=== PATIENT | male | born 1935 | race Caucasian/White ===

== ENCOUNTER 2020-06-23 08:12 | Outpatient (REF) | payer MEDICARE, SELFPAY | END 2020-06-23 08:13 | disposition home or self-care (01) | LOC: HO.BBR 08:12 | PROVIDERS: PCP Nurse Practitioner Family; Visit Provider Internal Medicine Hematology & Oncology | DX: E83.110 Hereditary hemochromatosis (principal) | CPT/HCPCS: 99195 ==

== ENCOUNTER 2020-07-15 16:14 | Outpatient (REF) | payer MEDICARE, SELFPAY | END 2020-07-15 16:15 | disposition home or self-care (01) | LOC: HO.LAB 16:14 | PROVIDERS: PCP Nurse Practitioner Family; Visit Provider Internal Medicine | DX: Z20.828 Contact with and (suspected) exposure to other viral communicable diseases (principal) | CPT/HCPCS: C9803; U0003 ==

== ENCOUNTER 2020-07-20 08:11 | Outpatient (REF) | payer MEDICARE, SELFPAY | END 2020-07-20 08:12 | disposition home or self-care (01) | LOC: HO.BBR 08:11 | PROVIDERS: Visit Provider Internal Medicine Hematology & Oncology | DX: Z13.89 Encounter for screening for other disorder (principal) ==

== ENCOUNTER 2020-08-17 08:21 | Outpatient (REF) | payer MEDICARE, SELFPAY | END 2020-08-17 08:22 | disposition home or self-care (01) | LOC: HO.BBR 08:21 | PROVIDERS: Visit Provider Internal Medicine Hematology & Oncology | DX: E83.110 Hereditary hemochromatosis (principal) | CPT/HCPCS: 36415 ==

== ENCOUNTER → 2020-09-20 10:39 | Outpatient (REF) | payer MEDICARE, SELFPAY ==
--- NOTE | 2020-09-20 10:30 | CA_ITS ---
Transthoracic Echocardiogram Patient (Last, First, Middle): Raad Dewitt W Gender: Male Date of : 1935 Age: 85 Procedure Date: 09/20/2020 Procedure Type: Transthoracic Echocardiogram Location: OP Height: 180.34 cm Weight: 102.06 kg BSA: 2.22 m2 Heart Rate: bpm BP: 128 / 80 mmHg Master Planner: Referring MD: Dawson Black MD Symptoms: AORTIC STENOSIS Study Quality: Fair ECG Rhythm: Sinus Conclusions: - The left ventricular systolic function is normal. The visually estimated ejection fraction is between 60-65%. - There is moderate aortic valve stenosis. Findings Left Ventricle Normal left ventricular cavity size. There is moderately increased left ventricular wall thickness. The left ventricular systolic function is normal. The visually estimated ejection fraction is between 60-65%. There is no evidence of regional wall motion abnormalities. E/E prime ratio is between 8 and 15 consistent with indeterminate filling pressures. Evidence suggests grade I (mild) diastolic dysfunction. Right Ventricle Normal right ventricular cavity size and systolic function. Atria Both atria are normal in size. Aortic Valve There is moderate calcification of the aortic valve. There is moderate aortic valve stenosis. The peak aortic velocity is 2.71 m/s with a calculated peak gradient of 29 mmHg. The mean gradient is 17 mmHg. The aortic valve area is 1.29 cm2. There is mild aortic valve regurgitation. Mitral Valve There is mild mitral annular calcification. There is trace mitral valve regurgitation. There is no mitral valve stenosis. Pulmonic Valve The pulmonic valve was not well visualized. Tricuspid Valve Normal tricuspid valve structure. There is trace tricuspid valve regurgitation. The pulmonary artery systolic pressure is normal. Great Vessels The aortic annulus and asc aorta are normal in size. Venous The inferior vena cava is normal in size and collapses greater than 50% with inspiration. Pericardium/Pleural There is no evidence of pericardial effusion. Prior Study Comparison No significant change compared to prior study dated: 06/06/2019. Measurements 2D Linear Measurements IVSd: 1.32 0.6-0.9/0.6-1.0 cm LVIDd: 3.26 3.9-5.3/4.2-5.9 cm LVIDd Index: 1.47 2.4-3.2/2.2-3.1 cm/m2 LVIDs: 1.84 2.0-3.6 cm LVPWd: 1.39 0.7-1.1 cm Ao Root: 2.90 2.1-3.5 cm LA Diam: 4.60 2.7-3.8/3.0-4.0 cm LAIDs Index: 2.07 1.5-2.3 cm/m2 LV Mass: 185.26 67-162/88-224 g LV Mass Index: 83.45 43-95/49-115 g/m2 LVOT Diam: 2.00 3.0+(-)1.3 cm 2D Systolic Function EF 4C: 64.40 >55% EF 2C: 57.10 >55% EF BiP: 60.10 >55% Mitral Valve MV Pk E: 0.80 MV PK A: 1.33 MV Decel Time: 190.00 E/A: 0.60 E'Lateral: 6.77 E'Medial: 6.67 E/E' Med: 12.00 E/E' Lat: 11.80 PHT: 56.00 MVA PHT: 3.93 Decel [place]: 4.21 Aortic Valve AoV Pk Perry: 2.71 AoV Mn Perry: 1.97 AoV VTI: 0.59 AoV Pk Grad: 29.00 Aov Mn Grad: 17.00 KARISSA Cont.VTI: 1.29 LVOT LVOT Pk Perry: 0.99 LVOT Mn Perry: 0.76 LVOT VTI: 0.24 LVOT Pk Grad: 4.00 LVOT Mn Grad: 3.00 LVOT Diam: 2.00 LVOT Area: 3.14 Diastolic Function MV Pk E: 0.80 MV Pk A: 1.33 E/A: 0.60 E'Medial: 6.67 E/E' Med: 12.00 E' Laterial: 6.77 E/E' Lat: 11.80 Tricuspid Valve TR Pk Perry: 1.99 TR Pk Grad: 16.00 RA Press: 3.00 RVSP: 19.00 Great Vessels Aorta Ao Root-2D: 2.90 2.0-3.7 cm Ao Asc: 3.50 2.1-3.4 cm Pulmonary Valve PV Pk Perry: 1.14 Peak PV Grad: 5.00 Updated in Other Vendor System with Status of Final Valdo Murphy MD electronically signed on 09/20/2020 4:57:04 PM with status of Final
== END ==
LOC: HO.CARD 10:39
PROVIDERS: Visit Provider Internal Medicine Interventional Cardiology
DX: I35.0 Nonrheumatic aortic (valve) stenosis (principal)
CPT/HCPCS: 93306

== ENCOUNTER 2020-09-22 09:33 | Outpatient (REF) | payer MEDICARE, SELFPAY | END 2020-09-22 09:34 | disposition home or self-care (01) | LOC: HO.BBR 09:33 | PROVIDERS: Visit Provider Internal Medicine Hematology & Oncology | DX: Z13.89 Encounter for screening for other disorder (principal) ==

== ENCOUNTER 2020-09-22 10:27 | Outpatient (REF) | payer SELFPAY ==
[2020-09-22 12:18] LABS: Cholesterol 173 mg/dL
== END 2020-09-22 10:28 | disposition home or self-care (01) ==
LOC: HO.LNC 10:27
PROVIDERS: Visit Provider Pathology Anatomic Pathology & Clinical Pathology
DX: Z13.89 Encounter for screening for other disorder (principal)
CPT/HCPCS: 36415; 82465

== ENCOUNTER 2021-01-10 10:53 | Outpatient (REF) | payer MEDICARE, SELFPAY ==
--- NOTE | ~2021-01-10 | CT_ITS ---
EXAMINATION: CT ABDOMEN AND PELVIS WITHOUT CONTRAST CLINICAL INFORMATION: Hematuria COMPARISON: None TECHNIQUE: Multidetector volumetric imaging was performed from the superior aspect of the liver through the pubic symphysis. Sagittal and coronal reformatted images were obtained on the technologist's workstation. This CT examination was performed using dose optimization techniques as appropriate, variously including the following: *Automated exposure control *Adjustment of mA and/or kV according to patient size (this includes techniques or standardized protocols for targeted exams where dose is matched to indication/reason for exam; i.e. extremities or head) *Use of iterative reconstruction technique DLP: 611 mGy-cm FINDINGS: LUNG BASES: The visualized lung bases are clear. There is a EXHAUST TENDER shunt catheter seen in the soft tissues of the right anterior chest wall. LIVER, GALLBLADDER, AND BILIARY TREE: The liver is normal in size, shape, and attenuation. No focal hepatic lesion or biliary ductal dilatation is present. The gallbladder is unremarkable with no evidence of radiopaque gallstones, gallbladder wall thickening, or obvious pericholecystic inflammatory changes. PANCREAS: Unremarkable. SPLEEN: Unremarkable. ADRENAL GLANDS: Unremarkable. KIDNEYS AND URETERS: The kidneys are normal in size, shape, and attenuation. No hydronephrosis, hydroureter, or calculi seen. No perinephric stranding. BLADDER: The bladder is not optimally distended. There is a small 3 mm calcification in the bladder near the right UVJ region suggestive of a stone. There is also question of a partially calcified 8 mm lesion arising from the right lateral bladder wall. GASTROINTESTINAL TRACT: There is diverticulosis of the colon. Small and large bowel is otherwise unremarkable. The appendix is not seen. The stomach is normal. The end of the EXHAUST TENDER shunt catheter is seen in the right side of the abdomen. ABDOMINAL WALL: There is a small umbilical hernia containing fat. LYMPH NODES: Normal. VASCULAR: Unremarkable. PELVIC VISCERA: The prostate gland is enlarged and measures 5 cm in AP and transverse dimension. OSSEOUS STRUCTURES: There are degenerative changes of the spine. CT/CT abdomen pelvis wo con IMPRESSION: 3 mm calcification in the bladder suggestive of a stone. Question partially calcified 8 mm lesion arising from the right lateral bladder wall. Appearance is concerning for neoplasm. Follow-up lateral ultrasound or a CT IVP could be considered. Enlarged prostate gland. Diverticulosis of the colon. No evidence of diverticulitis.
== END 2021-01-10 10:54 | disposition home or self-care (01) ==
LOC: HO.CT 10:53
PROVIDERS: PCP Nurse Practitioner Family; Visit Provider Nurse Practitioner Family
DX: R31.9 Hematuria, unspecified (principal)
CPT/HCPCS: 74176

== ENCOUNTER → 2021-01-28 13:31 | Outpatient (BNVA) | payer MEDICARE, OTHER, SELFPAY | PROVIDERS: PCP Nurse Practitioner Family; Visit Provider Urology | DX: Z13.89 Encounter for screening for other disorder (principal) | CPT/HCPCS: 99212 ==

== ENCOUNTER 2021-07-25 10:03 | Outpatient (REF) | payer MEDICARE, SELFPAY ==
--- NOTE | ~2021-07-25 | US_ITS ---
EXAMINATION: US RETROPERITONEAL LIMITED (RENAL ONLY) CLINICAL INFORMATION: Calculus of kidney COMPARISON: CT abdomen and pelvis 01/10/2021 TECHNIQUE: Real-time imaging of the kidneys. FINDINGS: RIGHT KIDNEY: 10.7 x 5.9 x 4.8 cm (SAG x AP x TRV). The kidney is normal in size, contour, and echogenicity. Renal cortical thickness is normal. No calculi or focal parenchymal lesions. No hydronephrosis. LEFT KIDNEY: 10.7 x 4.9 x 4.8 cm (SAG x AP x TRV). The kidney is normal in size, contour, and echogenicity. Renal cortical thickness is normal. No focal parenchymal lesions or hydronephrosis. There is an echogenic stone in the upper pole measuring 0.35 x 0.3 cm. There is no caliectasis. No additional lesions seen. US/US renal BI IMPRESSION: Small nonobstructive echogenic renal calculi upper pole left kidney. There is no caliectasis or hydronephrosis. No calculi was seen on the recent CT abdomen exam 01/10/2021.
== END 2021-07-25 10:04 | disposition home or self-care (01) ==
LOC: HO.US 10:03
PROVIDERS: PCP Nurse Practitioner Family; Visit Provider Urology
DX: N20.0 Calculus of kidney (principal)
CPT/HCPCS: 76775

== ENCOUNTER → 2021-08-02 13:24 | Outpatient (BNVA) | payer MEDICARE, SELFPAY | PROVIDERS: PCP Nurse Practitioner Family; Visit Provider Urology | DX: Z13.89 Encounter for screening for other disorder (principal) | CPT/HCPCS: Q3014 ==

== ENCOUNTER 2021-08-16 08:06 | Outpatient (REF) | payer MEDICARE, SELFPAY ==
[2021-08-16 08:55] LABS: COVID-19 Test Negative (Negative); IDNOW Serial# 16C4AD1C
== END 2021-08-16 08:07 | disposition home or self-care (01) ==
LOC: HO.LAB 08:06
PROVIDERS: PCP Nurse Practitioner Family; Visit Provider Internal Medicine
DX: Z20.822 Contact with and (suspected) exposure to COVID-19 (principal)
CPT/HCPCS: 36415; 87635; C9803

== ENCOUNTER 2021-11-10 09:13 | Outpatient (REF) | payer MEDICARE, SELFPAY | END 2021-11-10 09:14 | disposition home or self-care (01) | LOC: HO.BBR 09:13 | PROVIDERS: Visit Provider Internal Medicine | DX: D75.1 Secondary polycythemia (principal) | CPT/HCPCS: 85018; 99195 ==

== ENCOUNTER 2022-02-06 10:19 | Outpatient (REF) | payer MEDICARE, SELFPAY ==
--- NOTE | ~2022-02-06 | US_ITS ---
EXAMINATION: US RETROPERITONEAL LIMITED (RENAL ONLY) CLINICAL INFORMATION: Calculus of kidney. COMPARISON: US retroperitoneal limited (renal only) 07/25/2021. CT abdomen and pelvis without contrast 01/10/2021. TECHNIQUE: Real-time imaging of the kidneys. FINDINGS: RIGHT KIDNEY: 10.9 x 5.6 x 6.2 cm (SAG x AP x TRV). The kidney is normal in size, contour, and echogenicity. Renal cortical thickness is normal. No calculi or focal parenchymal lesions. No hydronephrosis. LEFT KIDNEY: 11.3 x 4.9 x 4.4 cm (SAG x AP x TRV). The kidney is normal in size, contour, and echogenicity. Renal cortical thickness is normal. No calculi or focal parenchymal lesions. No hydronephrosis. US/US renal BI IMPRESSION: Normal renal ultrasound.
== END 2022-02-06 10:20 | disposition home or self-care (01) ==
LOC: HO.US 10:19
PROVIDERS: PCP Nurse Practitioner Family; Visit Provider Urology
DX: N20.0 Calculus of kidney (principal)
CPT/HCPCS: 76775

== ENCOUNTER → 2022-02-16 09:16 | Outpatient (BNVA) | payer MEDICARE, SELFPAY | PROVIDERS: PCP Nurse Practitioner Family; Visit Provider Urology | DX: N40.1 Benign prostatic hyperplasia with lower urinary tract symptoms (principal); N13.8 Other obstructive and reflux uropathy; R31.0 Gross hematuria; N20.0 Calculus of kidney | CPT/HCPCS: 51798; 99212 ==

== ENCOUNTER → 2022-03-07 14:05 | Outpatient (BNVA) | payer MEDICARE, SELFPAY | PROVIDERS: PCP Nurse Practitioner Family; Visit Provider Urology | DX: C67.9 Malignant neoplasm of bladder, unspecified (principal); R31.0 Gross hematuria; N20.0 Calculus of kidney | CPT/HCPCS: 52000; 99212 ==

== ENCOUNTER 2022-03-13 08:56 | Outpatient (REF) | payer MEDICARE, SELFPAY | END 2022-03-13 08:57 | disposition home or self-care (01) | LOC: HO.BBR 08:56 | PROVIDERS: Visit Provider Internal Medicine | DX: D75.1 Secondary polycythemia (principal) | CPT/HCPCS: 85018; 99195 ==

== ENCOUNTER 2022-03-22 09:21 | Outpatient (REF) | payer MEDICARE, SELFPAY ==
--- NOTE | ~2022-03-22 | CT_ITS ---
EXAMINATION: CT ABDOMEN AND PELVIS WITHOUT AND WITH CONTRAST CLINICAL INFORMATION: Gross hematuria COMPARISON: Previous CT of the abdomen and pelvis December 2020 and renal ultrasound was recent January 2022 TECHNIQUE: Noncontrast CT of the abdomen and pelvis is performed followed by split bolus contrast-enhanced images using 85 mL Omnipaque 350 contrast.? Postcontrast imaging is performed during the combined nephrogram and excretion phase. Sagittal and coronal reformatted images were obtained on the technologist's workstation for both the precontrast and postcontrast phases. This CT examination was performed using dose optimization techniques as appropriate, variously including the following: *Automated exposure control *Adjustment of mA and/or kV according to patient size (this includes techniques or standardized protocols for targeted exams where dose is matched to indication/reason for exam; i.e. extremities or head) *Use of iterative reconstruction technique DLP: 916 mGy-cm FINDINGS: LUNG BASES: The visualized lung bases are unremarkable. LIVER, GALLBLADDER, AND BILIARY TREE: There is a 5 x 10 mm low-attenuation lesion in the liver axial image 14 series 8. This is difficult to characterize due to small size but unchanged from December 2020 exam suggesting benign liver lesion. PANCREAS: Unremarkable. SPLEEN: Unremarkable. ADRENAL GLANDS: Unremarkable. KIDNEYS AND URETERS: There is a small 2 mm stone in the upper pole of the right kidney. BLADDER: There is a 1.8 x 2.4 cm partially calcified mass along the right lateral bladder wall. The prostate gland is enlarged and protrudes into the base of the bladder. GASTROINTESTINAL TRACT: There is diverticulosis of the colon. Small and large bowel is otherwise unremarkable. The stomach is unremarkable. ABDOMINAL WALL: No significant hernia is appreciated. LYMPH NODES: There are prominent bilateral inguinal lymph nodes. No other adenopathy. No ascites. There is a catheter in the right side of the abdomen and lower anterior chest wall. Probably representing a PATIENT CONSUMER MARKETER shunt catheter. VASCULAR: There is evidence of atherosclerotic disease. PELVIC VISCERA: The prostate gland is enlarged and protrudes into the base of the bladder. The prostate gland measures 4.7 x 5.3 cm in AP and transverse dimension. OSSEUS STRUCTURES: There are degenerative changes of the spine and hip joints. CT/CT urogram IMPRESSION: 1.8 x 2.4 cm partially calcified mass along the right lateral bladder wall suggestive of neoplasm. Enlarged prostate gland that protrudes into the base of the bladder. Small nonobstructing right renal stone. Diverticulosis of the colon. 5 x 10 mm low-attenuation lesion difficult to characterize due to small size but stable from 2020 exam suggesting a benign liver lesion. Findings will be communicated by the [place] work flow medical transport specialist..
[2022-03-22] MEDS: iohexoL 350 MG/ML 100 ML INFUS..BTL 85 ML IV (10:34)
== END 2022-03-22 09:22 | disposition home or self-care (01) ==
LOC: HO.CT 09:21
PROVIDERS: PCP Nurse Practitioner Family; Visit Provider Urology
DX: R31.0 Gross hematuria (principal); C67.9 Malignant neoplasm of bladder, unspecified
CPT/HCPCS: 74178; Q9967

== ENCOUNTER → 2022-03-28 13:18 | Outpatient (BNVA) | payer MEDICARE, SELFPAY | PROVIDERS: PCP Nurse Practitioner Family; Visit Provider Urology | DX: C67.9 Malignant neoplasm of bladder, unspecified (principal) | CPT/HCPCS: Q3014 ==

== ENCOUNTER → 2022-04-27 10:26 | Outpatient (BNVA) | payer MEDICARE, SELFPAY | PROVIDERS: PCP Nurse Practitioner Family; Visit Provider Internal Medicine | DX: Z01.810 Encounter for preprocedural cardiovascular examination (principal); I35.0 Nonrheumatic aortic (valve) stenosis | CPT/HCPCS: 93005; 99202 ==

== ENCOUNTER → 2022-05-16 14:41 | Outpatient (REF) | payer MEDICARE, SELFPAY ==
--- NOTE | 2022-05-16 14:44 | CA_ITS ---
Transthoracic Echocardiogram Patient (Last, First, Middle): Raad Dewitt W Gender: Male Date of : 1935 Age: 86 Procedure Date: 05/16/2022 Procedure Type: Transthoracic Echocardiogram Location: OP Height: 180.34 cm Weight: 97.52 kg BSA: 2.17 m2 Heart Rate: 70 bpm BP: 160 / 78 mmHg Supervisor Calibration: SB Referring MD: Valdo Murphy MD Symptoms: I35.0 - Nonrheumatic aortic (valve) stenosis Study Quality: Adequate w contrast ECG Rhythm: Sinus Conclusions: - The left ventricular systolic function is normal. The calculated ejection fraction is 69% by biplane method - There is moderate aortic valve stenosis. Findings Procedure Information Contrast agent, definity, is being given per protocol without apparent complications. Left Ventricle Normal left ventricular cavity size. The left ventricular systolic function is normal. The calculated ejection fraction is 69% by biplane method. There is no evidence of regional wall motion abnormalities. Diastolic function is normal for age. There is mild septal asymmetric hypertrophy. Right Ventricle Normal right ventricular cavity size and systolic function. Atria Both atria are normal in size. Aortic Valve There is moderate calcification of the aortic valve. There is moderate aortic valve stenosis. The mean gradient is 24 mmHg. The aortic valve area is 1.28 cm2. There is no aortic valve regurgitation. Dimensionless index 0.28. Mitral Valve There is mild mitral annular calcification. There is no mitral valve regurgitation. There is no mitral valve stenosis. Pulmonic Valve The pulmonic valve is likely normal. Tricuspid Valve Normal tricuspid valve structure. There is trace tricuspid valve regurgitation. There is no evidence of pulmonary hypertension. Great Vessels The asc aorta is normal in size. Venous The inferior vena cava is normal in size and collapses less than 50% with inspiration. Pericardium/Pleural Very small pericardial effusion over the right atrium. Prior Study Comparison No significant change compared to prior study dated: 09/20/2020. Measurements 2D Linear Measurements IVSd: 1.15 0.6-0.9/0.6-1.0 cm LVIDd: 4.28 3.9-5.3/4.2-5.9 cm LVIDd Index: 1.97 2.4-3.2/2.2-3.1 cm/m2 LVIDs: 1.96 2.0-3.6 cm LVPWd: 1.01 0.7-1.1 cm LA Diam: 3.80 2.7-3.8/3.0-4.0 cm LAIDs Index: 1.75 1.5-2.3 cm/m2 LV Mass: 196.23 67-162/88-224 g LV Mass Index: 90.43 43-95/49-115 g/m2 LVOT Diam: 2.30 3.0+(-)1.3 cm 2D Systolic Function EF 4C: 64.50 >55% EF 2C: 72.70 >55% EF BiP: 68.80 >55% Mitral Valve MV Pk E: 0.70 MV PK A: 1.23 MV Decel Time: 283.00 E/A: 0.60 E'Lateral: 5.77 E'Medial: 4.57 E/E' Med: 15.40 E/E' Lat: 12.20 PHT: 83.00 MVA PHT: 2.65 Decel [place]: 2.49 Aortic Valve AoV Pk Perry: 3.36 AoV Mn Perry: 2.26 AoV VTI: 0.70 AoV Pk Grad: 45.00 Aov Mn Grad: 24.00 KARISSA Cont.VTI: 1.28 LVOT LVOT Pk Perry: 0.95 LVOT Mn Perry: 0.71 LVOT VTI: 0.22 LVOT Pk Grad: 4.00 LVOT Mn Grad: 3.00 LVOT Diam: 2.30 LVOT Area: 4.15 Diastolic Function MV Pk E: 0.70 MV Pk A: 1.23 E/A: 0.60 E'Medial: 4.57 E/E' Med: 15.40 E' Laterial: 5.77 E/E' Lat: 12.20 Right Ventricle TAPSE (mm): 20.30 TVS' Perry: 8.10 Tricuspid Valve RA Press: 8.00 Great Vessels Aorta Sinus of Valsalva: 3.30 2.0-3.5 cm Ao Asc: 3.60 2.1-3.4 cm Pulmonary Valve PV Pk Perry: 0.62 Peak PV Grad: 2.00 Updated in Other Vendor System with Status of Final Valdo Murphy MD electronically signed on 05/17/2022 10:03:36 AM with status of Final
== END ==
LOC: HO.CARD 14:41
PROVIDERS: PCP Nurse Practitioner Family; Visit Provider Internal Medicine
DX: I35.0 Nonrheumatic aortic (valve) stenosis (principal)
CPT/HCPCS: 93306; Q9957

== ENCOUNTER → 2022-05-24 14:05 | Outpatient (BNVA) | payer MEDICARE, SELFPAY | PROVIDERS: PCP Nurse Practitioner Family; Visit Provider Internal Medicine | DX: Z01.810 Encounter for preprocedural cardiovascular examination (principal); I35.0 Nonrheumatic aortic (valve) stenosis | CPT/HCPCS: 99212 ==

== ENCOUNTER → 2022-05-30 07:54 | Outpatient (REF) | payer MEDICARE, SELFPAY ==
--- NOTE | ~2022-05-30 | NM_ITS ---
Lexiscan Myocardial perfusion study Indication: Preoperative cardiac vascular evaluation, assess for ischemia Technique: The patient was brought in for a Lexiscan perfusion study on 05/29/2022 and was injected 0.4 mg of Lexiscan intravenously. Within a minute of this injection 35 mCi of sestamibi was given intravenously. Images were obtained using the SPECT gamma camera interlaced with the gating device. Images were obtained in supine position. Resting perfusion study was performed on 05/31/2022. Patient was administered 35 mCi of sestamibi intravenously at rest. Images were then obtained in supine position. Total DLP 167mGy-cm. Images were processed with the software and compared side to side in short axis, horizontal long axis and vertical long axis views. Findings: Raw acquisition reviewed. Arms by the patient's side. The stress perfusion study showed no significant perfusion abnormality. Both uncorrected as well as CT attenuation corrected images were reviewed. The gated study shows normal LV systolic function with calculated LVEF of 63%. LV cavity is normal in size. The gated study shows normal wall thickening and contraction of segments. Resting study shows diminished tracer uptake along the inferior wall. There is significant improvement with CT attenuation correction suggestive of diaphragmatic attenuation artifact. Gating at rest reveals normal wall motion with ejection fraction at 67%. The findings are consistent with no clear reversible or fixed perfusion defects. NM/NM jorge luis perf SPECT rest & str Impression: 1. Myocardial perfusion imaging study shows likely normal myocardial perfusion. No definitive evidence of any ischemia or infarction. 2. Gated LVEF is 63% during stress and 67% during rest. 3. Transient ischemic dilatation not present. EKG component of the test reported separately.
--- NOTE | 2022-05-30 07:58 | CA_ITS ---
Acquisition Time: 2022-05-30 08:19:45 Total Exercise Time: 00:02:00 Test Indications: PREOP Medications: NONE Protocol: LEXISCAN Max HR: 099 BPM 73% of Pred: 134 BPM Max BP: 148/078 mmHG Max Work Load: 1.0 METS Pharmacological stress test with Lexican injection, while sitting and kicking his legs, without anginal symptoms, with isolated PACs, with normotensive response to injection, with nondiagnostic EKG for ischemia. In later recovery he reported a residual lightheadedness that was treated with Aminophylline 75mg IVP to reverse Lexiscan with improvement in symptom. Nuclear images pending. Test reviewed with Dr Webster. Referred By: Valdo Murphy Overread By: VIRGINIA NARANJO
== END ==
LOC: HO.CARD 07:54
PROVIDERS: Visit Provider Internal Medicine
DX: Z01.810 Encounter for preprocedural cardiovascular examination (principal)
CPT/HCPCS: 78452; 93017; A9500; J0280; J2785

== ENCOUNTER → 2022-06-20 14:58 | Outpatient (BNVA) | payer MEDICARE, SELFPAY | PROVIDERS: PCP Nurse Practitioner Family; Visit Provider Urology | DX: C67.9 Malignant neoplasm of bladder, unspecified (principal) | CPT/HCPCS: Q3014 ==

== ENCOUNTER 2022-07-10 10:06 | Day surgery (SDC) | payer MEDICARE, SELFPAY ==
[2022-07-03 15:39] VITALS: BMI 30.7
[2022-07-04 10:06] VITALS: BMI 29.9
--- NOTE | 2022-07-04 14:07 | HO.ANESPROP2 ---
Documented by User: Amanda Thompson NP 07/04/22 14:11 HPI - Anesthesia Eval Consult details Narrative: 86yo M for Bilateral TUR Bladder Tumor with bilateral retrogrades and Gemcitabine Cardiac cleared Hydrocephalus with CASKET COVERER shunt in situ PMFSH Active Problems Active Problems: All Active Problems (Updated 06/05/22 @ 10:58 by Jl Huber, [facility]) Vitamin B12 deficiency (Acute) Hematuria (Acute) Nephrolithiasis (Acute) BPH w urinary obs/LUTS (Acute) Polycythemia (Chronic) Diabetes mellitus with neuropathy (Acute) Gross hematuria (Acute) Bladder cancer (Acute) Pre-operative clearance (Acute) Non-rheumatic aortic stenosis (Acute) Preoperative cardiovascular examination (Acute) Diabetes (Acute) Past Medical History Medical History Aortic stenosis BCC (basal cell carcinoma) Depression Hemochromatosis Hydrocephalus Mitral valve insufficiency Neuropathy Tricuspid valve insufficiency Venous insufficiency Venous stasis Family History Family History Father Prostate cancer Mother CHF (congestive heart failure) Brother Prostate cancer Heart attack Hemochromatosis Daughter No problems noted. Daughter No problems noted. Surgical History Surgical History History of appendectomy History of brain surgery History of tonsillectomy History of total right knee replacement History of total right knee replacement (TKR) History of vein stripping CASKET COVERER (ventriculoperitoneal) shunt status Social History Social History Household Members: None Housing: House Are you a primary healthcare architect to a significant other at home: No Do you presently have visiting nurse or other home services: Yes (daily Meals on Wheels, very supportive Daughter Funmi and Son-in-law Raad) Alcohol intake: current Alcohol intake frequency: 0-2 drinks per day Alcohol type: other Patient Tobacco Use Status: Never used Tobacco e-Cigarette/Vaping Use: Never Used Second Hand Smoke Exposure: No Use of substances other than those prescribed or required for medical reasons: Yes Substance Use Type: Marijuana Substance Use Type Other:: vapes marijuana for peripheral neuropathy pain Substance Use Frequency: Weekly Are you DNR?: No Advance Directives: Yes Advance Directives Information Provided: No Advance Directives on File: Yes Advance Directives Date on File: 03/22/22 Recently lost weight without trying: No Nutrition Risks: No Nutritional Risk Poor oral hygiene: No service: Yes Current occupational status: retired Cognitive needs: No Hearing needs: No Vision needs: No Meds Allergies Allergy/AdvReac Type Severity Reaction Status Date / Time hydrocortisone [Cortizone-10] Allergy Unknown hives Verified 06/15/22 10:32 Home Medications Medication Instructions Recorded Confirmed Last Taken Type cholecalciferol (vitamin D3) 25 25 mcg PO DAILY 06/22/20 07/04/22 07/10/22 History mcg (1,000 unit) capsule mecobalamin (vitamin B12) 1,000 1,000 mcg PO DAILY 06/22/20 07/04/22 07/10/22 History mcg chewable tablet thiamine HCl (vitamin B1) 100 mg 100 mg PO DAILY 12/28/20 07/04/22 07/10/22 History tablet ibuprofen 200 mg PO Q6-8H PRN Pain (Scale 03/01/22 07/04/22 07/02/22 History Score 4-6) aspirin 81 mg chewable tablet 81 mg PO DAILY 07/04/22 07/04/22 07/02/22 History Exam Exam Date and Time: July 04, 2022 1407 Height,Weight and Vital Signs: Height 5 ft 11 in Weight 97.522 kg Pertinent Lab Results Pertinent Lab Results: Laboratory Tests 03/01/22 03/01/22 09:08 09:08 WBC 9.4 Hgb 17.5 Hct 53.4 H Plt Count 161 Sodium 141 Potassium 4.6 Chloride 110 H Carbon Dioxide 23 BUN 14 Creatinine 1.00 Narrative Narrative: EKG 04/2022 sinus rhythm at 85/Min; premature ventricular complexes; right bundle-branch block pattern. ECHO 04/2022 Conclusions: - The left ventricular systolic function is normal.? The ? calculated ejection fraction is 69% by biplane method? - There is moderate aortic valve stenosis. ? NM jorge luis perf SPECT rest & str 05/2022 Impression: ? 1.? Myocardial perfusion imaging study shows likely normal myocardial perfusion. No definitive evidence of any ischemia or infarction. 2.? Gated LVEF is 63% during stress and 67% during rest. 3. Transient ischemic dilatation not present. ? EKG component of the test reported separately. Assessment and Plan Assessment Anesthesia Assessment: Chart Reviewed Documented by User: Rinku Umana MD 07/10/22 11:48 PMFSH Past Medical History Medical History Aortic stenosis BCC (basal cell carcinoma) Depression Hemochromatosis Hydrocephalus Mitral valve insufficiency Neuropathy Tricuspid valve insufficiency Venous insufficiency Venous stasis Family History Family History Father Prostate cancer Mother CHF (congestive heart failure) Brother Prostate cancer Heart attack Hemochromatosis Daughter No problems noted. Daughter No problems noted. Family history of problems with anesthesia: No Surgical History Surgical History History of appendectomy History of brain surgery History of tonsillectomy History of total right knee replacement History of total right knee replacement (TKR) History of vein stripping CASKET COVERER (ventriculoperitoneal) shunt status History of Problems with Anesthesia: No Social History Social History Household Members: None Housing: House Are you a primary healthcare architect to a significant other at home: No Do you presently have visiting nurse or other home services: Yes (daily Meals on Wheels, very supportive Daughter Funmi and Son-in-law Raad) Alcohol intake: current Alcohol intake frequency: 0-2 drinks per day Alcohol type: other Patient Tobacco Use Status: Never used Tobacco e-Cigarette/Vaping Use: Never Used Second Hand Smoke Exposure: No Use of substances other than those prescribed or required for medical reasons: Yes Substance Use Type: Marijuana Substance Use Type Other:: vapes marijuana for peripheral neuropathy pain Substance Use Frequency: Weekly Are you DNR?: No Advance Directives: Yes Advance Directives Information Provided: No Advance Directives on File: Yes Advance Directives Date on File: 03/22/22 Recently lost weight without trying: No Nutrition Risks: No Nutritional Risk Poor oral hygiene: No service: Yes Current occupational status: retired Cognitive needs: No Hearing needs: No Vision needs: No Meds Allergies Allergy/AdvReac Type Severity Reaction Status Date / Time hydrocortisone [Cortizone-10] Allergy Unknown hives Verified 06/15/22 10:32 Home Medications Medication Instructions Recorded Confirmed Last Taken Type cholecalciferol (vitamin D3) 25 25 mcg PO DAILY 06/22/20 07/04/22 07/10/22 History mcg (1,000 unit) capsule mecobalamin (vitamin B12) 1,000 1,000 mcg PO DAILY 06/22/20 07/04/22 07/10/22 History mcg chewable tablet thiamine HCl (vitamin B1) 100 mg 100 mg PO DAILY 12/28/20 07/04/22 07/10/22 History tablet ibuprofen 200 mg PO Q6-8H PRN Pain (Scale 03/01/22 07/04/22 07/02/22 History Score 4-6) aspirin 81 mg chewable tablet 81 mg PO DAILY 07/04/22 07/04/22 07/02/22 History Exam Airway Mallampati Class: III TM Dist: >3cm Neck ROM: Full Loose/Missing/Broken Teeth: No Heart: rrr with 2 out of 6 systolic murmur Lungs: clear Assessment and Plan Final Anesthetic Review Family History of Problems with Anesthesia: No History of Problems with Anesthesia: No NPO: Yes ASA Class: III Final Preanesthetic Review: No Changes in Pt Med Stat, Meds/Allgs Chart Reviewed, Consent Obtained/Reviewed and Anes Risks/Benef Reviewed Patient Risk: Intermediate Procedure Risk: Low Anesthetic Plan Anesthetic Plan: GA Disposition: Standard PACU
[2022-07-10] VITALS (10 sets, daily range): BP systolic 115–179; BP diastolic 80–92; PULSE 64–83; RESP 8–18; TEMP 36.1–36.6; O2SAT 96–99
--- NOTE | ~2022-07-10 | FL_ITS ---
EXAMINATION: XR FLUOROSCOPY WITH IMAGES CLINICAL INFORMATION: Bladder tumor COMPARISON: CT urography 03/22/2022 TECHNIQUE: Fluoroscopy Supervised By: Dr. Duane Lindsay. Fluoroscopy Time: 25 seconds. Cumulative Dose: 12.29 mGy. Images: 2. FINDINGS: There is contrast in the left and right collecting system and ureters. No hydronephrosis or caliectasis. No appreciable filling defect or stricture. FL/FL guidance in OR IMPRESSION: Fluoroscopy for urologic procedures.
[2022-07-10] MEDS: Lactated Ringers 1,000 ML 100 ML IVCONT (10:48)
--- NOTE | 2022-07-10 10:50 | PC.NURSE ---
dr gonzalez aware of patients daughter concerns will speak to daughter after surgery
--- NOTE | 2022-07-10 11:42 | MHC.SHP ---
Pre-Procedural Eval Section A Date of Service: 07/10/22 The patient is an INPATIENT: No Changes since office visit: No Cold of Flu in the past 2 weeks, No New Medical Problems, No Changes in Medication and No Patient answered all questions The History & Physical has been completed within 30 days and I have reviewed it.: Yes Section B Chief Complaint: Malignant neoplasm of bladder, unspecified Allergies: Allergies Allergy/AdvReac Type Severity Reaction Status Date / Time hydrocortisone [Cortizone-10] Allergy Unknown hives Verified 06/15/22 10:32 Plan I have reviewed the history and physical and performed a pertinent physical examination on my patient. No changes have occurred unless specified.
--- NOTE | 2022-07-10 11:44 | PC.NURSE ---
Addendum entered by Marium Leal RN 07/10/22 11:50: daughter also concern pt unsteady walking Original Note: spoke to daughter concerned pt lives alone noone to be with patient after surgery dr gonzalez
--- NOTE | 2022-07-10 12:56 | P.OP_ITS ---
Operative Note Operative Note Date of Service: 07/10/22 Narrative: PreOperative Diagnosis: bladder cancer Post Operative Diagnosis: bladder cancer Procedure: 1) Bilateral retrogrades 2) TURBT large 3)Gemcitabine installation Surgeon: Dr Duane Lindsay Anesthesia: general Indications for procedure: 2cm lesion on right side wall on imaging for hematuria Procedure: After informed consent was verified the patient was brought to the operating room and placed in a supine position. Anesthesia was administered per protocol. The patient was placed in a modified dorsal lithotomy position and prepped and draped in a sterile fashion. Safety pause time-out was performed. Antibiotics were confirmed. 24 samoan cystoscope inserted. Large lesion seen on right side wall. Retrogrades performed - no upper tract filling defects seen A 26 Panamanian continuous flow resectoscope was inserted per urethra. The visual obturator was used in order to minimize potential for urethral damage. Large lesion on right side wall. 2cm central lesion with satellite changes to mucosa extending for 2cm circumferentially. Lesion looked to be extending into submucosal area - cT1b Area resected then controlled with cautery NBI used with examinaton of bladder under NBI - no visible additional lesions seen. At the completion of the procedure the bladder was irrigated. The cystoscope was removed. A [address] Hebert catheter was inserted into the bladder. 10 cc was placed in the balloon. 2 g of gemcitabine in 100 cc of normal saline was instilled into the bladder. The flow from the catheter was left clamped. The inflow to the catheter was attached to a 3 L normal saline bag. The patient tolerated the procedure well. They were extubated in the operating room and transferred in stable condition to the recovery area. Gemcitabine will remain in the bladder for 1 hour. At the completion of 1 hour the clamp will be removed. The gemcitabine will be allowed to egress to the urine collection bag. The 3 L bag of normal saline will be run at maximum rate through the bladder in order to dilute any residual gemcitabine. The Hebert catheter will then be removed. Pathology: Bladder tumor Drains: 3 way hebert
== END 2022-07-10 15:50 | disposition home or self-care (01) ==
PROVIDERS: PCP Nurse Practitioner Family; Visit Provider Urology
PROC: 0TBB8ZZ Excision of Bladder, Via Natural or Artificial Opening Endoscopic (ICD-10-PCS; CPT 52240; principal; 2022-07-10 14:10)
DX: C67.9 Malignant neoplasm of bladder, unspecified (principal); E83.119 Hemochromatosis, unspecified; E11.9 Type 2 diabetes mellitus without complications; G91.9 Hydrocephalus, unspecified; Z98.2 Presence of cerebrospinal fluid drainage device; F32.A Depression, unspecified; I87.2 Venous insufficiency (chronic) (peripheral); Z79.82 Long term (current) use of aspirin; Z79.899 Other long term (current) drug therapy; Z88.8 Allergy status to other drugs, medicaments and biological substances; Z98.890 Other specified postprocedural states; F12.90 Cannabis use, unspecified, uncomplicated
CPT/HCPCS: 52240; 51720; 52005; 88307; C1758; J1100; J1956; J2405; J3010; J9201

== ENCOUNTER 2022-07-19 09:02 | Outpatient (REF) | payer MEDICARE, SELFPAY | END 2022-07-19 09:03 | disposition home or self-care (01) | LOC: HO.BBR 09:02 | PROVIDERS: Visit Provider Internal Medicine | DX: D75.1 Secondary polycythemia (principal) | CPT/HCPCS: 85018; 99195 ==

== ENCOUNTER → 2022-07-25 11:29 | Outpatient (BNVA) | payer MEDICARE, SELFPAY | PROVIDERS: PCP Nurse Practitioner Family; Visit Provider Urology | DX: C67.9 Malignant neoplasm of bladder, unspecified (principal); N20.0 Calculus of kidney | CPT/HCPCS: 99212 ==

== ENCOUNTER → 2022-10-17 11:04 | Outpatient (BNVA) | payer MEDICARE, SELFPAY | PROVIDERS: PCP Nurse Practitioner Family; Visit Provider Urology | DX: C67.9 Malignant neoplasm of bladder, unspecified (principal) | CPT/HCPCS: 52000; 99212 ==

== ENCOUNTER → 2022-11-21 13:45 | Outpatient (BNVA) | payer MEDICARE, SELFPAY | PROVIDERS: PCP Nurse Practitioner Family; Referring Provider Nurse Practitioner Family; Visit Provider Internal Medicine | DX: I35.0 Nonrheumatic aortic (valve) stenosis (principal) | CPT/HCPCS: 99212 ==

== ENCOUNTER → 2023-01-24 09:03 | Outpatient (BNVA) | payer MEDICARE, SELFPAY | PROVIDERS: PCP Nurse Practitioner Family; Visit Provider Urology | DX: R31.9 Hematuria, unspecified (principal); C67.9 Malignant neoplasm of bladder, unspecified; N20.0 Calculus of kidney | CPT/HCPCS: 51701; 52000; 99212 ==

== ENCOUNTER 2023-01-24 16:59 | Outpatient (REF) | payer MEDICARE, SELFPAY | END 2023-01-24 17:00 | disposition home or self-care (01) | LOC: HO.LNP 16:59 | PROVIDERS: Visit Provider Urology | DX: Z13.89 Encounter for screening for other disorder (principal) ==

== ENCOUNTER 2023-03-12 11:10 | Outpatient (REF) | payer MEDICARE, SELFPAY | END 2023-03-12 11:11 | disposition home or self-care (01) | LOC: HO.BBR 11:10 | PROVIDERS: Visit Provider Internal Medicine | DX: Z13.89 Encounter for screening for other disorder (principal) ==

== ENCOUNTER 2023-04-26 09:03 | Outpatient (AMB) | payer MEDICARE, SELFPAY ==
--- NOTE | 2023-04-26 09:09 | MHC.OFFVIS ---
Intake Intake Visit Reasons: cysto Allergies hydrocortisone [Cortizone-10] Allergy (Unknown, Verified 02/23/23 10:19) hives HPI HPI Comments History of Present Illness Details Raad is a pleasant male. He is a patient of Dr. Lester. He is seen for following urologic conditions - lower urinary tract symptoms - nephrolithiasis - erectile dysfunction Had been at [place] in the early At cystoscopy today area on sidewall slowly healing Continue surveillance for minimum of 2 years with expected bladder treatment every 6 months Here for check cystoscopy - no evidence of disease Completed boost 3 months ago Three month follow-up check cystoscopy Bladder cancer TURBT 07/18 high-grade noninvasive Initial therapy TURBT with bladder therapy - TURBT 07/18, 08/18 6 week induction gemcitabine, 02/16 boost Cystoscopy - 10/19 slowly healing right sidewall Interventions - TURBT 07/18 Tumor site: Right side wall Histologic type: Papillary urothelial carcinoma, noninvasive Histologic grade: High-grade Muscularis propria: Not identified Extent of invasion: Non-invasive papillary carcinoma Imaging - 07/18 CT urogram 1.8 cm bladder mass Workplace exposure - [place] in the early , sign pain to using oil only no volatile organics Smoking history - nonsmoker Lower urinary tract symptoms GreenLight laser prostate performed 2019 Had been able to come off medications Nocturia x1 Nephrolithiasis Passage of stone mid 2020 right side Imaging - 01/14 CT scan distal right ureteric stone mild hydronephrosis 3 mm - 07/17 renal ultrasound 3 mm left stone - 02/15 renal ultrasound no stones - 02/15 CT urogram Continue with B6 and imaging PFSH Medical History Aortic stenosis BCC (basal cell carcinoma) Depression Hemochromatosis Hydrocephalus Mitral valve insufficiency Neuropathy Tricuspid valve insufficiency Venous insufficiency Venous stasis Surgical History History of appendectomy History of brain surgery History of tonsillectomy History of total right knee replacement History of total right knee replacement (TKR) History of vein stripping 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 Daughter No problems noted. Social History Household Members: None Housing: House Are you a primary child daycare worker to a significant other at home: No Do you presently have visiting nurse or other home services: Yes (daily Meals on Wheels, very supportive Daughter Funmi and Son-in-law Raad) Alcohol intake: current Alcohol intake frequency: 0-2 drinks per day Alcohol type: other Patient Tobacco Use Status: Never used Tobacco e-Cigarette/Vaping Use: Never Used Second Hand Smoke Exposure: No Substance Use Type: Marijuana Advance Directives Date on File: 03/22/22 service: Yes Current occupational status: retired Cognitive needs: No Hearing needs: No Vision needs: Yes Office Procedures Cystoscopy Consent Discussed risk and benefit or proposed procedure with the patient. Information consent for procedure given to the patient. Discussed technical aspects, risks, benefits and alternatives in full. Addressed all of the patient's questions and concerns regarding the procedure. The patient demonstrated knowledge and understanding. They wish to proceed with this procedure. Preparation The patient was prepped in the usual manner. A golf course manager was present and in the room. Genitalia was prepped with betadine solution in a sterile manner. Lidocaine Jelly 2% was placed into the urethra and 16Fr flexible Olympus cystoscope was inserted into the meatus after adequate lubrication. Procedure Meatus circumcised Urethra anterior posterior urethra normal Prostatic Urethra unremarkable Bladder examination with retroflexion of cystoscope Bladder Orifices normal shape and position Bladder Capacity medium Trabeculations grade 2 Cellule Formation - Diverticulum Formation - Mucosal Erythema - Bladder Tumor - 55184-[id number] DISPOSABLE SCOPE URO-G FLEXIBLE SCOPE Procedure code (CPT) selection complete Office Meds lidocaine HCl Performing Provider: Duane Lindsay MD Administered by: Savannah Power RN on 04/26/23 09:10 Dose Route Admin Location Lot Number Expiration Date [facility] Slurry Tank Tender 10 mL intra-urethral nitrofurantoin monohyd/m-cryst 100 mg Performing Provider: Duane Lnidsay MD Administered by: Savannah Power RN on 04/26/23 09:10 Dose Route Admin Location Lot Number Expiration Date [facility] Slurry Tank Tender 100 mg PO naproxen Performing Provider: Duane Lindsay MD Administered by: Savannah Power RN on 04/26/23 09:10 Dose Route Admin Location Lot Number Expiration Date [facility] Slurry Tank Tender 500 mg PO Assessment & Plan Assessment & Plan (1) Nephrolithiasis: Code(s): N20.0 - Calculus of kidney (2) BPH w urinary obs/LUTS: Code(s): N40.1 - Benign prostatic hyperplasia with lower urinary tract symptoms; N13.8 - Other obstructive and reflux uropathy (3) Bladder cancer: Comment: 02/15 superficial right base Code(s): C67.9 - Malignant neoplasm of bladder, unspecified Plan Three month follow-up check cystoscopy Orders: Orders AMB Cystoscopy Today C67.9 - Malignant neoplasm of bladder, unspecified US renal BI 3 Months N20.0 - Calculus of kidney Patient Instructions: Imaging studies, laboratory and physical exam results were discussed and reviewed in detail. No major barriers to patient understanding were identified. An opportunity to ask questions regarding the treatment plan was provided. All questions were answered. The patient expressed understanding and agreement with the above treatment plan. The patient is aware they should contact our office by phone for worsening of their current condition or the appearance of new urologic symptoms. Compliance is encouraged with any medications and followup testing that is ordered. It is a privilege to participate in the urologic care of your patient. If you have any questions or concerns regarding treatment for the above conditions, or other urologic issues, please do not hesitate to contact me. The office telephone contact is [phone]. This note is constructed using voice recognition software. While every effort has been made to ensure accuracy hyster machine operator errors may have been included. Yours sincerely, Dr Duane Lindsay MD, [facility] - Urology Providers of Expert, Compassionate Care for the Genitourinary System Coding Level of Care Code Est Pt Level 3 (48466) Diagnoses Nephrolithiasis N20.0 BPH w urinary obs/LUTS N40.1; N13.8 Bladder cancer C67.9 CPT Codes Cystoscopy - CPT: 32153-[id number] ([id number]) Cystoscopy - CPT: DISPOSABLE SCOPE URO-G FLEXIBLE SCOPE ([id number])
== END 2023-04-26 09:44 | disposition home or self-care (01) ==
PROVIDERS: PCP Nurse Practitioner Family; Visit Provider Urology
DX: N20.0 Calculus of kidney (principal); N40.1 Benign prostatic hyperplasia with lower urinary tract symptoms; N13.8 Other obstructive and reflux uropathy; C67.2 Malignant neoplasm of lateral wall of bladder
CPT/HCPCS: 52000; 99213

== ENCOUNTER → 2023-04-26 09:03 | Outpatient (BNVA) | payer MEDICARE, SELFPAY | PROVIDERS: Visit Provider Urology | DX: N40.1 Benign prostatic hyperplasia with lower urinary tract symptoms (principal); N13.8 Other obstructive and reflux uropathy; C67.9 Malignant neoplasm of bladder, unspecified; Z87.442 Personal history of urinary calculi | CPT/HCPCS: 52000; 99212; C1747 ==

== ENCOUNTER → 2023-05-11 14:52 | Outpatient (REF) | payer MEDICARE, SELFPAY ==
--- NOTE | 2023-05-11 15:05 | CA_ITS ---
Transthoracic Echocardiogram Patient (Last, First, Middle): Raad Dewitt W Gender: Male Date of : 1935 Age: 87 Procedure Date: 05/11/2023 Procedure Type: Transthoracic Echocardiogram Location: OP Height: 180.34 cm Weight: 93.44 kg BSA: 2.14 m2 Heart Rate: bpm BP: 140 / 78 mmHg Transporter Driver: Referring MD: Valdo Murphy MD Symptoms: I35.0 - Nonrheumatic aortic (valve) stenosis Study Quality: Adequate ECG Rhythm: Sinus Conclusions: - The left ventricular systolic function is hyperdynamic. The visually estimated ejection fraction is >70%. - There is moderate aortic valve stenosis. Findings Left Ventricle Normal left ventricular cavity size. There is moderately increased left ventricular wall thickness. The left ventricular systolic function is hyperdynamic. The visually estimated ejection fraction is >70%. There is no evidence of regional wall motion abnormalities. Evidence suggests grade I (mild) diastolic dysfunction. Atria Both atria are normal in size. Aortic Valve There is severe calcification of the aortic valve. There is moderate aortic valve stenosis. The peak aortic velocity is 3.96 m/s with a calculated peak gradient of 63 mmHg. The mean gradient is 40 mmHg. The aortic valve area is 1.16 cm2. There is no aortic valve regurgitation. Increased gradients partly due to high stroke volume. Mitral Valve There is moderate mitral annular calcification. There is no mitral valve regurgitation. There is no mitral valve stenosis. Pulmonic Valve The pulmonic valve is likely normal. Tricuspid Valve Normal tricuspid valve structure. There is trace tricuspid valve regurgitation. There is no evidence of pulmonary hypertension. Great Vessels The sinuses of valsalva and asc aorta are normal in size. Venous The inferior vena cava is normal in size and collapses greater than 50% with inspiration. Pericardium/Pleural There is no evidence of pericardial effusion. Prior Study Comparison Changes noted compared to prior study dated: 05/16/2022. Slight progression of aortic stenosis. Measurements 2D Linear Measurements IVSd: 1.38 0.6-0.9/0.6-1.0 cm LVIDd: 3.39 3.9-5.3/4.2-5.9 cm LVIDd Index: 1.58 2.4-3.2/2.2-3.1 cm/m2 LVIDs: 1.95 2.0-3.6 cm LVPWd: 1.31 0.7-1.1 cm Ao Root: 3.50 2.1-3.5 cm LA Diam: 4.70 2.7-3.8/3.0-4.0 cm LAIDs Index: 2.20 1.5-2.3 cm/m2 LV Mass: 193.23 67-162/88-224 g LV Mass Index: 90.29 43-95/49-115 g/m2 LVOT Diam: 2.20 3.0+(-)1.3 cm 2D Systolic Function EF 4C: 77.70 >55% EF 2C: 62.60 >55% EF BiP: 72.30 >55% Mitral Valve MV VTI: 0.32 MV Pk Perry: 1.23 MV Mn Perry: 0.71 MV Pk Grad: 6.00 MV Mn Grad: 2.00 MV Pk E: 0.78 MV PK A: 1.34 MV Decel Time: 229.00 E/A: 0.60 E'Lateral: 4.57 E'Medial: 3.81 E/E' Med: 20.50 E/E' Lat: 17.10 PHT: 67.00 MVA PHT: 3.28 MVA Continuity: 3.48 Decel [place]: 3.40 Aortic Valve AoV Pk Prery: 3.96 AoV Mn Perry: 2.98 AoV VTI: 0.97 AoV Pk Grad: 63.00 Aov Mn Grad: 40.00 KARISSA Cont.VTI: 1.16 LVOT LVOT Pk Perry: 1.14 LVOT Mn Perry: 0.84 LVOT VTI: 0.29 LVOT Pk Grad: 5.00 LVOT Mn Grad: 3.00 LVOT Diam: 2.20 LVOT Area: 3.80 Diastolic Function MV Pk E: 0.78 MV Pk A: 1.34 E/A: 0.60 E'Medial: 3.81 E/E' Med: 20.50 E' Laterial: 4.57 E/E' Lat: 17.10 Right Ventricle TAPSE (mm): 31.00 TVS' Perry: 15.00 Tricuspid Valve TR Pk Perry: 2.06 TR Pk Grad: 17.00 RA Press: 3.00 RVSP: 20.00 Great Vessels Aorta Ao Root-2D: 3.50 2.0-3.7 cm Ao Asc: 3.60 2.1-3.4 cm Updated in Other Vendor System with Status of Final Valdo Murphy MD electronically signed on 05/12/2023 1:39:00 PM with status of Final
== END ==
LOC: HO.CARD 14:52
PROVIDERS: PCP Nurse Practitioner Family; Visit Provider Internal Medicine
DX: I35.0 Nonrheumatic aortic (valve) stenosis (principal)
CPT/HCPCS: 93306

== ENCOUNTER → 2023-05-11 15:05 | Outpatient (BNV) | payer MEDICARE, SELFPAY | PROVIDERS: PCP Nurse Practitioner Family; Visit Provider Internal Medicine | DX: I35.0 Nonrheumatic aortic (valve) stenosis (principal) | CPT/HCPCS: 93306 ==

== ENCOUNTER 2023-05-23 08:56 | Outpatient (AMB) | payer MEDICARE, SELFPAY ==
--- NOTE | 2023-05-23 09:02 | A.OFFVIS_ITS ---
Intake Vital Signs 05/23/23 09:03 Height 5 ft 11 in BMI Reason not done Patient refused/unable BP 144/78 H Blood Pressure Location Lt brachial Position Sitting Pulse 78 Intake Visit Reasons: 1 yr f/u with an echo Intake Note: 1 year follow up w/ EKG Digital Advertising Analyst Required: No Accompanied by: son in law Allergies hydrocortisone [Cortizone-10] Allergy (Unknown, Verified 05/23/23 09:02) hives Medication List - Last Reconciled 05/23/23 by Valdo Murphy MD cholecalciferol (vitamin D3) 25 mcg PO DAILY garlic 100 mg PO DAILY [ibuprofen 200 mg PO Q6-8H PRN] mecobalamin (vitamin B12) 1,000 mcg PO DAILY pyridoxine (vitamin B6) 500 mg PO DAILY thiamine HCl (vitamin B1) 100 mg PO DAILY HPI HPI Comments History of Present Illness Details Raad returns for follow-up. Originally seen in consultation regarding preoperative stratification for bladder surgery. Echocardiogram had shown aortic stenosis but not severe. Perfusion imaging was unremarkable. Subsequently, it seems he underwent urology procedure without any issues. Overall, he is doing okay from cardiac. No complaints like angina or shortness of breath or dizzy spells or syncopal episodes. He states there are issues with walking, gait concerns but nothing specifically for cardiac. He thinks it might be related to hydrocephalus. He has had surgery for that in the past. He comes in a wheelchair. 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 Daughter No problems noted. Social History Household Members: None Housing: House Are you a primary acute care clinical nurse specialist to a significant other at home: No Do you presently have visiting nurse or other home services: Yes (daily Meals on Wheels, very supportive Daughter Funmi and Son-in-law Raad) Alcohol intake: current Alcohol intake frequency: 0-2 drinks per day Alcohol type: other Patient Tobacco Use Status: Never used Tobacco e-Cigarette/Vaping Use: Never Used Second Hand Smoke Exposure: No Substance Use Type: Marijuana Advance Directives Date on File: 03/22/22 service: Yes Current occupational status: retired Cognitive needs: No Hearing needs: No Vision needs: Yes Review of Systems Const Denies weakness ENT Denies dizziness Card Denies chest pain, Denies chest pain with activity, Denies syncope, Denies rapid heart rate, Denies pedal edema, Denies edema, Denies leg edema, Denies lightheadedness, Denies palpitations, Denies dyspnea, Denies dyspnea on exertion and Denies orthopnea Resp Denies cough, Denies dyspnea and Denies dyspnea on exertion GI Denies hematochezia and Denies change in stool character Musc Denies abnormal gait, Denies muscle cramps, Denies muscle weakness, Denies numbness, Denies radiating pain into limb and Denies tingling Neuro Denies abnormal gait, Denies dizziness, Denies syncope, Denies numbness, Denies tingling and Denies weakness Endo Denies palpitations Physical Exam Vital Signs: Last Vital Signs Pulse 78 05/23/23 09:03 BP 144/78 H 05/23/23 09:03 Const General: comfortable and no acute distress Orientation/consciousness: patient oriented x3 HEENT Other: Unremarkable Head: Yes normal to inspection Neck Neck: Yes normal visual inspection Chest Chest palpation & inspection: normal inspection of the chest Resp Auscultation: clear to auscultation bilaterally Cardio Palpation: normal PMI Heart sounds: S1 normal heart sound present, S2 normal heart sound present, no gallops, Murmur heart sound present systolic III/ and at the right sternal border and no rubs GI Palpation (GI): Soft to palpation Back/Spine/Pelvis Other: unremarkable Skin General skin exam: no rashes or lesions noted Neuro General: patient oriented x3 Extrem General: Yes normal to inspection Psych Mental Status: mental status grossly normal Office Procedures EKG Details: EKG with sinus rhythm at 78/Min; right bundle-branch block pattern. [id number]-[id number], Complete Assessment & Plan Assessment & Plan (1) Non-rheumatic aortic stenosis: Code(s): I35.0 - Nonrheumatic aortic (valve) stenosis Plan In the most recent echocardiogram, mean gradient across aortic valve was 40 mm Hg. Peak 63 mm Hg. Calculated valve area of 1.1 sq cm. However, patient also has a hyperdynamic state with LVEF of greater than 70%. There also probably contributes to the gradients to an extent. Overall, suspected moderate stenosis. Clinically, he does not have any overt symptoms but he is not too active either. Pathophysiology and treatment options discussed in great detail with patient as well as family member who came for the appointment. Discussed about symptoms to watch out for including chest pain, shortness of breath, dizziness extra. They understand. If any such instance, they will contact us. Otherwise, we will repeat an echocardiogram in about 6 months time and follow-up then. Orders: Orders CA echo transthoracic complete 6 Months I35.0 - Nonrheumatic aortic (valve) stenosis Coding Level of Care Code Est Pt Level 4 (46357) Diagnoses Non-rheumatic aortic stenosis I35.0 CPT Codes EKG - CPT: 66715-[id number], Complete ([id number])
[2023-05-23 09:03] VITALS: BP 144/78; PULSE 78
== END 2023-05-23 09:22 | disposition home or self-care (01) ==
PROVIDERS: PCP Nurse Practitioner Family; Visit Provider Internal Medicine
DX: I35.0 Nonrheumatic aortic (valve) stenosis (principal)
CPT/HCPCS: 93010; 99214

== ENCOUNTER → 2023-05-23 08:56 | Outpatient (BNVA) | payer MEDICARE, SELFPAY | PROVIDERS: PCP Nurse Practitioner Family; Visit Provider Internal Medicine | DX: I35.0 Nonrheumatic aortic (valve) stenosis (principal) | CPT/HCPCS: 93005; 99212 ==

== ENCOUNTER 2023-07-09 08:16 | Outpatient (REF) | payer MEDICARE, SELFPAY ==
--- NOTE | ~2023-07-09 | US_ITS ---
EXAMINATION: US RETROPERITONEAL LIMITED (RENAL ONLY) CLINICAL INFORMATION: Calculus of kidney. COMPARISON: CT urogram 03/22/2022. Renal ultrasound 02/06/2022 and 07/25/2021. TECHNIQUE: Real-time imaging of the kidneys. FINDINGS: RIGHT KIDNEY: 10.2 x 6.2 x 5.2 cm (SAG x AP x TRV). The kidney is normal in size, contour, and echogenicity. Renal cortical thickness is normal. There is a 4 mm echogenic foci seen in the mid right kidney without shadowing or twinkle artifact. A small punctate calculus is seen in the same location on the prior CT urogram. No focal parenchymal lesions or hydronephrosis. LEFT KIDNEY: 11.0 x 5.2 x 4.1 cm (SAG x AP x TRV). The kidney is normal in size, contour, and echogenicity. Renal cortical thickness is normal. Some echogenic foci are seen that are felt to represent vascular calcifications. No convincing evidence of calculi. No focal parenchymal lesions. No hydronephrosis. US/US renal BI IMPRESSION: A 4 mm nonobstructing right renal calculus.
== END 2023-07-09 08:17 | disposition home or self-care (01) ==
LOC: HO.US 08:16
PROVIDERS: PCP Nurse Practitioner Family; Visit Provider Urology
DX: N20.0 Calculus of kidney (principal)
CPT/HCPCS: 76775

== ENCOUNTER 2023-08-08 11:04 | Outpatient (AMB) | payer MEDICARE, SELFPAY ==
--- NOTE | 2023-08-08 11:06 | MHC.OFFVIS ---
Intake Intake Visit Reasons: 3M Cysto/US(set) Intake Note: Patient is Present for Cystoscopy Urology Med: Vitamin B6 Antibiotic Allergy: None Blood Thinner: None URO- G Disposable Cystoscope lot: [id number] exp: 01/08/2025 Allergies hydrocortisone [Cortizone-10] Allergy (Unknown, Verified 05/23/23 09:02) hives HPI HPI Comments History of Present Illness Details Raad is a pleasant male. He is a patient of Dr. Lester. He is seen for following urologic conditions - lower urinary tract symptoms - nephrolithiasis - erectile dysfunction Had been at [facility] in the early Continue surveillance for minimum of 2 years with expected bladder treatment every 6 months Here for check cystoscopy - minor irritation Cytology pending Plan boost gemcitabine 3 weeks - final boost Three month follow-up check cystoscopy Bladder cancer TURBT 07/18 high-grade noninvasive Initial therapy TURBT with bladder therapy - TURBT 07/18, 08/18 6 week induction gemcitabine, 02/16 boost, 05/19 boost, 08/18 boost Cystoscopy - 10/19 slowly healing right sidewall Interventions - TURBT 07/18 Tumor site: Right side wall Histologic type: Papillary urothelial carcinoma, noninvasive Histologic grade: High-grade Muscularis propria: Not identified Extent of invasion: Non-invasive papillary carcinoma Imaging - 07/18 CT urogram 1.8 cm bladder mass Workplace exposure - [facility] in the early 1949s, sign pain to using oil only no volatile organics Smoking history - nonsmoker Lower urinary tract symptoms GreenLight laser prostate performed 2019 Had been able to come off medications Nocturia x1 Nephrolithiasis Passage of stone mid 2020 right side Imaging - 01/14 CT scan distal right ureteric stone mild hydronephrosis 3 mm - 07/17 renal ultrasound 3 mm left stone - 02/15 renal ultrasound no stones - 02/15 CT urogram Continue with B6 and imaging PFSH Medical History Aortic stenosis BCC (basal cell carcinoma) Depression Hemochromatosis Hydrocephalus Mitral valve insufficiency Neuropathy Tricuspid valve insufficiency Venous insufficiency Venous stasis Surgical History History of vein stripping PRODUCT/INDUSTRY CONSULTANT (ventriculoperitoneal) 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 Daughter No problems noted. Social History Household Members: None Housing: House Are you a primary child care director to a significant other at home: No Do you presently have visiting nurse or other home services: Yes (daily Meals on Wheels, very supportive Daughter Funmi and Son-in-law Raad) Alcohol intake: current Alcohol intake frequency: 0-2 drinks per day Alcohol type: other Comment: aware of trip hazard Patient Tobacco Use Status: Never used Tobacco e-Cigarette/Vaping Use: Never Used Second Hand Smoke Exposure: No Substance Use Type: Marijuana Advance Directives Date on File: 03/22/22 service: Yes Current occupational status: retired Cognitive needs: No Hearing needs: No Vision needs: Yes Review of Systems Const Denies chills and Denies fever(s) Card Reports no additional complaints and Denies syncope Resp Denies cough GI Denies abdominal pain and Denies heartburn Reports as per HPI and Denies change in libido Neuro Denies syncope Psych Denies change in libido Endo Denies change in libido Physical Exam Const General: cooperative, healthy appearing, comfortable and no acute distress Orientation/consciousness: patient oriented x3 HEENT Face and sinus: Yes normal facial exam Mouth: moist mucous membranes Neck Neck: Yes normal visual inspection, Yes full ROM and Yes trachea midline Chest Chest palpation & inspection: normal inspection of the chest Resp Effort & Inspection: normal respiratory effort, able to speak in complete sentences and no respiratory distress GI Inspection: Yes normal to inspection Back/Spine/Pelvis Cervical Spine: normal cervical lordosis Thoracic/Lumbar Spine: thoracic and lumbar spine normal to inspection Skin General skin exam: no rashes or lesions noted Neuro General: patient oriented x3, gait normal, tone normal and moves all extremities Extrem General: Yes normal to inspection and Yes capillary refill normal Office Procedures Cystoscopy Consent Discussed risk and benefit or proposed procedure with the patient. Information consent for procedure given to the patient. Discussed technical aspects, risks, benefits and alternatives in full. Addressed all of the patient's questions and concerns regarding the procedure. The patient demonstrated knowledge and understanding. They wish to proceed with this procedure. Preparation The patient was prepped in the usual manner. A mechanical car checker was present and in the room. Genitalia was prepped with betadine solution in a sterile manner. Lidocaine Jelly 2% was placed into the urethra and 16Fr flexible Olympus cystoscope was inserted into the meatus after adequate lubrication. Procedure Meatus circumcised Urethra anterior posterior urethra normal Prostatic Urethra unremarkable Bladder examination with retroflexion of cystoscope Bladder Orifices normal shape and position Bladder Capacity medium Trabeculations grade 2 Cellule Formation - Diverticulum Formation - Mucosal Erythema patchy immunotherapy response Bladder Tumor - 23800-[id number] DISPOSABLE SCOPE URO-G FLEXIBLE SCOPE Procedure code (CPT) selection complete Office Meds lidocaine HCl 2 % mucosal jelly in applicator Performing Provider: Duane Lindsay MD Performing Location: [facility] Administered by: Savannah Melendrez RN on 08/08/23 11:26 Dose Route Admin Location Dispensed Lot Number Expiration Date ND Senior Data Mining Analyst 10 mL intra-urethral 10 mL nitrofurantoin monohydrate/macrocrystals 100 mg capsule Performing Provider: Duane Lindsay MD Performing Location: [facility] Administered by: Savannah Melendrez RN on 08/08/23 11:26 Dose Route Admin Location Dispensed Lot Number Expiration Date ND Senior Data Mining Analyst 100 mg PO 1 cap naproxen 500 mg tablet Performing Provider: Duane Lindsay MD Performing Location: [facility] Administered by: Savannah Melendrez RN on 08/08/23 11:26 Dose Route Admin Location Dispensed Lot Number Expiration Date ND Senior Data Mining Analyst 500 mg PO 1 tab Results AMB Urinalysis, Automated UA Leukoctes 0 Mary/uL Last Edit by GM Pate on 08/08/23 11:18 UA Nitrite Negative Last Edit by GM Pate on 08/08/23 11:18 UA Urobilinogen 0.2 mg/dL Last Edit by GM Pate on 08/08/23 11:18 UA Protein 0 mg/dL Last Edit by GM Pate on 08/08/23 11:18 UA pH 6.0 Last Edit by GM Pate on 08/08/23 11:18 UA Blood 0 Camron/uL Last Edit by Kiersten Malone RMA on 08/08/23 11:18 UA Specific [place] 1.015 Last Edit by Kiersten Malone A on 08/08/23 11:18 UA Ketone Negative Last Edit by Kiersten Malone, RMA on 08/08/23 11:18 UA Bilirubin 0 mg/dL Last Edit by Kiersten Malone A on 08/08/23 11:18 UA Glucose 0 mg/dL Last Edit by Kiersten Malone A on 08/08/23 11:18 Results Reviewed Results Reviewed: Laboratory Last Values Urine pH (Auto) 6.0 08/08/23 11:07 Specific [place] (Auto) 1.015 08/08/23 11:07 Urine Protein (Auto) 0 mg/dL 08/08/23 11:07 Glucose (UA)(Auto) 0 mg/dL 08/08/23 11:07 Urine Ketones (Auto) Negative 08/08/23 11:07 Urine Blood (Auto) 0 Camron/uL 08/08/23 11:07 Urine Nitrite (Auto) Negative 08/08/23 11:07 Urine Bilirubin (Auto) 0 mg/dL 08/08/23 11:07 Urine Urobilinogen (Auto) 0.2 mg/dL 08/08/23 11:07 Leukocyte Esterase (Auto) 0 Mary/uL 08/08/23 11:07 Assessment & Plan Assessment & Plan (1) Bladder cancer: Comment: 02/15 superficial right base Code(s): C67.9 - Malignant neoplasm of bladder, unspecified Plan Three week gemcitabine boost Three month follow-up cystoscopy Orders: Orders AMB Cystoscopy 08/08/23 C67.9 - Malignant neoplasm of bladder, unspecified AMB Urinalysis Automated 08/08/23 C67.9 - Malignant neoplasm of bladder, unspecified, Z13.9 - Encounter for screening, unspecified Urine Cytology 08/08/23 C67.9 - Malignant neoplasm of bladder, unspecified Patient Instructions: Imaging studies, laboratory and physical exam results were discussed and reviewed in detail. No major barriers to patient understanding were identified. An opportunity to ask questions regarding the treatment plan was provided. All questions were answered. The patient expressed understanding and agreement with the above treatment plan. The patient is aware they should contact our office by phone for worsening of their current condition or the appearance of new urologic symptoms. Compliance is encouraged with any medications and followup testing that is ordered. It is a privilege to participate in the urologic care of your patient. If you have any questions or concerns regarding treatment for the above conditions, or other urologic issues, please do not hesitate to contact me. The office telephone contact is [phone]. This note is constructed using voice recognition software. While every effort has been made to ensure accuracy junior web designer errors may have been included. Yours sincerely, Dr Duane Lindsay MD, [facility] - Urology Providers of Expert, Compassionate Care for the Genitourinary System Coding Level of Care Code Est Pt Level 3 (78737) Diagnoses Bladder cancer C67.9 CPT Codes Cystoscopy - CPT: 85157-[id number] ([id number])
== END 2023-08-08 12:31 | disposition home or self-care (01) ==
PROVIDERS: PCP Nurse Practitioner Family; Visit Provider Urology
DX: C67.9 Malignant neoplasm of bladder, unspecified (principal); Z13.9 Encounter for screening, unspecified
CPT/HCPCS: 52000; 99213

== ENCOUNTER 2023-08-08 11:04 | Outpatient (REF) | payer MEDICARE, SELFPAY ==
[2023-08-08 17:02] LABS: Urine Cytology See Pathology rpt
== END 2023-08-08 11:05 | disposition home or self-care (01) ==
LOC: HO.LAB 11:04
PROVIDERS: PCP Nurse Practitioner Family; Visit Provider Urology
DX: C67.9 Malignant neoplasm of bladder, unspecified (principal)
CPT/HCPCS: 52000; 81003; 88112; 99212

== ENCOUNTER 2023-11-09 09:05 | Outpatient (REF) | payer MEDICARE, SELFPAY | END 2023-11-09 09:06 | disposition home or self-care (01) | LOC: HO.LAB 09:05 | PROVIDERS: PCP Nurse Practitioner Family; Visit Provider Urology | DX: N20.0 Calculus of kidney (principal); N40.1 Benign prostatic hyperplasia with lower urinary tract symptoms; N13.8 Other obstructive and reflux uropathy; C67.9 Malignant neoplasm of bladder, unspecified | CPT/HCPCS: 52000; 81003 ==

== ENCOUNTER 2023-11-09 09:05 | Outpatient (AMB) | payer MEDICARE, SELFPAY ==
--- NOTE | 2023-11-09 09:12 | A.OFFVIS_ITS ---
Intake Intake Visit Reasons: cysto Intake Note: Patient is Present for Cystoscopy Urology Med: Vitamin B6 Antibiotic Allergy: None Blood Thinner: None URO- G Disposable Cystoscope lot: [id number] exp: 06/21/2026 Allergies hydrocortisone [Cortizone-10] Allergy (Unknown, Verified 11/09/23 09:19) hives HPI HPI Comments History of Present Illness Details Raad is a pleasant male. He is a patient of Dr. Lester. He is seen for following urologic conditions - lower urinary tract symptoms - nephrolithiasis - erectile dysfunction - bladder cancer Check cystoscopy - currently undergoing bladder cancer therapy - minor irritation, no lesions Had been at [facility] in the early Continue three-month surveillance for minimum of 2 years with expected bladder treatment every 6 months Has had urinary urgency and frequency requiring use of adult diapers secondary to bladder chemotherapy Bladder cancer TURBT 07/18 high-grade noninvasive Initial therapy TURBT with bladder therapy - TURBT 07/18, 08/17 6 week induction ge mcitabine, 02/16 boost, 05/19 boost, 08/18 boost Cystoscopy - 10/19 slowly healing right sidewall Interventions - TURBT 07/18 Tumor site: Right side wall Histologic type: Papillary urothelial carcinoma, noninvasive Histologic grade: High-grade Muscularis propria: Not identified Extent of invasion: Non-invasive papillary carcinoma Imaging - 07/18 CT urogram 1.8 cm bladder mass Cytology - 08/18 Neg Workplace exposure - [employer] in the early , sign pain to using oil only no volatile organics Smoking history - nonsmoker Lower urinary tract symptoms GreenLight laser prostate performed 2019 Had been able to come off medications Nocturia x1 Nephrolithiasis Passage of stone mid 2020 right side Imaging - 01/14 CT scan distal right ureteric sto ne mild hydronephrosis 3 mm - 07/17 renal ultrasound 3 mm left stone - 02/15 renal ultrasound no stones - 02/15 CT urogram Continue with B6 and imaging [facility] Medical History Venous stasis Venous insufficiency Tricuspid valve insufficiency Hydrocephalus Depression Mitral valve insufficiency BCC (basal cell carcinoma) Aortic stenosis Hemochromatosis Neuropathy Surgical History History of vein stripping 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 Daughter No problems noted. Social History Household Members: None Housing: House Are you a primary director of medicare to a significant other at home: No Do you presently have visiting nurse or other home services: Yes (daily Meals on Wheels, very supportive Daughter Funmi and Son-in-law Raad) Alcohol intake: current Alcohol intake frequency: 0-2 drinks per day Alcohol type: other Comment: aware of trip hazard Patient Tobacco Use Status: Never used Tobacco e-Cigarette/Vaping Use: Never Used Second Hand Smoke Exposure: No Substance Use Type: Marijuana Advance Directives Date on File: 03/22/22 service: Yes Current occupational status: retired Cognitive needs: No Hearing needs: No Vision needs: Yes Office Procedures Cystoscopy Consent Discussed risk and benefit or proposed procedure with the patient. Information consent for procedure given to the patient. Discussed technical aspects, risks, benefits and alternatives in full. Addressed all of the patient's questions and concerns regarding the procedure. The patient demonstrated knowledge and understanding. They wish to proceed with this procedure. Preparation The patient was prepped in the usual manner. A wash barrel leader was present and in the room. Genitalia was prepped with betadine solution in a sterile manner. Lidocaine Jelly 2% was placed into the urethra and 16Fr flexible Olympus cystoscope was inserted into the meatus after adequate lubrication. Procedure Meatus uncircumcised Urethra anterior and posterior urethra normal Prostatic Urethra unremarkable Bladder examination with retroflexion of cystoscope Bladder Orifices normal shape and position Bladder Capacity medium Trabeculations grade 1 Cellule Formation - Diverticulum Formation - Mucosal Erythema diffuse, patchy changes consistent with immunotherapy response Bladder Tumor - 29240-[id number] DISPOSABLE SCOPE URO-G FLEXIBLE SCOPE Procedure code (CPT) selection complete Office Meds lidocaine HCl 2 % mucosal jelly in applicator Performing Provider: Duane Lindsay MD Performing Location[place] [facility] [place] [facility] Administered by: Savannah Melendrez RN on 11/09/23 09:26 Dose Route Admin Location Dispensed Lot Number Expiration Date ND Whiteprinting 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 10 mL intra-urethral 10 mL nitrofurantoin monohydrate/macrocrystals 100 mg capsule Performing Provider: Duane Lindsay MD Performing Location: [facility] [place] [facility] Administered by: Savannah Melendrez RN on 11/09/23 09:26 Dose Route Admin Location Dispensed Lot Number Expiration Date NDC Whiteprinting 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 100 mg PO 1 cap naproxen 500 mg tablet Performing Provider: Duane Lindsay MD Performing Location: [facility] [place] [facility] Administered by: Savannah Melendrez RN on 11/09/23 09:26 Dose Route Admin Location Dispensed Lot Number Expiration Date NDC Whiteprinting 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 500 mg PO 1 tab Results AMB Urinalysis, Automated UA Leukoctes 0 Mary/uL Last Edit by Kiersten Malone [facility] on 11/09/23 09:25 UA Nitrite Negative Last Edit by Kiersten Malone [facility] on 11/09/23 09:25 UA Urobilinogen 0.2 mg/dL Last Edit by Kiersten Malone [facility] on 11/09/23 09:2 5 UA Protein 0 mg/dL Last Edit by Kiersten Malone [facility] on 11/09/23 09:25 UA pH 6.0 Last Edit by Kiersten Malone [facility] on 11/09/23 09:25 UA Blood 0 Camron/uL Last Edit by Kiersten Malone [facility] on 11/09/23 09:25 UA Specific [place] 1.015 Last Edit by Kiersten Malone [facility] on 11/09/23 09: 25 UA Ketone Negative Last Edit by Kiersten Malone [facility] on 11/09/23 09:25 UA Bilirubin 0 mg/dL Last Edit by Kiersten Malone [facility] on 11/09/23 09:25 UA Glucose 0 mg/dL Last Edit by Kiersten Malone [facility] on 11/09/23 09:25 Assessment & Plan Assessment & Plan (1) Nephrolithiasis: Code(s): N20.0 - Calculus of kidney (2) BPH w urinary obs/LUTS: Code(s): N40.1 - Benign prostatic hyperplasia with lower urinary tract symptoms; N13.8 - Other obstructive and reflux uropathy (3) Bladder cancer: Comment: 02/15 superficial right base Code(s): C67.9 - Malignant neoplasm of bladder, unspecified Plan Three month follow-up cysto Orders: Orders FISH Bladder Cancer Today C67.9 - Malignant neoplasm of bladder, unspecified AMB Urinalysis Automated Today C67.9 - Malignant neoplasm of bladder, unspecified, Z13.9 - Encounter for screening, unspecified AMB Cystoscopy Today C67.9 - Malignant neoplasm of bladder, unspecified Patient Instructions: Imaging studies, laboratory and physical exam results were discussed and reviewed in detail. No major barriers to patient understanding were identified. An opportunity to ask questions regarding the treatment plan was provided. All questions were answered. The patient expressed understanding and agreement with the above treatment plan. The patient is aware they should contact our office by phone for worsening of their current condition or the appearance of new urologic symptoms. Compliance is encouraged with any medications and followup testing that is ordered. It is a privilege to participate in the urologic care of your patient. If you have any questions or concerns regarding treatment for the above conditions, or other urologic issues, please do not hesitate to contact me. The office telephone contact is [phone]. This note is constructed using voice recognition software. While every effort has been made to ensure accuracy department director errors may have been included. Yours sincerely, Dr Duane Lindsay MD, [facility] - Urology Providers of Expert, Compassionate Care for the Genitourinary System Coding Level of Care Code Procedure Only Diagnoses Nephrolithiasis N20.0 BPH w urinary obs/LUTS N40.1; N13.8 Bladder cancer C67.9 CPT Codes Cystoscopy - CPT: 04185-[id number] ([id number])
== END 2023-11-09 09:53 | disposition home or self-care (01) ==
PROVIDERS: PCP Nurse Practitioner Family; Visit Provider Urology
DX: C67.9 Malignant neoplasm of bladder, unspecified (principal); N20.0 Calculus of kidney; N40.1 Benign prostatic hyperplasia with lower urinary tract symptoms; N13.8 Other obstructive and reflux uropathy
CPT/HCPCS: 52000

== ENCOUNTER 2023-11-20 09:10 | Outpatient (AMB) | payer MEDICARE, SELFPAY ==
--- NOTE | 2023-11-20 09:13 | MHC.OFFVIS ---
Intake Vital Signs 11/20/23 09:16 Height 5 ft 11 in Weight 200 lb BMI 27.9 BP 136/70 Blood Pressure Location Lt brachial Position Sitting Pulse 74 Intake Visit Reasons: 6 mth fu after echo Intake Note: 6 month follow up Conservation Educator Required: No Accompanied by: Family/Other Allergies hydrocortisone [Cortizone-10] Allergy (Unknown, Verified 11/20/23 09:16) hives Medication List - Last Reconciled 11/20/23 by Valdo Murphy MD cholecalciferol (vitamin D3) 25 mcg PO DAILY garlic 100 mg PO DAILY [ibuprofen 200 mg PO Q6-8H PRN] mecobalamin (vitamin B12) 1,000 mcg PO DAILY pyridoxine (vitamin B6) 500 mg PO DAILY thiamine HCl (vitamin B1) 100 mg PO DAILY HPI HPI Comments History of Present Illness Details Raad returns for follow-up. Originally seen in consultation regarding preoperative stratification for bladder surgery. Echocardiogram had shown aortic stenosis but not severe. Perfusion imaging was unremarkable. Subsequently, it seems he underwent urology procedure without any issues. Overall, patient states that he has deteriorated a bit compared to last year. He does get tired a lot with activity. Some shortness of breath climbing stairs. No clear-cut angina. Comes in a wheelchair. Daughter is with him for the appointment. 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 Daughter No problems noted. Social History Household Members: None Housing: House Are you a primary healthcare prof to a significant other at home: No Do you presently have visiting nurse or other home services: Yes (daily Meals on Wheels, very supportive Daughter Funmi and Son-in-law Raad) Alcohol intake: current Alcohol intake frequency: 0-2 drinks per day Alcohol type: other Comment: aware of trip hazard Patient Tobacco Use Status: Never used Tobacco e-Cigarette/Vaping Use: Never Used Second Hand Smoke Exposure: No Substance Use Type: Marijuana Advance Directives Date on File: 03/22/22 service: Yes Current occupational status: retired Cognitive needs: No Hearing needs: No Vision needs: Yes Review of Systems Const Denies weakness ENT Denies dizziness Card Denies chest pain, Denies chest pain with activity, Denies syncope, Denies rapid heart rate, Denies pedal edema, Denies edema, Denies leg edema, Denies lightheadedness, Denies palpitations, Denies dyspnea, Denies dyspnea on exertion and Denies orthopnea Resp Denies cough, Denies dyspnea and Denies dyspnea on exertion GI Denies hematochezia and Denies change in stool character Musc Denies abnormal gait, Denies muscle cramps, Denies muscle weakness, Denies numbness, Denies radiating pain into limb and Denies tingling Neuro Denies abnormal gait, Denies dizziness, Denies syncope, Denies numbness, Denies tingling and Denies weakness Endo Denies palpitations Physical Exam Vital Signs: Last Vital Signs Pulse 74 11/20/23 09:16 BP 136/70 11/20/23 09:16 BMI result Body Mass Index 27.9 Const General: comfortable and no acute distress Orientation/consciousness: patient oriented x3 HEENT Other: Unremarkable Head: Yes normal to inspection Neck Neck: Yes normal visual inspection Chest Chest palpation & inspection: normal inspection of the chest Resp Auscultation: clear to auscultation bilaterally Cardio Palpation: normal PMI Heart sounds: S1 normal heart sound present, S2 normal heart sound present, no gallops, Murmur heart sound present systolic III/ and at the right sternal border and no rubs GI Palpation (GI): Soft to palpation Back/Spine/Pelvis Other: unremarkable Skin General skin exam: no rashes or lesions noted Neuro General: patient oriented x3 Extrem General: Yes normal to inspection Psych Mental Status: mental status grossly normal Assessment & Plan Assessment & Plan (1) Non-rheumatic aortic stenosis: Code(s): I35.0 - Nonrheumatic aortic (valve) stenosis Plan In the echocardiogram from last year, mean gradient across aortic valve was 40 mm Hg. Peak 63 mm Hg. Calculated valve area of 1.1 sq cm. However, patient also has a hyperdynamic state with LVEF of greater than 70%. There also probably contributes to the gradients to an extent. He needs repeat echocardiogram considering the fact that he is describing some additional symptoms like progressive weakness/shortness of breath. Otherwise, discussed about a diagnostic catheterization workup towards TAVR and he seems interested. Daughter is also interested. Will arrange the same. There is a history of bladder cancer and hence will need to check with Urology if any issues from their end. He will need short-term dual antiplatelet therapy after TAVR and long-term aspirin. Follow-up after echo/catheterization. Orders: Orders Cardiac Cath LT Diagnostic Today I25.10 - Atherosclerotic heart disease of [place] coronary artery without angina pectoris, I35.0 - Nonrheumatic aortic (valve) stenosis Complete Blood Count no Diff Today I35.0 - Nonrheumatic aortic (valve) stenosis Basic Metabolic Panel Today I35.0 - Nonrheumatic aortic (valve) stenosis Prothrombin Time INR Today I35.0 - Nonrheumatic aortic (valve) stenosis Coding Level of Care Code Est Pt Level 4 (83661) Diagnoses Non-rheumatic aortic stenosis I35.0
[2023-11-20 09:16] VITALS: BP 136/70; PULSE 74; BMI 27.9
== END 2023-11-20 09:52 | disposition home or self-care (01) ==
PROVIDERS: PCP Nurse Practitioner Family; Visit Provider Internal Medicine
DX: I35.0 Nonrheumatic aortic (valve) stenosis (principal)
CPT/HCPCS: 99214

== ENCOUNTER → 2023-11-20 09:10 | Outpatient (BNVA) | payer MEDICARE, SELFPAY | PROVIDERS: PCP Nurse Practitioner Family; Visit Provider Internal Medicine | DX: I35.0 Nonrheumatic aortic (valve) stenosis (principal) | CPT/HCPCS: 99212 ==

== ENCOUNTER → 2023-12-05 12:42 | Outpatient (REF) | payer OTHER, SELFPAY ==
--- NOTE | 2023-12-05 12:49 | CA_ITS ---
Transthoracic Echocardiogram Patient (Last, First, Middle): DewittRaad W Gender: Male Date of : 1935 Age: 88 Procedure Date: 12/05/2023 Procedure Type: Transthoracic Echocardiogram Location: OP Height: 180.34 cm Weight: 90.72 kg BSA: 2.11 m2 Heart Rate: bpm BP: 150 / 70 mmHg Inventory Auditor: TO Referring MD: Valdo Murphy MD Mri Technologist: Alexis Webster MD Symptoms: I35.0 - Nonrheumatic aortic (valve) stenosis Study Quality: Technically Difficult ECG Rhythm: Sinus Conclusions: - 1. Normal LV ejection fraction of 65-70% with mild LVH with moderate asymmetric septal hypertrophy with possible mild LVOT obstruction with elevated filling pressures 2. Mildly dilated left atrium 3. Moderate to severe aortic stenosis 4. No gross pericardial effusion Findings Left Ventricle Normal left ventricular size and systolic function. There is mildly increased left ventricular wall thickness. The visually estimated ejection fraction is between 65-70%. Spectral Doppler is indicative of an impaired relaxation filling pattern. Elevated filling pressures. E/E prime ratio is >15, consistent with elevated filling pressures. There is moderate septal asymmetric hypertrophy. Right Ventricle Normal right ventricular cavity size and systolic function. Atria The left atrium is mildly dilated. Interatrial shunt cannot be excluded. The right atrium is normal in size. Aortic Valve There is moderate calcification of the aortic valve. There is moderate thickening of the aortic valve. There is moderate to severe aortic valve stenosis. The peak aortic gradient is 61 mmHg.The mean gradient is 43 mmHg. The aortic valve area is 1.17 cm2. There is mild aortic valve regurgitation. The discrepancy between the gradients and the valve area as more likely related to increased LVOT gradients which may suggest mild obstructive physiology Mitral Valve There is mild anterior and moderate posterior mitral leaflet thickening. There is mild anterior mitral annular calcification. There is moderate mitral annular calcification. There is trace mitral valve regurgitation. There is no mitral valve stenosis. Pulmonic Valve The pulmonic valve was not well visualized. Great Vessels The aorta was not well visualized. The pulmonary artery was not well visualized. Venous The inferior vena cava is normal in size and collapses greater than 50% with inspiration. Pericardium/Pleural There is no evidence of pericardial effusion. Prior Study Comparison Changes noted compared to prior study dated: 05/11/2023. aortic stenosis has progressed in severity Measurements 2D Linear Measurements IVSd: 1.69 0.6-0.9/0.6-1.0 cm LVIDd: 3.09 3.9-5.3/4.2-5.9 cm LVIDd Index: 1.46 2.4-3.2/2.2-3.1 cm/m2 LVIDs: 1.94 2.0-3.6 cm LVPWd: 1.23 0.7-1.1 cm LA Diam: 4.50 2.7-3.8/3.0-4.0 cm LAIDs Index: 2.13 1.5-2.3 cm/m2 LV Mass: 195.08 67-162/88-224 g LV Mass Index: 92.46 43-95/49-115 g/m2 LVOT Diam: 2.10 3.0+(-)1.3 cm Mitral Valve MV VTI: 0.33 MV Pk Perry: 1.52 MV Mn Perry: 0.79 MV Pk Grad: 9.00 MV Mn Grad: 3.00 MV Pk E: 0.81 MV PK A: 1.34 MV Decel Time: 290.00 E/A: 0.60 E'Lateral: 3.81 E'Medial: 3.48 E/E' Med: 23.30 E/E' Lat: 21.30 PHT: 85.00 MVA PHT: 2.59 MVA Continuity: 3.11 Decel [place]: 2.87 Aortic Valve AoV Pk Perry: 3.91 AoV Mn Perry: 3.17 AoV VTI: 0.87 AoV Pk Grad: 61.00 Aov Mn Grad: 43.00 KARISSA Cont.VTI: 1.17 LVOT LVOT Pk Perry: 1.19 LVOT Mn Perry: 0.82 LVOT VTI: 0.30 LVOT Pk Grad: 6.00 LVOT Mn Grad: 3.00 LVOT Diam: 2.10 LVOT Area: 3.46 Diastolic Function MV Pk E: 0.81 MV Pk A: 1.34 E/A: 0.60 E'Medial: 3.48 E/E' Med: 23.30 E' Laterial: 3.81 E/E' Lat: 21.30 Right Ventricle TAPSE (mm): 21.20 TVS' Perry: 14.80 Tricuspid Valve RA Press: 3.00 Great Vessels Aorta Sinus of Valsalva: 3.48 2.0-3.5 cm Ao Asc: 3.40 2.1-3.4 cm Updated in Other Vendor System with Status of Final Alexis Webster MD electronically signed on 12/06/2023 3:52:05 PM with status of Final
[2023-12-05 15:18] LABS: Hematocrit 51.2 % (42.0-52.0); Hemoglobin 17.5 g/dl (14.0-18.0); Mean Corpuscular HGB Conc 34.2 g/dl (31.0-36.0); Mean Corpuscular Volume 96.4 fL (80.0-98.0); Mean Platelet Volume 10.8 fL (9.4-12.4); Platelet Count 145 X10*3/uL (160-400); Red Blood Count 5.31 X10*6/uL (4.60-5.80); Red Cell Distribution Width 13.7 % (11.0-16.0); White Blood Count 9.5 X10*3/uL (4.8-10.8)
[2023-12-05 15:22] LABS: INTERNATIONAL NORM RATIO 0.9 (0.9-1.1); Prothrombin Time 10.7 SEC (11.1-13.3)
[2023-12-05 17:31] LABS: Anion Gap 15 (12-20); Blood Urea Nitrogen 22 mg/dL (9-16); Calcium 8.6 mg/dL (8.4-10.2); Carbon Dioxide 25 mmol/L (22-29); Chloride 110 mmol/L (96-108); Estimated Glomerular Filt Rate > 60; Glucose Random 112 mg/dL (60-115); Sodium 146 mmol/L (135-145)
== END ==
LOC: HO.CARD 12:42
PROVIDERS: PCP Nurse Practitioner Family; Visit Provider Internal Medicine
DX: I35.0 Nonrheumatic aortic (valve) stenosis (principal)
CPT/HCPCS: 36415; 80048; 85027; 85610; 93306

== ENCOUNTER → 2023-12-05 12:49 | Outpatient (BNV) | payer OTHER, SELFPAY | PROVIDERS: PCP Nurse Practitioner Family; Visit Provider Internal Medicine Cardiovascular Disease | DX: I35.2 Nonrheumatic aortic (valve) stenosis with insufficiency (principal); I34.81 Nonrheumatic mitral (valve) annulus calcification | CPT/HCPCS: 93306 ==

== ENCOUNTER 2024-01-18 06:01 | Outpatient (REF) | payer MEDICARE, SELFPAY ==
[2024-01-18 06:19] LABS: MANUAL DIFF FLAG NO
[2024-01-18 06:21] LABS: Basophils Absolute Auto 0.1 X10*3/uL (0.0-0.2); Basophils Percent Auto 0.7 % (0-2); Eosinophils Absolute Auto 0.1 X10*3/uL (0.0-0.4); Hematocrit 47.8 % (42.0-52.0); Hemoglobin 16.3 g/dl (14.0-18.0); Imm Gran Abs Auto 0.04 X10*3/uL (0.00-0.03); Imm Gran Pct Auto 0.6 % (0.0-0.4); Lymphocytes Absolute Auto 1.1 X10*3/uL (1.2-4.9); Lymphocytes Percent Auto 15.8 % (20-40); Mean Corpuscular HGB Conc 34.1 g/dl (31.0-36.0); Mean Corpuscular Volume 96.8 fL (80.0-98.0); Mean Platelet Volume 10.3 fL (9.4-12.4); Monocytes Absolute Auto 0.6 X10*3/uL (0.1-1.2); Monocytes Percent Auto 8.5 % (2-11); Neutrophils Absolute Auto 5.2 x10*3/uL (2.0-8.3); Neutrophils Percent Auto 73.4 % (45-73); Platelet Count 130 X10*3/uL (160-400); Red Blood Count 4.94 X10*6/uL (4.60-5.80); Red Cell Distribution Width 12.9 % (11.0-16.0)
[2024-01-18 13:53] LABS: Estimated Average Glucose 143 mg/dL; Hemoglobin A1c % 6.6 % (<6.0)
[2024-01-18 14:03] LABS: Alanine Aminotransferase 16 U/L (0-40); Albumin Level 3.4 g/dL (3.5-5.0); Alkaline Phosphatase 60 U/L (39-117); Anion Gap 11 (12-20); Aspartate Amino Transferase 15 U/L (5-37); Bilirubin Total 0.6 mg/dL (0.0-1.0); Blood Urea Nitrogen 20 mg/dL (9-16); Calcium 8.8 mg/dL (8.4-10.2); Carbon Dioxide 25 mmol/L (22-29); Chloride 111 mmol/L (96-108); Estimated Glomerular Filt Rate > 60; Glucose Fasting 114 mg/dL (60-99); Iron 61 mcg/dL (45-160); Percent Iron Saturation 23 % (15-50); Potassium 3.9 mmol/L (3.3-5.1); Sodium 143 mmol/L (135-145); Total Iron Binding Capacity 271 mcg/dL (228-428); Total Protein 6.1 g/dL (6.5-8.0); Unsaturated Iron Binding 210 ug/dL
[2024-01-18 14:15] LABS: Ferritin 179 ng/mL (20-250); Thyroid Stimulating Hormone 0.88 uIU/mL (0.32-4.0); Vitamin D 25-OH Total 24.2 ng/mL (>30)
[2024-01-18 14:21] LABS: Vitamin B12 1385 pg/mL (200-900)
[2024-01-20 20:09] LABS: TS Negative Control Passed; TS Panel A 0; TS Panel B 0; TS Positive Control Passed; TSpotTB Negative (Negative)
== END 2024-01-18 06:02 | disposition home or self-care (01) ==
LOC: HO.HSH3N 06:01
PROVIDERS: Visit Provider Nurse Practitioner Acute Care
DX: E11.9 Type 2 diabetes mellitus without complications (principal); E83.110 Hereditary hemochromatosis; D75.1 Secondary polycythemia; I35.0 Nonrheumatic aortic (valve) stenosis
CPT/HCPCS: 36415; 80053; 82306; 82607; 82728; 83036; 83540; 84443; 85025; 86481

== ENCOUNTER 2024-02-06 14:05 | Outpatient (AMB) | payer OTHER, SELFPAY ==
[2024-02-06 14:11] VITALS: BP 116/60; PULSE 93; BMI 29.2
--- NOTE | 2024-02-06 14:11 | MHC.OFFVIS ---
Vital Signs 02/06/24 14:11 Height 5 ft 11 in Weight 209 lb 7.026 oz BMI 29.2 BP 116/60 Blood Pressure Location Lt brachial Position Sitting Pulse 93 Pulse Source Pulse Oximeter Intake Visit Reasons: 2 month follow up Allergies hydrocortisone [Cortizone-10] Allergy (Unknown, Verified 11/20/23 09:16) hives Medication List - Last Reconciled 02/06/24 by Valdo Murphy MD cholecalciferol (vitamin D3) 25 mcg PO DAILY garlic 100 mg PO DAILY [ibuprofen 200 mg PO Q6-8H PRN] mecobalamin (vitamin B12) 1,000 mcg PO DAILY pyridoxine (vitamin B6) 500 mg PO DAILY thiamine HCl (vitamin B1) 100 mg PO DAILY HPI Comments Details: Raad returns for follow-up. Originally seen in consultation regarding preoperative stratification for bladder surgery. Echocardiogram had shown aortic stenosis but not severe. Perfusion imaging was unremarkable. Subsequently, it seems he underwent urology procedure without any issues. Overall, no new issues since last seen. He states he is actually feeling pretty good. He is able to walk short distances with a walker not having any overt symptoms. We were planning cardiac catheterization/possible TAVR workup but then decided against it as there is concern that he could bleed from his bladder if he takes antiplatelet drugs. 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 Daughter No problems noted. Social History Household Members: None Housing: House Are you a primary animal daycare provider to a significant other at home: No Do you presently have visiting nurse or other home services: Yes (daily Meals on Wheels, very supportive Daughter Funmi and Son-in-law Raad) Alcohol intake: current Alcohol intake frequency: 0-2 drinks per day Alcohol type: other Comment: aware of trip hazard Patient Tobacco Use Status: Never used Tobacco e-Cigarette/Vaping Use: Never Used Second Hand Smoke Exposure: No Substance Use Type: Marijuana Advance Directives Date on File: 03/22/22 service: Yes Current occupational status: retired Cognitive needs: No Hearing needs: No Vision needs: Yes Review of Systems Const Denies weakness ENT Denies dizziness Card Denies chest pain, Denies chest pain with activity, Denies syncope, Denies rapid heart rate, Denies pedal edema, Denies edema, Denies leg edema, Denies lightheadedness, Denies palpitations, Denies dyspnea, Denies dyspnea on exertion and Denies orthopnea Resp Denies cough, Denies dyspnea and Denies dyspnea on exertion GI Denies hematochezia and Denies change in stool character Musc Denies abnormal gait, Denies muscle cramps, Denies muscle weakness, Denies numbness, Denies radiating pain into limb and Denies tingling Neuro Denies abnormal gait, Denies dizziness, Denies syncope, Denies numbness, Denies tingling and Denies weakness Endo Denies palpitations Physical Exam Vital Signs: Last Vital Signs Pulse 93 02/06/24 14:11 BP 116/60 02/06/24 14:11 BMI result Body Mass Index 29.2 Const General: comfortable and no acute distress Orientation/consciousness: patient oriented x3 HEENT Other: Unremarkable Head: Yes normal to inspection Neck Neck: Yes normal visual inspection Chest Chest palpation & inspection: normal inspection of the chest Resp Auscultation: clear to auscultation bilaterally Cardio Palpation: normal PMI Heart sounds: S1 normal heart sound present, S2 abnormal (soft), no gallops, Murmur heart sound present systolic III/ and at the right sternal border and no rubs GI Palpation (GI): Soft to palpation Back/Spine/Pelvis Other: unremarkable Skin General skin exam: no rashes or lesions noted Neuro General: patient oriented x3 Extrem General: Yes normal to inspection Psych Mental Status: mental status grossly normal Assessment & Plan Assessment & Plan (1) Non-rheumatic aortic stenosis: Code(s): I35.0 - Nonrheumatic aortic (valve) stenosis Category: Medical Plan In the most recent echocardiogram, LVEF is 65-70%. Moderate septal hypertrophy. Mean gradient across aortic valve was 43 mm Hg with a peak of 61 mm Hg. Calculated valve area of 1.1 sq cm. Dimensionless index 0.25. Overall, seems to be early severe aortic stenosis. Clinically, he has got absolutely no symptoms at this time. Originally, we had plan further workup but then after discussing with urology he was felt to be at high bleeding risk from bladder cancer issues. Hence would not be suitable for antiplatelet drugs. We will continue to monitor the aortic stenosis on echocardiograms. If indeed he gets any overt symptoms, we will then reassess and weigh the risks/benefits of TAVR vs bleeding from antiplatelet drugs. Discussed with daughter. Follow-up in 6 months. If any interim concerns, they will contact us. Coding Level of Care Code Est Pt Level 4 (56015) Diagnoses Non-rheumatic aortic stenosis I35.0
== END 2024-02-06 14:37 | disposition home or self-care (01) ==
PROVIDERS: PCP Nurse Practitioner Family; Referring Provider Nurse Practitioner Family; Visit Provider Internal Medicine
DX: I35.0 Nonrheumatic aortic (valve) stenosis (principal)
CPT/HCPCS: 99214

== ENCOUNTER → 2024-02-06 14:05 | Outpatient (BNVA) | payer OTHER, SELFPAY | PROVIDERS: PCP Nurse Practitioner Family; Visit Provider Internal Medicine | DX: I35.0 Nonrheumatic aortic (valve) stenosis (principal) | CPT/HCPCS: 99212 ==

== ENCOUNTER 2024-02-08 08:49 | Outpatient (REF) | payer MEDICARE, SELFPAY ==
[2024-02-08 16:39] LABS: Urine Cytology See Pathology rpt
== END 2024-02-08 08:50 | disposition home or self-care (01) ==
LOC: HO.LAB 08:49
PROVIDERS: PCP Nurse Practitioner Family; Visit Provider Urology
DX: C67.9 Malignant neoplasm of bladder, unspecified (principal); N20.0 Calculus of kidney
CPT/HCPCS: 52000; 81003; 88112; 99212

== ENCOUNTER 2024-02-08 08:49 | Outpatient (AMB) | payer MEDICARE, SELFPAY ==
--- NOTE | 2024-02-08 09:32 | MHC.OFFVIS ---
Intake Visit Reasons: cysto Intake Note: Patient is Present for Cystoscopy Urology Med: Antibiotic Allergy: Blood Thinner: URO- G Disposable Cystoscope lot:[id number] exp:09/27/2026 Screener And Blender Required: No Allergies hydrocortisone [Cortizone-10] Allergy (Unknown, Verified 11/20/23 09:16) hives HPI Comments Details: Raad is a pleasant male. He is a patient of Dr. Lester. He is seen for following urologic conditions - lower urinary tract symptoms - nephrolithiasis - erectile dysfunction - bladder cancer Check cystoscopy - currently undergoing bladder cancer therapy - minor irritation, no lesions Needs three-week boost gemcitabine Had been at [place] in the early Continue three-month surveillance for minimum of 2 years with expected bladder treatment every 6 months Has had urinary urgency and frequency requiring use of adult diapers secondary to bladder chemotherapy Bladder cancer TURBT 07/18 high-grade noninvasive Initial therapy TURBT with bladder therapy - TURBT 07/18, 08/17 6 week induction gemcitabine, 02/16 boost, 05/19 boost, 08/18 boost, 02/17 boot gemcitabine Cystoscopy - 10/19 slowly healing right sidewall Interventions - TURBT 07/18 Tumor site: Right side wall Histologic type: Papillary urothelial carcinoma, noninvasive Histologic grade: High-grade Muscularis propria: Not identified Extent of invasion: Non-invasive papillary carcinoma Imaging - 07/18 CT urogram 1.8 cm bladder mass Cytology - 08/18 Neg Workplace exposure - [place] in the early , sign pain to using oil only no volatile organics Smoking history - nonsmoker Lower urinary tract symptoms GreenLight laser prostate performed 2019 Had been able to come off medications Nocturia x1 Nephrolithiasis Passage of stone mid 2020 right side Imaging - 01/14 CT scan distal right ureteric stone mild hydronephrosis 3 mm - 07/17 renal ultrasound 3 mm left stone - 02/15 renal ultrasound no stones - 02/15 CT urogram Continue with B6 and imaging PFSH Medical History Venous stasis Venous insufficiency Tricuspid valve insufficiency Hydrocephalus Depression Mitral valve insufficiency BCC (basal cell carcinoma) Aortic stenosis Hemochromatosis Neuropathy Surgical History History of vein stripping CONSTRUCTION PROJECT ASSISTANT (ventriculoperitoneal) 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 Daughter No problems noted. Social History Household Members: None Housing: House Are you a primary manager primary care to a significant other at home: No Do you presently have visiting nurse or other home services: Yes (daily Meals on Wheels, very supportive Daughter Funmi and Son-in-law Raad) Alcohol intake: current Alcohol intake frequency: 0-2 drinks per day Alcohol type: other Comment: aware of trip hazard Patient Tobacco Use Status: Never used Tobacco e-Cigarette/Vaping Use: Never Used Second Hand Smoke Exposure: No Substance Use Type: Marijuana Advance Directives Date on File: 03/22/22 service: Yes Current occupational status: retired Cognitive needs: No Hearing needs: No Vision needs: Yes Review of Systems Const Denies chills and Denies fever(s) Card Reports no additional complaints and Denies syncope Resp Denies cough GI Denies abdominal pain and Denies heartburn Reports as per HPI and Denies change in libido Neuro Denies syncope Psych Denies change in libido Endo Denies change in libido Physical Exam Const General: cooperative, healthy appearing, comfortable and no acute distress Orientation/consciousness: patient oriented x3 HEENT Face and sinus: Yes normal facial exam Mouth: moist mucous membranes Neck Neck: Yes normal visual inspection, Yes full ROM and Yes trachea midline Chest Chest palpation & inspection: normal inspection of the chest Resp Effort & Inspection: normal respiratory effort, able to speak in complete sentences and no respiratory distress GI Inspection: Yes normal to inspection Back/Spine/Pelvis Cervical Spine: normal cervical lordosis Thoracic/Lumbar Spine: thoracic and lumbar spine normal to inspection Skin General skin exam: no rashes or lesions noted Neuro General: patient oriented x3, gait normal, tone normal and moves all extremities Extrem General: Yes normal to inspection and Yes capillary refill normal Office Procedures Cystoscopy Consent Discussed risk and benefit or proposed procedure with the patient. Information consent for procedure given to the patient. Discussed technical aspects, risks, benefits and alternatives in full. Addressed all of the patient's questions and concerns regarding the procedure. The patient demonstrated knowledge and understanding. They wish to proceed with this procedure. Preparation The patient was prepped in the usual manner. A sped teacher was present and in the room. Genitalia was prepped with betadine solution in a sterile manner. Lidocaine Jelly 2% was placed into the urethra and 16Fr flexible Olympus cystoscope was inserted into the meatus after adequate lubrication. Procedure Cystoscopy performed using a disposable Urovue digital 16 Turkish cystoscope. Meatus circumcised Urethra anterior and posterior urethra normal Prostatic Urethra unremarkable Bladder examination with retroflexion of cystoscope Bladder Orifices normal shape and position Bladder Capacity medium Trabeculations grade 1/2 Cellule Formation - Diverticulum Formation - Mucosal Erythema - Bladder Tumor - [id number] DISPOSABLE SCOPE URO-G FLEXIBLE SCOPE Procedure code (CPT) selection complete Office Meds lidocaine HCl 2 % mucosal jelly in applicator Performing Provider: Duane Lindsay MD Performing Location: [facility] Administered by: Jeremi Chauhan LPN on 02/08/24 09:42 Dose Route Admin Location Dispensed Lot Number Expiration Date 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 [employer] 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 10 mL intra-urethral 10 mL nitrofurantoin monohydrate/macrocrystals 100 mg capsule Performing Provider: Duane Lindsay MD Performing Location: [facility] Administered by: Jeremi Chauhan LPN on 02/08/24 09:42 Dose Route Admin Location Dispensed Lot Number Expiration Date NDC [employer] 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 100 mg PO 1 cap naproxen 500 mg tablet Performing Provider: Duane Lindsay MD Performing Location: [facility] Administered by: Jeremi Chauhan LPN on 02/08/24 09:42 Dose Route Admin Location Dispensed Lot Number Expiration Date NDC 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 500 mg PO 1 tab Results AMB Urinalysis, Automated UA Leukoctes 15 Mary/uL Last Edit by GM Pate on 02/08/24 09:40 UA Nitrite Negative Last Edit by GM Pate on 02/08/24 09:40 UA Urobilinogen 0.2 mg/dL Last Edit by GM Pate on 02/08/24 09:40 UA Protein 0 mg/dL Last Edit by GM Pate on 02/08/24 09:40 UA pH 6.0 Last Edit by Kiersten Malone RMA on 02/08/24 09:40 UA Blood 0 Camron/uL Last Edit by Kiersten Malone, RMA on 02/08/24 09:40 UA Specific Marana 1.020 Last Edit by Kiersten Malone, RMA on 02/08/24 09:40 UA Ketone Negative Last Edit by Kiersten Malone RMA on 02/08/24 09:40 UA Bilirubin 0 mg/dL Last Edit by Kiersten Malone, RMA on 02/08/24 09:40 UA Glucose 0 mg/dL Last Edit by Kiersten Malone A on 02/08/24 09:40 Results Reviewed Results Reviewed: Laboratory Last Values Urine pH (Auto) 6.0 02/08/24 09:33 Specific Marana (Auto) 1.020 02/08/24 09:33 Urine Protein (Auto) 0 mg/dL 02/08/24 09:33 Glucose (UA)(Auto) 0 mg/dL 02/08/24 09:33 Urine Ketones (Auto) Negative 02/08/24 09:33 Urine Blood (Auto) 0 Camron/uL 02/08/24 09:33 Urine Nitrite (Auto) Negative 02/08/24 09:33 Urine Bilirubin (Auto) 0 mg/dL 02/08/24 09:33 Urine Urobilinogen (Auto) 0.2 mg/dL 02/08/24 09:33 Leukocyte Esterase (Auto) 15 Mary/uL 02/08/24 09:33 Assessment & Plan Assessment & Plan (1) Nephrolithiasis: Code(s): N20.0 - Calculus of kidney Category: Medical (2) Bladder cancer: Comment: 02/15 superficial right base Code(s): C67.9 - Malignant neoplasm of bladder, unspecified Category: Medical Plan Three-week boost gemcitabine Three-month follow-up cysto Orders: Orders AMB Cystoscopy Today C67.9 - Malignant neoplasm of bladder, unspecified Urine Cytology Today C67.9 - Malignant neoplasm of bladder, unspecified AMB Urinalysis Automated Today C67.9 - Malignant neoplasm of bladder, unspecified, Z13.9 - Encounter for screening, unspecified Patient Instructions: Imaging studies, laboratory and physical exam results were discussed and reviewed in detail. No major barriers to patient understanding were identified. An opportunity to ask questions regarding the treatment plan was provided. All questions were answered. The patient expressed understanding and agreement with the above treatment plan. The patient is aware they should contact our office by phone for worsening of their current condition or the appearance of new urologic symptoms. Compliance is encouraged with any medications and followup testing that is ordered. It is a privilege to participate in the urologic care of your patient. If you have any questions or concerns regarding treatment for the above conditions, or other urologic issues, please do not hesitate to contact me. The office telephone contact is [phone]. This note is constructed using voice recognition software. While every effort has been made to ensure accuracy supervisor production department errors may have been included. Yours sincerely, Dr Duane Lindsay MD, [facility] - Urology Providers of Expert, Compassionate Care for the Genitourinary System Coding Level of Care Code Est Pt Level 3 (39641) Diagnoses Nephrolithiasis N20.0 Bladder cancer C67.9 CPT Codes Cystoscopy - CPT: 61211-[id number] ([id number])
== END 2024-02-08 10:08 | disposition home or self-care (01) ==
PROVIDERS: PCP Nurse Practitioner Family; Visit Provider Urology
DX: C67.9 Malignant neoplasm of bladder, unspecified (principal); N20.0 Calculus of kidney; Z13.9 Encounter for screening, unspecified
CPT/HCPCS: 52000; 99213

== ENCOUNTER 2024-03-19 08:11 | Outpatient (REF) | payer MEDICARE, SELFPAY ==
[2024-03-19 08:57] LABS: Appearance Urine Clear; Color Urine Yellow; Glucose Urine UA 100 mg/dL (Negative); Leukocyte Esterase Urine Trace (Negative); Nitrite Urine Negative (Negative); UMIC TRIGGER UACC YES; Urine Blood Negative (Negative); Urine Ketones Negative (Negative); Urine Protein Negative (Neg-Trace)
[2024-03-19 09:02] LABS: Bacteria Urine None Seen (None Seen); Hyaline Casts Urine 0-2 /LPF (0-2); RBC Urine 0-2 /HPF (0-2); Squamous Epithelial Cell Urine 0-2 /HPF (0-2); WBC Urine 0-5 /HPF (0-5)
== END 2024-03-19 08:12 | disposition home or self-care (01) ==
LOC: HO.HSH3N 08:11
PROVIDERS: Visit Provider Nurse Practitioner Acute Care
DX: C67.9 Malignant neoplasm of bladder, unspecified (principal)
CPT/HCPCS: 81001; 81003

== ENCOUNTER 2024-03-24 07:04 | Outpatient (REF) | payer MEDICARE, SELFPAY ==
[2024-03-24 07:07] LABS: MANUAL DIFF FLAG NO
[2024-03-24 07:39] LABS: Basophils Absolute Auto 0.1 X10*3/uL (0.0-0.2); Basophils Percent Auto 0.9 % (0-2); Eosinophils Absolute Auto 0.2 X10*3/uL (0.0-0.4); Hematocrit 42.2 % (42.0-52.0); Hemoglobin 14.2 g/dl (14.0-18.0); Imm Gran Abs Auto 0.06 X10*3/uL (0.00-0.03); Imm Gran Pct Auto 0.8 % (0.0-0.4); Lymphocytes Absolute Auto 1.3 X10*3/uL (1.2-4.9); Lymphocytes Percent Auto 16.8 % (20-40); Mean Corpuscular HGB Conc 33.6 g/dl (31.0-36.0); Mean Corpuscular Hemoglobin 32.1 pg (27.0-33.0); Mean Corpuscular Volume 95.5 fL (80.0-98.0); Mean Platelet Volume 10.3 fL (9.4-12.4); Monocytes Absolute Auto 0.6 X10*3/uL (0.1-1.2); Monocytes Percent Auto 7.8 % (2-11); Neutrophils Absolute Auto 5.5 x10*3/uL (2.0-8.3); Neutrophils Percent Auto 71.7 % (45-73); Platelet Count 139 X10*3/uL (160-400); Red Blood Count 4.42 X10*6/uL (4.60-5.80); Red Cell Distribution Width 12.9 % (11.0-16.0); White Blood Count 7.7 X10*3/uL (4.8-10.8)
[2024-03-24 07:59] LABS: Anion Gap 12 (12-20); Blood Urea Nitrogen 20 mg/dL (9-16); Calcium 8.8 mg/dL (8.4-10.2); Carbon Dioxide 22 mmol/L (22-29); Chloride 111 mmol/L (96-108); Estimated Glomerular Filt Rate > 60; Glucose Random 126 mg/dL (60-115); Potassium 4.1 mmol/L (3.3-5.1); Sodium 141 mmol/L (135-145); Uric Acid 7.4 mg/dL (3.4-7.0)
== END 2024-03-24 07:05 | disposition home or self-care (01) ==
LOC: HO.HSH3N 07:04
PROVIDERS: Visit Provider Nurse Practitioner
DX: M10.9 Gout, unspecified (principal); L03.90 Cellulitis, unspecified
CPT/HCPCS: 36415; 80048; 84550; 85025

== ENCOUNTER 2024-03-26 02:06 | Outpatient (REF) | payer MEDICARE, SELFPAY ==
[2024-03-26 02:25] LABS: Appearance Urine Cloudy; Color Urine Yellow; Glucose Urine UA Negative (Negative); Leukocyte Esterase Urine Negative (Negative); Nitrite Urine Negative (Negative); PH 6.5 (5.0-9.0); Specific Gravity - Urine 1.015 (1.005-1.025); Urine Blood Negative (Negative); Urine Ketones Negative (Negative); Urine Protein Negative (Neg-Trace)
== END 2024-03-26 02:07 | disposition home or self-care (01) ==
LOC: HO.HSH3N 02:06
PROVIDERS: Visit Provider Nurse Practitioner Acute Care
DX: C67.9 Malignant neoplasm of bladder, unspecified (principal)
CPT/HCPCS: 81003

== ENCOUNTER 2024-04-02 08:16 | Outpatient (REF) | payer MEDICARE, SELFPAY ==
[2024-04-02 09:11] LABS: Appearance Urine Clear; Color Urine Yellow; Glucose Urine UA 100 mg/dL (Negative); Leukocyte Esterase Urine Small (1+) (Negative); Nitrite Urine Negative (Negative); Specific Gravity - Urine 1.015 (1.005-1.025); UMIC TRIGGER UACC YES; Urine Blood Negative (Negative); Urine Ketones Negative (Negative); Urine Protein Negative (Neg-Trace)
[2024-04-02 09:59] LABS: Bacteria Urine None Seen (None Seen); Hyaline Casts Urine 0-2 /LPF (0-2); RBC Urine 0-2 /HPF (0-2); Squamous Epithelial Cell Urine 0-2 /HPF (0-2); UACC Culture Trigger YES; WBC Urine 0-5 /HPF (0-5)
== END 2024-04-02 08:17 | disposition home or self-care (01) ==
LOC: HO.HSH3N 08:16
PROVIDERS: Visit Provider Nurse Practitioner Acute Care
DX: C67.9 Malignant neoplasm of bladder, unspecified (principal)
CPT/HCPCS: 81001; 81003; 87086

== ENCOUNTER 2024-04-24 08:22 | Outpatient (REF) | payer MEDICARE, SELFPAY ==
[2024-04-24 08:40] LABS: Appearance Urine Clear; Color Urine Yellow; Glucose Urine UA Negative (Negative); Leukocyte Esterase Urine Small (1+) (Negative); Nitrite Urine Negative (Negative); PH 5.5 (5.0-9.0); Specific Gravity - Urine 1.015 (1.005-1.025); UMIC TRIGGER UACC YES; Urine Blood Negative (Negative); Urine Ketones Negative (Negative); Urine Protein Negative (Neg-Trace)
[2024-04-24 08:51] LABS: Bacteria Urine None Seen (None Seen); Hyaline Casts Urine 0-2 /LPF (0-2); RBC Urine 0-2 /HPF (0-2); Squamous Epithelial Cell Urine 0-2 /HPF (0-2); UACC Culture Trigger YES; WBC Urine 0-5 /HPF (0-5)
== END 2024-04-24 08:23 | disposition home or self-care (01) ==
LOC: HO.HSH3N 08:22
PROVIDERS: Visit Provider Nurse Practitioner Acute Care
DX: Z92.21 Personal history of antineoplastic chemotherapy (principal); C67.9 Malignant neoplasm of bladder, unspecified; R82.90 Unspecified abnormal findings in urine
CPT/HCPCS: 81001; 87086

== ENCOUNTER 2024-05-02 06:33 | Outpatient (REF) | payer MEDICARE, SELFPAY ==
[2024-05-02 06:37] LABS: MANUAL DIFF FLAG NO
[2024-05-02 07:09] LABS: Basophils Absolute Auto 0.1 X10*3/uL (0.0-0.2); Eosinophils Absolute Auto 0.1 X10*3/uL (0.0-0.4); Eosinophils Percent Auto 1.6 % (0-4); Hematocrit 44.4 % (42.0-52.0); Imm Gran Abs Auto 0.05 X10*3/uL (0.00-0.03); Imm Gran Pct Auto 0.7 % (0.0-0.4); Lymphocytes Absolute Auto 1.7 X10*3/uL (1.2-4.9); Lymphocytes Percent Auto 23.6 % (20-40); Mean Corpuscular HGB Conc 33.8 g/dl (31.0-36.0); Mean Corpuscular Hemoglobin 32.3 pg (27.0-33.0); Mean Corpuscular Volume 95.5 fL (80.0-98.0); Mean Platelet Volume 9.9 fL (9.4-12.4); Monocytes Absolute Auto 0.6 X10*3/uL (0.1-1.2); Neutrophils Absolute Auto 4.8 x10*3/uL (2.0-8.3); Neutrophils Percent Auto 65.1 % (45-73); Platelet Count 131 X10*3/uL (160-400); Red Blood Count 4.65 X10*6/uL (4.60-5.80); Red Cell Distribution Width 14.3 % (11.0-16.0); White Blood Count 7.3 X10*3/uL (4.8-10.8)
[2024-05-02 07:30] LABS: Anion Gap 12 (12-20); Blood Urea Nitrogen 17 mg/dL (9-16); Calcium 9.4 mg/dL (8.4-10.2); Carbon Dioxide 24 mmol/L (22-29); Chloride 108 mmol/L (96-108); Estimated Glomerular Filt Rate > 60; Glucose Random 112 mg/dL (60-115); Magnesium 2.2 mg/dL (1.6-2.6); Potassium 4.2 mmol/L (3.3-5.1); Sodium 140 mmol/L (135-145)
== END 2024-05-02 06:34 | disposition home or self-care (01) ==
LOC: HO.HSH3N 06:33
PROVIDERS: Visit Provider Nurse Practitioner Acute Care
DX: I35.0 Nonrheumatic aortic (valve) stenosis (principal); E87.70 Fluid overload, unspecified
CPT/HCPCS: 36415; 80048; 83735; 83880; 85025

== ENCOUNTER 2024-05-08 09:00 | Outpatient (AMB) | payer MEDICARE, SELFPAY ==
--- NOTE | 2024-05-08 09:01 | MHC.OFFVIS ---
Intake Visit Reasons: cysto(Bladder Ca) Intake Note: Patient is Present for Cystoscopy Urology Med: None Antibiotic Allergy: None Blood Thinner:None Last FISH Cytology- 10/2023 Last Cytology- 01/2024 Recent H A1C- 6.6 12/2023 URO- G Disposable Cystoscope lot:[id number] exp:12/05/2026 Allergies hydrocortisone [Cortizone-10] Allergy (Unknown, Verified 11/20/23 09:16) hives HPI Comments Details: Raad is a pleasant male. He is a patient of Dr. Lester. He is seen for following urologic conditions - lower urinary tract symptoms - nephrolithiasis - erectile dysfunction - bladder cancer Check cystoscopy No abnormalities Had been at [place] in the early Continue three-month surveillance for minimum of 2 years with expected bladder treatment every 6 months Has had urinary urgency and frequency requiring use of adult diapers secondary to bladder chemotherapy Bladder cancer TURBT 07/18 high-grade noninvasive Initial therapy TURBT with bladder therapy - TURBT 07/18, 08/17 6 week induction gemcitabine, 02/16 boost, 05/19 boost, 08/18 boost, 02/17 boost gemcitabine Cystoscopy - 10/19 slowly healing right sidewall Interventions - TURBT 07/18 Tumor site: Right side wall Histologic type: Papillary urothelial carcinoma, noninvasive Histologic grade: High-grade Muscularis propria: Not identified Extent of invasion: Non-invasive papillary carcinoma Imaging - 07/18 CT urogram 1.8 cm bladder mass Cytology - 08/18 Neg, 02/17 NAD Workplace exposure - [place] in the early , sign pain to using oil only no volatile organics Smoking history - nonsmoker Lower urinary tract symptoms GreenLight laser prostate performed 2019 Had been able to come off medications Nocturia x1 Nephrolithiasis Passage of stone mid 2020 right side Imaging - 01/14 CT scan distal right ureteric stone mild hydronephrosis 3 mm - 07/17 renal ultrasound 3 mm left stone - 02/15 renal ultrasound no stones - 02/15 CT urogram Continue with B6 and imaging PFSH Medical History Venous stasis Venous insufficiency Tricuspid valve insufficiency Hydrocephalus Depression Mitral valve insufficiency BCC (basal cell carcinoma) Aortic stenosis Hemochromatosis Neuropathy Surgical History History of vein stripping 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 Daughter No problems noted. Social History Household Members: None Housing: House Are you a primary acute care occupational therapist to a significant other at home: No Do you presently have visiting nurse or other home services: Yes (daily Meals on Wheels, very supportive Daughter Funmi and Son-in-law Raad) Alcohol intake: current Alcohol intake frequency: 0-2 drinks per day Alcohol type: other Comment: aware of trip hazard Patient Tobacco Use Status: Never used Tobacco e-Cigarette/Vaping Use: Never Used Second Hand Smoke Exposure: No Substance Use Type: Marijuana Advance Directives Date on File: 03/22/22 service: Yes Current occupational status: retired Cognitive needs: No Hearing needs: No Vision needs: Yes Review of Systems Const Denies chills and Denies fever(s) Card Reports no additional complaints and Denies syncope Resp Denies cough GI Denies abdominal pain and Denies heartburn Reports as per HPI and Denies change in libido Neuro Denies syncope Psych Denies change in libido Endo Denies change in libido Physical Exam Const General: cooperative, healthy appearing, comfortable and no acute distress Orientation/consciousness: patient oriented x3 HEENT Face and sinus: Yes normal facial exam Mouth: moist mucous membranes Neck Neck: Yes normal visual inspection, Yes full ROM and Yes trachea midline Chest Chest palpation & inspection: normal inspection of the chest Resp Effort & Inspection: normal respiratory effort, able to speak in complete sentences and no respiratory distress GI Inspection: Yes normal to inspection Back/Spine/Pelvis Cervical Spine: normal cervical lordosis Thoracic/Lumbar Spine: thoracic and lumbar spine normal to inspection Skin General skin exam: no rashes or lesions noted Neuro General: patient oriented x3, gait normal, tone normal and moves all extremities Extrem General: Yes normal to inspection and Yes capillary refill normal Office Procedures Cystoscopy Consent Discussed risk and benefit or proposed procedure with the patient. Information consent for procedure given to the patient. Discussed technical aspects, risks, benefits and alternatives in full. Addressed all of the patient's questions and concerns regarding the procedure. The patient demonstrated knowledge and understanding. They wish to proceed with this procedure. Preparation The patient was prepped in the usual manner. A house decorator was present and in the room. Genitalia was prepped with betadine solution in a sterile manner. Lidocaine Jelly 2% was placed into the urethra and 16Fr flexible Olympus cystoscope was inserted into the meatus after adequate lubrication. Procedure Cystoscopy performed using a disposable Urovue digital 16 Ghanaian cystoscope. Meatus mild degree of narrowing Urethra anterior posterior urethra normal Prostatic Urethra unremarkable Bladder examination with retroflexion of cystoscope Bladder Orifices normal shape and position Bladder Capacity medium Trabeculations grade 1 Cellule Formation - Diverticulum Formation - Mucosal Erythema - Bladder Tumor - [id number] DISPOSABLE SCOPE URO-G FLEXIBLE SCOPE Procedure code (CPT) selection complete Office Meds lidocaine HCl 2 % mucosal jelly in applicator Performing Provider: Duane Lindsay MD Performing Location: [facility] Administered by: Aguilar Cisneros RN on 05/08/24 09:29 Dose Route Admin Location Dispensed Lot Number Expiration Date NDC Business Continuity Strategy Director 10 mL intra-urethral 10 mL nitrofurantoin monohydrate/macrocrystals 100 mg capsule Performing Provider: Duane Lindsay MD Performing Location: [facility] Administered by: Aguilar Cisneros RN on 05/08/24 09:29 Dose Route Admin Location Dispensed Lot Number Expiration Date NDC Business Continuity Strategy Director 100 mg PO 1 cap naproxen 500 mg tablet Performing Provider: Duane Lindsay MD Performing Location: [facility] Administered by: Aguilar Cisneros RN on 05/08/24 09:29 Dose Route Admin Location Dispensed Lot Number Expiration Date NDC Business Continuity Strategy Director 500 mg PO 1 tab Results AMB Urinalysis, Automated UA Leukoctes 0 Mary/uL Last Edit by GM Pate on 05/08/24 09:20 UA Nitrite Negative Last Edit by GM Pate on 05/08/24 09:20 UA Urobilinogen 0.2 mg/dL Last Edit by GM Pate on 05/08/24 09:20 UA Protein 0 mg/dL Last Edit by LEANNE PateA on 05/08/24 09:20 UA pH 5.5 Last Edit by Kiersten Malone A on 05/08/24 09:20 UA Blood 0 Camron/uL Last Edit by Kiersten Malone RMA on 05/08/24 09:20 UA Specific [place] 1.020 Last Edit by Kiersten Malone A on 05/08/24 09:20 UA Ketone Negative Last Edit by Kiersten Malone A on 05/08/24 09:20 UA Bilirubin 0 mg/dL Last Edit by Kiersten Malone RMA on 05/08/24 09:20 UA Glucose 0 mg/dL Last Edit by Kiersten Malone A on 05/08/24 09:20 Results Reviewed Results Reviewed: Laboratory Last Values Urine pH (Auto) 5.5 05/08/24 09:18 Specific [place] (Auto) 1.020 05/08/24 09:18 Urine Protein (Auto) 0 mg/dL 05/08/24 09:18 Glucose (UA)(Auto) 0 mg/dL 05/08/24 09:18 Urine Ketones (Auto) Negative 05/08/24 09:18 Urine Blood (Auto) 0 Camron/uL 05/08/24 09:18 Urine Nitrite (Auto) Negative 05/08/24 09:18 Urine Bilirubin (Auto) 0 mg/dL 05/08/24 09:18 Urine Urobilinogen (Auto) 0.2 mg/dL 05/08/24 09:18 Leukocyte Esterase (Auto) 0 Mary/uL 05/08/24 09:18 Assessment & Plan Assessment & Plan (1) BPH w urinary obs/LUTS: Code(s): N40.1 - Benign prostatic hyperplasia with lower urinary tract symptoms; N13.8 - Other obstructive and reflux uropathy Category: Medical (2) Bladder cancer: Comment: 02/15 superficial right base Code(s): C67.9 - Malignant neoplasm of bladder, unspecified Category: Medical Plan Three-month follow-up check cystoscopy Orders: Orders AMB Cystoscopy Today C67.9 - Malignant neoplasm of bladder, unspecified Urine Cytology Today C67.9 - Malignant neoplasm of bladder, unspecified AMB Urinalysis Automated Today Z13.9 - Encounter for screening, unspecified Patient Instructions: Imaging studies, laboratory and physical exam results were discussed and reviewed in detail. No major barriers to patient understanding were identified. An opportunity to ask questions regarding the treatment plan was provided. All questions were answered. The patient expressed understanding and agreement with the above treatment plan. The patient is aware they should contact our office by phone for worsening of their current condition or the appearance of new urologic symptoms. Compliance is encouraged with any medications and followup testing that is ordered. It is a privilege to participate in the urologic care of your patient. If you have any questions or concerns regarding treatment for the above conditions, or other urologic issues, please do not hesitate to contact me. The office telephone contact is [phone]. This note is constructed using voice recognition software. While every effort has been made to ensure accuracy certified nursing assistant instructor errors may have been included. Yours sincerely, Dr Duane Lindsay MD, [facility] - Urology Providers of Expert, Compassionate Care for the Genitourinary System Coding Level of Care Code Est Pt Level 3 (51902) Diagnoses BPH w urinary obs/LUTS N40.1; N13.8 Bladder cancer C67.9 CPT Codes Cystoscopy - CPT: 99262-[id number] ([id number])
== END 2024-05-08 09:48 | disposition home or self-care (01) ==
PROVIDERS: PCP Nurse Practitioner Family; Visit Provider Urology
DX: N40.1 Benign prostatic hyperplasia with lower urinary tract symptoms (principal); N13.8 Other obstructive and reflux uropathy; C67.9 Malignant neoplasm of bladder, unspecified; Z13.9 Encounter for screening, unspecified
CPT/HCPCS: 52000; 99213

== ENCOUNTER 2024-05-08 09:00 | Outpatient (REF) | payer MEDICARE, SELFPAY ==
[2024-05-08 16:58] LABS: Urine Cytology See Pathology rpt
== END 2024-05-08 09:01 | disposition home or self-care (01) ==
LOC: HO.LAB 09:00
PROVIDERS: PCP Nurse Practitioner Family; Visit Provider Urology
DX: C67.9 Malignant neoplasm of bladder, unspecified (principal); N52.9 Male erectile dysfunction, unspecified; N40.1 Benign prostatic hyperplasia with lower urinary tract symptoms; N13.8 Other obstructive and reflux uropathy; Z87.442 Personal history of urinary calculi
CPT/HCPCS: 52000; 81003; 88112; 99212

== ENCOUNTER 2024-06-04 10:52 | Outpatient (AMB) | payer MEDICARE, SELFPAY ==
[2024-06-04 10:53] VITALS: BMI 29.2
--- NOTE | 2024-06-04 10:53 | A.OFFVIS_ITS ---
Vital Signs 06/04/24 10:53 Height 5 ft 11 in Weight 209 lb 7.026 oz BMI 29.2 Intake Visit Reasons: anal fistula Intake Note: This patient presents for anal fistula assessment. Pt c/o; reports no complaints at this time. Cash On Delivery Clerk Required: No Accompanied by: RIBBON BLOCKER Allergies hydrocortisone [Cortizone-10] Allergy (Unknown, Verified 06/04/24 10:56) hives HPI HPI anal fistula: Details: 88-year-old male referred for question of an anal fissure. He had describes seeing small amounts of blood per rectum about 3 weeks ago. He says that he has not seen this anymore since that time. He says he has a history of anal fissure so [facility] He denies any pain currently. He has good bowel movements although he does state that he has occasional he fecal soiling. He has a history of bladder cancer as well as BPH he said he had chemotherapy for his bladder cancer before. He has diabetes and is very unsteady with his gait. 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 Daughter No problems noted. Social History Household Members: None Housing: House Are you a primary home care administrator to a significant other at home: No Do you presently have visiting nurse or other home services: Yes (daily Meals on Wheels, very supportive Daughter Funmi and Son-in-law Raad) Alcohol intake: current Alcohol intake frequency: 0-2 drinks per day Alcohol type: other Comment: aware of trip hazard Patient Tobacco Use Status: Never used Tobacco e-Cigarette/Vaping Use: Never Used Second Hand Smoke Exposure: No Substance Use Type: Marijuana Advance Directives Date on File: 03/22/22 service: Yes Current occupational status: retired Cognitive needs: No Hearing needs: No Vision needs: Yes Review of Systems Const Denies chills and Denies fever(s) Card Denies chest pain, Denies dyspnea and Reports dyspnea on exertion Resp Denies cough, Denies dyspnea and Reports dyspnea on exertion GI Reports hematochezia and Denies change in bowel habits Denies hematuria and Denies difficulty urinating Musc Reports abnormal gait, Denies back pain, Reports arthralgias and Denies limited range of motion Neuro Reports abnormal gait, Denies focal weakness and Denies convulsions Psych Denies depression and Denies mood swings Physical Exam Const Other: Walks with a walker, very frail looking General: comfortable and no acute distress Orientation/consciousness: patient oriented x3 Neck Neck: Yes no lymphadenopathy Resp Effort & Inspection: normal respiratory effort Auscultation: clear to auscultation bilaterally Cardio Rate: regular rate GI Other: Rectal exam shows some small external hemorrhoids, no perianal lesions, no anal fissure on retraction of the buttocks; digital exam shows good sphincter tone, tenderness, no palpable masses Palpation (GI): Soft to palpation, nontender and no guarding Neuro General: patient oriented x3 Assessment & Plan Assessment & Plan (1) Blood per rectum: Code(s): K62.5 - Hemorrhage of anus and rectum Category: Medical Plan: He had an episode of seeing blood with his bowel movements about 3 weeks ago. He has had no significant recurrence since then Examination does not reveal any fissure. He does have hemorrhoidal tissue which may have been the source of his outlet bleeding I have recommended for him to take Metamucil once or twice a day to help with bowel movements. He does not require any surgical intervention at this time. His daughter was with him during the visit and understands the plan well. He can be brought back to the office to be re-evaluated if there are further concerns down the line. Coding Level of Care Code New Pt Level 3 (30198) Diagnoses Blood per rectum K62.5
== END 2024-06-04 11:26 | disposition home or self-care (01) ==
PROVIDERS: PCP Nurse Practitioner Family; Visit Provider Surgery
DX: K62.5 Hemorrhage of anus and rectum (principal)
CPT/HCPCS: 99203

== ENCOUNTER → 2024-06-04 10:52 | Outpatient (BNVA) | payer MEDICARE, SELFPAY | PROVIDERS: PCP Nurse Practitioner Family; Visit Provider Surgery | DX: K62.5 Hemorrhage of anus and rectum (principal) | CPT/HCPCS: 99202 ==

== ENCOUNTER 2024-06-26 08:51 | Outpatient (AMB) | payer MEDICARE, SELFPAY ==
--- NOTE | 2024-06-26 08:57 | A.OFFVIS_ITS ---
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 [facility] prior to [facility] he was utilizing Tylenol and Topical Cannabis cream which was working well but he [facility]. Pain is felt at rest but worsens with ambulation. 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 [facility], prior to [facility] he was utilizing Tylenol and Topical Cannabis cream which was working well but he not [facility]. Pain is felt at rest but worsens with ambulation. 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 Daughter No problems noted. Social History Household Members: None Housing: House Are you a primary respiratory care instructor to a significant other at home: No Do you presently have visiting nurse or other home services: Yes (daily Meals on Wheels, very supportive Daughter Funmi and Son-in-law Raad) Alcohol intake: current Alcohol intake frequency: 0-2 drinks per day Alcohol type: other Comment: aware of trip hazard Patient Tobacco Use Status: Never used Tobacco e-Cigarette/Vaping Use: Never Used Second Hand Smoke Exposure: No Substance Use Type: Marijuana Advance Directives Date on File: 03/22/22 service: Yes Current occupational status: retired Cognitive needs: No Hearing needs: No Vision needs: Yes Physical Exam Vital Signs: BMI result Body Mass Index 29.1 Extrem Other: Mostly medial compartment tenderness to palpation. He has bilateral venous stasis Antalgic gait requiring a walker Office Procedures Joint Inj/Aspir; Non-Pain Clin Joint Injection/Drain Details: Injected 1 mL of Decadron and 3 mL 1% lidocaine and 3 mL of 0.25% Marcaine. Site was prepped using aseptic technique. Patient tolerated the procedure well. Approach Used: anterolateral Shoulders, Hips, Knees, Knee Large Joint Injection [id number]: Left Knee Coding Procedure code (CPT) selection complete Results Reviewed Results Reviewed: I personally reviewed relevant radiographs. Right total knee arthroplasty in expected post operative position with no hardware complications or evidence of loosening Left knee severe varus pattern OA Assessment & Plan Assessment & Plan (1) Diabetes mellitus with neuropathy: Code(s): E11.40 - Type 2 diabetes mellitus with diabetic neuropathy, unspecified Category: Medical Plan: Inform patient of the hyperglycemic effects of steroids. (2) Arthritis of right knee: Code(s): M17.11 - Unilateral primary osteoarthritis, right knee Category: Medical Plan: This is an 88-year-old gentleman with left knee severe osteoarthritis. He had a successful right knee replacement about 6 years ago. [facility] He is walking with a walker and here today with his daughter. She has stated that he has been ambulating less and less with difficulty in his legs and with arm strength. He is not really a candidate for surgery and I discussed nonsurgical treatment options as well as the reasons that he is not a candidate for surgery. I injected his left knee today and informed him of the hyperglycemic effects of steroids. Should the injection not be sufficiently helpful he can return to see me sooner for viscosupplementation which has benefitted him in the past. Alternatively if the injection lasts for least 3 months he can return for a repeat steroid injection. Orders: Orders XR knee RT 1V Today M25.569 - Pain in unspecified knee XR knee LT 3V Today M25.562 - Pain in left knee Coding Level of Care Code New Pt Level 4 (87595) Diagnoses Diabetes mellitus with neuropathy E11.40 Arthritis of right knee M17.11 CPT Codes Shoulders, Hips, Knees, - Knee Large Joint Injection : Left Knee ([id number])
[2024-06-26 09:00] VITALS: BMI 29.1
== END 2024-06-26 09:31 | disposition home or self-care (01) ==
LOC: HO.HOS 08:52
PROVIDERS: PCP Nurse Practitioner Family; Visit Provider Orthopaedic Surgery
DX: M17.12 Unilateral primary osteoarthritis, left knee (principal); E11.40 Type 2 diabetes mellitus with diabetic neuropathy, unspecified
CPT/HCPCS: 20610; 99204

== ENCOUNTER 2024-06-26 09:51 | Outpatient (REF) | payer MEDICARE, SELFPAY ==
--- NOTE | ~2024-06-26 | XR_ITS ---
EXAMINATION: XR KNEE RIGHT 1 VIEW CR Xr Knee Lt 3v CLINICAL INFORMATION: Pain in unspecified knee M25.569. M25.562 - Pain in left knee COMPARISON: XR Knee both 11/08/2018, left knee radiograph 02/17/2014 TECHNIQUE: AP view of the right knee. AP, lateral and sunrise views of the left knee, 3 images. FINDINGS: Right knee: Intact total knee arthroplasty hardware in anatomic alignment. No acute fracture. Mild arterial claudications. Left knee: Severe medial compartment joint space narrowing, progressed from 2019. Moderate patellofemoral compartment arthrosis with osteophytosis. Mild lateral compartment arthrosis with osteophytosis. Large volume enthesopathic changes off the superior patella. Fabella incidentally noted. Amorphous calcifications and soft tissue density overlie the suprapatellar space. Arterial calcified indications noted. Subcutaneous edema overlies the knee, best visualized on sunrise view. Anatomic alignment is maintained without acute fracture. XR/XR knee LT 3V IMPRESSION: RIGHT KNEE: Intact total knee arthroplasty hardware in anatomic alignment. LEFT KNEE: 1. Tricompartment arthrosis as described above, including severe medial compartment joint space narrowing which is progressed from 2019. 2. Amorphous calcification overlying the suprapatellar pouch, larger than on 2014 and favored to represent progressive degenerative change. Soft tissue density overlying the suprapatellar space likely represents a degree of joint effusion, not significantly changed. No radiographic evidence for fracture. Electronically signed by: Charley Cruz DO 08/08/2024 11:29 AM [facility]
--- NOTE | ~2024-06-26 | XR_ITS ---
EXAMINATION: XR KNEE RIGHT 1 VIEW CR Xr Knee Lt 3v CLINICAL INFORMATION: Pain in unspecified knee M25.569. M25.562 - Pain in left knee COMPARISON: XR Knee both 11/08/2018, left knee radiograph 02/17/2014 TECHNIQUE: AP view of the right knee. AP, lateral and sunrise views of the left knee, 3 images. FINDINGS: Right knee: Intact total knee arthroplasty hardware in anatomic alignment. No acute fracture. Mild arterial claudications. Left knee: Severe medial compartment joint space narrowing, progressed from 2019. Moderate patellofemoral compartment arthrosis with osteophytosis. Mild lateral compartment arthrosis with osteophytosis. Large volume enthesopathic changes off the superior patella. Fabella incidentally noted. Amorphous calcifications and soft tissue density overlie the suprapatellar space. Arterial calcified indications noted. Subcutaneous edema overlies the knee, best visualized on sunrise view. Anatomic alignment is maintained without acute fracture. XR/XR knee RT 1V IMPRESSION: RIGHT KNEE: Intact total knee arthroplasty hardware in anatomic alignment. LEFT KNEE: 1. Tricompartment arthrosis as described above, including severe medial compartment joint space narrowing which is progressed from 2019. 2. Amorphous calcification overlying the suprapatellar pouch, larger than on 2014 and favored to represent progressive degenerative change. Soft tissue density overlying the suprapatellar space likely represents a degree of joint effusion, not significantly changed. No radiographic evidence for fracture. Electronically signed by: Charley Cruz DO 08/08/2024 11:29 AM [facility] [place]
== END 2024-06-26 09:52 | disposition home or self-care (01) ==
LOC: HO.HOSX 09:51
PROVIDERS: Visit Provider Orthopaedic Surgery
DX: M25.561 Pain in right knee (principal); M25.562 Pain in left knee; E11.40 Type 2 diabetes mellitus with diabetic neuropathy, unspecified; M17.11 Unilateral primary osteoarthritis, right knee
CPT/HCPCS: 20610; 73560; 73562; 99202; J0665; J1100; J2003

== ENCOUNTER 2024-07-31 05:58 | Outpatient (REF) | payer MEDICARE, SELFPAY ==
[2024-07-31 06:14] LABS: Appearance Urine Clear; Color Urine Yellow; Glucose Urine UA Negative (Negative); Leukocyte Esterase Urine Moderate (2+) (Negative); Nitrite Urine Negative (Negative); PH 5.5 (5.0-9.0); UMIC TRIGGER UACC YES; Urine Blood Negative (Negative); Urine Ketones Negative (Negative); Urine Protein Negative (Neg-Trace)
[2024-07-31 06:20] LABS: Bacteria Urine None Seen (None Seen); Hyaline Casts Urine 0-2 /LPF (0-2); RBC Urine 0-2 /HPF (0-2); Squamous Epithelial Cell Urine 0-2 /HPF (0-2); UACC Culture Trigger YES
--- OUTSIDE RECORDS SUMMARY | 2024-08-05 22:36 | XMS_ITS | Continuity of Care Document ---
Author Name [facility] Organization [facility] Care Team Providers Care Shoe Shanker Name Role Phone [facility] Unavailable Unavailable Problems Combined list of problems from Department of Defense and Veterans Affairs facilities. It does not include entries that were removed or entered in error. Problem Status Onset Date Problem Type Date of Resolution Comments Source Anal fissure Active 08/27/19 24 Condition May 30, 2024 Entered By: SHAINA REYES Comment: referred to [facility] Bladder cancer Active 08/27/19 22 Condition May 22, 2022 Entered By: SHAINA REYES Comment: followed by urology [facility] Chronic dermatitis Active 08/27/19 21 Condition Oct 21, 2020 Entered By: SHAINA REYES Comment: referred to dermatology [facility] Erectile Dysfunction (SCT 907082995) Active 08/27/19 21 Condition Oct 21, 2020 Entered By: SHAINA REYES Comment: treated with Viagra [facility] Hydrocephalus (SNOMED CT [id number]) Active 08/27/19 13 Condition [facility] 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) Active 08/27/19 12 Condition [facility] Vitamin D Deficiency (ICD-9-CM 268.9) Active 08/27/19 11 Condition [facility] Decreased, vision NEC Active 08/27/19 09 Condition [facility] Hearing Loss, Partial Active 08/27/19 09 Condition [facility] Dyslipidemia Active 08/27/19 00 Condition [place] Obesity Active 08/27/18 90 Condition [place] Cognitive disorder Active Condition J un 2022 Entered By: LISSY SANTIZO Comment: mild neurocognitive disorder (dysexecutive features) [facility] Exposure to potentially hazardous substance Active Condition Sep 29, 2022 Entered By: SHAINA REYES Comment: provided education [facility] Osteoarthritis * (ICD-9-CM 715.90) Active Condition [facility] Polyneuropathy [facility] Thiamine deficiency Active Condition Oct 21, 2020 Entered By: SHAINA REYES Comment: treated with supplement [facility] Diagnosis: ICD-10-CM R26.9 Unspecified abnormalities of gait and mobility Active Diagnosis [facility] Diagnosis: ICD-10-CM R41.9 Unsp symptoms and signs w cognitive functions and awareness Active Diagnosis [facility] Diagnosis: ICD-10-CM Z02.89 Encounter for other administrative examinations Active Diagnosis [facility] Diagnosis: ICD-10-CM Z46.0 Encounter for fit/adjst of spectacles and contact lenses Active Diagnosis [facility] Diagnosis: ICD-10-CM H25.813 Combined forms of age-related cataract, bilateral Active Diagnosis [facility] Diagnosis: ICD-10-CM R53.1 Weakness Active Diagnosis [facility] Diagnosis: ICD-10-CM C67.9 Malignant neoplasm of bladder, unspecified Active Diagnosis [facility] Diagnosis: ICD-10-CM Z23 Encounter for immunization Active Diagnosis [facility] Diagnosis: ICD-10-CM K08.9 Disorder of teeth and supporting structures, unspecified Active Diagnosis [facility] Medications Combined list of outpatient medications from Department of Defense and Veterans Affairs facilities.Medications provided include 1) outpatient medications from the last 15 months, and 2) patient-reported medications. Medication Details Route Status Patient Instructions Prescription Expires Prescription Number Last Dispense Date Ordering Provider Order Date Order Qty Source SODIUM FLUORIDE 1.1% TOOTHPASTE BRUSH SMALL AMOUNT TO TEETH TWICE DAILY FOR TOOTH DECAY PREVENTI ON DENTAL 02/17/2024 [id number] 3 LATANYA SHANE 2022 51 [facility] [place] Allergies, Adverse Reactions, Alerts Combined list of allergies from Department of Defense and Veterans Affairs facilities. It does not include entries that were removed or entered in error. Substance Category Reaction Severity Reaction type Status Date Reported Comments Source CORTISONE Propensity to adverse reactions to drug (finding) active 0 [facility] [place] [facility] Immunizations Combined list of available immunizations from the Department of Defense and Veterans Affairs facilities. Immunization Series Date Given Administered By Site Reaction Lot Number CVX Code Drug Senior Business Development Analyst Status Comments Source ZOSTER RECOMBINANT 1 2023 TEENA FLORES E LEFT DELTO ID [id number] 187 complet ed [facility] COVID-19 (MODERNA), MRNA, LNP-S, PF, 50 MCG/0.5 ML (AGES 12+ YEARS) 1 2022 DEE DEE ALCANTARA RIGHT DELTO ID [id number] 312 complet ed [facility] INFLUENZA, HIGH-DOSE, QUADRIVALENT 2022 NEEMA CHAN M LEFT DELTO ID [id number] 197 complet ed [facility] [place] [place] ZOSTER RECOMBINANT 1 2022 NEEMA CHAN M RIGHT DELTO ID [id number] 187 complet ed [facility] [place] COVID-19 (MODERNA), MRNA, LNP-S, BIVALENT BOOSTER, PF, 50 MCG/0.5 ML OR 25MCG/0.25 ML DOSE 2022 NEEMA CHAN M LEFT DELTO ID [id number] 229 complet ed [facility] [place] PNEUMOCOCCAL CONJUGATE PCV20, POLYSACCHARID E [id number] CONJUGATE, ADJUVANT, PF 2022 NEEMA CHAN M RIGHT DELTO ID [id number] 216 complet ed [facility] [place] [facility] TD (ADULT), 2 LF TETANUS TOXOID, PRESERVATIVE FREE, ADSORBED 2022 ROCIO,JENNIF ER M RIGHT DELTO ID [id number] 09 complet ed [facility] INFLUENZA, UNSPECIFIED FORMULATION 2021 88 complet ed [facility] COVID-19 (MODERNA), MRNA, LNP-S, PF, 100 MCG/0.5 ML DOSE 3 2020 207 complet ed MOD; [id number]; 1 [facility] COVID-19 (MODERNA), MRNA, LNP-S, PF, 100 MCG/0.5 ML DOSE 2 2020 207 complet ed MOD; [id number]; 1 [facility] COVID-19 (MODERNA), MRNA, LNP-S, PF, 100 MCG/0.5 ML DOSE 1 2020 207 complet ed MOD; [id number]; 1 [facility] INFLUENZA, SEASONAL, INJECTABLE 2018 141 complet ed [facility] FLU,3 YRS (HISTORICAL) 2015 88 complet ed [facility] FLU,3 YRS (HISTORICAL) 2014 88 complet ed Site: Right Deltoid [facility] FLU,3 YRS (HISTORICAL) 2013 88 complet ed Site: Right Deltoid [facility] ZOSTER LIVE 2012 121 complet ed [facility] FLU,3 YRS (HISTORICAL) 2012 88 complet ed [facility] DTAP, UNSPECIFIED FORMULATION 2012 107 complet ed [facility] FLU,3 YRS (HISTORICAL) 2011 88 complet ed [facility] FLU,3 YRS (HISTORICAL) 2010 88 complet ed Site: Left Deltoid [facility] FLU,3 YRS (HISTORICAL) 2009 88 complet ed [place] FLU,3 YRS (HISTORICAL) 2008 88 complet ed [facility] NOVEL INFLUENZA-H1N 1-09, ALL FORMULATIONS 2008 128 complet ed [facility] FLU,3 YRS (HISTORICAL) 2007 88 complet ed [facility] PNEUMOCOCCAL, UNSPECIFIED FORMULATION 2007 109 complet ed [facility] TD(ADULT) UNSPECIFIED FORMULATION 2004 139 complet ed [facility] Results Combined list of recent chemistry, hematology and other laboratory results from Department of Defense and Veterans Affairs, ranging from 15 months to all on record, depending upon the facility. Order Name Results Value Reference Range Date Interpretation Specimen Comments Source BASIC METABOLI C PANEL (fasting ) UREA NITROGEN [MASS/VOLU ME] IN SERUM OR PLASMA 13 mg/dL 7 - 25 05/15 Specimen Type: SERUM No comment entered. Ordering Provider: ED REYES Report Released Date/Time: May 13, 2023 06:02 PM Reporting Lab: [facility] [address] [facility] [address] Performing Lab: [facility] [address] [facility] [address] [facility] BASIC METABOLI C PANEL (fasting ) GLUCOSE [MASS/VOLU ME] IN SERUM OR PLASMA 121 mg/dL 65 - 100 05/15 H Specimen Type: SERUM No comment entered. Ordering Provider: ED REYES Report Released Date/Time: May 13, 2023 06:02 PM Reporting Lab: [facility] [address] [facility] [address] Performing Lab: [facility] [address] [facility] [address] [facility] BASIC METABOLI C PANEL (fasting ) SODIUM [MOLES/VOL UME] IN SERUM OR PLASMA 140 mmol/L 135 - 145 05/15 Specimen Type: SERUM No comment entered. Ordering Provider: ED REYES Report Released Date/Time: May 13, 2023 06:02 PM Reporting Lab: [facility] [place] [facility] [address] [facility] [address] Performing Lab: [facility] [place] [facility] [address] [facility] [address] [facility] [facility] BASIC METABOLI C PANEL (fasting ) POTASSIUM [MOLES/VOL UME] IN SERUM OR PLASMA 4.2 mmol/L 3.5 - 5.0 05/15 Specimen Type: SERUM No comment entered. Ordering Provider: ED REYES Report Released Date/Time: May 13, 2023 06:02 PM Reporting Lab: [facility] [place] [facility] [address] [facility] [address] Performing Lab: [facility] [place] [facility] [address] [facility] [address] [facility] [place] BASIC METABOLI C PANEL (fasting ) CHLORIDE [MOLES/VOL UME] IN SERUM OR PLASMA 106 mmol/L 100 - 110 05/15 Specimen Type: SERUM No comment entered. Ordering Provider: ED REYES Report Released Date/Time: May 13, 2023 06:02 PM Reporting Lab: [facility] [place] [facility] [address] [facility] [address] Performing Lab: [facility] [place] [facility] [address] [facility] [address] [facility] [place] [facility] BASIC METABOLI C PANEL (fasting ) CARBON DIOXIDE, TOTAL [MOLES/VOL UME] IN SERUM OR PLASMA 25 meq/L 20 - 30 05/15 Specimen Type: SERUM No comment entered. Ordering Provider: ED REYES Report Released Date/Time: May 13, 2023 06:02 PM Reporting Lab: [facility] [place] [facility] [address] [facility] [address] Performing Lab: [facility] [place] [facility] [address] [facility] [address] [facility] [place] [facility] BASIC METABOLI C PANEL (fasting ) CREATININE [MASS/VOLU ME] IN SERUM OR PLASMA 0.99 mg/dL 0.50 - 1.40 05/15 Specimen Type: SERUM No comment entered. Ordering Provider: ED REYES Report Released Date/Time: May 13, 2023 06:02 PM Reporting Lab: [facility] [place] [place] [address] [address] Performing Lab: [facility]USSELLV[facility] HOSPITALTRN [facility]USE[address] [address] [facility]PITALN [place] [facility] BASIC METABOLI C PANEL (fasting ) GLOMERULAR FILTRATION RATE/1.73 SQ M.PREDICTE D [VOLUME RATE/AREA] IN SERUM, PLASMA OR BLOOD BY CREATININE -BASED FORMULA (CKD-EPI 2020) 73 mL/min 60 05/15 Specimen Type: SERUM No comment entered. Ordering Provider: ED REYES Report Released Date/Time: May 13, 2023 06:02 PM Reporting Lab: [facility]USA [facility] PROVID[facility] HOSPITALN [facility]ITALUSE[address] [address] Performing Lab: [facility]ANRL [facility]N [facility]ITALUSE[address] [address] [facility] CBC AND DIFF (AUTO) LEUKOCYTES [#/VOLUME] IN BLOOD BY AUTOMATED COUNT 10.25 10*3/uL 4.50 - 11.00 05/15 Specimen Type: BLOOD No comment entered. Ordering Provider: ED REYES Report Released Date/Time: May 13, 2023 06:02 PM Reporting Lab: [facility] TRN [facility]ITAL[facility] [address] Performing Lab: [facility]RL TRN [facility]ITAL[facility] [address] [facility] CBC AND DIFF (AUTO) ERYTHROCYT ES [#/VOLUME] IN BLOOD BY AUTOMATED COUNT 5.44 10*6/uL 4.23 - 5.66 05/15 Specimen Type: BLOOD No comment entered. Ordering Provider: ED REYES Report Released Date/Time: May 13, 2023 06:02 PM Reporting Lab: [facility]OSPITALN [facility]ITALUSE[address] [address] Performing Lab: [facility] [address] [facility] [address] [facility] [place] [facility] CBC AND DIFF (AUTO) HEMOGLOBIN [MASS/VOLU ME] IN BLOOD 17.0 g/dL 12.8 - 17 05/15 Specimen Type: BLOOD No comment entered. Ordering Provider: ED REYES Report Released Date/Time: May 13, 2023 06:02 PM Reporting Lab: [facility] [address] [facility] [address] Performing Lab: [facility] [place] [facility] [address] [facility] [address] [facility] [place] [facility] CBC AND DIFF (AUTO) HEMATOCRIT [VOLUME FRACTION] OF BLOOD BY AUTOMATED COUNT 51.5 39.2 - 50.4 05/15 H Specimen Type: BLOOD No comment entered. Ordering Provider: ED REYES Report Released Date/Time: May 13, 2023 06:02 PM Reporting Lab: [facility] [place] [facility] [address] [facility] [address] Performing Lab: [facility] [place] [facility] [address] [facility] [address] [facility] [place] [facility] CBC AND DIFF (AUTO) MCV [ENTITIC VOLUME] BY AUTOMATED COUNT 94.7 fL 82 - 99 05/15 Specimen Type: BLOOD No comment entered. Ordering Provider: ED REYES Report Released Date/Time: May 13, 2023 06:02 PM Reporting Lab: [facility] [place] [facility] [address] [facility] [address] Performing Lab: [facility] [place] [facility] [address] [facility] [address] [facility] [place] [facility] CBC AND DIFF (AUTO) MCHC [MASS/VOLU ME] BY AUTOMATED COUNT 33.0 g/dL 30.8 - 35.1 05/15 Specimen Type: BLOOD No comment entered. Ordering Provider: ED REYES Report Released Date/Time: May 13, 2023 06:02 PM Reporting Lab: [facility] [facility] [address] [facility] [address] Performing Lab: [facility] [place] [facility] [address] [facility] [address] [facility] CBC AND DIFF (AUTO) PLATELETS [#/VOLUME] IN BLOOD BY AUTOMATED COUNT 154 10*3/uL 140 - 360 05/15 Specimen Type: BLOOD No comment entered. Ordering Provider: ED REYES Report Released Date/Time: May 13, 2023 06:02 PM Reporting Lab: [facility] [place] [facility] [address] [facility] [address] Performing Lab: [facility] [place] [facility] [address] [facility] [address] [facility] [place] [facility] CBC AND DIFF (AUTO) ERYTHROCYT E DISTRIBUTI ON WIDTH [RATIO] BY AUTOMATED COUNT 13.5 12.0 - 16.0 05/15 Specimen Type: BLOOD No comment entered. Ordering Provider: ED REYES Report Released Date/Time: May 13, 2023 06:02 PM Reporting Lab: [facility] [place] [facility] [address] [facility] [address] Performing Lab: [facility] [place] [facility] [address] [facility] [address] [facility] [place] [facility] CBC AND DIFF (AUTO) MONOCYTES [#/VOLUME] IN BLOOD BY AUTOMATED COUNT 0.63 10*3/uL 0.30 - 1.10 05/15 Specimen Type: BLOOD No comment entered. Ordering Provider: ED REYES Report Released Date/Time: May 13, 2023 06:02 PM Reporting Lab: [facility] [place] [facility] [address] [facility] [address] Performing Lab: [facility] [place] [facility] [address] [facility] [address] [facility] [place] [facility] CBC AND DIFF (AUTO) MCH [ENTITIC MASS] BY AUTOMATED COUNT 31.3 pg 26.2 - 32.6 05/15 Specimen Type: BLOOD No comment entered. Ordering Provider: ED REYES Report Released Date/Time: May 13, 2023 06:02 PM Reporting Lab: [facility] [address] [facility] [address] Performing Lab: [facility] [place] [facility] [address] [facility] [address] [facility] CBC AND DIFF (AUTO) NEUTROPHIL S/100 LEUKOCYTES IN BLOOD BY AUTOMATED COUNT 78.2 43.7 - 75.8 05/15 H Specimen Type: BLOOD No comment entered. Ordering Provider: ED REYES Report Released Date/Time: May 13, 2023 06:02 PM Reporting Lab: [facility] [address] [facility] [address] Performing Lab: [facility] [address] [facility] [address] [facility] [place] CBC AND DIFF (AUTO) LYMPHOCYTE S/100 LEUKOCYTES IN BLOOD BY AUTOMATED COUNT 14.1 14.0 - 42.3 05/15 Specimen Type: BLOOD No comment entered. Ordering Provider: ED REYES Report Released Date/Time: May 13, 2023 06:02 PM Reporting Lab: [facility] [address] [facility] [address] Performing Lab: [facility] [place] [facility] [address] [facility] [address] [facility] [place] CBC AND DIFF (AUTO) MONOCYTES/ 100 LEUKOCYTES IN BLOOD BY AUTOMATED COUNT 6.1 5.1 - 13.7 05/15 Specimen Type: BLOOD No comment entered. Ordering Provider: ED REYES Report Released Date/Time: May 13, 2023 06:02 PM Reporting Lab: [facility] [place] [facility] [address] [facility] [address] Performing Lab: [facility] [place] [facility] [address] [facility] [address] [facility] [place] CBC AND DIFF (AUTO) EOSINOPHIL S/100 LEUKOCYTES IN BLOOD BY AUTOMATED COUNT 0.5 0.4 - 6.8 05/15 Specimen Type: BLOOD No comment entered. Ordering Provider: ED REYES Report Released Date/Time: May 13, 2023 06:02 PM Reporting Lab: [facility] [place] [facility] [address] [facility] [address] Performing Lab: [facility] [place] [facility] [address] [facility] [address] [facility] CBC AND DIFF (AUTO) BASOPHILS/ 100 LEUKOCYTES IN BLOOD BY AUTOMATED COUNT 0.7 0.1 - 2.0 05/15 Specimen Type: BLOOD No comment entered. Ordering Provider: ED REYES Report Released Date/Time: May 13, 2023 06:02 PM Reporting Lab: [facility] [place] [address] [address] Performing Lab: [facility] [place] [facility] [address] [facility] [address] [facility] [place] [facility] CBC AND DIFF (AUTO) NEUTROPHIL S [#/VOLUME] IN BLOOD BY AUTOMATED COUNT 8.01 10*3/uL 2.20 - 7.60 05/15 H Specimen Type: BLOOD No comment entered. Ordering Provider: ED REYES Report Released Date/Time: May 13, 2023 06:02 PM Reporting Lab: [facility] [place] [facility] [address] [facility] [address] Performing Lab: [facility] [place] [facility] [address] [facility] [address] [facility] [place] [facility] CBC AND DIFF (AUTO) LYMPHOCYTE S [#/VOLUME] IN BLOOD BY AUTOMATED COUNT 1.45 10*3/uL 1.00 - 3.20 05/15 Specimen Type: BLOOD No comment entered. Ordering Provider: ED REYES Report Released Date/Time: May 13, 2023 06:02 PM Reporting Lab: [facility] [place] [facility] [address] [facility] [address] Performing Lab: [facility] [place] [facility] [address] [facility] [address] [facility] [place] [facility] CBC AND DIFF (AUTO) EOSINOPHIL S [#/VOLUME] IN BLOOD BY AUTOMATED COUNT 0.05 10*3/uL 0.03 - 0.44 05/15 Specimen Type: BLOOD No comment entered. Ordering Provider: ED REYES Report Released Date/Time: May 13, 2023 06:02 PM Reporting Lab: [facility] [place] [facility] [address] [facility] [address] Performing Lab: [facility] [place] [facility] [address] [facility] [address] [facility] [place] [facility] CBC AND DIFF (AUTO) BASOPHILS [#/VOLUME] IN BLOOD BY AUTOMATED COUNT 0.07 10*3/uL 0.01 - 0.13 05/15 Specimen Type: BLOOD No comment entered. Ordering Provider: ED REYES Report Released Date/Time: May 13, 2023 06:02 PM Reporting Lab: [facility] [place] [facility] [address] [facility] [address] Performing Lab: [facility] [place] [address] [address] [facility] [place] [facility] CBC AND DIFF (AUTO) IMMATURE GRANULOCYT ES/100 LEUKOCYTES IN BLOOD BY AUTOMATED COUNT 0.4 0.0 - 0.7 05/15 Specimen Type: BLOOD No comment entered. Ordering Provider: ED REYES Report Released Date/Time: May 13, 2023 06:02 PM Reporting Lab: [facility] [place] [facility] [address] [facility] [address] Performing Lab: [facility] [place] [address] [address] [facility] [place] [facility] CBC AND DIFF (AUTO) IMMATURE GRANULOCYT ES [#/VOLUME] IN BLOOD 0.04 10*3/uL 0.00 - 0.06 05/15 Specimen Type: BLOOD No comment entered. Ordering Provider: ED REYES Report Released Date/Time: May 13, 2023 06:02 PM Reporting Lab: [facility] [place] [facility] [address] [facility] [address] Performing Lab: [facility] [place] [facility] [address] [facility] [address] [facility] [place] [facility] LIPID PANEL FASTING CHOLESTERO L [MASS/VOLU ME] IN SERUM OR PLASMA 158 mg/dL 05/15 Specimen Type: SERUM No comment entered. Ordering Provider: ED REYES Report Released Date/Time: May 13, 2023 06:02 PM Reporting Lab: [facility] [place] [facility] [address] [facility] [address] Performing Lab: [facility] [place] [facility] [address] [facility] [address] [facility] [place] [facility] LIPID PANEL FASTING TRIGLYCERI DE [MASS/VOLU ME] IN SERUM OR PLASMA 139 mg/dL 0 - 150 05/15 Specimen Type: SERUM No comment entered. Ordering Provider: ED REYES Report Released Date/Time: May 13, 2023 06:02 PM Reporting Lab: [facility] [place] [place] [facility] [address] [facility] [address] Performing Lab: [facility] [facility] [address] [facility] [address] [facility] [place] [facility] LIPID PANEL FASTING CHOLESTERO L IN LDL [MASS/VOLU ME] IN SERUM OR PLASMA BY CALCWILNER N 76 mg/dL 0 - 129 05/15 Specimen Type: SERUM No comment entered. Ordering Provider: ED REYES Report Released Date/Time: May 13, 2023 06:02 PM Reporting Lab: [facility] [place] [facility] [address] [facility] [address] Performing Lab: [facility] [place] [facility] [address] [facility] [address] [facility] [place] [facility] LIPID PANEL FASTING CHOLESTERO L.TOTAL/CH OLESTEROL IN HDL [MASS RATIO] IN SERUM OR PLASMA 2.9 05/15 Specimen Type: SERUM No comment entered. Ordering Provider: ED REYES Report Released Date/Time: May 13, 2023 06:02 PM Reporting Lab: [facility] [place] [facility] [address] [facility] [address] Performing Lab: [facility] [place] [facility] [address] [facility] [address] [facility] [place] [facility] LIPID PANEL FASTING CHOLESTERO L IN HDL [MASS/VOLU ME] IN SERUM OR PLASMA 54 mg/dL 40 - 60 05/15 Specimen Type: SERUM No comment entered. Ordering Provider: ED REYES Report Released Date/Time: May 13, 2023 06:02 PM Reporting Lab: [facility] [place] [facility] [address] [facility] [facility] [address] Performing Lab: [facility] [address] [facility] [address] [facility] LIVER FUNCTION PROTEIN [MASS/VOLU ME] IN SERUM OR PLASMA 6.7 g/dL 6.0 - 8.3 05/15 Specimen Type: SERUM No comment entered. Ordering Provider: ED REYES Report Released Date/Time: May 13, 2023 06:02 PM Reporting Lab: [facility] [address] [facility] [address] Performing Lab: [facility] [address] [facility] [address] [facility] LIVER FUNCTION ALBUMIN [MASS/VOLU ME] IN SERUM OR PLASMA 3.7 g/dL 3.5 - 5.0 05/15 Specimen Type: SERUM No comment entered. Ordering Provider: ED REYES Report Released Date/Time: May 13, 2023 06:02 PM Reporting Lab: [facility] [address] [facility] [address] Performing Lab: [facility] [facility] [address] [facility] [address] [facility] LIVER FUNCTION ALKALINE PHOSPHATAS E [ENZYMATIC ACTIVITY/V OLUME] IN SERUM OR PLASMA 77 U/L 40 - 150 09/19 /2023 Specimen Type: SERUM No comment entered. Ordering Provider: ED REYSE Report Released Date/Time: May 13, 2023 06:02 PM Reporting Lab: [facility] [place] [facility] [address] [facility] [address] Performing Lab: [facility] [place] [facility] [address] [facility] [address] [facility] LIVER FUNCTION ASPARTATE AMINOTRANS FERASE [ENZYMATIC ACTIVITY/V OLUME] IN SERUM OR PLASMA 19 U/L 5 - 34 05/15 Specimen Type: SERUM No comment entered. Ordering Provider: ED REYES Report Released Date/Time: May 13, 2023 06:02 PM Reporting Lab: [facility] [place] [facility] [address] [facility] [address] Performing Lab: [facility] [place] [facility] [address] [facility] [address] [facility] LIVER FUNCTION ALANINE AMINOTRANS FERASE [ENZYMATIC ACTIVITY/V OLUME] IN SERUM OR PLASMA 21 U/L 05/15 Specimen Type: SERUM No comment entered. Ordering Provider: ED REYES Report Released Date/Time: May 13, 2023 06:02 PM Reporting Lab: [facility] [place] [facility] [address] [facility] [address] Performing Lab: [facility] [place] [facility] [address] [facility] [address] [facility] LIVER FUNCTION BILIRUBIN. TOTAL [MASS/VOLU ME] IN SERUM OR PLASMA 0.8 mg/dL 0.2 - 1.2 05/15 Specimen Type: SERUM No comment entered. Ordering Provider: ED REYES Report Released Date/Time: May 13, 2023 06:02 PM Reporting Lab: [facility] [place] [facility] [address] [facility] [address] Performing Lab: [facility] [place] [facility] [address] [facility] [address] [facility] TSH THYROTROPI N [UNITS/VOL UME] IN SERUM OR PLASMA 1.37 u[IU]/mL 0.35 - 5.00 05/15 Specimen Type: SERUM No comment entered. Ordering Provider: ED REYES Report Released Date/Time: May 13, 2023 06:02 PM Reporting Lab: [facility] [place] [address] [address] Performing Lab: [facility] [place] [facility] [address] [facility] [address] [facility] URINALYS IS CLEAN CATCH COLOR OF URINE Light-Ye llow 05/15 Specimen Type: URINE Comment: If Glucose = >500 and Ketones are positive, please alert the Physician. Ordering Provider: ED REYES Report Released Date/Time: May 13, 2023 06:02 PM Reporting Lab: [facility] [place] [address] [address] Performing Lab: [facility] [place] [facility] [address] [facility] [address] [facility] URINALYS IS CLEAN CATCH APPEARANCE OF URINE Clear 05/15 Specimen Type: URINE Comment: If Glucose = >500 and Ketones are positive, please alert the Physician. Ordering Provider: ED REYES Report Released Date/Time: May 13, 2023 06:02 PM Reporting Lab: [facility] [place] [address] [address] Performing Lab[facility] [place] [facility] [address] [facility] [address] [facility] URINALYS IS CLEAN CATCH GLUCOSE [MASS/VOLU ME] IN URINE NEGATIVE mg/dL 05/15 Specimen Type: URINE Comment: If Glucose = >500 and Ketones are positive, please alert the Physician. Ordering Provider: ED REYES Report Released Date/Time: May 13, 2023 06:02 PM Reporting Lab: [facility] [place] [address] [address] Performing Lab: [facility] [place] [facility] [address] [facility] [address] [facility] URINALYS IS CLEAN CATCH KETONES [MASS/VOLU ME] IN URINE BY TEST STRIP NEGATIVE mg/dL 05/15 Specimen Type: URINE Comment: If Glucose = >500 and Ketones are positive, please alert the Physician. Ordering Provider: ED REYES Report Released Date/Time: May 13, 2023 06:02 PM Reporting Lab: [facility] [place] [facility] [address] [facility] [address] Performing Lab: [facility] [place] [facility] [address] [facility] [address] [facility] URINALYS IS CLEAN CATCH ERYTHROCYT ES [PRESENCE] IN URINE SEDIMENT BY LIGHT MICROSCOPY NEGATIVE mg/dL 05/15 Specimen Type: URINE Comment: If Glucose = >500 and Ketones are positive, please alert the Physician. Ordering Provider: ED REYES Report Released Date/Time: May 13, 2023 06:02 PM Reporting [facility]: [facility] [place] [facility] [address] [facility] [address] Performing Lab: [facility] [place] [facility] [address] [facility] [address] [facility] URINALYS IS CLEAN CATCH PROTEIN [MASS/VOLU ME] IN URINE BY TEST STRIP NEGATIVE mg/dL 05/15 Specimen Type: URINE Comment: If Glucose = >500 and Ketones are positive, please alert the Physician. Ordering Provider: ED REYES Report Released Date/Time: May 13, 2023 06:02 PM Reporting Lab: [facility] [place] [facility] [address] [facility] [address] Performing Lab: [facility] [place] [facility] [address] [facility] [address] [facility] URINALYS IS CLEAN CATCH NITRITE [PRESENCE] IN URINE NEGATIVE mg/dL 05/15 Specimen Type: URINE Comment: If Glucose = >500 and Ketones are positive, please alert the Physician. Ordering Provider: ED REYES Report Released Date/Time: May 13, 2023 06:02 PM Reporting Lab: [facility] [address] [facility] [address] Performing Lab: [facility] [address] [facility] [address] [facility] URINALYS IS CLEAN CATCH BILIRUBIN. TOTAL [PRESENCE] IN URINE NEGATIVE mg/dL 05/15 Specimen Type: URINE Comment: If Glucose = >500 and Ketones are positive, please alert the Physician. Ordering Provider: ED REYES Report Released Date/Time: May 13, 2023 06:02 PM Reporting Lab: [facility] [address] [facility] [address] Performing Lab: [facility] [place] [facility] [address] [facility] [address] [facility] URINALYS IS CLEAN CATCH SPECIFIC GRAVITY OF URINE BY REFRACTOME TRY 1.012 1.016 - 1.022 05/15 L Specimen Type: URINE Comment: If Glucose = >500 and Ketones are positive, please alert the Physician. Ordering Provider: ED REYES Report Released Date/Time: May 13, 2023 06:02 PM Reporting Lab: [facility] [address] [facility] [address] Performing Lab: [facility] [address] [facility] [address] [facility] URINALYS IS CLEAN CATCH PH OF URINE BY TEST STRIP 7.0 5.0 - 9.0 05/15 Specimen Type: URINE Comment: If Glucose = >500 and Ketones are positive, please alert the Physician. Ordering Provider: ED REYES Report Released Date/Time: May 13, 2023 06:02 PM Reporting Lab: [facility] [address] [facility] [address] Performing Lab: [facility] [address] [facility] [address] [facility] URINALYS IS CLEAN CATCH UROBILINOG EN [MASS/VOLU ME] IN URINE BY TEST STRIP <2.0mg/d L <2.0 - 2.0 05/15 Specimen Type: URINE Comment: If Glucose = >500 and Ketones are positive, please alert the Physician. Ordering Provider: ED REYES Report Released Date/Time: May 13, 2023 06:02 PM Reporting Lab: [facility] [place] [facility] [address] [facility] [address] Performing Lab: [facility] [place] [facility] [address] [facility] [address] [facility] URINALYS IS CLEAN CATCH LEUKOCYTE ESTERASE [PRESENCE] IN URINE BY TEST STRIP NEGATIVE 05/15 Specimen Type: URINE Comment: If Glucose = >500 and Ketones are positive, please alert the Physician. Ordering Provider: ED REYES Report Released Date/Time: May 13, 2023 06:02 PM Reporting Lab: [facility] [place] [facility] [address] [facility] [address] Performing Lab: [facility] [place] [facility] [address] [facility] [address] [facility] Vital Signs Combined list of inpatient and outpatient Vital Signs from Department of Defense and Veterans Affairs, ranging from 12 months to all on record, depending upon the facility. Vital Sign Value Date Comments Source SYSTOLIC BLOOD PRESSURE 151 05/26/20 24 11:52:31 [facility] DIASTOLIC BLOOD PRESSURE 80 024 11:52:31 [facility] PULSE OXIMETRY 98 05/26/2024 11:52:31 [facility] [facility] WEIGHT 232 05/26/2024 11:52:31 [facility] BMI 32kg/m2 05/26/2024 11:52:31 [facility] [facility] PAIN 4 05/26/2024 11:52:31 [facility] HEIGHT 71 05/26/2024 11:52:31 [facility] TEMPERATURE 97.6 05/26/2024 11:52:31 [facility] PULSE 66 05/26/2024 11:52:31 [facility] RESPIRATION 16 05/26/2024 11:52:31 [facility] SYSTOLIC BLOOD PRESSURE 146 11/21/19 24 13:40:38 [facility] DIASTOLIC BLOOD PRESSURE 80 024 13:40:38 [facility] PULSE OXIMETRY 97 11/21/2023 13:40:38 [facility] WEIGHT 200 11/21/2023 13:40:38 [facility] BMI 28kg/m2 11/21/2023 13:40:38 [facility] PAIN 0 11/21/2023 13:40:38 [facility] TEMPERATURE 97.7 11/21/2023 13:40:38 [facility] PULSE 69 11/21/2023 13:40:38 [facility] RESPIRATION 18 11/21/2023 13:40:38 [facility] SYSTOLIC BLOOD PRESSURE 146 09/17/19 24 11:09:19 [facility] DIASTOLIC BLOOD PRESSURE 89 024 11:09:19 [facility] PULSE OXIMETRY 97% 09/17/2023 11:09:19 [facility] PAIN 4 09/17/2023 11:09:19 [facility] TEMPERATURE 97.5 09/17/2023 11:09:19 [facility] PULSE 70 09/17/2023 11[facility]09:19 [facility] RESPIRATION 18 09/17/2023 11:09:19 [facility] Encounters Combined list of: 1) Encounters from Department of Veterans Affairs facilities going back up to thelast 18 months. 2) Encounters from the Department of Defense facilities going back up to 280 months. Location Location Details Encounter Type Encounter Number Reason For Visit Attending Provider ADM Date DC Date Status Disposition Source [facility] Out[facility] Encounter [id number] Diagnos is: ICD-10- CM Z02.89 Encount er for other adminis trative examina tions<b r/> FRANCISCO GAMBLE 02/05 [facility] Encounter [id number] 02/14 [facility] Encounter [id number] 02/15 [facility] BRIEF ASSESSMENT [id number] Diagnos is: ICD-10- CM 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
LATANYA SHANE 02/16 [facility] En[facility] [id number] 03/02 [facility] Encounter [id number] 03/16 [facility] Encounter [id number] 03/19 [facility] SELF CARE MNGMENT TRAINING [id number] Diagnos is: ICD-10- CM R26.9 Unspeci fied abnorma lities of gait and mobilit y
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
ORLANDO REYES RD 05/21 [facility] En[facility] [id number] 05/24 [facility] Encounter [id number] 05/24 [facility] OFF/OP EST MAY X REQ PHY/QHP [id number] Diagnos is: ICD-10- CM Z23 Encount er for immuniz ation<b r/> HAMZAH ALCANTARA NON P 06/22 [facility] Out[facility] Encounter [id number] 07/11 [facility] Encounter [id number] 07/11 [facility] Out[facility] Encounter [id number] 07/16 [facility] Out[facility] Encounter [id number] 09/04 [facility] Encounter [id number] 09/07 [facility] OFFICE O/P EST MOD 30 MIN [id number] Diagnos is: ICD-10- CM R41.9 Unsp symptom s and signs w cogniti ve functio ns and awarene ss
PAUL GRAMAJO IEL Y 09/17 [facility] En[facility] [id number] 10/12 [facility] Out[facility] Encounter [id number] 10/15 [facility] Out[facility] Encounter [id number] 11/13 [facility] Out[facility] Encounter [id number] 11/19 [facility] OFFICE O/P EST SF 10 MIN [id number] Diagnos is: ICD-10- CM 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
ORLANDO REYES RD 11/20 [facility] En[facility] [id number] 11/28 [facility] Out[facility] Encounter [id number] 12/02 [facility] OT EVAL LOW COMPLEX 30 MIN [id number] Diagnos is: ICD-10- CM R53.1 Weaknes s
BAUTISTASHANE ANE 12/04 [facility] [place] 1 [id number] Diagnos is: ICD-10- CM H25.813 Combine d forms of age-rel ated catarac t, bilater al
MERHAR,TRISTA H B 12/11 [facility] FIT SPECTACLES BIFOCAL [id number] Diagnos is: ICD-10- CM Z46.0 Encount er for fit/adj st of spectac les and contact lenses< br/> MERHAR,TRISTA H B 12/11 [facility] Out[facility] Encounter [id number] 01/08 [facility] Out[facility] Encounter [id number] 02/03 [facility] Encounter [id number] 02/05 [facility] Out[facility] Encounter [id number] 04/25 [facility] Out[facility] Encounter [id number] Diagnos is: ICD-10- CM Z02.89 Encount er for other adminis trative examina tions<b r/> FRANCISCO GAMBLE 05/06 [facility] Outpatient [facility]counter [id number] 1.05/22 [facility] Encounter [id number] 1.05/23 [facility] Encounter [id number] 1.05/26 [facility] Outpatient Encounter [id number] [facility] OFFICE O/P EST SF 10 MIN [id number] 1. Diagnos is: ICD-10- CM R41.9 Unsp symptom s and signs w cogniti ve functio ns and awarene ss
ORLANDO REYES RD 05/26 [facility] Outpatient Encounter [id number] 07/25 [facility] OT EVAL LOW COMPLEX 30 MIN [id number] Diagnos is: ICD-10- CM R26.9 Unspeci fied abnorma lities of gait and mobilit y
REFUGIO CLARKE ICA L 07/28 [facility] Social History Combined list of available smoking, tobacco, and other social history from Department of Defense and Veterans Affairs facilities. Social History Type Response Date Comment Sourc e Tobacco smoking status NHIS VA-TOBACCO NEVER USED 05/26/2024 [facility] History of tobacco use VA-TOBACCO NEVER USED 05/21/2023 [facility] History of tobacco use [facility]-TOBACCO FORMER USER 05/22/2022 [facility] History of tobacco use LIFETIME NON-TOBACCO USER 11/16/2016 [facility] History of tobacco use LIFETIME NON-TOBACCO USER 10/07/2015 [facility] History of tobacco use QUIT TOBACCO USE > 7 YEARS AGO 03/29/2009 [facility] Plan of Care List of future care activities from [facility] facilities. Additional future care activities may be listed in the Assessment and Plan section. Date/Time Care Activity Care Activity Detail Facili ty 12/17/2024 AMBULATORY - MEDICINE AMBULATORY - MEDICI [facility] Advance Directives List of completed, amended, or rescinded Advance Directives on record at [facility] facilities. An actual copy of the Directive is not included. Date Advance Directive Provider Source 07/05/2022 ADVANCE DIRECTIVE DHIRAJ GRACIA [facility]
--- OUTSIDE RECORDS SUMMARY | 2024-08-05 22:37 | XMS_ITS ---
Author Name [facility] [place] Address [address] [place] [address] Care Team Providers Care Asbestos Handler Name Role Phone ANDRES PEDRAZA Primary Care Provider Unavailabl e Insurance Providers: All historical and current Section Date Range: From patient's date of to the date document was created. This section includes the names of all active insurance providers for the patient. Insurance Provider Type of Coverage Plan Name Start of Policy Coverage End of Policy Coverage Group Number Member ID Insurance Provider's Telephone Number Policy Etienne's Name Patient's Relationship to Policy Etienne [facility] ([facility]) MEDICARE ADVANTAGE MCR ([facility]) Aug 27, 2012 [id number] PATIENT [facility] ([facility]) MEDICARE ADVANTAGE MCR ([facility]) Aug 27, 2012 [id number] PATIENT Selected Encounter This section includes the information on record at [place] for the Encounter. Date/Time Encounter Type Encounter Description Reason Pro vider Source Sep 04, 2023 12:48 PM Outpatient Encounter COMMUNITY CARE CONSULT IHE Encounter Template Text not used by VA Plan of Treatment: Future Appointments (+ 6 months) and Future Tests (+/- 45 days) The Plan of Treatment section includes future care activities for the patient from all [place] [facility]. This section includes future appointments and future orders which are active, pending or scheduled. Future Appointments This section includes appointments that were scheduled to occur 6 months from the date of the Encounter, up to a maximum of 20 appointments. The data comes from all [place] treatment facilities. Appointment Date/Time Appointment Type Appointme nt Facility Name Sep 07, 2023 01:00 PM AMBULATORY [place]ICINE [place] [facility] [facility] Sep 17, 2023 11:00 AM AMBULATORY - NEUROLOGY [place] [facility] [place] [facility] Nov 21, 2023 01:30 PM AMBULATORY - MEDICINE [place] [facility] [facility] Dec 05, 2023 09:30 AM AMBULATORY - REHAB MEDICIN E [place] [facility] [place] [facility] Dec 12, 2023 09:30 AM AMBULATORY - MEDICINE [place] [facility] Dec 20, 2023 10:30 AM AMBULATORY - MEDICINE [place] [facility] January 09, 2024 11:30 AM AMBULATORY - MEDICINE [place] [facility] [place] [facility] Feb 04, 2024 02:00 PM AMBULATORY - MEDICINE [place] [facility] Feb 06, 2024 02:15 PM AMBULATORY - MEDICINE [facility] [place] [facility] Social History: Smoking Status (Most current) and Tobacco Use (All prior to encounter date) This section includes the most current, and the historical, smoking and tobacco- related health factors from the [place] facility where the Encounter took place. Current Smoking Status This section includes the most current smoking, or tobacco-related health factor, from the [place] facility where the Encounter took place. Date/Time Current Smoking Status Comment Facil ity May 21, 2023 02:00 PM [facility]-TOBACCO [facility] Tobacco Use History This section includes a history of the smoking, or tobacco-related health factors, that were collected on or before the date of the Encounter. The data comes from the [place] facility where the Encounter took place. Date/Time Smoking Status/Tobacco Use Comment F acility May 22, 2022 03:30 PM [facility] [place] [facility] May 22, 2022 03:30 PM VA-TOBACCO QUIT 15 YRS OR MORE [facility] Nov 15, 2018 10:40 AM [facility]BACCO [facility] Nov 16, 2016 01:42 PM LIFETIME NON-TOBACCO [facility] Oct 07, 2015 01:01 PM LIFETIME NON-TOBACCO [facility] Mar 29, 2009 02:36 PM QUIT TOBACCO USE > 7 YEARS AGO [facility] Advance Directives: All historical and current Section Date Range: From patient's date of to the date document was created. This section includes ALL of a patient's completed or amended [place] Advance and Rescinded Directives. The entries below indicate that a directive exists for the patient, but an actual copy is not included with this document. The data comes from all [place] facilities. Date Advance Directives Provider Source Jul 05, 2022 ADVANCE DIRECTIVE SERVANDOKALEYDHIRAJ [facility] Encounter Notes: All associated encounter notes This section contains the clinical notes associated to the Encounter. Date/Time Encounter Note(s) Provider Source Sep 04, 2023 12:48 PM ADMINISTRATIVE NOT E: LOCAL TITLE: ADMINISTRATIVE NOTE STANDARD TITLE: ADMINISTRATIVE NOTE DATE OF NOTE: SEP 04, 2023@12:48 ENTRY DATE: SEP 04, 2023@12:49 AUTHOR: NICK CHAPA EXP COSIGNER: URGENCY: STATUS: COMPLETED ADMINISTRATIVE NOTE Has ADDENDA from [facility] requesting an authorization renewal. The current auth has . If PCP agrees, a new Oncology consult is needed. /deisi CHAPA RN [facility] [employer] Signed: 09/04/2023 12:50 Receipt Acknowledged By: 09/04/2023 13:16 /promise/ Rosana Kohler RN, ASHOKN Primary Care 09/04/2023 13:16 /promise/ Andres Pedraza MD Staff Physician 09/04/2023 ADDENDUM STATUS: COMPLETED done. please sign /CHUY Truong RN Primary Care Signed: 09/04/2023 13:16 09/04/2023 ADDENDUM STATUS: COMPLETED Signed. /deisi Pedraza MD Staff Physician Signed: 09/04/2023 13:16 NICK CHAPA [facility]
--- OUTSIDE RECORDS SUMMARY | 2024-08-05 22:38 | XMS_ITS ---
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 Date/Time Encounter Type Encounter Description Reason Pro vider Source Oct 15, 2023 05:20 PM Outpatient Encounter PRIMARY CARE/MEDICINE IHE Encounter Template Text not used by VA Plan of Treatment: Future Appointments (+ 6 months) and Future Tests (+/- 45 days) The Plan of Treatment section includes future care activities for the patient from all [place] [facility]. This section includes future appointments and future orders which are active, pending or scheduled. Future Appointments This section includes appointments that were scheduled to occur 6 months from the date of the Encounter, up to a maximum of 20 appointments. The data comes from all [place] treatment facilities. Appointment Date/Time Appointment Type Appointme nt Facility Name Nov 21, 2023 01:30 PM AMBULATORY - MEDICINE [place] [place] [facility] Dec 05, 2023 09:30 AM AMBULATORY - REHAB MEDICIN E [place] [facility] [place] [facility] Dec 12, 2023 09:30 AM AMBULATORY - MEDICINE [place] [facility] [place] [facility] Dec 20, 2023 10:30 AM AMBULATORY - MEDICINE [place] [facility] [place] [facility] January 09, 2024 11:30 AM AMBULATORY - MEDICINE [place] [facility] [place] [facility] Feb 04, 2024 02:00 PM AMBULATORY - MEDICINE [facility] [place] [facility] Feb 06, 2024 02:15 PM AMBULATORY - MEDICINE [facility] Social History: Smoking Status (Most current) and Tobacco Use (All prior to encounter date) This section includes the most current, and the historical, smoking and tobacco- related health factors from the [place] facility where the Encounter took place. Current Smoking Status This section includes the most current smoking, or tobacco-related health factor, from the [place] facility where the Encounter took place. Date/Time Current Smoking Status Comment Facil ity May 21, 2023 02:00 PM VA-TOBACCO [facility] Tobacco Use History This section includes a history of the smoking, or tobacco-related health factors, that were collected on or before the date of the Encounter. The data comes from the [place] facility where the Encounter took place. Date/Time Smoking Status/Tobacco Use Comment F acility May 22, 2022 03:30 PM VA-TOBACCO FORMER USER [place] [facility] [place] [facility] May 22, 2022 03:30 PM VA-TOBACCO QUIT 15 YRS OR MORE [place] [facility] Nov 15, 2018 10:40 AM VA-TOBACCO NEVER USED [place] [facility] Nov 16, 2016 01:42 PM LIFETIME NON-TOBACCO [facility] [place] [facility] Oct 07, 2015 01:01 PM LIFETIME NON-TOBACCO USER [facility] Mar 29, 2009 02:36 PM QUIT TOBACCO USE > 7 YE[facility] AGO [facility] Advance Directives: All historical and current Section Date Range: From patient's date of to the date document was created. This section includes ALL of a patient's completed or amended [place] Advance and Rescinded Directives. The entries below indicate that a directive exists for the patient, but an actual copy is not included with this document. The data comes from all [place] facilities. Date Advance Directives Provider Source Jul 05, 2022 ADVANCE DIRECTIVE DHIRAJ GRACIA [facility] Encounter Notes: All associated encounter notes This section contains the clinical notes associated to the Encounter. Date/Time Encounter Note(s) Provider Source Oct 15, 2023 05:20 PM LETTERS: LOCAL TITLE: PATIENT LETTER (T) STANDARD TITLE: LETTERS DATE OF NOTE: OCT 15, 2023@17:20 ENTRY DATE: OCT 15, 2023@17:20:59 AUTHOR: ANDRES PEDRAZA EXP COSIGNER: URGENCY: STATUS: COMPLETED DEPARTMENT OF [facility] Toll Free Number Primary Care Telephone Assistance can be reached at extension [phone] [facility] scheduling can be reached at extension [phone] [facility] scheduling can be reached at ext [phone] [address] LA[address] [place] [address], [id number] October 15, 2023 Dear Nahomi, I received a message that you are requesting medications from the [place]. Please call to make an appointment to evaluate the medical issues which are associated with these medications. Please contact me if you have questions. Respectfully, Andres Pedraza MD Sincerely, Your Primary Care Team [facility] [address] [address] [place] [address] [facility] [address] [place] [address] [place] [address] [phone] [facility] [address] [facility] [place] [address] [place] [address] ANDRES PEDRAZA [place] [facility]L [facility]
--- OUTSIDE RECORDS SUMMARY | 2024-08-05 22:38 | XMS_ITS ---
Author Name [place] Address [address] [place] [address] Care Team Providers Care Exercise Teacher Name Role Phone SHAINA REYES Primary Care Provider Unavailabl e Insurance Providers: [...] Etienne's Name Patient's Relationship to Policy Etienne [facility] ([facility]) MEDICARE ADVANTAGE MCR ([facility]) Aug 27, 2012 [id number] PATIENT [facility] ([facility]) MEDICARE ADVANTAGE MCR ([facility]) Aug 27, 2012 [id number] PATIENT Selected Encounter This section includes the information on record at [place] for the Encounter. Date/Time Encounter Type Encounter Description Reason Pro vider Source Nov 14, 2023 09:37 AM Outpatient Encounter PRIMARY CARE/MEDICINE IHE Encounter Template Text not used by VA Plan of Treatment: Future Appointments (+ 6 months) and Future Tests (+/- 45 days) The Plan of Treatment section includes future care activities for the patient from all [place] [facility]. This section includes future appointments and future orders which are active, pending or scheduled. Future Appointments This section includes appointments that were scheduled to occur 6 months from the date of the Encounter, up to a maximum of 20 appointments. The data comes from all [place] treatment facilities. Appointment Date/Time Appointment Type Appointme nt Facility Name Nov 21, 2023 01:30 PM AMBULATORY - MEDICINE [place] [facility] Dec 05, 2023 09:30 AM AMBULATORY - REHAB MEDICIN E [place] [facility] [place] [facility] Dec 12, 2023 09:30 AM AMBULATORY - MEDICINE [place] [facility] Dec 20, 2023 10:30 AM AMBULATORY - MEDICINE [place] [facility] January 09, 2024 11:30 AM AMBULATORY - MEDICINE [place] [facility] Feb 04, 2024 02:00 PM AMBULATORY - MEDICINE [facility] [place] [facility] Feb 06, 2024 02:15 PM AMBULATORY - MEDICINE [place] C [place] [facility] Apr 25, 2024 11:30 AM AMBULATORY - MEDICINE [place] C [place] [facility] May 06, 2024 12:00 PM AMBULATORY - MEDICINE [facility] [place] [facility] Social History: Smoking Status (Most current) and Tobacco Use (All prior to encounter date) This section includes the most current, and the historical, smoking and tobacco- related health factors from the [place] facility where the Encounter took place. Current Smoking Status This section includes the most current smoking, or tobacco-related health factor, from the [place] facility where the Encounter took place. Date/Time Current Smoking Status Comment Facil ity May 21, 2023 02:00 PM VA-TOBACCO [facility] Tobacco Use History This section includes a history of the smoking, or tobacco-related health factors, that were collected on or before the date of the Encounter. The data comes from the [place] facility where the Encounter took place. Date/Time Smoking Status/Tobacco Use Comment F acility May 22, 2022 03:30 PM VA-TOBACCO FORMER USER [place] [facility] May 22, 2022 03:30 PM VA-TOBACCO QUIT 15 YRS OR MORE [facility] Nov 15, 2018 10:40 AM VA-TOBACCO NEVER USED [facility] Nov 16, 2016 01:42 PM LIFETIME NON-TOBACCO USER [facility] Oct 07, 2015 01:01 PM LIFETIME NON-TOBACCO USER [facility] Mar 29, 2009 02:36 PM QUIT TOBACCO USE > 7 YEARS AGO [facility] Advance Directives: All historical and current Section Date Range: From patient's date of to the date document was created. This section includes ALL of a patient's completed or amended [place] Advance and Rescinded Directives. The entries below indicate that a directive exists for the patient, but an actual copy is not included with this document. The data comes from all [place] facilities. Date Advance Directives Provider Source Jul 05, 2022 ADVANCE DIRECTIVE DHIRAJ GRACIA [facility] Encounter Notes: All associated encounter notes This section contains the clinical notes associated to the Encounter. Date/Time Encounter Note(s) Provider Source Nov 14, 2023 09:37 AM ADMINISTRATIVE NOTE: LOCAL TITLE: ADMINISTRATIVE NOTE STANDARD TITLE: ADMINISTRATIVE NOTE DATE OF NOTE: NOV 14, 2023@09:37 ENTRY DATE: NOV 14, 2023@09:37:28 AUTHOR: DHIRAJ GRACIA EXP COSIGNER: URGENCY: STATUS: COMPLETED Reminder call for your upcoming Primary Care Appointment and the need for preparations prior to your upcoming appt. [X] Location in [facility] [X] Fasting labs [ ] Lab work within 30 days [ ] Urine [ ] No Preparation Action taken: [X] Called , left voice message Oct [ ] Called , unable to leave voice mail [ ] Spoke to /home health care worker to remind them of upcoming appt/preparations Upcoming Appointments: 11/21/2023 13:30 CWM/NO/PACT 2 12/12/2023 09:30 CWM/NO/OPTOMETRY 1 AM 03/26/2024 11:00 COM CARE-DENTAL GENERAL /promise/ DHIRAJ JOHN Signed: 11/14/2023 09:37 DHIRAJ GRACIA [facility]
--- OUTSIDE RECORDS SUMMARY | 2024-08-05 22:38 | XMS_ITS | Encounter Summary ---
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 Name Role Phone SHAINA PEDRAZA Primary Care Provider Unavailabl e Insurance [...] Etienne's Name Patient's Relationship to Policy Etienne [facility] ([facility]) MEDICARE ADVANTAGE [facility] ([facility]) Aug 27, 2012 [id number] PATIENT [facility] ([facility]) MEDICARE ADVANTAGE [facility] ([facility]) Aug 27, 2012 [id number] [address] PATIENT Selected Encounter This section includes the information on record at [place] for the Encounter. Date/Time Encounter Type Encounter Description Reason Provider Source Nov 21, 2023 01:30 PM OFFICE O/P EST SF 10 MIN PRIMARY CARE/MEDICINE ICD-10-CM C67.9 Malignant neoplasm of bladder, unspecified SHAINA PEDRAZA Elif Encounter Template Text not used by VA Assessments - Encounter Diagnoses This section includes the primary and secondary diagnoses documented for the Encounter. Date/Time Primary/Secondary Diagnosis Diagnosis Name Provider Source Nov 21, 2023 02:07 PM PRIMARY Malignant neoplasm of bladder, unspecified SHAINA PEDRAZA [place] [facility] Nov 21, 2023 02:07 PM SECONDARY Encounter for immunization TEENA MANN [place] [facility] Plan of Treatment: Future Appointments (+ 6 months) and Future Tests (+/- 45 days) The Plan of Treatment section includes future care activities for the patient from all [place] treatmentfacilities. This section includes future appointments and future orders which are active, pending or scheduled. Future Appointments This section includes appointments that were scheduled to occur 6 months from the date of the Encounter, up to a maximum of 20 appointments. The data comes from all [place] treatment facilities. Appointment Date/Time Appointment Type Appointme nt Facility Name Dec 05, 2023 09:30 AM AMBULATORY - REHAB MEDICIN E [place] [facility] [facility] Dec 12, 2023 09:30 AM AMBULATORY - MEDICINE [place] [facility] Dec 20, 2023 10:30 AM AMBULATORY - MEDICINE [place] [facility] January 09, 2024 11:30 AM AMBULATORY - MEDICINE [place] [facility] Feb 04, 2024 02:00 PM AMBULATORY - MEDICINE [place] [facility] Feb 06, 2024 02:15 PM AMBULATORY - MEDICINE [place] [facility] Apr 25, 2024 11:30 AM AMBULATORY - MEDICINE [place] [facility] May 06, 2024 12:00 PM AMBULATORY - MEDICINE [place] [facility] Vital Signs: All taken on the encounter date This section contains inpatient and outpatient Vital Signs collected on the date of the Encounter. Date/Time Temperature Pulse Blood Pressure Respiratory Rate SP02 Pain Height Weight Body Mass Index Source Nov 21, 2023 01:55 PM 132/66 [place] [facility] Nov 21, 2023 01:40 PM 97.7 69 146/80 18 97 0 200 28 [facility] [place] [facility] Immunizations: All administered on the encounter date This section contains immunizations associated to the Encounter. Immunization Series Date Issued Reaction Comments ZOSTER RECOMBINANT 1 Nov 21, 2023 Social History: Smoking Status (Most current) and Tobacco Use (All prior to encounter date) This section includes the most current, and the historical, smoking and tobacco- related health factors from the [place] facility where the Encounter took place. Current Smoking Status This section includes the most current smoking, or tobacco-related health factor, from the [place] facility where the Encounter took place. Date/Time Current Smoking Status Comment Facil ity May 21, 2023 02:00 PM VA-TOBACCO NEVER USED [facility] Tobacco Use History This section includes a history of the smoking, or tobacco-related health factors, that were collected on or before the date of the Encounter. The data comes from the [place] facility where the Encounter took place. Date/Time Smoking Status/Tobacco Use Comment F acility May 22, 2022 03:30 PM VA-TOBACCO [facility]ER [facility] May 22, 2022 03:30 PM VA-TOBACCO QUIT 15 YRS OR MORE [place] [facility] [facility] Nov 15, 2018 10:40 AM [place]-TO[place]ACCO NEVER USED [facility] Nov 16, 2016 01:42 PM LIFETIME [facility] [place] [facility] Oct 07, 2015 01:01 PM LIFETIME [facility]AC[facility] [place] [facility] Mar 29, 2009 02:36 PM QUIT TOBACCO USE > 7 YEARS AGO [facility] Advance Directives: All historical and current Section Date Range: From patient's date of to the date document was created. This section includes ALL of a patient's completed or amended [place] Advance and Rescinded Directives. The entries below indicate that a directive exists for the patient, but an actual copy is not included with this document. The data comes from all [place] facilities. Date Advance Directives Provider Source Jul 05, 2022 ADVANCE DIRECTIVE DHIRAJ GRACIA [facility] Encounter Notes: All associated encounter notes This section contains the clinical notes associated to the Encounter. Date/Time Encounter Note(s) Provider Source Nov 21, 2023 01:55 PM PHYSICIAN NOTE: LOCAL TITLE: MD NOTE STANDARD TITLE: PHYSICIAN NOTE DATE OF NOTE: NOV 21, 2023@13:55 ENTRY DATE: NOV 21, 2023@13:55:44 AUTHOR: SHAINA PEDRAZA EXP COSIGNER: URGENCY: STATUS: COMPLETED Patient Name: TALON LAZO VITALS: Patient temperature: 97.7 F [36.5 C] (11/21/2023 13:40) Blood pressure: 132/66 (11/21/2023 13:55) Patient height: 71 in [180.3 cm] (05/02/2017 11:32) Patient weight: 200 lb [90.72 kg] (11/21/2023 13:40) Patient BMI: BMI: 28.0 Patient pulse: 69 (11/21/2023 13:40) Patient respiration: 18 (11/21/2023 13:40) Patient Pulse Oximetry: 97% (11/21/2023 13:40) Pain Ratin (11/21/2023 13:40) Active VA Medications: Active Outpatient Medications (including Supplies): Active Outpatient Medications Status 1) SODIUM FLUORIDE 1.1% TOOTHPASTE BRUSH SMALL AMOUNT TO ACTIVE TEETH TWICE DAILY FOR TOOTH DECAY PREVENTION 2) THIAMINE 100MG TAB TAKE ONE TABLET BY MOUTH ONCE ACTIVE DAILY FOR VITAMIN SUPPLEMENTATION Remote Medications: No Active 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 Patient feels well today with no focal complaints. He says he has completed chemotherapy for bladder cancer. Physical examination Well-developed well-nourished male no acute distress coronary no murmur Lungs clear Assessment and plan: 1. Bladder cancer: Followed by private urology Plan continue above Patient is requesting stair lift. Ordered occupational therapy. Discussed terms of [place] shared care pharmacy program. 11-11-2023 no-show labs. Follow-up 6 months clinic visit and lab Falls & Incontinence Screen: Incontinence Screen: During the past 12 months, has the patient has any characteristics of incontinence (ability, voiding, leakage, etc.)? YES - Incontinence is a problem for this patient. Is urinary incontinence NEW for this patient? NO - Incontinence is NOT a new problem. What is the current treatment? None Hemoglobin A1C: Erroneous Dx! This Reminder should not apply to this patient. An erroneously entered diagnosis of Diabetes is making this reminder apply. This reminder will no longer be applicable unless a future diagnosis indicating Diabetes is made. Medication Reconciliation: Outpatient: Has the patient been taking medications as documented in the EMLR? YES: The patient has been taking medications as documented in the EMLR. Essential Medication List for Review used to complete this medication reconciliation. INCLUDED IN THIS LIST: Alphabetical list of active outpatient prescriptions dispensed from this [place] (local) and dispensed from another [place] or [facility] facility (remote) as well as inpatient orders (local, pending and active), local clinic medications, locally documented non-VA medications, and local prescriptions that have or been discontinued in the past 90 days. - All changes in medications, including all non-VA/Herbal/OTC medications were entered into CPRS. - If there were any medications the patient should no longer take, they were discontinued. - The patient/caregiver was instructed to update this list, discard old lists, and take this list to the next appointment, whether with a VA or non-VA provider. /promise/ Shaina Pedraza MD Staff Physician Signed: 11/21/2023 14:07 SHAINA PEDRAZA [place] [facility] Nov 21, 2023 01:43 PM PREVENTIVE MEDICINE NURSING NOTE: LOCAL TITLE: CLINICAL REMINDERS/NURSING STANDARD TITLE: PREVENTIVE MEDICINE NURSING NOTE DATE OF NOTE: NOV 21, 2023@13:43 ENTRY DATE: NOV 21, 2023@13:43:48 AUTHOR: PHOENIX MANNIGNWOODROW: URGENCY: STATUS: COMPLETED CLINICAL REMINDERS/NURSING Has ADDENDA Homelessness/Food Insecurity Screen: In the past 2 months, have you been living in stable housing that you own, rent, or stay in as part of a household? Yes - Living in stable housing. Are you worried or concerned that in the next 2 months you may NOT have stable housing that you own, rent, or stay in as part of a household? No - Not worried about housing near future The reports the following: Within the past 12 months, you worried whether your food would run out before you got money to buy more. Never true Within the past 12 months, the food you bought just didn't last and you didn't have money to get more. Never true /promise/ PHOENIX MANN LPN Signed: 11/21/2023 13:44 11/21/2023 ADDENDUM STATUS: COMPLETED Herpes Zoster (Shingles) Vaccine: Administered: ZOSTER RECOMBINANT Date Administered: Nov 21, 2023 13:30 Series: Series 1 Wireless Technician: Virtual View App Lot: [id number] Exp Date: May 11, [address] [facility]: [id number] Admin Route/Site: INTRAMUSCULAR/LEFT DELTOID Dosage: 0.5mL Vaccine Information Statement(s): RECOMBINANT ZOSTER VACCINE VIS Sep 30, 2021 (CZECH) Order By: Policy Administered By: Phoenix Mann Vaccine Information Sheet (VIS) was given to the patient/caregiver, education regarding adverse reactions was discussed, as well as barriers to learning, if any, were acknowledged. /promise/ PHOENIX MANN LPN Signed: 11/21/2023 14:13 [place] MANN [place] [facility]
--- OUTSIDE RECORDS SUMMARY | 2024-08-05 22:38 | XMS_ITS ---
Author Name [place] Address [address] [place] [address] Care Team Providers Care Entry Level Manager Name Role Phone ANDRES PEDRAZA Primary Care [...] Name Patient's Relationship to Policy Etienne [facility] ([facility]) MEDICARE ADVANTAGE [facility] ([facility]) Aug 27, 2012 [id number] PATIENT [facility] ([facility]) MEDICARE ADVANTAGE [facility] ([facility]) Aug 27, 2012 [id number] PATIENT Selected Encounter This section includes the information on record at [place] for the Encounter. Date/Time Encounter Type Encounter Description Reason Pro vider Source Oct 12, 2023 12:18 PM Outpatient Encounter ADMIN PAT ACTIVTIES (MASNONCT) IHE Encounter Template Text not used by [place] Plan of Treatment: Future Appointments (+ 6 months) and Future Tests (+/- 45 days) The Plan of Treatment section includes future care activities for the patient [facility] [place] [facility] This section includes future appointments and future orders which are active, pending or scheduled. Future Appointments This section includes appointments that were scheduled to occur 6 months from the date of the Encounter, up to a maximum of 20 appointments. The data comes from all [place] treatment facilities. Appointment Date/Time Appointment Type Appointme nt Facility Name Nov 21, 2023 01:30 PM AMBULATORY - MEDICINE [place] [facility] Dec 05, 2023 09:30 AM AMBULATORY - REHAB MEDICIN E [place] [facility] [place] [facility] Dec 12, 2023 09:30 AM AMBULATORY - MEDICINE [place] [place] [facility] Dec 20, 2023 10:30 AM AMBULATORY - MEDICINE [place] [facility] January 09, 2024 11:30 AM AMBULATORY - MEDICINE [place] [facility] Feb 04, 2024 02:00 PM AMBULATORY - MEDICINE [place] [facility] Feb 06, 2024 02:15 PM AMBULATORY - MEDICINE [place] [facility] Social History: Smoking Status (Most current) and Tobacco Use (All prior to encounter date) This section includes the most current, and the historical, smoking and tobacco- related health factors from the [place] facility where the Encounter took place. Current Smoking Status This section includes the most current smoking, or tobacco-related health factor, from the [place] facility where the Encounter took place. Date/Time Current Smoking Status Comment Facil ity May 21, 2023 02:00 PM VA-TOBACCO NEVER USED [place] [facility] [place] [facility] Tobacco Use History This section includes a history of the smoking, or tobacco-related health factors, that were collected on or before the date of the Encounter. The data comes from the [place] facility where the Encounter took place. Date/Time Smoking Status/Tobacco Use Comment F acility May 22, 2022 03:30 PM VA-TOBACCO FORMER USER [place] [facility] [place] [facility] May 22, 2022 03:30 PM VA-TOBACCO QUIT 15 YRS OR MORE [facility] [place] [facility] Nov 15, 2018 10:40 AM VA-TOBACCO NEVER USED [facility] [place] [facility] Nov 16, 2016 01:42 PM [facility] Oct 07, 2015 01:01 PM LIFETIME [facility] Mar 29, 2009 02:36 PM QUIT TOBACCO USE > 7 YEARS AGO [facility] Advance Directives: All historical and current Section Date Range: From patient's date of to the date document was created. This section includes ALL of a patient's completed or amended [place] Advance and Rescinded Directives. The entries below indicate that a directive exists for the patient, but an actual copy is not included with this document. The data comes from all [place] facilities. Date Advance Directives Provider Source Jul 05, 2022 ADVANCE DIRECTIVE DHIRAJ GRACIA [facility] Encounter Notes: All associated encounter notes This section contains the clinical notes associated to the Encounter. Date/Time Encounter Note(s) Provider Source Oct 12, 2023 12:18 PM ADMINISTRATIVE NOTE: LOCAL TITLE: CCC: SCHEDULING ADMINISTRATION STANDARD TITLE: ADMINISTRATIVE NOTE DATE OF NOTE: OCT 12, 2023@12:18 ENTRY DATE: OCT 12, 2023@12:18:37 AUTHOR: ALCIRA DA SILVA COSIGNER: URGENCY: STATUS: COMPLETED CCC: SCHEDULING ADMINISTRATION Has ADDENDA Patient called to see if he can get Vitamin B1 and Vitamin B12 from the [place]. He has been purchasing it over the counter recently. He also wants to know if he can get condoms from the [place]. He has bladder cancer and is receiving chemo. He has a woman friend and does not want to have intercourse without using a condom. He asked for someone to call him back regarding these requests. /promise/ ALCIRA DA SILVA Signed: 10/12/2023 12:23 Receipt Acknowledged By: 10/15/2023 17:24 /promise/ Andres Pedraza MD Staff Physician 10/17/2023 08:24 /promise/ Rosana Kohler RN, BSN Primary Care 10/15/2023 ADDENDUM STATUS: COMPLETED See patient letter dated today. /promise/ Andres Pedraza MD Staff Physician Signed: 10/15/2023 17:23 [facility]
--- OUTSIDE RECORDS SUMMARY | 2024-08-05 22:38 | XMS_ITS | Encounter Summary ---
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 Date/Time Encounter Type Encounter Description Reason Pro vider Source Sep 07, 2023 12:00 PM Outpatient Encounter COMMUNITY CARE CONSULT IHE Encounter Template Text not used by VA Plan of Treatment: Future Appointments (+ 6 months) and Future Tests (+/- 45 days) The Plan of Treatment section includes future care activities for the patient from all [place] [facility]. This section includes future appointments and future orders which are active, pending or scheduled. Future Appointments This section includes appointments that were scheduled to occur 6 months from the date of the Encounter, up to a maximum of 20 appointments. The data comes from all [place] treatment facilities. Appointment Date/Time Appointment Type Appointme nt Facility Name Sep 17, 2023 11:00 AM AMBULATORY - [place]UROLOGY [place] [facility] Nov 21, 2023 01:30 PM AMBULATORY - MEDICINE [place] [facility] Dec 05, 2023 09:30 AM AMBULATORY - REHAB MEDICIN E [place] [facility] [place] [facility] Dec 12, 2023 09:30 AM AMBULATORY - MEDICINE [place] [facility] Dec 20, 2023 10:30 AM AMBULATORY - MEDICINE [place] [facility] January 09, 2024 11:30 AM AMBULATORY - MEDICINE [place] [facility] Feb 04, 2024 02:00 PM AMBULATORY - MEDICINE [place] [facility] Feb 06, 2024 02:15 PM AMBULATORY - MEDICINE [place] [facility] Social History: Smoking Status (Most current) and Tobacco Use (All prior to encounter date) This section includes the most current, and the historical, smoking and tobacco- related health factors from the [place] facility where the Encounter took place. Current Smoking Status This section includes the most current smoking, or tobacco-related health factor, from the [place] facility where the Encounter took place. Date/Time Current Smoking Status Comment Melany ity May 21, 2023 02:00 PM [facility]ACCO [facility] Tobacco Use History This section includes a history of the smoking, or tobacco-related health factors, that were collected on or before the date of the Encounter. The data comes from the [place] facility where the Encounter took place. Date/Time Smoking Status/Tobacco Use Comment F acility May 22, 2022 03:30 PM VA-TOBACCO FOR[facility]ER [place] [facility] May 22, 2022 03:30 PM VA-TOBACCO QUIT 15 YRS OR MORE [place] [facility] Nov 15, 2018 10:40 AM [facility] Nov 16, 2016 01:42 PM LIFETIME NON-TOBACCO USER [place] [facility] Oct 07, 2015 01:01 PM LIFETIME NON-TOBACCO USER [place] [facility] Mar 29, 2009 02:36 PM QUIT TOBACCO USE > 7 YEARS AGO [facility] Advance Directives: All historical and current Section Date Range: From patient's date of to the date document was created. This section includes ALL of a patient's completed or amended [place] Advance and Rescinded Directives. The entries below indicate that a directive exists for the patient, but an actual copy is not included with this document. The data comes from all [place] facilities. Date Advance Directives Provider Source Jul 05, 2022 ADVANCE DIRECTIVE SAM[facility]HIRAJ [facility] Encounter Notes: All associated encounter notes This section contains the clinical notes associated to the Encounter. Date/Time Encounter Note(s) Provider Source Sep 07, 2023 12:00 PM NONVA CONSULT: LOCAL TITLE: COMMUNITY CARE-CONSULT RESULT NOTE STANDARD TITLE: NONVA CONSULT DATE OF NOTE: SEP 07, 2023@12:00 ENTRY DATE: NOV 09, 2023@13:47:32 AUTHOR: TEREZA GARRIDO EXP COSIGNER: URGENCY: STATUS: COMPLETED VistA Imaging - Scanned Document SCANNED DOCUMENT SIGNATURE NOT REQUIRED Electronically Filed: 11/09/2023 by: TEREZA GARRIDO YARN TEXTURE MACHINE OPERATOR TEREZA GARRIDO [facility]
--- OUTSIDE RECORDS SUMMARY | 2024-08-05 22:39 | XMS_ITS | Encounter Summary ---
Author Name [place] Address [address] [place] [address] Care Team Providers Care Rn Integrated Name Role Phone SHAINA REYES Primary Care [...] Etienne's Name Patient's Relationship to Policy Etienne [facility] ([facility]) MEDICARE ADVANTAGE MCR ([facility]) Aug 27, 2012 [id number] PATIENT [facility] ([facility]) MEDICARE ADVANTAGE MCR ([facility]) Aug 27, 2012 [id number] PATIENT Selected Encounter This section includes the information on record at [place] for the Encounter. Date/Time Encounter Type Encounter Description Reason Pro vider Source Nov 20, 2023 12:00 PM Outpatient Encounter EVENT (HISTORICAL) IHE Encounter Template Text not used by VA Plan of Treatment: Future Appointments (+ 6 months) and Future Tests (+/- 45 days) The Plan of Treatment section includes future care activities for the patient from all [place] [facility]. This section includes future appointments and future orders which are active, pending or scheduled. Future Appointments This section includes appointments that were scheduled to occur 6 months from the date of the Encounter, up to a maximum of 20 appointments. The data comes from all [place] treatment facilities. Appointment Date/Time Appointment Type Appointme nt Facility Name Nov 21, 2023 01:30 PM AMBULATORY - MEDICINE [place] [facility] Dec 05, 2023 09:30 AM AMBULATORY - REHAB MEDICIN E [place] [facility] [place] [facility] Dec 12, 2023 09:30 AM AMBULATORY - MEDICINE [place] [facility] Dec 20, 2023 10:30 AM AMBULATORY - MEDICINE [place] [facility] January 09, 2024 11:30 AM AMBULATORY - MEDICINE [place] [facility] Feb 04, 2024 02:00 PM AMBULATORY - MEDICINE [facility] [place] [facility] Feb 06, 2024 02:15 PM AMBULATORY - MEDICINE [place] [facility] Apr 25, 2024 11:30 AM AMBULATORY - MEDICINE [place] [facility] May 06, 2024 12:00 PM AMBULATORY - MEDICINE [facility] N[place] [facility] Social History: Smoking Status (Most current) and Tobacco Use (All prior to encounter date) This section includes the most current, and the historical, smoking and tobacco- related health factors from the [place] facility where the Encounter took place. Current Smoking Status This section includes the most current smoking, or tobacco-related health factor, from the [place] facility where the Encounter took place. Date/Time Current Smoking Status Comment Facil ity May 21, 2023 02:00 PM VA-TOBACCO NEVER USED [facility] Tobacco Use History This section includes a history of the smoking, or tobacco-related health factors, that were collected on or before the date of the Encounter. The data comes from the [place] facility where the Encounter took place. Date/Time Smoking Status/Tobacco Use Comment F acility May 22, 2022 03:30 PM VA-TOBACCO FORMER USER [place] [place] [facility] May 22, 2022 03:30 PM VA-TOBACCO QUIT 15 YRS OR MORE [facility] Nov 15, 2018 10:40 AM VA-TOBACCO NEVER [facility]ED [facility] Nov 16, 2016 01:42 PM LIFETIME NON-TOBACCO USER [facility] Oct 07, 2015 01:01 PM LIFETIME NON-TOBACCO USER [facility] Mar 29, 2009 02:36 PM QUIT TOBACCO USE > 7 YEARS AGO [facility] Advance Directives: All historical and current Section Date Range: From patient's date of to the date document was created. This section includes ALL of a patient's completed or amended [place] Advance and Rescinded Directives. The entries below indicate that a directive exists for the patient, but an actual copy is not included with this document. The data comes from all [place] facilities. Date Advance Directives Provider Source Jul 05, 2022 ADVANCE DIRECTIVE DHIRAJ GRACIA [facility] Encounter Notes: All associated encounter notes This section contains the clinical notes associated to the Encounter. Date/Time Encounter Note(s) Provider Source Nov 20, 2023 12:00 PM NONVA NOTE: LOCAL TITLE: NON-VA OUTPATIENT NOTES STANDARD TITLE: NONVA NOTE DATE OF NOTE: NOV 20, 2023@12:00 ENTRY DATE: NOV 23, 2023@12:52:59 AUTHOR: NEEL SALDIVAR EXP COSIGNER: URGENCY: STATUS: COMPLETED VistA Imaging - Scanned Document SCANNED DOCUMENT SIGNATURE NOT REQUIRED Electronically Filed: 11/23/2023 by: NEEL TOLEDO [facility]
--- OUTSIDE RECORDS SUMMARY | 2024-08-05 22:39 | XMS_ITS ---
Author Name [place] Address [address] [place] [address] Care Team Providers Care Rn Medication Name Role Phone ANDRES PEDRAZA Primary Care [...] Etienne's Name Patient's Relationship to Policy Etienne [facility] ([facility]) MEDICARE ADVANTAGE MCR ([facility]) Aug 27, 2012 [id number] PATIENT [facility] ([facility]) MEDICARE ADVANTAGE MCR ([facility]) Aug 27, 2012 [id number] PATIENT Selected Encounter This section includes the information on record at [place] for the Encounter. Date/Time Encounter Type Encounter Description Reason Pro vider Source Dec 03, 2023 01:00 PM Outpatient Encounter COMMUNITY CARE CONSULT IHE Encounter Template Text not used by VA Plan of Treatment: Future Appointments (+ 6 months) and Future Tests (+/- 45 days) The Plan of Treatment section includes future care activities for the patient from all [place] [facility]. This section includes future appointments and future orders which are active, pending or scheduled. Future Appointments This section includes appointments that were scheduled to occur 6 months from the date of the Encounter, up to a maximum of 20 appointments. The data comes from all [place] treatment facilities. Appointment Date/Time Appointment Type Appointme nt Facility Name Dec 05, 2023 09:30 AM AMBULATORY - REHAB MEDICIN E [place] [facility] Dec 12, 2023 09:30 AM AMBULATORY - MEDICINE [place] [facility] Dec 20, 2023 10:30 AM AMBULATORY - MEDICINE [place] [facility] January 09, 2024 11:30 AM AMBULATORY - MEDICINE [place] [facility] Feb 04, 2024 02:00 PM AMBULATORY - MEDICINE [place] [facility] Feb 06, 2024 02:15 PM AMBULATORY - MEDICINE [place] [facility] Apr 25, 2024 11:30 AM AMBULATORY - MEDICINE [place] [facility] May 06, 2024 12:00 PM AMBULATORY - MEDICINE [place] [facility] May 26, 2024 10:30 AM AMBULATORY - MEDICINE [place] [facility] Social History: Smoking Status (Most current) and Tobacco Use (All prior to encounter date) This section includes the most current, and the historical, smoking and tobacco- related health factors from the [place] facility where the Encounter took place. Current Smoking Status This section includes the most current smoking, or tobacco-related health factor, from the [place] facility where the Encounter took place. Date/Time Current Smoking Status Comment Facil ity May 21, 2023 02:00 PM VA-TOBACCO [facility] USED [facility] Tobacco Use History This section includes a history of the smoking, or tobacco-related health factors, that were collected on or before the date of the Encounter. The data comes from the [place] facility where the Encounter took place. Date/Time Smoking Status/Tobacco Use Comment F acility May 22, 2022 03:30 PM VA-TOBACCO FORMER USER [place] [facility] May 22, 2022 03:30 PM VA-TOBACCO QUIT 15 YRS OR MORE [facility] Nov 15, 2018 10:40 AM VA-TOBACCO NEVER USED [place] [facility] Nov 16, 2016 01:42 PM LIFETIME NON-TOBACCO USER [place] [facility] Oct 07, 2015 01:01 PM LIFETIME NON-TOBACCO USER [facility] Mar 29, 2009 02:36 PM QUIT TOBACCO USE > 7 YEARS AGO [facility] Advance Directives: All historical and current Section Date Range: From patient's date of to the date document was created. This section includes ALL of a patient's completed or amended [place] Advance and Rescinded Directives. The entries below indicate that a directive exists for the patient, but an actual copy is not included with this document. The data comes from all [place] facilities. Date Advance Directives Provider Source Jul 05, 2022 ADVANCE DIRECTIVE DHIRAJ GRACIA [facility] Encounter Notes: All associated encounter notes This section contains the clinical notes associated to the Encounter. Date/Time Encounter Note(s) Provider Source Dec 03, 2023 06:39 PM ADDENDUM: LOCAL TITLE: Addendum STANDARD TITLE: ADDENDUM DATE OF NOTE: DEC 03, 2023@18:39:40 ENTRY DATE: DEC 03, 2023@18:39:41 AUTHOR: CATHY HURTADO EXP COSIGNER: URGENCY: STATUS: COMPLETED Updated on the status of cardiology consult for [place]. He states he is scheduled for a cardiac cath 12/20/23 at [facility]. [place] [facility] notes are available in [place]. Discussed about a diagnostic catheterization workup towards TAVR and he seems interested. [place] states he would like a VA referral if appropriate for this appt at [facility]. Thank you /promise/ CATHY HURTADO [facility] Care BSN RN RAF Signed: 12/03/2023 18:45 Receipt Acknowledged By: 12/05/2023 09:24 /promise/ Rosana Kohler RN, BSN Primary Care 12/04/2023 09:31 /es/ Andres Pedraza MD Staff Physician --- Original Document --- 12/03/23 COMMUNITY CARE-CARE COORDINATION PLAN NOTE: [facility] is requesting VA Consult for appt that occured on 11/20/[address] Murphy for non-rheumatic aortic stenosis. If in agreement please enter CC consult. Thank you [address] [place] [address] Tax ID: [id number] /promise/ CATHY HURTADO [facility] BSN RN RAF Signed: 12/03/2023 13:03 Receipt Acknowledged By: 12/03/2023 16:43 /promise/ Andres Pedraza MD Staff Physician 12/03/2023 16:11 /es/ Rosana Kohler RN, BSN Primary Care 12/03/2023 ADDENDUM STATUS: COMPLETED done /promise/ Rosana Kohler RN, BSN Primary Care Signed: 12/03/2023 15:57 12/04/2023 ADDENDUM STATUS: COMPLETED Done. /promise/ Andres Pedraza MD Staff Physician Signed: 12/04/2023 09:31 CATHY HURTADO [place] [facility] Dec 03, 2023 01:00 PM NONVA NOTE: LOCAL TITLE: COMMUNITY CARE-CARE COORDINATION PLAN NOTE STANDARD TITLE: NONVA NOTE DATE OF NOTE: DEC 03, 2023@13:00 ENTRY DATE: DEC 03, 2023@13:00:34 AUTHOR: CATHY HURTADO EXP COSIGNER: URGENCY: STATUS: COMPLETED COMMUNITY CARE-CARE COORDINATION PLAN NOTE Has ADDENDA [facility] is requesting VA Consult for appt that occured on 11/20/[address] Murphy for non-rheumatic aortic stenosis. If in agreement please enter CC consult. Thank you [address] [place] [address] Tax ID: [id number] /promise/ CATHY HURTADO [facility] CHUY RN RAF Signed: 12/03/2023 13:03 Receipt Acknowledged By: 12/03/2023 16:43 /promise/ Andres Pedraza MD Staff Physician 12/03/2023 16:11 /es/ Rosana Kohler RN, BSN Primary Care 12/03/2023 ADDENDUM STATUS: COMPLETED done /promise/ Rosana Kohler RN, BSN Primary Care Signed: 12/03/2023 15:57 12/03/2023 ADDENDUM STATUS: COMPLETED Updated [place] on the status of cardiology consult for [place]. He states he is scheduled for a cardiac cath 12/20/23 at [facility]. [place] [facility] notes are available in [place]. Discussed about a diagnostic catheterization workup towards TAVR and he seems interested. [place] states he would like a VA referral if appropriate for this appt at [facility]. Thank you /promise/ CATHY HURTADO [facility] [place] RAF Signed: 12/03/2023 18:45 Receipt Acknowledged By: * AWAITING SIGNATURE * ROSANA KOHLER 12/04/2023 09:31 /promise/ Andres Pedraza MD Staff Physician 12/04/2023 ADDENDUM STATUS: COMPLETED Done. /promise/ Andres Pedraza MD Staff Physician Signed: 12/04/2023 09:31 CATHY HURTADO [facility]
--- OUTSIDE RECORDS SUMMARY | 2024-08-05 22:39 | XMS_ITS ---
Author Name [place] Address [address] [place] [address] Care Team Providers Care Intellectual Property Legal Assistant Name Role Phone NADRES PEDRAZA Primary Care Provider Unavailabl e Insurance [...] Name Patient's Relationship to Policy Etienne [facility] ([facility]) MEDICARE ADVANTAGE MCR ([facility]) Aug 27, 2012 [id number] PATIENT [facility]ALTH [facility] ([facility]) MEDICARE ADVANTAGE [facility] ([facility]) Aug 27, 2012 [id number] [phone] [address] PATIENT Selected Encounter This section includes the information on record at [place] for the Encounter. Date/Time Encounter Type Encounter Description Reason Provider Source Dec 05, 2023 09:30 AM OT EVAL LOW COMPLEX 30 MIN OCCUPATIONAL THERAPY ICD-10-CM R53.1 MICHELINE Kimbrough Encounter Template Text not used by VA Assessments - Encounter Diagnoses This section includes the primary and secondary diagnoses documented for the Encounter. Date/Time Primary/Secondary Diagnosis Diagnosis Name Provider Source Dec 05, 2023 03:39 PM PRIMARY Weakness MICHELINE [facility]ISTA [facility] Plan of Treatment: Future Appointments (+ 6 months) and Future Tests (+/- 45 days) The Plan of Treatment section includes future care activities for the patient from all [place] [facility]. This section includes future appointments and future orders which are active, pending or scheduled. Future Appointments This section includes appointments that were scheduled to occur 6 months from the date of the Encounter, up to a maximum of 20 appointments. The data comes from all [place] treatment facilities. Appointment Date/Time Appointment Type Appointme nt Facility Name Dec 12, 2023 09:30 AM AM[place]ULATORY [place] [facility] Dec 20, 2023 10:30 AM AM[place]ULATORY [place]ICINE [place] [facility] January 09, 2024 11:30 AM AMBULATORY - MEDICINE [place] [facility] Feb 04, 2024 02:00 PM AMBULATORY - MEDICINE [place] [facility] Feb 06, 2024 02:15 PM AMBULATORY - MEDICINE [place] [facility] Apr 25, 2024 11:30 AM AMBULATORY - MEDICINE [place] [facility] May 06, 2024 12:00 PM AMBULATORY - MEDICINE [place] [facility] May 26, 2024 10:30 AM AMBULATORY - MEDICINE [facility] N[facility]L [place] [facility] Jun 05, 2024 09:00 AM AMBULATORY - MEDICINE [facility] N[place]L [place] [facility] Social History: Smoking Status (Most current) and Tobacco Use (All prior to encounter date) This section includes the most current, and the historical, smoking and tobacco- related health factors from the [place] facility where the Encounter took place. Current Smoking Status This section includes the most current smoking, or tobacco-related health factor, from the [place] facility where the Encounter took place. Date/Time Current Smoking Status Comment Melany sánchez May 21, 2023 02:00 PM VA-TOBACCO NEVER USED [facility] Tobacco Use History This section includes a history of the smoking, or tobacco-related health factors, that were collected on or before the date of the Encounter. The data comes from the [place] facility where the Encounter took place. Date/Time Smoking Status/Tobacco Use Comment F acility May 22, 2022 03:30 PM VA-TOBACCO [facility]ER [facility] May 22, 2022 03:30 PM VA-TOBACCO QUIT 15 YRS OR MORE [facility] Nov 15, 2018 10:40 AM VA-TOBACCO NEVER USED [facility] Nov 16, 2016 01:42 PM LIFETIME NON-TOBACCO [facility]ER [facility] Oct 07, 2015 01:01 PM LIFETIME NON-TOBACCO USER [facility] Mar 29, 2009 02:36 PM QUIT TOBACCO USE > 7 YEARS AGO [facility] Advance Directives: All historical and current Section Date Range: From patient's date of to the date document was created. This section includes ALL of a patient's completed or amended [place] Advance and Rescinded Directives. The entries below indicate that a directive exists for the patient, but an actual copy is not included with this document. The data comes from all [place] facilities. Date Advance Directives Provider Source Jul 05, 2022 ADVANCE DIRECTIVE DHIRAJ GRACIA [facility] Encounter Notes: All associated encounter notes This section contains the clinical notes associated to the Encounter. Date/Time Encounter Note(s) Provider Source Dec 05, 2023 09:30 AM OCCUPATIONAL MEDIC INE CONSULT: LOCAL TITLE: CONSULT REPORT/OCCUPATIONAL THERAPY STANDARD TITLE: OCCUPATIONAL MEDICINE CONSULT DATE OF NOTE: DEC 05, 2023@09:30 ENTRY DATE: DEC 05, 2023@09:58:32 AUTHOR: MICHELINE BAUTISTA COSIGNER: ANDRES PEDRAZA URGENCY: STATUS: COMPLETED Initial Evaluation date: Nov Treatment time: 60 minute Diagnosis: Gait Abnormality, Weakness(ICD-10-CM R53.1) Provider: OLESYA Pedraza OT Treatment Precautions: Fall Risk, pending stent surgery/12/20/23 at [facility] Patient identified by full name and date of Subjective: Goal to remain in my home, Pain: no formal complaints Objective: Referred by PCP for stair lift Focus chart review Clinical observation Standard screening Mobility: using cane/walker in home (standard) rollator (used in community) left in car fall risk 30 Second Sit-Stand: 0 unable without support of arm rests Living Space: older home [address] Primary entry: from garage, rear of home (2 steps/no railing) Secondary: side entry, steps: 4-5 steps railing 3rd entry: 4 steps/railing, flagstone stairs need repair, but can be used as a safety exit if needed 2 level home 1st floor: laundry, kitchen, dining room, bedroom, 3 stitting rooms, 1/2 bath stairwell: 13 steps 10 steps + landing turn L + 2 steps R door to bedroom, L straight wall, hallway 2nd floor: full bathroom: sink, toilet, bathtub Full bathroom: sink, toilet, shower, 3 bedrooms Bathroom: 1st floor sink/toilet Plan: [employer] application process to explore stand up shower in place of sink. 18 grab bar [employer] Jenni: stand shower stall ? 3 x 3 due to space LTG: Explore variabilities of down stairs bathroom, to use [employer] funds to improve bathing set up and reduce need for access to second floor by stairway. STG: Walk in shower stall on 1st floor installed in place of sink. [employer] jenni application intiated, and education provided on benefits/limitations 1 time use. Contractor to evaluated current set up for options, will be able to manage minimal lip, and/or options for additional equipment as he ages. Walk in non skid sisi, grab bars, min lip/zero clearance, seat/bench removable shower head. Discharge once all goals are met /promise/ DOUGLAS NIX/L OCCUPATIONAL THERAPIST Signed: 12/07/2023 08:02 /promise/ Andres Pedraza MD Staff Physician Cosigned: 12/07/2023 08:03 MICHELINE BAUTISTA CNTRL [facility]
--- OUTSIDE RECORDS SUMMARY | 2024-08-05 22:39 | XMS_ITS ---
Author Name [facility] [place] Address [address] [place] [address] Care Team Providers Care Union Contract Representative Name Role Phone SHAINA REYES Primary Care [...] Etienne's Name Patient's Relationship to Policy Etienne [facility] ([facility]) MEDICARE ADVANTAGE MCR ([facility]) Aug 27, 2012 [id number] LAZO PATIENT [facility] ([facility]) MEDICARE ADVANTAGE MCR ([facility]) Aug 27, 2012 [id number] LAZO PATIENT Selected Encounter This section includes the information on record at [place] for the Encounter. Date/Time Encounter Type Encounter Description Reason Pro vider Source Nov 29, 2023 08:30 AM Outpatient Encounter OCCUPATIONAL THERAPY IHE Encounter Template Text not used by VA Plan of Treatment: Future Appointments (+ 6 months) and Future Tests (+/- 45 days) The Plan of Treatment section includes future care activities for the patient from all [facility] This section includes future appointments and future orders which are active, pending or scheduled. Future Appointments This section includes appointments that were scheduled to occur 6 months from the date of the Encounter, up to a maximum of 20 appointments. The data comes from all [place] treatment facilities. Appointment Date/Time Appointment Type Appointme nt Facility Name Dec 05, 2023 09:30 AM AMBULATORY - [facility] MEDICIN E [facility] [place] [facility] Dec 12, 2023 09:30 AM AMBULATORY - MEDICINE [facility] C [facility] [place] [facility] Dec 20, 2023 10:30 AM AMBULATORY - MEDICINE CT C [facility] [place] [facility] January 09, 2024 11:30 AM AMBULATORY - MEDICINE CT C [facility] [place] [facility] Feb 04, 2024 02:00 PM AMBULATORY - MEDICINE CT C [facility] [place] [facility] Feb 06, 2024 02:15 PM AMBULATORY - MEDICINE CT C [facility] [place] [facility] Apr 25, 2024 11:30 AM AMBULATORY - MEDICINE CT C [facility] [place] [facility] May 06, 2024 12:00 PM AMBULATORY - MEDICINE CT C [facility] [place] [facility] May 26, 2024 10:30 AM AMBULATORY - MEDICINE CT C [facility] [place] [facility] Social History: Smoking Status (Most current) and Tobacco Use (All prior to encounter date) This section includes the most current, and the historical, smoking and tobacco- related health factors from the [place] facility where the Encounter took place. Current Smoking Status This section includes the most current smoking, or tobacco-related health factor, from the [place] facility where the Encounter took place. Date/Time Current Smoking Status Comment Facil ity May 21, 2023 02:00 PM VA-TOBACCO NEVER USED [facility] Tobacco Use History This section includes a history of the smoking, or tobacco-related health factors, that were collected on or before the date of the Encounter. The data comes from the [place] facility where the Encounter took place. Date/Time Smoking Status/Tobacco Use Comment F acility May 22, 2022 03:30 PM VA-TOBACCO FORMER USER CT [facility] [place] [facility] May 22, 2022 03:30 PM VA-TOBACCO QUIT [facility] Nov 15, 2018 10:40 AM [facility]ACCO [facility] Nov 16, 2016 01:42 PM LIFETIME NON-TOBACCO [facility] Oct 07, 2015 01:01 PM LIFETIME NON-TOBACCO [facility] Mar 29, 2009 02:36 PM QUIT TOBACCO USE > 7 YEARS AGO [facility] Advance Directives: All historical and current Section Date Range: From patient's date of to the date document was created. This section includes ALL of a patient's completed or amended CT Advance and Rescinded Directives. The entries below indicate that a directive exists for the patient, but an actual copy is not included with this document. The data comes from all CT facilities. Date Advance Directives Provider Source Jul 05, 2022 ADVANCE DIRECTIVE DHIRAJ GRACIA [facility] Encounter Notes: All associated encounter notes This section contains the clinical notes associated to the Encounter. Date/Time Encounter Note(s) Provider Source Nov 29, 2023 08:30 AM CLERICAL NOTE: LOCAL TITLE: APPOINTMENT NO SHOW STANDARD TITLE: CLERICAL NOTE DATE OF NOTE: NOV 29, 2023@08:30 ENTRY DATE: NOV 29, 2023@09:05:18 AUTHOR: MICHELINE BAUTISTA EXP COSIGNER: URGENCY: STATUS: COMPLETED APPOINTMENT NO SHOW Has ADDENDA Patient Name: TALON LAZO Patient SSN: [id number] Date and time of Appointment No show : 11/29/23 08:30 PATIENT PHONE - PHONE NUMBER [CELLULAR] - Patient's medical record was reviewed. Follow-up actions were determined and initiated: Please check/complete as applies: [X]Telephoned Directly [ ]Re-scheduled for next available appt [ ]Sent a N0-show letter ( must call for appointment) [ ]Other (Emergent/Overbook, etc.): Additional Comments: Rescheduled appointment to 11/28 @ 930 am Future Clinic Visits 12/12/2023 09:30 CWM/NO/OPTOMETRY 1 AM 03/26/2024 11:00 COM CARE-DENTAL GENERAL 05/26/2024 10:30 CWM/NO/PACT 2 /es/ DOUGLAS NIX/Yung OCCUPATIONAL THERAPIST Signed: 11/29/2023 09:06 11/29/2023 ADDENDUM STATUS: COMPLETED appointment rescheduled to 12/04 @ 930 /promise/ DOUGLAS NIX/Yung OCCUPATIONAL THERAPIST Signed: 11/29/2023 09:09 MICHELINE BAUTISTA [facility]
--- OUTSIDE RECORDS SUMMARY | 2024-08-05 22:40 | XMS_ITS ---
Author Name [facility] [place] Address [address] [place] [address] Care Team Providers Care Patent Solicitor Name Role Phone SHAINA REYES Primary Care [...] Etienne's Name Patient's Relationship to Policy Etienne [facility] ([facility]) MEDICARE ADVANTAGE MCR ([facility]) Aug 27, 2012 [id number] PATIENT [facility] ([facility]) MEDICARE ADVANTAGE MCR ([facility]) Aug 27, 2012 [id number] LAOZ PATIENT Selected Encounter This section includes the [place] on record at [place] for the Encounter. Date/Time Encounter Type Encounter Description Reason Pro vider Source Feb 06, 2024 12:00 PM Outpatient Encounter COMMUNITY CARE CONSULT IHE Encounter Template Text not used by VA Plan of Treatment: Future Appointments (+ 6 months) and Future Tests (+/- 45 days) The Plan of Treatment section includes future care activities for the patient from all [place] [facility]. This section includes future appointments and future orders which are active, pending or scheduled. Future Appointments This section includes appointments that were scheduled to occur 6 months from the date of the Encounter, up to a maximum of 20 appointments. The data comes from all [place] treatment facilities. Appointment Date/Time Appointment Type Appointme nt Facility Name Apr 25, 2024 11:30 AM AMBULATORY - [place]ICINE [place] [facility] [facility] May 06, 2024 12:00 PM AMBULATORY - MEDICINE [place] [facility] [facility] May 26, 2024 10:30 AM AMBULATORY - MEDICINE [place] [facility] [facility] Jun 05, 2024 09:00 AM AMBULATORY - MEDICINE [place] [facility] Jul 28, 2024 03:00 PM AMBULATORY - [place] E [place] [facility] Social History: Smoking Status (Most [...] 21, 2023 02:00 PM VA-TOBACCO NEVER USED [place] [facility] Tobacco Use History This section includes a history of the smoking, or tobacco-related health factors, that were collected on or before the date of the Encounter. The data comes from the [place] facility where the Encounter took place. Date/Time Smoking Status/Tobacco Use Comment F acility May 22, 2022 03:30 PM VA-TOBACCO FORMER USER [facility] [place] [facility] May 22, 2022 03:30 PM VA-TOBACCO QUIT 15 YRS OR MORE [facility] [place] [facility] Nov 15, 2018 10:40 AM VA-TOBACCO NEVER USED [facility] [place] [facility] Nov 16, 2016 01:42 PM LIFETIME NON-TOBACCO USER [facility] [place] [facility] Oct 07, 2015 01:01 PM LIFETIME NON-TOBACCO USER [facility] [place] [facility] Mar 29, 2009 02:36 PM QUIT TOBACCO USE > 7 YEARS AGO [facility] Advance Directives: All historical and current [...] Jul 05, 2022 ADVANCE DIRECTIVE DHIRAJ GRACIA [facility] Encounter Notes: All associated encounter notes This section contains the clinical notes associated to the Encounter. Date/Time Encounter Note(s) Provider Source Feb 06, 2024 12:00 PM NONVA CONSULT: LOCAL TITLE: COMMUNITY CARE-CONSULT RESULT NOTE STANDARD TITLE: NONVA CONSULT DATE OF NOTE: FEB 06, 2024@12:00 ENTRY DATE: APR 25, 2024@14:16:38 AUTHOR: NEEL SALDIVAR EXP COSIGNER: URGENCY: STATUS: COMPLETED VistA Imaging - Scanned Document SCANNED DOCUMENT SIGNATURE NOT REQUIRED Electronically Filed: 04/25/2024 by: NEEL TOLEDO [facility] Feb 06, 2024 12:00 PM NONVA CONSULT: LOCAL TITLE: COMMUNITY CARE-CONSULT RESULT NOTE STANDARD TITLE: NONVA CONSULT DATE OF NOTE: FEB 06, 2024@12:00 ENTRY DATE: MAR 03, 2024@11:29:55 AUTHOR: NEEL SALDIVAR EXP COSIGNER: URGENCY: STATUS: COMPLETED VistA Imaging - Scanned Document SCANNED DOCUMENT SIGNATURE NOT REQUIRED Electronically Filed: 03/03/2024 by: NEEL TOLEDO [facility]
--- OUTSIDE RECORDS SUMMARY | 2024-08-05 22:40 | XMS_ITS ---
Author Name Department of Veter[place] Affairs [place] Organization [place] Address [address] [place] [address] Care Team Providers Care Secretarial Stenographer Name Role Phone SHAINA REYES Primary Care [...] Etienne's Name Patient's Relationship to Policy Etienne [facility] ([facility]) MEDICARE ADVANTAGE MCR ([facility]) Aug 27, 2012 [id number] PATIENT [facility] ([facility]) MEDICARE ADVANTAGE MCR ([facility]) Aug 27, 2012 [id number] [phone] 4 Gerard LAZO PATIENT Selected Encounter This section includes the information on record at [place] for the Encounter. Date/Time Encounter Type Encounter Description Reason Pro vider Source January 09, 2024 12:00 AM Outpatient Encounter COMMUNITY CARE CONSULT IHE Encounter Template Text not used by VA Plan of Treatment: Future Appointments (+ 6 months) and Future Tests (+/- 45 days) The Plan of Treatment section includes future care activities for the patient from all [place] [facility]. This section includes future appointments and future orders which are active, pending or scheduled. Future Appointments This section includes appointments that were scheduled to occur 6 months from the date of the Encounter, up to a maximum of 20 appointments. The data comes from all [place] treatment facilities. Appointment Date/Time Appointment Type Appointme nt Facility Name Feb 04, 2024 02:00 PM AMBULATORY - MEDICINE [place] [facility] [place] [facility] Feb 06, 2024 02:15 PM AMBULATORY - MEDICINE [place] C [facility] [place] [facility] Apr 25, 2024 11:30 AM AMBULATORY - MEDICINE [place] C [facility] [place] [facility] May 06, 2024 12:00 PM AMBULATORY - MEDICINE [place] C [facility] [place] [facility] May 26, 2024 10:30 AM AMBULATORY - MEDICINE [place] C [facility] [place] [facility] Jun 05, 2024 09:00 AM AMBULATORY - MEDICINE [place] C [facility] [place] [facility] Social History: Smoking Status (Most current) and Tobacco Use (All prior to encounter date) This section includes the most current, and the historical, smoking and tobacco- related health factors from the [place] facility where the Encounter took place. Current Smoking Status This section includes the most current smoking, or tobacco-related health factor, from the [place] facility where the Encounter took place. Date/Time Current Smoking Status Comment Melany ity May 21, 2023 02:00 PM VA-TOBACCO [facility] Tobacco Use History This section includes a history of the smoking, or tobacco-related health factors, that were collected on or before the date of the Encounter. The data comes from the [place] facility where the Encounter took place. Date/Time Smoking Status/Tobacco Use Comment F acility May 22, 2022 03:30 PM VA-TOBACCO FORMER USER [place] [facility] [place] [facility] May 22, 2022 03:30 PM VA-TOBACCO QUIT 15 YRS OR MORE [facility] [place] [facility] Nov 15, 2018 10:40 AM VA-TOBACCO NEVER USED [place] [facility] [facility] Nov 16, 2016 01:42 PM LIFETIME NON-TOBACCO USER [place] [facility] [facility] Oct 07, 2015 01:01 PM LIFETIME NON-TOBACCO USER [facility] Mar 29, 2009 02:36 PM QUIT TOBACCO USE > 7 YEARS AGO [facility] Advance Directives: All historical and current Section Date Range: From patient's date of to the date document was created. This section includes ALL of a patient's completed or amended [place] Advance and Rescinded Directives. The entries below indicate that a directive exists for the patient, but an actual copy is not included with this document. The data comes from all [place] facilities. Date Advance Directives Provider Source Jul 05, 2022 ADVANCE DIRECTIVE DHIRAJ GRACIA [facility] Encounter Notes: All associated encounter notes This section contains the clinical notes associated to the Encounter. Date/Time Encounter Note(s) Provider Source January 09, 2024 12:00 AM NONVA CONSULT: LOCAL TITLE: COMMUNITY CARE-CONSULT RESULT NOTE STANDARD TITLE: NONVA CONSULT DATE OF NOTE: JANUARY 09, 2024 ENTRY DATE: MAR 24, 2024@09:34:54 AUTHOR: VIVIEN VEGA COSIGNER: URGENCY: STATUS: COMPLETED VistA Imaging - Scanned Document SCANNED DOCUMENT SIGNATURE NOT REQUIRED Electronically Filed: 03/24/2024 by: MUSTAPHA VEGA Sheet Metal Duct Worker Supervisor MUSTAPHA VEGA [facility]
--- OUTSIDE RECORDS SUMMARY | 2024-08-05 22:40 | XMS_ITS | Encounter Summary ---
Author Name [place] Organization [place] Address [address] [place] [address] Care Team Providers Care Assembler And Tester Electronics Name Role Phone SHAINA REYES Primary Care [...] Etienne's Name Patient's Relationship to Policy Etienne [facility] ([facility]) MEDICARE ADVANTAGE [facility] ([facility]) Aug 27, 2012 [id number] PATIENT [facility] ([facility]) MEDICARE ADVANTAGE [facility] ([facility]) Aug 27, 2012 [id number] LAZO PATIENT Selected Encounter This section includes the information on record at [place] for the Encounter. Date/Time Encounter Type Encounter Description Reason Provider Source Dec 12, 2023 10:53 AM FIT SPECTACLES BIFOCAL OPTOMETRY ICD-10-CM Z46.0 Encounter for fit/adjst of spectacles and contact lenses JAH FALL IHElif Encounter Template Text not used by VA Assessments - Encounter Diagnoses This section includes the primary and secondary diagnoses documented for the Encounter. Date/Time Primary/Secondary Diagnosis Diagnosis Name Provider Source Dec 12, 2023 10:53 AM PRIMARY Encounter for fit/adjst of spectacles and contact lenses [facility] Plan of Treatment: Future Appointments (+ 6 months) and Future Tests (+/- 45 days) The Plan of Treatment section includes future care activities for the patient from all [place] [facility]. This section includes future appointments and future orders which are active, pending or scheduled. Future Appointments This section includes appointments that were scheduled to occur 6 months from the date of the Encounter, up to a maximum of 20 appointments. The data comes from all [place] treatment facilities. Appointment Date/Time Appointment Type Appointme nt Facility Name Dec 20, 2023 10:30 AM AMBULATORY - MEDICINE [facility] [place] [facility] January 09, 2024 11:30 AM AMBULATORY MEDICINE [facility] [place] [facility] Feb 04, 2024 02:00 PM AMBULATORY - MEDICINE [facility] [place] [facility] Feb 06, 2024 02:15 PM AMBULATORY MEDICINE [facility] [place] [facility] Apr 25, 2024 11:30 AM AMBULATORY MEDICINE [facility] [place] [facility] May 06, 2024 12:00 PM AMBULATORY MEDICINE [facility] [place] [facility] May 26, 2024 10:30 AM AMBULATORY MEDICINE [facility] [place] [facility] Jun 05, 2024 09:00 AM AMBULATORY MEDICINE [facility] [place] Social History: Smoking Status (Most current) and Tobacco Use (All prior to encounter date) This section includes the most current, and the historical, smoking and tobacco- related health factors from the [place] facility where the Encounter took place. Current Smoking Status This section includes the most current smoking, or tobacco-related health factor, from the [place] facility where the Encounter took place. Date/Time Current Smoking Status Servando sánchez May 21, 2023 02:00 PM PR-TOBACCO NEVER USED [facility] Tobacco Use History This section includes a history of the smoking, or tobacco-related health factors, that were collected on or before the date of the Encounter. The data comes from the [place] facility where the Encounter took place. Date/Time Smoking Status/Tobacco Use Comment F acility May 22, 2022 03:30 PM VA-[facility]ACCO [facility] May 22, 2022 03:30 PM VA-TOBACCO QUIT 15 YRS OR [facility] Nov 15, 2018 10:40 AM VA-TOBACCO NEVER USED [facility] Nov 16, 2016 01:42 PM LIFETIME NON-TOBACCO [facility] [place] Oct 07, 2015 01:01 PM LIFETIME NON-TOBACCO [facility] Mar 29, 2009 02:36 PM QUIT TOBACCO USE > 7 YEARS AGO [facility] Advance Directives: All historical and current Section Date Range: From patient's date of to the date document was created. This section includes ALL of a patient's completed or amended [place] Advance and Rescinded Directives. The entries below indicate that a directive exists for the patient, but an actual copy is not included with this document. The data comes from all [place] facilities. Date Advance Directives Provider Source Jul 05, 2022 ADVANCE DIRECTIVE DHIRAJ GRACIA [facility] Encounter Notes: All associated encounter notes This section contains the clinical notes associated to the Encounter. Date/Time Encounter Note(s) Provider Source Dec 12, 2023 10:53 AM OPTOMETRY NOTE: LOCAL TITLE: OPTOMETRY NOTE STANDARD TITLE: OPTOMETRY NOTE DATE OF NOTE: DEC 12, 2023@10:53 ENTRY DATE: DEC 12, 2023@10:53:11 AUTHOR: NUNU BEST EXP COSIGNER: URGENCY: STATUS: COMPLETED OPTOMETRY NOTE Has ADDENDA The quote provided below is for informational purposes only. Please verify prior to the creation of a purchase order. TALON LAZO 2400 RX INFORMATION OD +4.50 -2.00 X90 Add:+2.75 Pzm:0.00 Dir: Prz2:0.00 Dir2: OS +4.25 -2.00 X85 Add:+2.75 Pzm:0.00 Dir: Prz2:0.00 Dir2: FITTING INFORMATION FPD:65 NPD:62 [place]:R: L: SEG HT:R:12 L:12 Tint:None Shade:None VA Billable Items FRAME: BARB HAHN [id number] Right Lens: POLY BIFOCAL FT28 PHOTOCHROMIC MARTIN 1.586 POLY Left Lens: POLY BIFOCAL FT28 PHOTOCHROMIC MARTIN 1.586 POLY /promise/ NUNU BEST STRIPPER LATEX Signed: 12/12/2023 10:53 Receipt Acknowledged By: 12/12/2023 11:30 /promise/ BELL ORO OPTOMETRY TECH 12/12/2023 ADDENDUM STATUS: COMPLETED PDS Embossing Clerk fit patient with 1 pair(s) of bifocal eyeglasses on 12/12/2023. OPT HT entered consult(s) as requested for provider signature. /promise/ BELL ORO OPTOMETRY TECH Signed: 12/12/2023 11:32 NUNU BEST CNTRL [facility]
--- OUTSIDE RECORDS SUMMARY | 2024-08-05 22:40 | XMS_ITS | Encounter Summary ---
Author Name [facility] [place] [facility] [place] Address [address] [place] [address] Care Team Providers Care Artist'S Manager Name Role Phone SHAINA REYES Primary Care [...] Etienne's Name Patient's Relationship to Policy Etienne [facility] ([facility]) MEDICARE ADVANTAGE MCR ([facility]) Aug 27, 2012 [id number] [phone] Gerard LAZO PATIENT [facility] ([facility]) MEDICARE ADVANTAGE MCR ([facility]) Aug 27, 2012 [id number] [id number] Gerard LAZO PATIENT Selected Encounter This section includes the information on record at [place] for the Encounter. Date/Time Encounter Type Encounter Description Reason Pro vider Source Feb 04, 2024 12:00 AM Outpatient Encounter COMMUNITY CARE CONSULT IHE Encounter Template Text not used by VA Plan of Treatment: Future Appointments (+ 6 months) and Future Tests (+/- 45 days) The Plan of Treatment section includes future care activities for the patient from all [place] [facility]. This section includes future appointments and future orders which are active, pending or scheduled. Future Appointments This section includes appointments that were scheduled to occur 6 months from the date of the Encounter, up to a maximum of 20 appointments. The data comes from all [place] treatment facilities. Appointment Date/Time Appointment Type Appointme nt Facility Name Feb 06, 2024 02:15 PM AMBULATORY - MEDICINE [place] [facility] [place] [facility] Apr 25, 2024 11:30 AM AMBULATORY - MEDICINE [facility] May 06, 2024 12:00 PM AMBULATORY - MEDICINE [facility] May 26, 2024 10:30 AM AMBULATORY - MEDICINE [facility] Jun 05, 2024 09:00 AM AMBULATORY - MEDICINE [place] [facility] Jul 28, 2024 03:00 PM [facility] Social History: Smoking Status (Most current) and Tobacco Use (All prior to encounter date) This section includes the most current, and the historical, smoking and tobacco- related health factors from the [place] facility where the Encounter took place. Current Smoking Status This section includes the most current smoking, or tobacco-related health factor, from the [place] facility where the Encounter took place. Date/Time Current Smoking Status Comment Facil ity May 21, 2023 02:00 PM VA-TOBACCO [facility] Tobacco Use History This section includes a history of the smoking, or tobacco-related health factors, that were collected on or before the date of the Encounter. The data comes from the [place] facility where the Encounter took place. Date/Time Smoking Status/Tobacco Use Comment F acility May 22, 2022 03:30 PM VA-TOBACCO FORMER USER [place] [facility] May 22, 2022 03:30 PM VA-TOBACCO QUIT 15 YRS OR MORE [facility] Nov 15, 2018 10:40 AM VA-TOBACCO NEVER USED [place] [facility] Nov 16, 2016 01:42 PM LIFETIME NON-TOBACCO USER [facility] Oct 07, 2015 01:01 PM LIFETIME NON-TOBACCO USER [facility] Mar 29, 2009 02:36 PM QUIT TOBACCO USE > 7 YEARS AGO [facility] Advance Directives: All historical and current Section Date Range: From patient's date of to the date document was created. This section includes ALL of a patient's completed or amended [place] Advance and Rescinded Directives. The entries below indicate that a directive exists for the patient, but an actual copy is not included with this document. The data comes from all [place] facilities. Date Advance Directives Provider Source Jul 05, 2022 ADVANCE DIRECTIVE DHIRAJ GRACIA [facility] Encounter Notes: All associated encounter notes This section contains the clinical notes associated to the Encounter. Date/Time Encounter Note(s) Provider Source Feb 04, 2024 12:00 AM NONVA CONSULT: LOCAL TITLE: COMMUNITY CARE-CONSULT RESULT NOTE STANDARD TITLE: NONVA CONSULT DATE OF NOTE: FEB 04, 2024 ENTRY DATE: FEB 18, 2024@14:20:08 AUTHOR: [facility] EXP COSIGNER: URGENCY: STATUS: COMPLETED VistA Imaging - Scanned Document SCANNED DOCUMENT SIGNATURE NOT REQUIRED Electronically Filed: 02/18/2024 by: LA[place] MARTINEZ [facility]
--- OUTSIDE RECORDS SUMMARY | 2024-08-05 22:41 | XMS_ITS ---
Author Name [facility] [place] Address [address] [place] [address] Care Team Providers Care Watch Commander Name Role Phone ANDRES PEDRAZA Primary Care [...] Etienne's Name Patient's Relationship to Policy Etienne [facility] ([facility]) MEDICARE ADVANTAGE MCR ([facility]) Aug 27, 2012 [id number] Gerard LAZO PATIENT [facility] ([facility]) MEDICARE ADVANTAGE MCR ([facility]) Aug 27, 2012 [id number] [phone] Gerard LAZO PATIENT Selected Encounter This section includes the information on record at [place] for the Encounter. Date/Time Encounter Type Encounter Description Reason Pro vider Source May 26, 2024 10:30 AM Outpatient Encounter PRIMARY CARE/MEDICINE IHE Encounter Template Text not used by VA Plan of Treatment: Future Appointments (+ 6 months) and Future Tests (+/- 45 days) The Plan of Treatment section includes future care activities for the patient from all [place] [facility]. This section includes future appointments and future orders which are active, pending or scheduled. Future Appointments This section includes appointments that were scheduled to occur 6 months from the date of the Encounter, up to a maximum of 20 appointments. The data comes from all [place] treatment facilities. Appointment Date/Time Appointment Type Appointme nt Facility Name Jun 05, 2024 09:00 AM [facility] Jul 28, 2024 03:00 PM AMBULATORY - RE[facility]AB MEDICIN E [facility] Active, Pending, and Scheduled Orders This section includes a listing of several types of active, pending, and scheduled orders, including clinic medications orders, diagnostic test orders, procedure orders and consult orders; where the start date of the order is 45 days before the date of the Encounter or 45 days after the date of theEncounter. The data comes from all [place] treatment facilities. Test Date/Time Test Type Test Details Facility Name May 08, 2024 10:04 AM Consult Order COMMUNITY CARE-DENTAL GENERAL Cons Cane Feeder's Choice [facility] May 17, 2024 12:00 AM Laboratory - Chemistry Order CBC AND DIFF (AUTO) BLOOD (LAV-BLOOD) [facility] May 17, 2024 12:00 AM Laboratory - Chemistry Order BASIC METABOLIC PANEL (fasting) BLOOD (SST-SERUM) [facility] May 17, 2024 12:00 AM Laboratory - Chemistry Order LIVER FUNCTION BLOOD (SST-SERUM) [facility] May 17, 2024 12:00 AM Laboratory - Chemistry Order LIPID PANEL FASTING BLOOD (SST-SERUM) [facility] May 17, 2024 12:00 AM Laboratory - Chemistry Order TSH BLOOD (SST-SERUM) [facility] May 17, 2024 12:00 AM Laboratory - Chemistry Order URINALYSIS CLEAN CATCH URINE [facility] May 30, 2024 03:59 PM Consult Order COMMUNITY CARE-GEN SURGERY Cons Cane Feeder's Choice [facility] Vital Signs: All taken on the encounter date This section contains inpatient and outpatient Vital Signs collected on the date of the Encounter. Date/Time Temperature Pulse Blood Pressure Respiratory Rate SP02 Pain Height Weight Body Mass Index Source May 26, 2024 12:28 PM 138/80 [place] [facility] [place] [facility] May 26, 2024 11:52 AM 97.6 66 151/80 16 98 4 71 232 32 [place] [facility] [place] [facility] Social History: Smoking Status (Most current) and Tobacco Use (All prior to encounter date) This section includes the most current, and the historical, smoking and tobacco- related health factors from the [place] facility where the Encounter took place. Current Smoking Status This section includes the most current smoking, or tobacco-related health factor, from the [place] facility where the Encounter took place. Date/Time Current Smoking Status Comment Facil ity May 26, 2024 10:30 AM VA-TOBACCO [facility] Tobacco Use History This section includes a history of the smoking, or tobacco-related health factors, that were collected on or before the date of the Encounter. The data comes from the [place] facility where the Encounter took place. Date/Time Smoking Status/Tobacco Use Comment F acility May 21, 2023 02:00 PM VA-TOBACCO NEVER USED [place] [facility] [place] [facility] May 22, 2022 03:30 PM VA-TOBACCO FORMER USER [facility] [place] [facility] May 22, 2022 03:30 PM VA-TOBACCO QUIT 15 YRS OR MORE [place] [facility] [place] [facility] Nov 15, 2018 10:40 AM VA-TOBACCO NEVER USED [facility] [place] [facility] Nov 16, 2016 01:42 PM LIFETIME NON-TOBACCO USER [facility] [place] [facility] Oct 07, 2015 01:01 PM LIFETIME NON-TOBACCO USER [facility] [place] [facility] Mar 29, 2009 02:36 PM QUIT TOBACCO USE > 7 YEARS AGO [place] [facility] [place] [facility] Advance Directives: All historical and current Section Date Range: From patient's date of to the date document was created. This section includes ALL of a patient's completed or amended [place] Advance and Rescinded Directives. The entries below indicate that a directive exists for the patient, but an actual copy is not included with this document. The data comes from all [place] facilities. Date Advance Directives Provider Source Jul 05, 2022 ADVANCE DIRECTIVE DHIRAJ GRACIA [place] [facility] [place] [facility] Encounter Notes: All associated encounter notes This section contains the clinical notes associated to the Encounter. Date/Time Encounter Note(s) Provider Source May 26, 2024 11:59 AM PREVENTIVE MEDICIN E NURSING NOTE: LOCAL TITLE: CLINICAL REMINDERS/NURSING STANDARD TITLE: PREVENTIVE MEDICINE NURSING NOTE DATE OF NOTE: MAY 26, 2024@11:59 ENTRY DATE: MAY 26, 2024@11:59:36 AUTHOR: DYLLAN RAYA COSIGNER: URGENCY: STATUS: COMPLETED Falls & Incontinence Screen: Falls Screen: During the past 12 months, did the patient report any falls? 2. Two or more falls. Incontinence Screen YES - Incontinence is a problem for this patient. Is urinary incontinence NEW for this patient? NO - Incontinence is NOT a new problem. What is the current treatment? wears depends Tobacco Use Screening: The patient has never used tobacco. Sexual Orientation: The patient thinks of their sexual orientation as: Straight or Heterosexual Alcohol Use Screen (AUDIT-C): Alcohol Screen: SCREEN FOR ALCOHOL (AUDIT-C) An alcohol screening test (AUDIT-C) was negative (score=4). 1. How often did you have a drink containing alcohol in the past year? Consider a drink to be a 12 ounce can or bottle of regular beer, 8 ounces of malt liquor, a 5 ounce glass of table wine, or a 1.5 ounce shot of liquor (like scotch, gin, or vodka). Four or more times a week 2. How many drinks containing alcohol did you have on a typical day when you were drinking in the past year? One or two drinks 3. How often did you have six or more drinks on one occasion in the past year? Never Depression Screening: Perform PHQ-2 A PHQ-2 screen was performed. The score was 0 which is a negative screen for depression. Over the past two weeks, how often have you been bothered by the following problems? 1. Little interest or pleasure in doing things Not at all 2. Feeling down, depressed, or hopeless Not at all Suicide Screen: C-SSRS Screening [place] Suicide Severity Rating Scale (C-SSRS) screener 1. Over the past month, have you wished you were or wished you could go to sleep and not wake up? No 2. Over the past month, have you had any actual thoughts of killing yourself? No 3. Over the past month, have you been thinking about how you might do this? Response not required due to responses to other questions. 4. Over the past month, have you had these thoughts and had some intention of acting on them? Response not required due to responses to other questions. 5. Over the past month, have you started to work out or worked out the details of how to kill yourself? Response not required due to responses to other questions. 6. If yes, at any time in the past month did you intend to carry out this plan? Response not required due to responses to other questions. 7. In your lifetime, have you ever done anything, started to do anything, or prepared to do anything to end your life (for example, collected pills, obtained a gun, gave away valuables, went to the roof but didn't jump)? No 8. If YES, was this within the past 3 months? Response not required due to responses to other questions. Advance Directive Screen MH AD: Patient has an Advance Directive on file at this [facility]. No updates are needed at this time. The patient received education about Advance Directives and written notification of his/her rights. Comment: up to date /es/ DYLLAN RAYA LPN LPN Signed: 05/26/2024 12:06 DYLLAN RAYA [place] [facility] May 26, 2024 11:08 AM CLERICAL NOTE: LOCAL TITLE: APPOINTMENT NO SHOW STANDARD TITLE: CLERICAL NOTE DATE OF NOTE: MAY 26, 2024@11:08 ENTRY DATE: MAY 26, 2024@11:08:10 AUTHOR: ANDRES PEDRAZA EXP COSIGNER: URGENCY: STATUS: COMPLETED Patient Name: TALON LAZO Patient SSN: [id number] Date and time of Appointment No show : 05/26/24 10:30 Primary care PATIENT PHONE - PHONE NUMBER [CELLULAR] - Patient's medical record was reviewed. Follow-up actions were determined and initiated: Please check/complete as applies: [ ]Telephoned Directly [ ]Re-scheduled for next available appt [X]Sent a N0-show letter ( must call for appointment) [ ]Other (Emergent/Overbook, etc.): Additional Comments: None Future Clinic Visits 12/17/2024 12:30 CWM/NO/OPTOMETRY/MERHERLINDA /es/ Andres Pedraza MD Staff Physician Signed: 05/26/2024 11:08 ANDRES PEDRAZA [place] [facility]
--- OUTSIDE RECORDS SUMMARY | 2024-08-05 22:41 | XMS_ITS ---
Author Name [facility] [place] Organization [facility] [place] Address [address] [place] [address] Care Team Providers Care Basin Cleaner Name Role Phone ANDRES PEDRAZA Primary Care [...] Etienne's Name Patient's Relationship to Policy Etienne [facility] ([facility]) MEDICARE ADVANTAGE MCR ([facility]) Aug 27, 2012 [id number] Ger[address] LAZO PATIENT [facility] ([facility]) MEDICARE ADVANTAGE MCR ([facility]) Aug 27, 2012 [id number] [phone] Gerard LAZO PATIENT Selected Encounter This section includes the information on record at [place] for the Encounter. Date/Time Encounter Type Encounter Description Reason Pro vider Source May 23, 2024 01:27 PM Outpatient Encounter ADMIN PAT ACTIVTIES (MASNONCT) IHE Encounter Template Text not used by VA Plan of Treatment: Future Appointments (+ 6 months) and Future Tests (+/- 45 days) The Plan of Treatment section includes future care activities for the patient from all [place] [facility] This section includes future appointments and future orders which are active, pending or scheduled. Future Appointments This section includes appointments that were scheduled to occur 6 months from the date of the Encounter, up to a maximum of 20 appointments. The data comes from all [facility]. Appointment Date/Time Appointment Type Appointme nt Facility Name May 26, 2024 10:30 AM AMBULATORY [facility] Jun 05, 2024 09:00 AM AMBULATORY - MEDICINE [facility] NTRL TRN [facility] Jul 28, 2024 03:00 PM AMBULATORY - REHAB MEDICIN E [facility] Active, Pending, and Scheduled Orders This section includes a listing of several types of active, pending, and scheduled orders, including clinic medications orders, diagnostic test orders, procedure orders and consult orders; where the start date of the order is 45 days before the date of the Encounter or 45 days after the date of theEncounter. The data comes from all [facility]. Test Date/Time Test Type Test Details Facility Name May 08, 2024 10:04 AM Consult Order COMMUNITY CARE-DENTAL GENERAL Cons Multi [employer] [facility] Choice [facility] May 17, 2024 12:00 AM Laboratory - Chemistry Order CBC AND DIFF (AUTO) BLOOD (LAV-BLOOD) [facility] May 17, 2024 12:00 AM Laboratory - Chemistry Order BASIC METABOLIC PANEL (fasting) BLOOD (SST-SERUM) [facility] May 17, 2024 12:00 AM Laboratory - Chemistry Order LIVER FUNCTION BLOOD (SST-SERUM) [facility] May 17, 2024 12:00 AM Laboratory - Chemistry Order LIPID PANEL FASTING BLOOD (SST-SERUM) [facility] May 17, 2024 12:00 AM Laboratory - Chemistry Order TSH BLOOD (SST-SERUM) [facility] May 17, 2024 12:00 AM Laboratory - Chemistry Order URINALYSIS CLEAN CATCH URINE [facility] May 30, 2024 03:59 PM Consult Order COMMUNITY CARE-GEN SURGERY Cons [employer] Choice [facility] Social History: Smoking Status (Most current) and Tobacco Use (All prior to encounter date) This section includes the most current, and the historical, smoking and tobacco- related health factors from the [place] facility where the Encounter took place. Current Smoking Status This section includes the most current smoking, or tobacco-related health factor, from the [place] facility where the Encounter took place. Date/Time Current Smoking Status Comment Facil ity May 21, 2023 02:00 PM VA-TOBACCO NEVER USED [facility] Tobacco Use History This section includes a history of the smoking, or tobacco-related health factors, that were collected on or before the date of the Encounter. The data comes from the [place] facility where the Encounter took place. Date/Time Smoking Status/Tobacco Use Comment F acility May 22, 2022 03:30 PM VA-TO[facility]ACCO [facility] May 22, 2022 03:30 PM VA-TOBACCO QUIT 15 YRS OR MORE [facility] Nov 15, 2018 10:40 AM [place]-TOBACCO [facility] USED [facility] Nov 16, 2016 01:42 PM LIFETIME NON-TOBACCO USER [facility] Oct 07, 2015 01:01 PM LIFETIME NON-TOBACCO [facility]ER [facility] Mar 29, 2009 02:36 PM QUIT TOBACCO USE > 7 YEARS AGO [facility] Advance Directives: All historical and current Section Date Range: From patient's date of to the date document was created. This section includes ALL of a patient's completed or amended [place] Advance and Rescinded Directives. The entries below indicate that a directive exists for the patient, but an actual copy is not included with this document. The data comes from all [place] facilities. Date Advance Directives Provider Source Jul 05, 2022 ADVANCE DIRECTIVE DHIRAJ GRACIA [facility] Encounter Notes: All associated encounter notes This section contains the clinical notes associated to the Encounter. Date/Time Encounter Note(s) Provider Source May 30, 2024 08:15 AM ADDENDUM: LOCAL TITLE: Addendum STANDARD TITLE: ADDENDUM DATE OF NOTE: MAY 30, 2024@08:15:31 ENTRY DATE: MAY 30, 2024@08:15:32 AUTHOR: ROSANA KOHLER EXP COSIGNER: URGENCY: STATUS: COMPLETED [facility] fissure. /es/ Rosana Kohler RN, BSN Primary Care Signed: 05/30/2024 08:15 Receipt Acknowledged By: 05/30/2024 16:01 /es/ Andres Pedraza MD Staff Physician --- Original Document --- 05/23/24 CCC: SCHEDULING ADMINISTRATION: Patient Demographics Patient Name: TALON LAZO Patient Primary Phone: [phone] Patient Primary Address: [address] [place] [address] Patient : 1935 Patient Age: 88 Caller/Recipient Relation to Patient: Other If Other Describe Relation to Patient: [facility] Caller Name: vocational case managerinvestigations manager Administrative Note Reason: Other Administrative Note Comments: Consult request: Dr. Julio Dumont MD [address] [place] [address] Anal Fissure, appt. scheduled 06/07/24 IMPORTANT: This note was created by [facility] staff. Please do not alert the staff member by adding them as a signer for future communications. Alerts are not monitored by this user. /es/ CODIE GIL [facility] Signed: 05/23/2024 13:27 Receipt Acknowledged By: * AWAITING SIGNATURE * ROSANA KOHLER 05/30/2024 09:47 /es/ DYLLAN RAYA LPN LPN 05/23/2024 ADDENDUM STATUS: COMPLETED spoke with caller. She states he has to see GI doc. They will fax notes. /es/ Rosana Edita RN, BSN Primary Care Signed: 05/23/2024 14:49 05/29/2024 ADDENDUM STATUS: COMPLETED in right fax. please advise. thank you. /CHUY Truong RN Primary Care Signed: 05/29/2024 14:42 Receipt Acknowledged By: 05/30/2024 16:00 /deisi Pedraza MD Staff Physician 05/29/2024 ADDENDUM STATUS: COMPLETED Fax does not give information about GI or surgery. Please ask caller why patient needs to be seen by GI. /deisi Pedraza MD Staff Physician Signed: 05/29/2024 14:49 Receipt Acknowledged By: 05/30/2024 08:18 /CHUY Truong RN Primary Care 05/30/2024 ADDENDUM STATUS: COMPLETED Done. /deisi Pedraza MD Staff Physician Signed: 05/30/2024 16:00 ROSANA KOHLER [place] [facility] [place] [facility] May 29, 2024 02:48 PM ADDENDUM: LOCAL TITLE: Addendum STANDARD TITLE: ADDENDUM DATE OF NOTE: MAY 29, 2024@14:48:36 ENTRY DATE: MAY 29, 2024@14:48:37 AUTHOR: ANDRES PEDRAZA EXP COSIGNER: URGENCY: STATUS: COMPLETED Fax does not give information about GI or surgery. Please ask caller why patient needs to be seen by GI. /deisi Pedraza MD Staff Physician Signed: 05/29/2024 14:49 Receipt Acknowledged By: 05/30/2024 08:18 /CHUY Truong RN Primary Care --- Original Document --- 05/23/24 CCC: SCHEDULING ADMINISTRATION: Patient Demographics Patient Name: TALON LAZO Patient Primary Phone: [phone] Patient Primary Address: [address] [place] [id number] Patient : 1935 Patient Age: 88 Caller/Recipient Relation to Patient: Other If Other Describe Relation to Patient: [facility] Caller Name: vocational case managerinvestigations manager Administrative Note Reason: Other Administrative Note Comments: Consult request: Dr. Julio Dumont MD [address] [place] [address] [place] [address] Anal Fissure, appt. scheduled 06/07/24 IMPORTANT: This note was created by [facility] staff. Please do not alert the staff member by adding them as a signer for future communications. Alerts are not monitored by this user. /es/ CODIE BRENNANN1 [facility] Signed: 05/23/2024 13:27 Receipt Acknowledged By: * AWAITING SIGNATURE * ROSANA KOHLER * AWAITING SIGNATURE * DYLLAN RAYA 05/23/2024 ADDENDUM STATUS: COMPLETED spoke with caller. She states he has to see GI doc. They will fax notes. /es/ Rosana Kohler RN, BSN Primary Care Signed: 05/23/2024 14:49 05/29/2024 ADDENDUM STATUS: COMPLETED in right fax. please advise. thank you. /promise/ Rosana Kohler RN, BSN Primary Care Signed: 05/29/2024 14:42 Receipt Acknowledged By: * AWAITING SIGNATURE * ANDRES PEDRAZA 05/30/2024 ADDENDUM STATUS: COMPLETED [facility] an [facility] fissure. /es/ Rosana Kohler RN, BSN Primary Care Signed: 05/30/2024 08:15 Receipt Acknowledged By: * AWAITING SIGNATURE * ANDRES PEDRAZA HOWARD D [place] [facility] [place] [facility] May 29, 2024 02:42 PM ADDENDUM: LOCAL TITLE: Addendum STANDARD TITLE: ADDENDUM DATE OF NOTE: MAY 29, 2024@14:42:15 ENTRY DATE: MAY 29, 2024@14:42:15 AUTHOR: ROSANA KOHLER EXP COSIGNER: URGENCY: STATUS: COMPLETED in right fax. please advise. thank you. /promise/ ASHOK Hall RNN Primary Care Signed: 05/29/2024 14:42 Receipt Acknowledged By: 05/30/2024 16:00 /es/ Andres Pedraza MD Staff Physician --- Original Document --- 05/23/24 CCC: SCHEDULING ADMINISTRATION: Patient Demographics Patient Name: TALON LAZO Patient Primary Phone: [phone] Patient Primary Address: [address] [place] [address] Patient : 1935 Patient Age: 88 Caller/Recipient Relation to Patient: Other If Other Describe Relation to Patient: [facility] Caller Name: vocational case managerinvestigations manager Administrative Note Reason: Other Administrative Note Comments: Consult request: Dr. Julio Dumont MD [address] [place] [address] [place] [address] Anal Fissure, appt. scheduled 06/07/24 IMPORTANT: This note was created by [facility] staff. Please do not alert the staff member by adding them as a signer for future communications. Alerts are not monitored by this user. /es/ CODIE Fatuma BRENNANN1 [facility] Signed: 05/23/2024 13:27 Receipt Acknowledged By: * AWAITING SIGNATURE * ROSANA KOHLER 05/30/2024 09:47 /es/ DYLLAN RAYA LPN LPN 05/23/2024 ADDENDUM STATUS: COMPLETED spoke with caller. She states he has to see GI doc. They will fax notes. /promise/ ASHOK Hall RNN Primary Care Signed: 05/23/2024 14:49 05/29/2024 ADDENDUM STATUS: COMPLETED Fax does not give information about GI or surgery. Please ask caller why patient needs to be seen by GI. /promise/ Andres Pedraza MD Staff Physician Signed: 05/29/2024 14:49 Receipt Acknowledged By: 05/30/2024 08:18 /promise/ Rosana Kohler RN, BSN Primary Care 05/30/2024 ADDENDUM STATUS: COMPLETED [facility] fissure. /promise/ Rosana Kohler RN, BSN Primary Care Signed: 05/30/2024 08:15 Receipt Acknowledged By: 05/30/2024 16:01 /promise/ Andrse Pedraza MD Staff Physician 05/30/2024 ADDENDUM STATUS: COMPLETED Done. /promise/ Andres Pedraza MD Staff Physician Signed: 05/30/2024 16:00 ROSANA KOHLER [place] [facility] [place] [facility] May 23, 2024 01:27 PM ADMINISTRATIVE NOT E: LOCAL TITLE: CCC: SCHEDULING ADMINISTRATION STANDARD TITLE: ADMINISTRATIVE NOTE DATE OF NOTE: MAY 23, 2024@13:27:39 ENTRY DATE: MAY 23, 2024@13:27:39 AUTHOR: CODIE TROTTER EXP COSIGNER: URGENCY: STATUS: COMPLETED CCC: SCHEDULING ADMINISTRATION Has ADDENDA Patient Demographics Patient Name: TALON LAZO Patient Primary Phone: [phone] Patient Primary Address: [address] [place] [address] Patient : 1935 Patient Age: 88 Caller/Recipient Relation to Patient: Other If Other Describe Relation to Patient: [facility] Caller Name: vocational case managerinvestigations manager Administrative Note Reason: Other Administrative Note Comments: Consult request: Dr. Julio Dumont MD [address] [place] [id number] Anal Fissure, appt. scheduled 06/07/24 IMPORTANT: This note was created by [facility] staff. Please do not alert the staff member by adding them as a signer for future communications. Alerts are not monitored by this user. /promise/ CODIE TROTTER [facility]IS[facility] Signed: 05/23/2024 13:27 Receipt Acknowledged By: 06/03/2024 09:57 /promise/ Rosana Kohler RN, BSN Primary Care 05/30/2024 09:47 /es/ DYLLAN RAYA LPN LPN 05/23/2024 ADDENDUM STATUS: COMPLETED spoke with caller. She states he has to see GI doc. They will fax notes. /deisi Kohler RN, BSN Primary Care Signed: 05/23/2024 14:49 05/29/2024 ADDENDUM STATUS: COMPLETED in right fax. please advise. thank you. /deisi Kohler RN, BSN Primary Care Signed: 05/29/2024 14:42 Receipt Acknowledged By: 05/30/2024 16:00 /deisi Pedraza MD Staff Physician 05/29/2024 ADDENDUM STATUS: COMPLETED Fax does not give information about GI or surgery. Please ask caller why patient needs to be seen by GI. /deisi Pedraza MD Staff Physician Signed: 05/29/2024 14:49 Receipt Acknowledged By: 05/30/2024 08:18 /deisi Kohler RN, BSN Primary Care 05/30/2024 ADDENDUM STATUS: COMPLETED [facility] fissure. /deisi Kohler RN, BSN Primary Care Signed: 05/30/2024 08:15 Receipt Acknowledged By: 05/30/2024 16:01 /deisi Pedraza MD Staff Physician 05/30/2024 ADDENDUM STATUS: COMPLETED Done. /deisi Pedraza MD Staff Physician Signed: 05/30/2024 16:00 CODIE TROTTER [facility]
--- OUTSIDE RECORDS SUMMARY | 2024-08-05 22:41 | XMS_ITS | Encounter Summary ---
Author Name [facility] [place] Address [address] [place] [address] Care Team Providers Care Pantograph I Engraver Name Role Phone SHAINA REYES Primary Care [...] Name Patient's Relationship to Policy Etienne [facility] ([facility]) MEDICARE ADVANTAGE MCR ([facility]) Aug 27, 2012 [id number] Ger[address] LAZO PATIENT HEALTH [facility] ([facility]) MEDICARE ADVANTAGE MCR ([facility]) Aug 27, 2012 [id number] Gerard LAZO PATIENT Selected Encounter This section includes the information on record at [place] for the Encounter. Date/Time Encounter Type Encounter Description Reason Pro vider Source May 26, 2024 10:30 AM Outpatient Encounter PRIMARY CARE/MEDICINE IHE Encounter Template Text not used by VA Plan of Treatment: Future Appointments (+ 6 months) and Future Tests (+/- 45 days) The Plan of Treatment section includes future care activities for the patient from all [place] treatmentfacilities. This section includes future appointments and future orders which are active, pending or scheduled. Future Appointments This section includes appointments that were scheduled to occur 6 months from the date of the Encounter, up to a maximum of 20 appointments. The data comes from all [place] treatment facilities. Appointment Date/Time Appointment Type Appointme nt Facility Name Jun 05, 2024 09:00 AM [facility] Jul 28, 2024 03:00 PM AMBULATORY - REHAB MEDICIN E [facility] Active, Pending, and Scheduled Orders This section includes a listing of several types of active, pending, and scheduled orders, including clinic medications orders, diagnostic test orders, procedure orders and consult orders; where the start date of the order is 45 days before the date of the Encounter or 45 days after the date of theEncounter. The data comes from all [place] treatment facilities. Test Date/Time Test Type Test Details Facility Name May 08, 2024 10:04 AM Consult Order COMMUNITY CARE-DENTAL GENERAL Cons [facility]ner's [facility] May 17, 2024 12:00 AM Laboratory - Chemistry Order CBC AND DIFF (AUTO) BLOOD (LAV-BLOOD) [facility] May 17, 2024 12:00 AM Laboratory - Chemistry Order BASIC METABOLIC PANEL (fasting) BLOOD (SST-SERUM) [facility] May 17, 2024 12:00 AM Laboratory - Chemistry Order LIPID PANEL FASTING BLOOD (SST-SERUM) [facility] May 17, 2024 12:00 AM Laboratory - Chemistry Order LIVER FUNCTION BLOOD (SST-SERUM) [facility] May 17, 2024 12:00 AM Laboratory - Chemistry Order TSH BLOOD (SST-SERUM) [facility] May 17, 2024 12:00 AM Laboratory - Chemistry Order URINALYSIS CLEAN CATCH URINE [facility] May 30, 2024 03:59 PM Consult Order COMMUNITY CARE-GEN SURGERY Cons Speed Runner's Choice [facility] Vital Signs: All taken on the encounter date This section contains inpatient and outpatient Vital Signs collected on the date of the Encounter. Date/Time Temperature Pulse Blood Pressure Respiratory Rate SP02 Pain Height Weight Body Mass Index Source May 26, 2024 12:28 PM 138/80 [place] [facility] [place] [facility] May 26, 2024 11:52 AM 97.6 66 151/80 16 98 4 71 232 32 [place] [facility] [place] [facility] Social History: Smoking Status (Most current) and Tobacco Use (All prior to encounter date) This section includes the most current, and the historical, smoking and tobacco- related health factors from the [place] facility where the Encounter took place. Current Smoking Status This section includes the most current smoking, or tobacco-related health factor, from the [place] facility where the Encounter took place. Date/Time Current Smoking Status Comment Facil ity May 26, 2024 10:30 AM VA-TOBACCO NEVER USED [facility]SN [facility] Tobacco Use History This section includes a history of the smoking, or tobacco-related health factors, that were collected on or before the date of the Encounter. The data comes from the [place] facility where the Encounter took place. Date/Time Smoking Status/Tobacco Use Comment F acility May 21, 2023 02:00 PM VA-TOBACCO NEVER USED [place] [facility] [place] [facility] May 22, 2022 03:30 PM VA-TOBACCO FORMER USER [facility] [place] [facility] May 22, 2022 03:30 PM VA-TOBACCO QUIT 15 YRS OR MORE [place] [facility] [place] [facility] Nov 15, 2018 10:40 AM VA-TOBACCO NEVER USED [facility] [place] [facility] Nov 16, 2016 01:42 PM LIFETIME NON-TOBACCO USER [facility] [place] [facility] Oct 07, 2015 01:01 PM LIFETIME NON-TOBACCO USER [facility] [place] [facility] Mar 29, 2009 02:36 PM QUIT TOBACCO USE > 7 YEARS AGO [place] [facility] [place] [facility] Advance Directives: All historical and current Section Date Range: From patient's date of to the date document was created. This section includes ALL of a patient's completed or amended [place] Advance and Rescinded Directives. The entries below indicate that a directive exists for the patient, but an actual copy is not included with this document. The data comes from all [place] facilities. Date Advance Directives Provider Source Jul 05, 2022 ADVANCE DIRECTIVE DHIRAJ GRACIA [facility] Encounter Notes: All associated encounter notes This section contains the clinical notes associated to the Encounter. Date/Time Encounter Note(s) Provider Source May 26, 2024 11:02 AM CLERICAL NOTE: LOCAL TITLE: APPOINTMENT NO SHOW STANDARD TITLE: CLERICAL NOTE DATE OF NOTE: MAY 26, 2024@11:02 ENTRY DATE: MAY 26, 2024@11:02:22 AUTHOR: DHIRAJ GRACIA EXP COSIGNER: URGENCY: STATUS: COMPLETED Patient Name: TALON LAZO Patient SSN: [id number] Date and time of Appointment No show : 05/26/24 10:30 PATIENT PHONE - PHONE NUMBER [CELLULAR] - Patient's medical record was reviewed. Follow-up actions were determined and initiated: Please check/complete as applies: [X]Telephoned Directly [ ]Re-scheduled for next available appt [X]Sent a N0-show letter ( must call for appointment) [ ]Other (Emergent/Overbook, etc.): Additional Comments: Future Clinic Visits 12/17/2024 12:30 CWM/NO/OPTOMETRY/MERHAR /es/ DHIRAJ GRACIA [facility] Signed: 05/26/2024 11:02 DHIRAJ GRACIA [facility]
--- OUTSIDE RECORDS SUMMARY | 2024-08-05 22:41 | XMS_ITS | Encounter Summary ---
Author Name [place] Organization [place] Address [address] [place] [address] Care Team Providers Care Dust Sampler Name Role Phone SHAINA REYES Primary Care [...] Etienne's Name Patient's Relationship to Policy Etienne [facility] ([facility] MEDICARE ADVANTAGE [facility] ([facility]) Aug 27, 2012 [id number] [phone] Gerard LAZO [facility] ([facility]) MEDICARE ADVANTAGE MCR ([facility]) Aug 27, 2012 [id number] [phone] Gerard LAZO PATIENT Selected Encounter This section includes the information on record at [place] for the Encounter. Date/Time Encounter Type Encounter Description Reason Pro vider Source May 22, 2024 02:10 PM Outpatient Encounter PRIMARY CARE/MEDICINE IHE Encounter Template Text not used by VA Plan of Treatment: Future Appointments (+ 6 months) and Future Tests (+/- 45 days) The Plan of Treatment section includes future care activities for the patient from all [place] [facility]. This section includes future appointments and future orders which are active, pending or scheduled. Future Appointments This section includes appointments that were scheduled to occur 6 months from the date of the Encounter, up to a maximum of 20 appointments. The [facility] comes from [facility] Appointment Date/Time Appointment Type Appointme nt Facility Name May 26, 2024 10:30 AM AMBULATORY - [facility]INE [facility] Jun 05, 2024 09:00 AM AMBULATORY - MEDICINE [facility] Jul 28, 2024 03:00 PM AMBULATORY - REHAB MEDICIN E [facility] Active, Pending, and Scheduled Orders This section includes a listing of several types of active, pending, and scheduled orders, including clinic medications orders, diagnostic test orders, procedure orders and consult orders; where the start date of the order is 45 days before the date of the Encounter or 45 days after the date of theEncounter. The data comes from all [facility]. Test Date/Time Test Type Test Details Facility Name May 08, 2024 10:04 AM Consult Order COMMUNITY CARE-DENTAL GENERAL Cons Eastern Philosophy Professor's Choice [facility] May 17, 2024 12:00 AM Laboratory - Chemistry Order CBC AND DIFF (AUTO) BLOOD (LAV-BLOOD) [facility] May 17, 2024 12:00 AM Laboratory - Chemistry Order BASIC METABOLIC PANEL (fasting) BLOOD (SST-SERUM) [facility] May 17, 2024 12:00 AM Laboratory - Chemistry Order LIPID PANEL FASTING BLOOD (SST-SERUM) [facility] May 17, 2024 12:00 AM Laboratory - Chemistry Order LIVER FUNCTION BLOOD (SST-SERUM) [facility] May 17, 2024 12:00 AM Laboratory - Chemistry Order TSH BLOOD (SST-SERUM) [facility] May 17, 2024 12:00 AM Laboratory - Chemistry Order URINALYSIS CLEAN CATCH URINE [facility] May 30, 2024 03:59 PM Consult Order COMMUNITY CARE-GEN SURGERY Cons [employer] Professor's Choice [facility] Social History: Smoking Status (Most current) and Tobacco Use (All prior to encounter date) This section includes the most current, and the historical, smoking and tobacco- related health factors from the [place] facility where the Encounter took place. Current Smoking Status This section includes the most current smoking, or tobacco-related health factor, from the [place] facility where the Encounter took place. Date/Time Current Smoking Status Comment Facil ity May 21, 2023 02:00 PM VA-TOBACCO NEVER USED [facility] Tobacco Use History This section includes a history of the smoking, or tobacco-related health factors, that were collected on or before the date of the Encounter. The data comes from the [place] facility where the Encounter took place. Date/Time Smoking Status/Tobacco Use Comment F acility May 22, 2022 03:30 PM VA-TOBACCO FORMER USER [facility] May 22, 2022 03:30 PM VA-TOBACCO QUIT 15 YRS OR MORE [facility] Nov 15, 2018 10:40 AM VA-TOBACCO NEVER USED [facility] Nov 16, 2016 01:42 PM LIFETIME NON-TOBACCO USER [facility] Oct 07, 2015 01:01 PM LIFETIME NON-TOBACCO USER [facility] Mar 29, 2009 02:36 PM QUIT TOBACCO USE > 7 YEARS AGO [facility] Advance Directives: All historical and current Section Date Range: From patient's date of to the date document was created. This section includes ALL of a patient's completed or amended [place] Advance and Rescinded Directives. The entries below indicate that a directive exists for the patient, but an actual copy is not included with this document. The data comes from all [place] facilities. Date Advance Directives Provider Source Jul 05, 2022 ADVANCE DIRECTIVE DHIRAJ GRACIA [facility] Encounter Notes: All associated encounter notes This section contains the clinical notes associated to the Encounter. Date/Time Encounter Note(s) Provider Source May 22, 2024 02:10 PM ADMINISTRATIVE NOTE: LOCAL TITLE: ADMINISTRATIVE NOTE STANDARD TITLE: ADMINISTRATIVE NOTE DATE OF NOTE: MAY 22, 2024@14:10 ENTRY DATE: MAY 22, 2024@14:10:50 AUTHOR: DHIRAJ GRACIA EXP COSIGNER: URGENCY: STATUS: COMPLETED Reminder call for your upcoming Primary Care Appointment and the need for preparations prior to your upcoming appt. [X] Location in [facility] [X] Fasting labs [ ] Lab work within 30 days [ ] Urine [ ] No Preparation Action taken: [X] Called , left voice message Apr [ ] Called , unable to leave voice mail [ ] Spoke to /child adolescent care to remind them of upcoming appt/preparations Upcoming Appointments: 05/26/2024 10:30 CWM/NO/PACT 2 12/17/2024 12:30 CWM/NO/OPTOMETRY/MERHAR /es/ DHIRAJ GRACIA AMSA Signed: 05/22/2024 14:11 DHIRAJ GRACIA [place] [facility] [place] [facility]
--- OUTSIDE RECORDS SUMMARY | 2024-08-05 22:44 | XMS_ITS ---
Author Name [facility] [place] Organization [place] Address [address] [place] [address] Care Team Providers Care Electric Crane Operator Name Role Phone SHAINA PEDRAZA Primary Care [...] Name Patient's Relationship to Policy Etienne [facility] ([facility] MEDICARE ADVANTAGE [facility] ([facility] Aug 27, 2012 [id number] [id number] Gerard LAZO PATIENT [facility] ([facility] MEDICARE ADVANTAGE [facility] ([facility] Aug 27, 2012 [id number] [phone] Gerard LAZO PATIENT Selected Encounter This section includes the information on record at [place] for the Encounter. Date/Time Encounter Type Encounter Description Reason Provider Source Jul 28, 2024 03:00 PM OT EVAL LOW COMPLEX 30 MIN WHEELCHAIR & ADVAN MOBILITY ICD-10-CM R26.9 Unspecified abnormalities of gait and mobility CLARKE,LISSET L IHE Encounter Template Text not used by VA Assessments - Encounter Diagnoses This section includes the primary and secondary diagnoses documented for the Encounter. Date/Time Primary/Secondary Diagnosis Diagnosis Name Provider Source Jul 29, 2024 03:02 PM PRIMARY Unspecified abnormalities of gait and mobility LISSET CLARKE [place] [facility] [place] [facility] Plan of Treatment: Future Appointments (+ 6 months) and Future Tests (+/- 45 days) The Plan of Treatment section includes future care activities for the patient from all [place] [facility]. This section includes future appointments and future orders which are active, pending or scheduled. Future Appointments This section includes appointments that were scheduled to occur 6 months from the date of the Encounter, up to a maximum of 20 appointments. The data comes from all [place] treatment facilities. Appointment Date/Time Appointment Type Appointme nt Facility Name Dec 17, 2024 12:30 PM AMBULATORY - MEDICINE [facility] Social History: Smoking Status (Most current) and Tobacco Use (All prior to encounter date) This section includes the most current, and the historical, smoking and tobacco- related health factors from the [place] facility where the Encounter took place. Current Smoking Status This section includes the most current smoking, or tobacco-related health factor, from the VA facility where the Encounter took place. Date/Time Current Smoking Status Comment Facil ity May 26, 2024 10:30 AM [facility]TOBACCO [facility] [place] [facility] Tobacco Use History This section includes a history of the smoking, or tobacco-related health factors, that were collected on or before the date of the Encounter. The data comes from the [place] facility where the Encounter took place. Date/Time Smoking Status/Tobacco Use Comment F acility May 21, 2023 02:00 PM VA-TOBACCO NEVER USED [place] [facility] [place] [facility] May 22, 2022 03:30 PM VA-TOBACCO FORMER USER [place] [facility] [place] [facility] May 22, 2022 03:30 PM VA-TOBACCO QUIT 15 YRS OR MORE [place] [facility] [place] [facility] Nov 15, 2018 10:40 AM VA-TOBACCO NEVER USED [place] [facility] [place] [facility] Nov 16, 2016 01:42 PM LIFETIME NON-TOBACCO USER [place] [facility] [place] [facility] Oct 07, 2015 01:01 PM LIFETIME NON-TOBACCO USER [facility] Mar 29, 2009 02:36 PM QUIT TOBACCO USE > 7 YEARS AGO [facility] Advance Directives: All historical and current Section Date Range: From patient's date of to the date document was created. This section includes ALL of a patient's completed or amended [place] Advance and Rescinded Directives. The entries below indicate that a directive exists for the patient, but an actual copy is not included with this document. The data comes from all [place] facilities. Date Advance Directives Provider Source Jul 05, 2022 ADVANCE DIRECTIVE DHIRAJ GRACIA [facility] Encounter Notes: All associated encounter notes This section contains the clinical notes associated to the Encounter. Date/Time Encounter Note(s) Provider Source Jul 28, 2024 02:02 PM OCCUPATIONAL THERA PY NOTE: LOCAL TITLE: OCCUPATIONAL THERAPY INITIAL NOTE STANDARD TITLE: OCCUPATIONAL THERAPY NOTE DATE OF NOTE: JUL 28, 2024@14:02 ENTRY DATE: JUL 28, 2024@14:02:22 AUTHOR: LISSET CLARKE COSIGNER: URGENCY: STATUS: COMPLETED Occupational Therapy Evaluation (Wheelchair Clinic) Initial Evaluation date: Jul Progress Note Date: Treatment #: eval/1 Treatment time: Diagnosis: Unspecified Abnormalities of Gait and Mobility(ICD-10-CM R26.9) Provider: Dr. Pedraza OT Treatment Precautions: universal Patient identified by full name and date of S/ Pt is an 89 year old male referred to OT by Dr. Pedraza for a wheelchair evaluation. He was seen in the clinic for this initial assessment on 07/28/24 at the [facility]. Significant Medical History: R knee replacement PMHx: Active problems - Computerized Problem List is the source for the followin. Anal fissure 2. Cognitive disorder 3. Exposure to potentially hazardous substance 4. Bladder cancer 5. Erectile Dysfunction (SCT 732200531) 6. Thiamine deficiency 7. Chronic dermatitis 8. Polyneuropathy 9. 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 Vitamin D Deficiency 12. 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 Decreased, vision NEC 15. Obesity 16. Dyslipidemia ENVIRONMENT/SOCIAL SUPPORT: Living situation: LTC at the [facility] Support/services: 24 hour assist as needed CURRENT LEVEL OF FUNCTION: ADLs: requires some assist with ADL's IADLs: dependent Mobility: Transfers: independent Ambulation: supervision with walker- short distances W/c propulsion: independent- BL UE's and LE's WHEELCHAIR HISTORY: [x] Manual [ ] electric Model: [employer] EX2 Seat: Width: 18 Depth: 18 Issues: uncomfortable, wrong size PRIMARY GOAL: improve distances within the facility and community access with family and for appointments O/ Pt seen at [facility]. Seated in Ex2 manual w/c. OT EVAL: LOW COMPLEXITY ( 25' ) Current Skin Integrity: intact per pt. Cognitive/Visual Status: alert, oriented to person, place, date. Attention intact to eval and able to answer questions appropriately. Able to follow instructions. Functional Mobility: Sit<->stand: mod I, heavy use of BL UE's Gait: n/t Assistive device: PHYSICAL ASSESSMENT: UE function: BUE AROM WFL; strength 5/5 LE function: BLE AROM/strength WFL for transfers and ambulation with a/d: BLE edema Sitting balance: WFL Standing balance: WFL Pt's measurements: Weight: 220 lb Height: 5'11 Hip Width: 19 Seat Depth (hip to knee): 19 Knee to foot (with shoes on): 19 with shoes Top of Shoulders: 18 WHEELCHAIR MANAGEMENT TRAINING: Pt trialed this date: - Trialed in: Tracer EX2 Recommendations for the following to meet seating/positioning needs. Reviewed with /caregiver: - Q2 19x19 - tension adjustable backrest - 18 seat to floor - foot rests - tie-downs - anti-tippers - full length arm rests - brake extenders - candy blue - Marine Core patch - Ion cushion A/ Pt is an 89 year old male referred to wheelchair clinic with above pmhx and dx. Pt presents to wheelchair clinic with referral for manual mobility due to difficulty with ambulating distances. Pt. trialed in manual w/c this date and able to safely self-propel with UE's and LE's. Reviewed recommendations and specs with today. RECOMMEND: Q2 as above. P/ Plan to order Q2 as above. Will f/u with once chair arrives to clinic at [facility]. LT. Pt will demonstrate ability to independently manage manual w/c within the LTC setting and community in order to increase independence, effectively in activities and iADL's ST. Assess for most appropriate mobility device 2. will demonstrate good safety with manual chair /es/ LISSET CLARKE OTR/L OCCUPATIONAL THERAPIST Signed: 07/29/2024 15:02 LISSET CLARKE [facility]
--- OUTSIDE RECORDS SUMMARY | 2024-08-05 22:44 | XMS_ITS | Encounter Summary ---
Author Name [facility] [place] Organization [place] Address [address] [place] [address] Care Team Providers Care Protective Signal Repairer Helper Name Role Phone SHAINA REYES Primary Care [...] Patient's Relationship to Policy Etienne [facility] ([facility]) MEDICARE ADVANTAGE MCR ([facility]) Aug 27, 2012 [id number] [phone] Gerard LAZO PATIENT [facility] ([facility]) MEDICARE ADVANTAGE MCR ([facility]) Aug 27, 2012 [id number] [phone] Gerard LAZO PATIENT Selected Encounter This section includes the information on record at [place] for the Encounter. Date/Time Encounter Type Encounter Description Reason Pro vider Source Jul 25, 2024 08:26 AM Outpatient Encounter WHEELCHAIR & ADVAN MOBILITY IHE Encounter Template Text not used by VA Plan of Treatment: Future Appointments (+ 6 months) and Future Tests (+/- 45 days) The Plan of Treatment section includes future care activities for the patient from all [place] treatmentfacilities. This section includes future appointments and future orders which are active, pending or scheduled. Future Appointments This section includes appointments that were scheduled to occur 6 months from the date of the Encounter, up to a maximum of 20 appointments. The data comes from all [place] treatment facilities. Appointment Date/Time Appointment Type Appointme nt Facility Name Jul 28, 2024 03:00 PM AMBULATORY - REHAB MEDICIN [facility] [place] [facility] [place] [facility] Dec 17, 2024 12:30 PM AMBULATORY - MEDICINE [place] [facility] [place] [facility] Social History: Smoking Status (Most current) and Tobacco Use (All prior to encounter date) This section includes the most current, and the historical, smoking and tobacco- related health factors from the [place] facility where the Encounter took place. Current Smoking Status This section includes the most current smoking, or tobacco-related health factor, from the [place] facility where the Encounter took place. Date/Time Current Smoking Status Comment Facil ity May 26, 2024 10:30 AM VA-TOBACCO NEVER USED [place] [facility] [place] [facility] Tobacco Use History This section includes a history of the smoking, or tobacco-related health factors, that were collected on or before the date of the Encounter. The data comes from the [place] facility where the Encounter took place. Date/Time Smoking Status/Tobacco Use Comment F acility May 21, 2023 02:00 PM VA-TOBACCO NEVER USED [place] [facility] [place] [facility] May 22, 2022 03:30 PM VA-TOBACCO FORMER USER [facility] [place] [facility] May 22, 2022 03:30 PM VA-TOBACCO QUIT 15 YRS OR MORE [place] [facility] [place] [facility] Nov 15, 2018 10:40 AM VA-TOBACCO NEVER USED [facility] [place] [facility] Nov 16, 2016 01:42 PM LIFETIME NON-TOBACCO USER [facility] [place] [facility] Oct 07, 2015 01:01 PM LIFETIME NON-TOBACCO USER [facility] [place] [facility] Mar 29, 2009 02:36 PM QUIT TOBACCO USE > 7 YEARS AGO [place] [facility] [place] [facility] Advance Directives: All historical and current Section Date Range: From patient's date of to the date document was created. This section includes ALL of a patient's completed or amended [place] Advance and Rescinded Directives. The entries below indicate that a directive exists for the patient, but an actual copy is not included with this document. The data comes from all [place] facilities. Date Advance Directives Provider Source Jul 05, 2022 ADVANCE DIRECTIVE DHIRAJ GRACIA [facility] Encounter Notes: All associated encounter notes This section contains the clinical notes associated to the Encounter. Date/Time Encounter Note(s) Provider Source Jul 25, 2024 08:26 AM OCCUPATIONAL THERA PY NOTE: LOCAL TITLE: OCCUPATIONAL THERAPY STANDARD TITLE: OCCUPATIONAL THERAPY NOTE DATE OF NOTE: JUL 25, 2024@08:26 ENTRY DATE: JUL 25, 2024@08:26:19 AUTHOR: LISSET CLARKE EXP COSIGNER: URGENCY: STATUS: COMPLETED survey research manager, Saima Vences, at [facility] requesting a light-weight manual w/c to use for distances within the facility and community. Appointment scheduled for 07/28/24 @ 3:00. /promise/ LISSET CLARKE OTR/L OCCUPATIONAL THERAPIST Signed: 07/25/2024 08:27 LISSET CLARKE [facility]
--- OUTSIDE RECORDS SUMMARY | 2024-08-05 22:44 | XMS_ITS ---
Author Organization [facility] Address [address] [place] [address] Care Team Providers Care Ladle Car Operator Name Role Phone Jl Santana Primary Care Provider Unav ailable Ke Saleem Unavailable [phone] REASON FOR VISIT Cx appt Encounters Encounter Location Date Provider Diagnosis [address] [address] 01/29/2024 Ke Saleem Plan Of Treatment No Information Progress Notes * Raad LAZO WDOB: [birth year] (88 yo M)Acc No.[id number]:01/29/2024 Patient:?Raad Lazo :1935???Age:88 Y???Sex:Male Address:[address] [place] [address] [place], [address] * true * Date:? Generated for Debbii alberto/Torrie/eTransmitting on:?08/05/2024 10:44 PM EST
--- OUTSIDE RECORDS SUMMARY | 2024-08-05 22:44 | XMS_ITS ---
Author Organization [facility] Address [address] [place] [address] Care Team Providers Care Foreign Language Instructor Name Role Phone Jl Santana Primary Care Provider Unav ailable Ke Saleem Unavailable [phone] REASON FOR VISIT CX 10:00 appt Encounters Encounter Location Date Provider Diagnosis [address] [address] 01/29/2024 Ke Saleem Plan Of Treatment No Information Progress Notes * Raad LAZO WDOB: [birth year] (88 yo M)Acc No.[id number]:01/29/2024 Patient:?Raad Lazo :1935???Age:88 Y???Sex:Male Address:[address] [place] [address] [place], [address] * true * Date:? Generated for Printi alberto/Torrie/eTransmitting on:?08/05/2024 10:44 PM EST
--- OUTSIDE RECORDS SUMMARY | 2024-08-05 22:45 | XMS_ITS | Patient Health Record ---
[facility] Organization [facility] Francesca albright [place] Address [address] [place] [address] Care Team Providers Care Economic Historian Name Role Phone Jl Santana Primary Care Provider Unav ailable Ke Saleem Unavailable [phone] Allergies Allergen (clinical drug ingredient) Drug/Non Drug Allergy documented on EMR Reaction Allergy Type Onset Date Status hydrocortisone Cortizone-10 hives Drug Allergy Active Reason For Referral No Information Medications Medication SIG (Take, Route, Fr equency, Duration) Notes Start Date End Date Status Vitamin B1 Active Vitamin B6 Active Vitamin D 1000 UNIT 1 tablet Orally Once a day for 30 day(s) Not-Taking Keflex Not-Taking Vitamin B12 Active Vitamin D3 Active Social History Tobacco Use/Smoking Question Answer Notes Additional Findings: Tobacco Non-User Current no n-smoker Alcohol Screen Question Answer Notes Did you have a drink contain ing alcohol in the past year? Yes How often did you have a dri nk containing alcohol in the past year? 2 to 3 times a week (3 points) Points 3 Interpretation Negative Tobacco use other than smoking: Question Answer Notes Are you an other tobacco user? No Vital Signs Height 5 ft 11 in in 10/30/2023 Weight 205 lbs 10/30/2023 BMI 28.59 kg/m2 10/30/2023 Procedures Procedure Date Ordered Date Performed Result Body Sit e 72592-SNRBYTR NAIL, 6 OR MORE 10/30/2023 N/A 04319-PUIO SKIN LESIONS, OVER 4 10/30/2023 N/A Encounters Encounter Location Date [facility] [address] [place] [address] 10/30/2023 Ke Saleem Atherosclerosis of [place] artery of both lower extremities, with unspecified presence of clinical manifestation I70.203 ; Tinea unguium B35.1 ; Pain in right toe(s) M79.674 and Pain in left toe(s) M79.[address] [address] 12/17/2023 [facility] [address] [facility] [address] [place] [address] 01/18/2024 [facility] [address] 01/29/2024 [facility] [address] 01/29/2024 Ke Saleem Assessments Encounter Date Diagnosis (ICD Code) Assessment Notes Treatment Notes Treatment Clinical Notes Section Notes 10/30/2023 Tinea unguium (ICD-10 - B35.1) 10/30/2023 Atherosclerosis of [place] artery of both lower extremities, with unspecified presence of clinical manifestation (ICD-10 - I70.203) 10/30/2023 Pain in right toe(s) (ICD-10 - M79.674) 10/30/2023 Pain in left toe(s) (ICD-10 - M79.675) Plan Of Treatment Pending Test Test Name Order Date 27730-IIPCYHV NAIL, 6 OR MORE 07/31/2023 98175-LFWZDHX NAIL, 6 OR MORE 10/30/2023 72661-WPOZ SKIN LESIONS, OVER 4 10/30/19 24 63569-AJYM SKIN LESIONS, 2 TO 4 07/31/20 23 Insurance Providers Payer Name Payer Address Payer Phone Subscriber Number Group Number Insured Name Patient Relationship to Insured Coverage Start Date Coverage End Date [employer] [address] [place] [phone] [id number] Raad Dewitt Self - patient is the insured Medical (General) History Medical History History ICD Code broken bones measles chicken pox prostate conditions Back,Hip,and Knee pain Cancer- skin,bladder Mumps Bone implants/screws hydrocephulus hemochromatosis Surgical History Surgery Date(Month/Year) brain surgery-fluid on brain 11/2012 appendectomy 11/2012 knee surgery 2018
--- OUTSIDE RECORDS SUMMARY | 2024-08-05 22:45 | XMS_ITS ---
Author Organization [facility] Address [address] [place] [address] Care Team Providers Care Editorial Writer Name Role Phone Jl Santana Primary Care Provider Unav ailable Ke Saleem Unavailable [phone] Encounters Encounter Location Date Provider Diagnosis [facility] [address] [place] [address] 01/29/2024 Ke Saleem Plan Of Treatment No Information Progress Notes * Raad LAZO WDOB: [birth year] (89 yo M)Acc No.[id number]:01/29/2024 Progress Note Patient:?Raad LAZO Provider:?Ke Saleem DPM :[id number]???Age:88 Y???Sex:Male Ayaz e:01/29/2024 Address:[address] [place], [place] [phone] Pcp:DOC Wall Subjective: * Chief Complaints: * ??? * Medical History:? Objective: * Vitals:? Assessment: Plan: * Treatment: * Images: * The named appointment provid er may or may not be the originator of this progress note, and it is not deemed complete until electronically signed by the appointment provider. Sign off status: Pending * Provider:?Ke Saleem DPM Date:?2023 Generated for Susi dominguez/Torrie/eTransmitting on:?08/05/2024 10:44 PM EST
== END 2024-07-31 05:59 | disposition home or self-care (01) ==
LOC: HO.HSH3N 05:58
PROVIDERS: Visit Provider Nurse Practitioner Acute Care
DX: C67.9 Malignant neoplasm of bladder, unspecified (principal)
CPT/HCPCS: 52000; 81001; 81003; 87086; 99212

== ENCOUNTER 2024-07-31 09:54 | Outpatient (AMB) | payer MEDICARE, SELFPAY ==
--- NOTE | 2024-07-31 09:59 | A.OFFVIS_ITS ---
Intake Visit Reasons: cysto Intake Note: Patient is present for Cystoscopy Urology Medication:VITAMIN B12,VITAMIN B1,VITAMIN B6 Antibiotic Allergy:NONE Blood Thinner:NONE Lot:[id number] Exp:06/30/27 [employer] Required: No Allergies hydrocortisone [Cortizone-10] Allergy (Unknown, Verified 07/31/24 10:01) hives HPI Comments Details: Raad is a pleasant male. He is a patient of Dr. Lester. He is seen for following urologic conditions - lower urinary tract symptoms - nephrolithiasis - erectile dysfunction - bladder cancer Check cystoscopy Twenty-four months since initial treatment Bladder looks good Had been at [place] in the early Has had urinary urgency and frequency requiring use of adult diapers secondary to bladder chemotherapy Bladder cancer TURBT 07/18 high-grade noninvasive Initial therapy TURBT with bladder therapy - TURBT 07/18, 08/17 6 week induction gemcitabine, 02/16 boost, 05/19 boost, 08/18 boost, 02/17 boost gemcitabine Cystoscopy - 10/19 slowly healing right sidewall Interventions - TURBT 07/18 Tumor site: Right side wall Histologic type: Papillary urothelial carcinoma, noninvasive Histologic grade: High-grade Muscularis propria: Not identified Extent of invasion: Non-invasive papillary carcinoma Imaging - 07/18 CT urogram 1.8 cm bladder mass Cytology - 08/18 Neg, 02/17 NAD, 05/20 NAD Workplace exposure - [place] in the early , sign pain to using oil only no volatile organics Smoking history - nonsmoker Lower urinary tract symptoms GreenLight laser prostate performed 2019 Had been able to come off medications Nocturia x1 Nephrolithiasis Passage of stone mid 2020 right side Imaging - 01/14 CT scan distal right ureteric stone mild hydronephrosis 3 mm - 07/17 renal ultrasound 3 mm left stone - 02/15 renal ultrasound no stones - 02/15 CT urogram Continue with B6 and imaging [facility] Medical History (Updated 06/26/24 @ 09:30 by Benito Mcnair MD) Blood per rectum Venous stasis Venous insufficiency Tricuspid valve insufficiency Hydrocephalus Depression Mitral valve insufficiency BCC (basal cell carcinoma) Aortic stenosis Hemochromatosis Neuropathy Surgical History History of vein stripping 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 Daughter No problems noted. Social History Household Members: None Housing: House Are you a primary respiratory care technician to a significant other at home: No Do you presently have visiting nurse or other home services: Yes (daily Meals on Wheels, very supportive Daughter Funmi and Son-in-law Raad) Alcohol intake: current Alcohol intake frequency: 0-2 drinks per day Alcohol type: other Comment: aware of trip hazard Patient Tobacco Use Status: Never used Tobacco e-Cigarette/Vaping Use: Never Used Second Hand Smoke Exposure: No Substance Use Type: Marijuana Advance Directives Date on File: 03/22/22 service: Yes Current occupational status: retired Cognitive needs: No Hearing needs: No Vision needs: Yes Office Procedures Cystoscopy Consent Discussed risk and benefit or proposed procedure with the patient. Information consent for procedure given to the patient. Discussed technical aspects, risks, benefits and alternatives in full. Addressed all of the patient's questions and concerns regarding the procedure. The patient demonstrated knowledge and understanding. They wish to proceed with this procedure. Preparation The patient was prepped in the usual manner. A composite worker was present and in the room. Genitalia was prepped with betadine solution in a sterile manner. Lidocaine Jelly 2% was placed into the urethra and 16Fr flexible Olympus cystoscope was inserted into the meatus after adequate lubrication. Procedure Cystoscopy performed using a disposable Urovue digital 16 [place] cystoscope. Meatus uncircumcised Urethra anterior and posterior urethra normal Prostatic Urethra unremarkable Bladder examination with retroflexion of cystoscope Bladder Orifices normal shape and position Bladder Capacity normal Trabeculations grade 2 Cellule Formation yes Diverticulum Formation - Mucosal Erythema - Bladder Tumor - 40283-[id number] Procedure code (CPT) selection complete Office Meds lidocaine HCl 2 % mucosal jelly in applicator Performing Provider: Duane Lindsay MD [facility] [place] Administered by: Duane Lindsay MD on 07/31/24 10:49 Dose Route Admin Location Dispensed Lot Number Expiration Date NDC [employer]elance [employer] 10 mL intra-urethral 10 mL Results AMB Urinalysis, Automated UA Leukoctes 0 Mary/uL Last Edit by AIMEE Lucas on 07/31/24 10:22 UA Nitrite Negative Last Edit by AIMEE Lucas on 07/31/24 10:22 UA Urobilinogen 0.2 mg/dL Last Edit by Tyler Talamantes [facility] on 07/31/24 10:2 2 UA Protein 0 mg/dL Last Edit by Tyler Talamantes [facility] on 07/31/24 10:22 UA pH 5.5 Last Edit by Tyler Talamantes [facility] on 07/31/24 10:22 UA Blood 0 Camron/uL [facility] 07[facility]31/24 10:22 UA Specific [place] 1.025 Last Edit by Tyler Talamantes [facility] on 07/31/24 10: 22 UA Ketone Negative Last Edit by Tyler Talamantes [facility] on 07/31/24 10:22 UA Bilirubin 0 mg/dL Last Edit by Tyler Talamantes [facility] on 07/31/24 10:22 UA Glucose 0 mg/dL Last Edit by Tyler Talamantes [facility] on 07/31/24 10:22 Results Reviewed Results Reviewed: Laboratory Last Values Urine pH (Auto) 5.5 07/31/24 10:20 Specific [place] (Auto) 1.025 07/31/24 10:20 Urine Protein (Auto) 0 mg/dL 07/31/24 10:20 Glucose (UA)(Auto) 0 mg/dL 07/31/24 10:20 Urine Ketones (Auto) Negative 07/31/24 10:20 Urine Blood (Auto) 0 Camron/uL 07/31/24 10:20 Urine Nitrite (Auto) Negative 07/31/24 10:20 Urine Bilirubin (Auto) 0 mg/dL 07/31/24 10:20 Urine Urobilinogen (Auto) 0.2 mg/dL 07/31/24 10:20 Leukocyte Esterase (Auto) 0 Mary/uL 07/31/24 10:20 Assessment & Plan Assessment & Plan (1) Bladder cancer: Comment: 02/15 superficial right base Code(s): C67.9 - Malignant neoplasm of bladder, unspecified Category: Medical Plan Six-month follow-up check cysto Orders: Orders AMB Urinalysis Automated Today Z13.9 - Encounter for screening, unspecified AMB Cystoscopy Today C67.9 - Malignant neoplasm of bladder, unspecified Medications: New lidocaine HCl 2% 10 mL intra-urethral ONCE 10 mL 0RF C67.9 - Malignant neoplasm of bladder, unspecified Patient Instructions: Imaging studies, laboratory and physical exam results were discussed and reviewed in detail. No major barriers to patient understanding were identified. An opportunity to ask questions regarding the treatment plan was provided. All questions were answered. The patient expressed understanding and agreement with the above treatment plan. The patient is aware they should contact our office by phone for worsening of their current condition or the appearance of new urologic symptoms. Compliance is encouraged with any medications and followup testing that is ordered. It is a privilege to participate in the urologic care of your patient. If you have any questions or concerns regarding treatment for the above conditions, or other urologic issues, please do not hesitate to contact me. The office telephone contact is [phone]. This note is constructed using voice recognition software. While every effort has been made to ensure accuracy director of rehabilitative services errors may have been included. Yours sincerely, Dr Duane Lindsay MD, OCRINA [facility] - Urology Providers of Expert, Compassionate Care for the Genitourinary System Coding Level of Care Code Est Pt Level 3 (94628) Diagnoses Bladder cancer C67.9 CPT Codes Cystoscopy - CPT: 26030-Pvaokreafc ([id number])
--- OUTSIDE RECORDS SUMMARY | 2024-08-06 01:10 | XMS_ITS | Continuity of Care Document ---
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 Name Role Phone DOD-NM Unavailable Unavailable Problems Combined list of problems [...] By: SHAINA REYES Comment: followed by urology [facility] Chronic dermatitis Active 08/27/19 21 Condition Oct 21, 2020 Entered By: SHAINA REYES Comment: referred to dermatology [facility] Erectile Dysfunction (SCT [id number]) Active 08/27/19 21 Condition Oct 21, 2020 Entered By: SHAINA REYES Comment: treated with Viagra [facility] Hydrocephalus (SNOMED CT [id number]) Active 08/27/19 13 Condition [facility] [...] Condition [place] Obesity Active 08/27/18 90 Condition [place] Cognitive disorder Active Condition J un 2022 Entered By: LISSY SANTIZO Comment: mild neurocognitive disorder (dysexecutive features) [facility] Exposure to potentially hazardous substance Active Condition Sep 29, 2022 Entered By: SHAINA REYES Comment: provided education [facility] Osteoarthritis * (ICD-9-CM 715.90) Active Condition [facility] Polyneuropathy Active Condition [facility] Thiamine deficiency Active Condition Oct [...] FOR TOOTH DECAY PREVENTI ON DENTAL 02/17/2024 [id number] LATANYA SHANE 2022 51 [facility] [place] [facility] Allergies, Adverse Reactions, Alerts Combined list of allergies from Department of Defense and Veterans Affairs facilities. It does not include entries that were removed or entered in error. Substance Category Reaction Severity Reaction type Status Date Reported Comments Source CORTISONE Propensity to adverse reactions to drug (finding) active 0 [facility] [place] [place] [facility] Immunizations Combined list of available immunizations from the Department of Defense and Veterans Affairs facilities. Immunization Series Date Given Administered By Site Reaction Lot Number CVX Code Drug Early Interventionist Status Comments Source ZOSTER RECOMBINANT 1 2023 TEENA FLORES E LEFT DELTO ID [id number] 187 complet ed [facility] [place] [facility] COVID-19 (MODERNA), MRNA, LNP-S, PF, 50 MCG/0.5 ML (AGES 12+ YEARS) 1 2022 DEE DEE [place]ARA RIGHT DELTO ID [id number] 312 complet ed [facility] [place] [facility] INFLUENZA, HIGH-DOSE, QUADRIVALENT 2022 NEEMA CHAN M LEFT DELTO ID [id number] 197 complet ed [facility] [place] [facility] ZOSTER RECOMBINANT 1 2022 NEEMA CHAN M RIGHT DELTO ID [id number] 187 complet ed [facility] [place] [facility] COVID-19 (MODERNA), MRNA, LNP-S, BIVALENT BOOSTER, PF, 50 MCG/0.5 ML OR 25MCG/0.25 ML DOSE 2022 NEEMA CHNA M LEFT DELTO ID [id number] 229 complet ed [facility] [place] [facility] PNEUMOCOCCAL CONJUGATE PCV20, POLYSACCHARID E [id number] CONJUGATE, ADJUVANT, PF 2022 NEEMA CHAN M RIGHT DELTO ID [id number] 216 complet ed [facility] [place] [facility] TD (ADULT), 2 LF TETANUS TOXOID, PRESERVATIVE FREE, ADSORBED 2022 ROCIO,JENNIF ER M RIGHT DELTO ID [id number] 09 complet ed [facility] INFLUENZA, UNSPECIFIED FORMULATION 2021 88 complet ed [facility] COVID-19 (MODERNA), MRNA, LNP-S, PF, 100 MCG/0.5 ML DOSE 3 2020 207 complet ed MOD; [id number]; 1 [facility] COVID-19 (MODERNA), MRNA, LNP-S, PF, 100 MCG/0.5 ML DOSE 2 2020 207 complet ed MOD; [id number]; 1 [facility] COVID-19 (MODERNA), MRNA, LNP-S, PF, 100 MCG/0.5 ML DOSE 1 2020 207 complet ed MOD; [id number]; 1 [facility] [...] May 13, 2023 06:02 PM Reporting Lab: [facility] [address] [facility] [address] Performing Lab: [facility] [address] [facility] [address] [facility] BASIC METABOLI C PANEL (fasting ) GLUCOSE [MASS/VOLU ME] IN SERUM OR PLASMA 121 mg/dL 65 - 100 05/15 H Specimen Type: SERUM No comment entered. Ordering Provider: ED REYES Report Released Date/Time: May 13, 2023 06:02 PM Reporting Lab: [facility]USE[facility] [address] [facility] [address] Performing Lab: [facility] [address] [facility] [address] [facility] BASIC METABOLI C PANEL (fasting ) SODIUM [MOLES/VOL UME] IN SERUM OR PLASMA 140 mmol/L 135 - 145 05/15 Specimen Type: SERUM No comment entered. Ordering Provider: ED REYES Report Released Date/Time: May 13, 2023 06:02 PM Reporting Lab: [facility] [place] [facility] [address] [facility] [address] Performing Lab: [facility] [place] [facility] [address] [facility] [address] [facility] [place] [facility] BASIC METABOLI C PANEL (fasting ) POTASSIUM [MOLES/VOL UME] IN SERUM OR PLASMA 4.2 mmol/L 3.5 - 5.0 05/15 Specimen Type: SERUM No comment entered. Ordering Provider: ED REYES Report Released Date/Time: May 13, 2023 06:02 PM Reporting Lab: [facility] [place] [facility] [address] [facility] [address] Performing Lab: [facility] [place] [facility] [address] [facility] [address] [facility] [place] [facility] BASIC METABOLI C PANEL (fasting ) CHLORIDE [MOLES/VOL UME] IN SERUM OR PLASMA 106 mmol/L 100 - 110 05/15 Specimen Type: SERUM No comment entered. Ordering Provider: ED REYES Report Released Date/Time: May 13, 2023 06:02 PM Reporting Lab: [facility] [place] [facility] [address] [facility] [address] Performing Lab: [facility] [place] [facility] [address] [facility] [address] [facility] [place] [place] [facility] BASIC METABOLI C PANEL (fasting ) CARBON DIOXIDE, TOTAL [MOLES/VOL UME] IN SERUM OR PLASMA 25 meq/L 20 - 30 05/15 Specimen Type: SERUM No comment entered. Ordering Provider: ED REYES Report Released Date/Time: May 13, 2023 06:02 PM Reporting Lab: [facility] [place] [facility] [address] [facility] [address] Performing Lab: [facility] [place] [facility] [address] [facility] [address] [facility] [place] [facility] BASIC METABOLI C PANEL (fasting ) CREATININE [MASS/VOLU ME] IN SERUM OR PLASMA 0.99 mg/dL 0.50 - 1.40 05/15 Specimen Type: SERUM No comment entered. Ordering Provider: ED REYES Report Released Date/Time: May 13, 2023 06:02 PM Reporting Lab: [facility]ITALRL [place] [address] [address] Performing Lab: [facility] HOSPITALRUSA [facility]ALTH PROVIDENCE HOSPITALTRN [facility]ITALUSE[address] [address] [facility]OSPITALRSHELBY BAPTIST MEDICAL CENTERN [place] [facility] BASIC METABOLI C PANEL (fasting ) GLOMERULAR FILTRATION RATE/1.73 SQ M.PREDICTE D [VOLUME RATE/AREA] IN SERUM, PLASMA OR BLOOD BY CREATININE -BASED FORMULA (CKD-EPI 2020) 73 mL/min 60 05/15 Specimen Type: SERUM No comment entered. Ordering Provider: ED REYES Report Released Date/Time: May 13, 2023 06:02 PM Reporting Lab: [facility]OSPITALRSHELBY BAPTIST MEDICAL CENTERN [facility]OSPITALUSE[address] [address] Performing Lab: [facility] HOSPITALRL RE[facility] SERVICESN [facility]OSPITALUSE[address] [address] [facility]ITALUSE [facility] CBC AND DIFF (AUTO) LEUKOCYTES [#/VOLUME] IN BLOOD BY AUTOMATED COUNT 10.25 10*3/uL 4.50 - 11.00 05/15 Specimen Type: BLOOD No comment entered. Ordering Provider: ED REYES Report Released Date/Time: May 13, 2023 06:02 PM Reporting Lab: [facility]OSPITALRL TRN [facility]PITALUSE[address] [address] Performing Lab: [facility]OSPITALRL TRN [facility]ITALUSE[address] [address] [facility]ENTERN [facility]OSPITALUSE [facility] CBC AND DIFF (AUTO) ERYTHROCYT ES [#/VOLUME] IN BLOOD BY AUTOMATED COUNT 5.44 10*6/uL 4.23 - 5.66 05/15 Specimen Type: BLOOD No comment entered. Ordering Provider: ED REYES Report Released Date/Time: May 13, 2023 06:02 PM Reporting Lab: [facility]OSPITALRSHELBY BAPTIST MEDICAL CENTERN [facility]OSPITALUSE[address] [address] Performing Lab: [facility] [address] [facility] [address] [facility] [place] [facility] CBC AND DIFF (AUTO) HEMOGLOBIN [MASS/VOLU ME] IN BLOOD 17.0 g/dL 12.8 - 17 05/15 Specimen Type: BLOOD No comment entered. Ordering Provider: ED REYES Report Released Date/Time: May 13, 2023 06:02 PM Reporting Lab: [facility] [place] [facility] [address] [facility] [address] Performing Lab: [facility] [place] [facility] [address] [facility] [address] [facility] [place] [place] [facility] CBC AND DIFF (AUTO) HEMATOCRIT [VOLUME FRACTION] OF BLOOD BY AUTOMATED COUNT 51.5 39.2 - 50.4 05/15 H Specimen Type: BLOOD No comment entered. Ordering Provider: ED REYES Report Released Date/Time: May 13, 2023 06:02 PM Reporting Lab: [facility] [place] [facility] [address] [facility] [address] Performing Lab: [facility] [place] [facility] [address] [facility] [address] [facility] [place] [facility] CBC AND DIFF (AUTO) MCV [ENTITIC VOLUME] BY AUTOMATED COUNT 94.7 fL 82 - 99 05/15 Specimen Type: BLOOD No comment entered. Ordering Provider: ED REYES Report Released Date/Time: May 13, 2023 06:02 PM Reporting Lab: [facility] [place] [facility] [address] [facility] [address] Performing Lab: [facility] [place] [facility] [address] [facility] [address] [facility] [place] [facility] CBC AND DIFF (AUTO) MCHC [MASS/VOLU ME] BY AUTOMATED COUNT 33.0 g/dL 30.8 - 35.1 05/15 Specimen Type: BLOOD No comment entered. Ordering Provider: ED REYES Report Released Date/Time: May 13, 2023 06:02 PM Reporting Lab: [facility] [place] [facility] [address] [facility] [address] Performing Lab: [facility] [place] [facility] [address] [facility] [address] [facility] [place] [facility] CBC AND DIFF (AUTO) PLATELETS [#/VOLUME] IN BLOOD BY AUTOMATED COUNT 154 10*3/uL 140 - 360 05/15 Specimen Type: BLOOD No comment entered. Ordering Provider: ED REYES Report Released Date/Time: May 13, 2023 06:02 PM Reporting Lab: [facility] [place] [facility] [address] [facility] [address] Performing Lab: [facility] [place] [facility] [address] [facility] [address] [facility] [place] [facility] CBC AND DIFF (AUTO) ERYTHROCYT E DISTRIBUTI ON WIDTH [RATIO] BY AUTOMATED COUNT 13.5 12.0 - 16.0 05/15 Specimen Type: BLOOD No comment entered. Ordering Provider: ED REYES Report Released Date/Time: May 13, 2023 06:02 PM Reporting Lab: [facility] [place] [facility] [address] [facility] [address] Performing Lab: [facility] [place] [facility] [address] [facility] [address] [facility] [place] [place] [facility] CBC AND DIFF (AUTO) MONOCYTES [#/VOLUME] IN BLOOD BY AUTOMATED COUNT 0.63 10*3/uL 0.30 - 1.10 05/15 Specimen Type: BLOOD No comment entered. Ordering Provider: ED REYES Report Released Date/Time: May 13, 2023 06:02 PM Reporting Lab: [facility] [place] [facility] [address] [facility] [address] Performing Lab: [facility] [place] [facility] [address] [facility] [address] [facility] [place] [facility] CBC AND DIFF (AUTO) MCH [ENTITIC MASS] BY AUTOMATED COUNT 31.3 pg 26.2 - 32.6 05/15 Specimen Type: BLOOD No comment entered. Ordering Provider: ED REYES Report Released Date/Time: May 13, 2023 06:02 PM Reporting Lab: [facility] [place] [facility] [address] [facility] [address] Performing Lab: [facility] [place] [facility] [address] [facility] [address] [facility] [place] [facility] CBC AND DIFF (AUTO) NEUTROPHIL S/100 LEUKOCYTES IN BLOOD BY AUTOMATED COUNT 78.2 43.7 - 75.8 05/15 H Specimen Type: BLOOD No comment entered. Ordering Provider: ED REYES Report Released Date/Time: May 13, 2023 06:02 PM Reporting Lab: [facility] [place] [facility] [address] [facility] [address] Performing Lab: [facility] [place] [facility] [address] [facility] [address] [facility] [place] [facility] CBC AND DIFF (AUTO) LYMPHOCYTE S/100 LEUKOCYTES IN BLOOD BY AUTOMATED COUNT 14.1 14.0 - 42.3 05/15 Specimen Type: BLOOD No comment entered. Ordering Provider: ED REYES Report Released Date/Time: May 13, 2023 06:02 PM Reporting Lab: [facility] [place] [facility] [address] [facility] [address] Performing Lab: [facility] [place] [facility] [address] [facility] [address] [facility] [place] [facility] CBC AND DIFF (AUTO) MONOCYTES/ 100 LEUKOCYTES IN BLOOD BY AUTOMATED COUNT 6.1 5.1 - 13.7 05/15 Specimen Type: BLOOD No comment entered. Ordering Provider: ED REYES Report Released Date/Time: May 13, 2023 06:02 PM Reporting Lab: [facility] [place] [facility] [address] [facility] [address] Performing Lab: [facility] [place] [facility] [address] [facility] [address] [facility] [place] [facility] CBC AND DIFF (AUTO) EOSINOPHIL S/100 LEUKOCYTES IN BLOOD BY AUTOMATED COUNT 0.5 0.4 - 6.8 05/15 Specimen Type: BLOOD No comment entered. Ordering Provider: ED REYES Report Released Date/Time: May 13, 2023 06:02 PM Reporting Lab: [facility] [place] [facility] [address] [facility] [address] Performing Lab: [facility] [place] [facility] [address] [facility] [address] [facility] [place] [facility] CBC AND DIFF (AUTO) BASOPHILS/ 100 LEUKOCYTES IN BLOOD BY AUTOMATED COUNT 0.7 0.1 - 2.0 05/15 Specimen Type: BLOOD No comment entered. Ordering Provider: ED REYES Report Released Date/Time: May 13, 2023 06:02 PM Reporting Lab: [facility] [place] [address] [address] Performing Lab: [facility] [place] [place] [facility] [address] [facility] [address] [facility] [facility] CBC AND DIFF (AUTO) NEUTROPHIL S [#/VOLUME] IN BLOOD BY AUTOMATED COUNT 8.01 10*3/uL 2.20 - 7.60 05/15 H Specimen Type: BLOOD No comment entered. Ordering Provider: ED REYES Report Released Date/Time: May 13, 2023 06:02 PM Reporting Lab: [facility] [place] [facility] [address] [facility] [address] Performing Lab: [facility] [place] [facility] [address] [facility] [address] [facility] [place] [facility] CBC AND DIFF (AUTO) LYMPHOCYTE S [#/VOLUME] IN BLOOD BY AUTOMATED COUNT 1.45 10*3/uL 1.00 - 3.20 05/15 Specimen Type: BLOOD No comment entered. Ordering Provider: ED REYES Report Released Date/Time: May 13, 2023 06:02 PM Reporting Lab: [facility] [place] [facility] [address] [facility] [address] Performing Lab: [facility] [place] [facility] [address] [facility] [address] [facility] [place] [facility] CBC AND DIFF (AUTO) EOSINOPHIL S [#/VOLUME] IN BLOOD BY AUTOMATED COUNT 0.05 10*3/uL 0.03 - 0.44 05/15 Specimen Type: BLOOD No comment entered. Ordering Provider: ED REYES Report Released Date/Time: May 13, 2023 06:02 PM Reporting Lab: [facility] [facility] [address] [facility] [address] Performing Lab: [facility] [place] [facility] [address] [facility] [address] [facility] [place] [facility] CBC AND DIFF (AUTO) BASOPHILS [#/VOLUME] IN BLOOD BY AUTOMATED COUNT 0.07 10*3/uL 0.01 - 0.13 05/15 Specimen Type: BLOOD No comment entered. Ordering Provider: ED REYES Report Released Date/Time: May 13, 2023 06:02 PM Reporting Lab: [facility] [place] [facility] [address] [facility] [address] Performing Lab: [facility] [place] [address] [address] [facility] [place] [facility] CBC AND DIFF (AUTO) IMMATURE GRANULOCYT ES/100 LEUKOCYTES IN BLOOD BY AUTOMATED COUNT 0.4 0.0 - 0.7 05/15 Specimen Type: BLOOD No comment entered. Ordering Provider: ED REYES Report Released Date/Time: May 13, 2023 06:02 PM Reporting Lab: [facility] [place] [facility] [address] [facility] [address] Performing Lab: [facility] [place] [address] [address] [facility] [place] [place] [facility] CBC AND DIFF (AUTO) IMMATURE GRANULOCYT ES [#/VOLUME] IN BLOOD 0.04 10*3/uL 0.00 - 0.06 05/15 Specimen Type: BLOOD No comment entered. Ordering Provider: ED REYES Report Released Date/Time: May 13, 2023 06:02 PM Reporting Lab: [facility] [place] [facility] [address] [facility] [address] Performing Lab: [facility] [place] [facility] [address] [facility] [address] [facility] [place] [facility] LIPID PANEL FASTING CHOLESTERO L [MASS/VOLU ME] IN SERUM OR PLASMA 158 mg/dL 05/15 Specimen Type: SERUM No comment entered. Ordering Provider: ED REYES Report Released Date/Time: May 13, 2023 06:02 PM Reporting Lab: [facility] [facility] [address] [facility] [address] Performing Lab: [facility] [place] [facility] [address] [facility] [address] [facility] [place] [facility] LIPID PANEL FASTING TRIGLYCERI DE [MASS/VOLU ME] IN SERUM OR PLASMA 139 mg/dL 0 - 150 05/15 Specimen Type: SERUM No comment entered. Ordering Provider: ED REYES Report Released Date/Time: May 13, 2023 06:02 PM Reporting Lab: [facility] [place] [facility] [address] [facility] [address] Performing Lab: [facility] [place] [facility] [address] [facility] [address] [facility] [place] [facility] LIPID PANEL FASTING CHOLESTERO L IN LDL [MASS/VOLU ME] IN SERUM OR PLASMA BY CALCWILNER N 76 mg/dL 0 - 129 05/15 Specimen Type: SERUM No comment entered. Ordering Provider: ED REYES Report Released Date/Time: May 13, 2023 06:02 PM Reporting Lab: [facility] [place] [facility] [address] [facility] [address] Performing Lab: [facility] [place] [facility] [address] [facility] [address] [facility] [place] [facility] LIPID PANEL FASTING CHOLESTERO L.TOTAL/CH OLESTEROL IN HDL [MASS RATIO] IN SERUM OR PLASMA 2.9 05/15 Specimen Type: SERUM No comment entered. Ordering Provider: ED REYES Report Released Date/Time: May 13, 2023 06:02 PM Reporting Lab: [facility] [place] [facility] [address] [facility] [address] Performing Lab: [facility] [place] [facility] [address] [facility] [address] [facility] [place] [facility] LIPID PANEL FASTING CHOLESTERO L IN HDL [MASS/VOLU ME] IN SERUM OR PLASMA 54 mg/dL 40 - 60 05/15 Specimen Type: SERUM No comment entered. Ordering Provider: ED REYES Report Released Date/Time: May 13, 2023 06:02 PM Reporting Lab: [facility] [place] [facility] [address] [facility] [address] Performing Lab: [facility] [place] [facility] [address] [facility] [address] [facility] [place] [facility] LIVER FUNCTION PROTEIN [MASS/VOLU ME] IN SERUM OR PLASMA 6.7 g/dL 6.0 - 8.3 05/15 Specimen Type: SERUM No comment entered. Ordering Provider: ED REYES Report Released Date/Time: May 13, 2023 06:02 PM Reporting Lab: [facility] [place] [facility] [address] [facility] [address] Performing Lab: [facility] [place] [facility] [address] [facility] [address] [facility] [place] [facility] LIVER FUNCTION ALBUMIN [MASS/VOLU ME] IN SERUM OR PLASMA 3.7 g/dL 3.5 - 5.0 05/15 Specimen Type: SERUM No comment entered. Ordering Provider: ED REYES Report Released Date/Time: May 13, 2023 06:02 PM Reporting Lab: [facility] [place] [facility] [address] [facility] [address] Performing Lab: [facility] [place] [facility] [address] [facility] [address] [place] [facility] [place] [facility] LIVER FUNCTION ALKALINE PHOSPHATAS E [ENZYMATIC ACTIVITY/V OLUME] IN SERUM OR PLASMA 77 U/L 40 - 150 09/19 /2023 Specimen Type: SERUM No comment entered. Ordering Provider: ED REYES Report Released Date/Time: May 13, 2023 06:02 PM Reporting Lab: [facility] [place] [facility] [address] [facility] [id number] Performing Lab: [facility] [place] [facility] [address] [facility] [address] [facility] [place] [facility] LIVER FUNCTION ASPARTATE AMINOTRANS FERASE [ENZYMATIC ACTIVITY/V OLUME] IN SERUM OR PLASMA 19 U/L 5 - 34 05/15 Specimen Type: SERUM No comment entered. Ordering Provider: ED REYES Report Released Date/Time: May 13, 2023 06:02 PM Reporting Lab: [facility] [place] [facility] [address] [facility] [address] Performing Lab: [place] [facility] [place] [facility] [address] [facility] [address] [facility] [place] [facility] LIVER FUNCTION ALANINE AMINOTRANS FERASE [ENZYMATIC ACTIVITY/V OLUME] IN SERUM OR PLASMA 21 U/L 05/15 Specimen Type: SERUM No comment entered. Ordering Provider: ED REYES Report Released Date/Time: May 13, 2023 06:02 PM Reporting Lab: [facility] [place] [facility] [address] [facility] [address] Performing Lab: [facility] [place] [facility] [address] [facility] [address] [facility] LIVER FUNCTION BILIRUBIN. TOTAL [MASS/VOLU ME] IN SERUM OR PLASMA 0.8 mg/dL 0.2 - 1.2 05/15 Specimen Type: SERUM No comment entered. Ordering Provider: ED REYES Report Released Date/Time: May 13, 2023 06:02 PM Reporting Lab: [facility] [place] [facility] [address] [facility] [address] Performing Lab: [facility] [place] [facility] [address] [facility] [address] [facility] TSH THYROTROPI N [UNITS/VOL UME] IN SERUM OR PLASMA 1.37 u[IU]/mL 0.35 - 5.00 05/15 Specimen Type: SERUM No comment entered. Ordering Provider: ED REYES Report Released Date/Time: May 13, 2023 06:02 PM Reporting Lab: [facility] [place] [address] [address] Performing Lab: [facility] [place] [facility] [address] [facility] [address] [facility] [place] [facility] URINALYS IS CLEAN CATCH COLOR OF URINE Light-Ye llow 05/15 Specimen Type: URINE Comment: If Glucose = >500 and Ketones are positive, please alert the Physician. Ordering Provider: ED REYES Report Released Date/Time: May 13, 2023 06:02 PM Reporting Lab: [facility] [place] [address] [address] Performing Lab: [facility] [place] [facility] [address] [facility] [address] [facility] [place] [facility] URINALYS IS CLEAN CATCH APPEARANCE OF URINE Clear 05/15 Specimen Type: URINE Comment: If Glucose = >500 and Ketones are positive, please alert the Physician. Ordering Provider: ED REYES Report Released Date/Time: May 13, 2023 06:02 PM Reporting Lab: [facility] [place] [address] [address] Performing Lab: [facility] [place] [facility] [address] [facility] [address] [facility] [place] [facility] URINALYS IS CLEAN CATCH GLUCOSE [MASS/VOLU ME] IN URINE NEGATIVE mg/dL 05/15 Specimen Type: URINE Comment: If Glucose = >500 and Ketones are positive, please alert the Physician. Ordering Provider: ED REYES Report Released Date/Time: May 13, 2023 06:02 PM Reporting Lab: [facility] [place] [address] [address] Performing Lab: [facility] [place] [facility] [address] [facility] [address] [facility] URINALYS IS CLEAN CATCH KETONES [MASS/VOLU ME] IN URINE BY TEST STRIP NEGATIVE mg/dL 05/15 Specimen Type: URINE Comment: If Glucose = >500 and Ketones are positive, please alert the Physician. Ordering Provider: ED REYES Report Released Date/Time: May 13, 2023 06:02 PM Reporting Lab: [facility] [place] [facility] [address] [facility] [address] Performing Lab: [facility] [place] [facility] [address] [facility] [address] [facility] URINALYS IS CLEAN CATCH ERYTHROCYT ES [PRESENCE] IN URINE SEDIMENT BY LIGHT MICROSCOPY NEGATIVE mg/dL 05/15 Specimen Type: URINE Comment: If Glucose = >500 and Ketones are positive, please alert the Physician. Ordering Provider: ED REYES Report Released Date/Time: May 13, 2023 06:02 PM Reporting [facility] [place] [facility] [address] [facility] [address] Performing Lab: [facility] [place] [facility] [address] [facility] [address] [facility] URINALYS IS CLEAN CATCH PROTEIN [MASS/VOLU ME] IN URINE BY TEST STRIP NEGATIVE mg/dL 05/15 Specimen Type: URINE Comment: If Glucose = >500 and Ketones are positive, please alert the Physician. Ordering Provider: ED REYES Report Released Date/Time: May 13, 2023 06:02 PM Reporting Lab: [facility] [place] [facility] [address] [facility] [address] Performing Lab: [facility] [place] [facility] [address] [facility] [address] [facility] URINALYS IS CLEAN CATCH NITRITE [PRESENCE] IN URINE NEGATIVE mg/dL 05/15 Specimen Type: URINE Comment: If Glucose = >500 and Ketones are positive, please alert the Physician. Ordering Provider: ED REYES Report Released Date/Time: May 13, 2023 06:02 PM Reporting Lab: [facility] [address] [facility] [address] Performing Lab: [facility] [address] [facility] [address] [facility] URINALYS IS CLEAN CATCH BILIRUBIN. TOTAL [PRESENCE] IN URINE NEGATIVE mg/dL 05/15 Specimen Type: URINE Comment: If Glucose = >500 and Ketones are positive, please alert the Physician. Ordering Provider: ED REYES Report Released Date/Time: May 13, 2023 06:02 PM Reporting Lab: [facility] [address] [facility] [address] Performing Lab: [facility] [place] [facility] [address] [facility] [address] [facility] URINALYS IS CLEAN CATCH SPECIFIC GRAVITY OF URINE BY REFRACTOME TRY 1.012 1.016 - 1.022 05/15 L Specimen Type: URINE Comment: If Glucose = >500 and Ketones are positive, please alert the Physician. Ordering Provider: ED REYES Report Released Date/Time: May 13, 2023 06:02 PM Reporting Lab: [facility] [address] [facility] [address] Performing Lab: [facility] [address] [facility] [address] [facility] URINALYS IS CLEAN CATCH PH OF URINE BY TEST STRIP 7.0 5.0 - 9.0 05/15 Specimen Type: URINE Comment: If Glucose = >500 and Ketones are positive, please alert the Physician. Ordering Provider: ED REYES Report Released Date/Time: May 13, 2023 06:02 PM Reporting Lab: [facility] [address] [facility] [address] Performing Lab: [facility] [address] [facility] [address] [facility] [facility] URINALYS IS CLEAN CATCH UROBILINOG EN [MASS/VOLU ME] IN URINE BY TEST STRIP <2.0mg/d L <2.0 - 2.0 05/15 Specimen Type: URINE Comment: If Glucose = >500 and Ketones are positive, please alert the Physician. Ordering Provider: ED REYES Report Released Date/Time: May 13, 2023 06:02 PM Reporting Lab: [facility] [place] [facility] [address] [facility] [address] Performing Lab: [facility] [place] [facility] [address] [facility] [address] [facility] [place] [facility] URINALYS IS CLEAN CATCH LEUKOCYTE ESTERASE [PRESENCE] IN URINE BY TEST STRIP NEGATIVE 05/15 Specimen Type: URINE Comment: If Glucose = >500 and Ketones are positive, please alert the Physician. Ordering Provider: ED REYES Report Released Date/Time: May 13, 2023 06:02 PM Reporting Lab: [facility] [place] [facility] [address] [facility] [address] Performing Lab: [facility] [place] [facility] [address] [facility] [address] [facility] [place] [facility] Vital Signs Combined list of inpatient and outpatient Vital Signs from Department of Defense and Veterans Affairs, ranging from 12 months to all on record, depending upon the facility. Vital Sign Value Date Comments Source SYSTOLIC BLOOD PRESSURE 151 05/26/20 24 11:52:31 [facility] [place] [facility] DIASTOLIC BLOOD PRESSURE 80 024 11:52:31 [facility] [place] [facility] PULSE OXIMETRY 98 05/26/2024 11:52:31 [facility] [place] [facility] WEIGHT 232 05/26/2024 11:52:31 [facility] [place] [facility] BMI 32kg/m2 05/26/2024 11:52:31 [facility] [place] [facility] PAIN 4 05/26/2024 11:52:31 [facility] [place] [facility] HEIGHT 71 05/26/2024 11:52:31 [facility] En[facility] [id number] Diagnos is: ICD-10- CM Z02.89 Encount er for other adminis trative examina tions<b r/> FRANCISCO GAMBLE 02/05 [facility] En[facility] [id number] 02/14 [facility] En[facility] [id number] 02/15 [facility] BRIEF ASSESSMENT [id number] Diagnos is: ICD-10- CM 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
LATANYA SHANE 02/16 [facility] En[facility] [id number] 03/02 [facility] En[facility] [id number] 03/16 [facility] En[facility] [id number] 03/19 [facility] SELF CARE MNGMENT TRAINING [id number] Diagnos is: ICD-10- CM R26.9 Unspeci fied abnorma lities of gait and mobilit y
AIDE GREWAL 03/26 [facility] En[facility] [id number] 05/14 [facility] OFFICE O/P EST SF 10-19 MIN [id number] Diagnos is: ICD-10- CM 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
ORLANDO REYES RD 05/21 [facility] En[facility] [id number] 05/24 [facility] En[facility] [id number] 05/24 [facility] OFF/OP EST MAY X REQ PHY/QHP [id number] Diagnos is: ICD-10- CM Z23 Encount er for immuniz ation<b r/> HAMZAH ALCANTARA NON P 06/22 [facility] En[facility] [id number] 07/11 [facility] En[facility] [id number] 07/11 [facility] Encounter [id number] 07/16 [facility] Encounter [id number] 09/04 [facility] En[facility] [id number] 09/07 [facility] OFFICE O/P EST MOD 30 MIN [id number] Diagnos is: ICD-10- CM R41.9 Unsp symptom s and signs w cogniti ve functio ns and awarene ss
PAUL GRAMAJO IEL Y 09/17 [facility] En[facility] [id number] 10/12 [facility] En[facility] [id number] 10/15 [facility] Encounter [id number] 11/13 [facility] Encounter [id number] 11/19 [facility] OFFICE O/P EST SF 10 MIN [id number] Diagnos is: ICD-10- CM 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
ORLANDO REYES RD 11/20 [facility] En[facility] [id number] 11/28 [facility] Encounter [id number] 12/02 [facility] OT EVAL LOW COMPLEX 30 MIN [id number] Diagnos is: ICD-10- CM R53.1 Weaknes s
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
MERHAR,TRISTA H B 12/11 [facility] FIT SPECTACLES BIFOCAL [id number] Diagnos is: ICD-10- CM Z46.0 Encount er for fit/adj st of spectac les and contact lenses< br/> MERHAR,TRISTA H B 12/11 [facility] En[facility] [id number] 01/08 [facility] Encounter [id number] 02/03 [facility] Encounter [id number] 02/05 [facility] Encounter [id number] 04/25 [facility] Out[facility] Encounter [id number] Diagnos is: ICD-10- CM Z02.89 Encount er for other adminis trative examina tions<b r/> FRANCISCO GAMBLE 05/06 [facility] Outpatient Encounter [id number] 1.05/22 [facility] Encounter [id number] 1.05/23 [facility] Encounter [id number] 1.05/26 [facility] Outpatient Encounter [id number] [facility] OFFICE O/P EST SF 10 MIN [id number] 1. Diagnos is: ICD-10- CM R41.9 Unsp symptom s and signs w cogniti ve functio ns and awarene ss
ORLANDO REYES RD 05/26 [facility] Outpatient Encounter [id number] 07/25 [facility] OT EVAL LOW COMPLEX 30 MIN [id number] Diagnos is: ICD-10- CM R26.9 Unspeci fied abnorma lities of gait and mobilit y
REFUGIO CLARKE ICA L 07/28 [facility] Social History Combined list of available smoking, tobacco, and other social history from Department of Defense and Veterans Affairs facilities. Social History Type Response Date Comment Sourc e Tobacco smoking status NHIS VA-TOBACCO NEVER USED 05/26/2024 [facility] [place] [facility] History of tobacco use VA-TOBACCO NEVER USED 05/21/2023 [facility] History of tobacco use NM-TOBACCO FORMER USER 05/22/2022 [facility] History of tobacco use LIFETIME NON-TOBACCO USER 11/16/2016 [facility] History of tobacco use LIFETIME NON-TOBACCO USER 10/07/2015 [facility] History of tobacco use QUIT TOBACCO USE > 7 YEARS AGO 03/29/2009 [facility] Plan of Care List of future care activities from [facility] facilities. Additional future care activities may be listed in the Assessment and Plan section. Date/Time Care Activity Care Activity Detail Facili ty 12/17/2024 AMBULATORY - MEDICINE AMBULATORY - [facility]ICI [facility] Advance Directives List of completed, amended, or rescinded Advance Directives on record at [facility] facilities. An actual copy of the Directive is not included. Date Advance Directive Provider Source 07/05/2022 ADVANCE DIRECTIVE DHIRAJ GRACIA [facility]
--- OUTSIDE RECORDS SUMMARY | 2024-08-06 01:11 | XMS_ITS ---
Author Name [facility] [place] [facility] [place] Address [address] [place] [address] Care Team Providers Care Billing Analyst Name Role Phone SHAINA REYES Primary Care [...] Name Patient's Relationship to Policy Etienne [facility] ([facility]) MEDICARE ADVANTAGE MCR ([facility]) Aug 27, 2012 [id number] PATIENT [facility]ALTH [facility] ([facility] MEDICARE ADVANTAGE MCR ([facility]) Aug 27, 2012 [id number] PATIENT Selected Encounter This section includes the information on record at [place] for the Encounter. Date/Time Encounter Type Encounter Description Reason Provider Source Sep 17, 2023 11:00 AM OFFICE O/P EST MOD 30 MIN NEUROLOGY ICD-10-CM R41.9 Unsp symptoms and signs w cognitive functions and awareness DAVID GRAMAJO IHElif Encounter Template Text not used by [facility] Assessments - Encounter Diagnoses This section includes the primary and secondary diagnoses documented for the Encounter. Date/Time Primary/Secondary Diagnosis Diagnosis Name Provider Source Sep 17, 2023 05:19 PM PRIMARY Unsp symptoms and signs w cognitive functions and awareness DAVID GRAMAJO [facility] [place] [facility] Sep 17, 2023 05:19 PM SECONDARY (Idiopathic) normal pressure hydrocephalus DAVID GRAMAJO [facility] [place] [facility] Sep 17, 2023 05:19 PM SECONDARY Polyneuropathy, unspecified DAVID GRAMAJO [facility] [place] [facility] Plan of Treatment: Future Appointments (+ 6 months) and Future Tests (+/- 45 days) The Plan of Treatment section includes future care activities for the patient from all [facility] This section includes future appointments and [...] 21, 2023 01:30 PM AMBULATORY - MEDICINE [place] [facility] [place] [facility] Dec 05, 2023 09:30 AM AMBULATORY - REHAB MEDICIN E [facility] [place] [facility] Dec 12, 2023 09:30 AM AMBULATORY - MEDICINE [place] [facility] [place] [facility] Dec 20, 2023 10:30 AM AMBULATORY - MEDICINE [place] [facility] [place] [facility] January 09, 2024 11:30 AM AMBULATORY - MEDICINE CO [facility] [place] [facility] Feb 04, 2024 02:00 PM AMBULATORY - MEDICINE CO [facility] [place] [facility] Feb 06, 2024 02:15 PM AMBULATORY - MEDICINE [place] [facility] [place] [facility] Vital Signs: All taken on the encounter date This section contains inpatient and outpatient Vital Signs collected on the date of the Encounter. Date/Time Temperature Pulse Blood Pressure Respiratory Rate SP02 Pain Height Weight Body Mass Index Source Sep 17, 2023 11:09 AM 97.5 F 70 /min 146/89 mm[Hg] 18 /min 97 % 4 [place] [facility] [place] [place] [facility] Social History: Smoking Status (Most [...] 21, 2023 02:00 PM VA-TOBACCO NEVER USED [facility] Tobacco Use History This section includes a history of the smoking, or tobacco-related health factors, that were collected on or before the date of the Encounter. The data comes from the [place] facility where the Encounter took place. Date/Time Smoking Status/Tobacco Use Comment F acility May 22, 2022 03:30 PM [facility] May 22, 2022 03:30 PM VA-TOBACCO QUIT 15 YRS OR MORE [facility] Nov 15, 2018 10:40 AM VA-TOBACCO NEVER USED [facility] Nov 16, 2016 01:42 PM LIFET[facility] Oct 07, 2015 01:01 PM LIFETIME NON-TOBACCO USER [facility] Mar 29, 2009 02:36 PM QUIT TOBACCO USE > 7 YEARS AGO [facility] Advance Directives: All historical and [...] Jul 05, 2022 ADVANCE DIRECTIVE DHIRAJ GRACIA [facility] Encounter Notes: All associated encounter notes This section contains the clinical notes associated to the Encounter. Date/Time Encounter Note(s) Provider Source Sep 17, 2023 11:26 AM NEUROLOGY OUTPATIE NT NOTE: LOCAL TITLE: NEUROLOGY CLINIC NOTE STANDARD TITLE: NEUROLOGY OUTPATIENT NOTE DATE OF NOTE: SEP 17, 2023@11:26 ENTRY DATE: SEP 17, 2023@11:26:16 AUTHOR: DAVID GRAMAJO EXP COSIGNER: URGENCY: STATUS: COMPLETED NEUROLOGY CLINIC NOTE Has ADDENDA Chief Complaint: NPH Interval Hx Aug Pt is unaccompanied. His spouse has been dx'd w/dementia. He was driven here by friend. He living in house with his spouse, denies any change in ADLs/IADLs. He is able to describe in detail recent events, and his account is congruent with record. He got NPE in 2022, which demonstrated MCI, and possibly some sequelae of prior NPH, but nothing to suggest ongoing NPH. He notes that he is currently being treated with chemotherapy for bladder cancer. He says he has been tolerating the chemo well, with no episodes of confusion, weakness, anosmia, hearing loss, or other new issues. He denies any new or increased problems with walking, any decreased ability to perform ADLs, any visual problems, any episodes of confusion, or any worsening of gait. He did experience one fall, in deep (1') snow. He walks with cane or walker. He is able to get up stairs, but would prefer to have chairlift, as his bedroom is on the first floor, and shower is on the second. He did have one episode of having his car get 'stuck', and is no longer driving at night, per [facility] directive, but is driving at other times, and denies any other limitations on his license, MVAs, or other incidents. Pt o/w denies any new issues, illness, injuries, hospitalizations, or concerns. NEUROLOGIC EXAM: Gen: WD WN WM in NAD, appropriate affect, eye contact and social interaction. MS: AAO to Person/Place/Situation Able to maintain attention to conversation and follow directions on exam without distractability, impersistence, or perseveration. Fluent language and intact comprehension, without any paraphasic errors. Normal prosody and word variability/richness. Pt ambulating on own or with cane, decreased height/speed/length of stride, but no magnetic gait or instability or irregularity of gait. Vitals Enter at: Sep 17, 2023@11:09:19 BP: 146/89 P: 70 R: 18 T: 97.5 205 lb [92.99 kg] (05/21/2023 14:19) Assessment/Plan: 88 y/o M w/prior hx of NPH, with evidence of MCI currently without dementia, and without any evidence of NPH affecting thinking. Gait does not appear to be classically NPH magnetic gait, despite being slow/shallow. No current indication for additional intervention. Pt to call if new issues. David Gramajo MD Staff Neurologist [facility] ~30 mins spent on exam, assessment, counseling, and coordination [ X ] Management of Neurologic Condition was reassessed, taking into account pt's complex other medical issues and medications. [ X ] ~50% of exam was spent on discussion and education or coordination Medication Rec per Store Administrative Assistant Nursing note on Aug@16:33. NO DISCREPANCIES FOUND other than those listed in note. The patient's medication list/medication history to include Local Active VA Prescriptions, Remote Active VA Prescriptions, Non-VA medications, Recently VA Prescriptions (90-180 days), Recently Discontinued VA Prescriptions (90-180 days), and Pending Medication Orders where relevant (e.g., patient is seen by multiple providers in the same day) was compared with CPRS and reviewed with the patient/caregiver and reconciled. Any changes in medications and any medications prescribed by this provider discontinued are documented in this note. Medications not prescribed by this provider will be addressed by pt's PCM or appropriate specialty provider. Discussed risks and possible benefits and mechanism of action of medications prescribed. Pt indicated understanding of the risks of medications, and all questions were answered to pt's satisfaction /es/ DAVID GRAMAJO MD PHYSICIAN Signed: 09/17/2023 17:19 09/17/2023 ADDENDUM STATUS: COMPLETED correction--line reading 'pt's spouse has been diagnosed with dementia' is incorrect. Pt is living on his own at this time. /promise/ DAVID GRAMAJO MD PHYSICIAN Signed: 09/17/2023 17:22 DAVID GRAMAJO Y FELIPE [facility]
--- OUTSIDE RECORDS SUMMARY | 2024-08-06 01:16 | XMS_ITS ---
Author Name [facility] [place] Address [address] [place] [address] Care Team Providers Care Line Service Person Name Role Phone SHAINA REYES Primary Care [...] Patient's Relationship to Policy Etienne [facility] ([facility]) MEDICARE ADVANTAGE MCR ([facility]) Aug 27, 2012 [id number] PATIENT HEALTH [facility] ([facility]) MEDICARE ADVANTAGE MCR ([facility]) Aug 27, 2012 [id number] [phone] 4 Ger[address] LAZO PATIENT Selected Encounter This section includes the information on record at [place] for the Encounter. Date/Time Encounter Type Encounter Description Reason Provider Source Dec 12, 2023 09:30 AM COMPRE OPH EXAM EST PT 1/> OPTOMETRY ICD-10-CM H25.813 Combined forms of age-related cataract, bilateral MERHAR,JAH B IHE Encounter Template Text not used by CT Assessments - Encounter Diagnoses This section includes the primary and secondary diagnoses documented for the Encounter. Date/Time Primary/Secondary Diagnosis Diagnosis Name Provider Source Dec 12, 2023 05:23 PM PRIMARY Combined forms of age-related cataract, bilateral MERHAR,JAH B [facility] [place] [facility] Dec 12, 2023 05:23 PM SECONDARY Hypermetropia, bilateral MERHAR,JAH B [facility] [place] [facility] Plan of Treatment: Future Appointments (+ 6 months) and Future Tests (+/- 45 days) The Plan of Treatment section includes future care activities for the patient from all [facility]. This section includes future appointments and future [...] - MEDICINE CT C [facility] [place] [facility] January 09, 2024 11:30 AM AMBULATORY - MEDICINE CT C [facility] [place] [facility] Feb 04, 2024 02:00 PM AMBULATORY - MEDICINE CT C [facility] [place] [facility] Feb 06, 2024 02:15 PM AMBULATORY - MEDICINE CT C [facility] [place] [facility] Apr 25, 2024 11:30 AM AMBULATORY - MEDICINE CT C [facility] [place] [facility] May 06, 2024 12:00 PM AMBULATORY - MEDICINE CT C [facility] [place] [facility] May 26, 2024 10:30 AM AMBULATORY - MEDICINE CT C [facility] [place] [facility] Jun 05, 2024 09:00 AM AMBULATORY - MEDICINE [facility] [place] [facility] Social History: Smoking Status (Most current) and [...] Servando sánchez May 21, 2023 02:[address]-TOBACCO NEVER USED [facility] Tobacco Use History This section includes a history of the smoking, or tobacco-related health factors, that were collected on or before the date of the Encounter. The data comes from the [place] facility where the Encounter took place. Date/Time Smoking Status/Tobacco Use Comment F acility May 22, 2022 03:30 PM VA-TOBACCO FORMER USER [facility] May 22, 2022 03:30 PM VA-TOBACCO QUIT 15 YRS OR MORE [facility] Nov 15, 2018 10:40 AM VA-TOBACCO NEVER US[facility] Nov 16, 2016 01:42 PM LIFETIME NON-TOBACCO USER [facility] Oct 07, 2015 01:01 PM LIFETIME NON-[facility]BACCO [facility] Mar 29, 2009 02:36 PM QUIT TOBACCO USE > 7 YEARS AGO [facility] Advance Directives: All historical and current [...] Jul 05, 2022 ADVANCE DIRECTIVE DHIRAJ GRACIA [facility] Encounter Notes: All associated encounter notes This section contains the clinical notes associated to the Encounter. Date/Time Encounter Note(s) Provider Source Dec 12, 2023 07:14 AM OPTOMETRY NOTE: LOCAL TITLE: OPTOMETRY NOTE STANDARD TITLE: OPTOMETRY NOTE DATE OF NOTE: DEC 12, 2023@07:14 ENTRY DATE: DEC 12, 2023@07:14:37 AUTHOR: KELLIE FLORES COSIGNER: JAH FALL URGENCY: STATUS: COMPLETED OPTOMETRY NOTE Has ADDENDA Active problems - Computerized Problem List is the source for the followin. Cognitive disorder 2. Exposure to potentially hazardous substance 3. Bladder cancer 4. Erectile Dysfunction ([facility] [id number]) 5. Thiamine deficiency 6. Chronic dermatitis 7. Polyneuropathy 8. Hydrocephalus (SNOMED CT [id number]) 9. Other Hemochromatosis 10. Vitamin D Deficiency 11. 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 Decreased, vision NEC 14. Obesity 15. Dyslipidemia Active Outpatient Medications (including Supplies): Active Outpatient Medications Status 1) SODIUM FLUORIDE 1.1% TOOTHPASTE BRUSH SMALL AMOUNT TO ACTIVE TEETH TWICE DAILY FOR TOOTH DECAY PREVENTION 2) THIAMINE 100MG TAB TAKE ONE TABLET BY MOUTH ONCE ACTIVE DAILY FOR VITAMIN SUPPLEMENTATION Allergies: CORTISONE All medications including those prescribed by outside VA's, community providers, and all OTC meds were reviewed and reconciled with patient to the best of their abilities. This 88 year old MALE is seen today for a comprehensive eye exam Chief Complaint: No ocular complaints at this time. Patient reports restricted license to daytime only, but patient has no desire to drive at night anyways. Reports vision is stable. Last a1c 6.7% on 09/10/2020 - no more recent a1cs, T2DM no longer on systemic list. 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 Refractive error, Presbyopia OU (-) Pain: (-) CORONA: (-) Diplopia: (-) Flashes: (-) Floaters: (-) Amaurosis Fugax/Tia's: (-) Eye Injury: (-) Eye Surgery: (-) TBI: FOHx: (-) Glaucoma/ARMD/Blindness (-) Smoker/Length of Time/PPD: Current Rx with last BCVA: OD: +4.50 -2.00 x 090 20/30-2 OS: +3.75 -2.00 x 085 20/40+2 Add: +2.75 DVA ( )sc ( x )cc OD: 20/20-2 OS: 20/50-2 Pupils: PERRL (-)APD EOMs: SAFE OU, (-)Pain/Diplopia CVF (facial, peripheral): FTFC OU Subjective Refraction: OD: +4.50 -2.00 x 090 20/20-2 OS: +4.25 -2.00 x 085 20/40-2 Add: +2.75 All the above performed by student, reviewed by attending Anterior segment: Performed by student, repeated by attending Lids: dermatochalasis OU, telangiectasia OU Conj: pinguecula T OU, nasal conj cyst OU Cornea: clear OU AC: 4x4 OU Iris: flat and clear OU, (-) TID OU Lens: 1+ NS OU, 2+ ACC with spoking into VAx OS > OD, small central PSC OD (-)PXF/PDS OU Tonometry: GAT Performed by student, reviewed by attending * OD 12 mmHg OS 12 mmHg Time: 9:20 AM Last IOP: OD: 11 mmHg OS: 11 mmHg Fundus exam: Dilated: 9:21 AM Dilating Drops: 1GTT 1 % Tropicamide OU & 1GTT 2.5% Phenylephrine OU (Pt. ed. on side effects, dilation warning given and verbal consent obtained) Patient advised not to drive if they feel they have any symptoms which could affect their ability to drive safely. Patient advised not to engage in any activities which could put themselves or others at risk if they feel they have any symptoms which could affect their ability to perform those activities safely. Performed by student, repeated by attending * Vit: syneresis OU C/D: 0.45/0.45 OD, 0.40/0.40 OS Disc: Rim tissue is pink and healthy OU Macula: flat and clear OU PPole: clear OU A/V: 2/3 Vessels: normal caliber OU Periph: flat and intact (-)holes, tears, detachments 360 OU Assessment/Plan: 1. Combined cataracts OU - Midly visually significant at this time - Pt ed re today's findings and the importance of UV protection - Pt ed cataracts may cause reduction of BCVA and symptoms of glare - RTC sooner if vision declines or interferes with ADLs - Patient educated on eventual need for cataract surgery - Monitor 2. Compound hyperopia astigmatism with presbyopia OU - Order new FT28 glasses with updated SRx today Return to Clinic 1 year or earlier PRN Patient Education: Reviewed exam findings and answered all questions. /promise/ KELLIE FLORES OPTOMETRY STUDENT Signed: 12/12/2023 14:15 /promise/ JAH FALL OD Certified Maintenance Welder Cosigned: 12/12/2023 17:23 12/12/2023 ADDENDUM STATUS: COMPLETED The optometry internet salesperson participated in this exam, I saw this in conjunction with the optometry student. The entrance tests and refraction were performed by the student and reviewed by me. I personally met with the patient, confirmed the history, complaints and the student's findings, and performed slit lamp and fundus evaluation as indicated. I reviewed and agree with the stated findings, assessment and plan. I have added/edited the documentation to reflect my exam findings and changes to the assessment and plan. patient offered and declined printed medication list Medication Reconciliation: Outpatient: Has the patient been taking medications as documented in the EMLR? YES: The patient has been taking medications as documented in the EMLR. Essential Medication List for Review used to complete this medication reconciliation. INCLUDED IN THIS LIST: Alphabetical list of active outpatient prescriptions dispensed from this VA (local) and dispensed from another VA or DoD facility (remote) as well as inpatient orders [...] whether with a VA or non-VA provider. JLV Link Data on this list may not be complete. Please check JLV. Allergies/ADRs (Tool #5) FACILITY ALLERGY/ADR -------- No Remote Allergy/ADR Data available for this patient [facility] CORTISONE Med Recon NoGlossary (Tool #1) INCLUDED IN THIS LIST: Alphabetical list of active outpatient prescriptions dispensed from this VA (local) and dispensed from another VA or DoD facility (remote) as well as inpatient orders (local pending and active), local clinic medications, locally documented non-VA medications, and local prescriptions that have or been discontinued in the past 90 days. Non-VA Meds Last Documented On: Mar 29, 2009 NOTE The display of VA prescriptions dispensed from another VA or DoD facility (remote) is limited to active outpatient prescription entries matched to National Drug File at the originating site and may not include some items such as investigational drugs, compounds, etc. NOT INCLUDED IN THIS LIST: Medications self-entered by the patient into personal health records (i.e. TapFwd) are NOT included in this list. Non-VA medications documented outside this CT, remote inpatient orders (regardless of status) and remote clinic medications are NOT included in this list. The patient and provider must always discuss medications the patient is taking, regardless of where the medication was dispensed or obtained. OUTPT SODIUM FLUORIDE 1.1% TOOTHPASTE (Status = Active) BRUSH SMALL AMOUNT TO TEETH TWICE DAILY FOR TOOTH DECAY PREVENTION Rx# [id number] Last Released: 06/29/23 Qty/Days Supply: 51/60 Rx Expiration Date: 02/17/24 Refills Remainin Indication: FOR TOOTH DECAY PREVENTION OUTPT THIAMINE 100MG TAB (Status = Active) TAKE ONE TABLET BY MOUTH ONCE DAILY FOR VITAMIN SUPPLEMENTATION Rx# [id number] Last Released: 01/23/23 Qty/Days Supply: 100/90 Rx Expiration Date: 01/18/24 Refills Remainin SUPPLIES /promise/ JAH FALL OD Certified Maintenance Welder Signed: 12/12/2023 17:23 KELLIE FLORESRL [place] [facility]
--- OUTSIDE RECORDS SUMMARY | 2024-08-06 01:18 | XMS_ITS ---
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 Role Phone ANDRES PEDRAZA Primary Care [...] Patient's Relationship to Policy Etienne [facility] ([facility]) MEDICARE ADVANTAGE MCR ([facility]) Aug 27, 2012 [id number] [phone] Gerard LAZO [facility] ([facility]) MEDICARE ADVANTAGE MCR ([facility]) Aug 27, 2012 [id number] [phone] Gerard LAZO PATIENT Selected Encounter This section includes the information on record at [place] for the Encounter. Date/Time Encounter Type Encounter Description Reason Provider Source May 26, 2024 12:26 PM OFFICE O/P EST SF 10 MIN PRIMARY CARE/MEDICINE ICD-10-CM R41.9 Unsp symptoms and signs w cognitive functions and awareness ANDRES PEDRAZA IHE Encounter Template Text not used by VA Assessments - Encounter Diagnoses This section includes the primary and secondary diagnoses documented for the Encounter. Date/Time Primary/Secondary Diagnosis Diagnosis Name Provider Source May 26, 2024 12:26 PM PRIMARY Unsp symptoms and signs w cognitive functions and awareness ANDRES PEDRAZA [facility] Plan of Treatment: Future Appointments (+ 6 months) and Future Tests (+/- 45 days) The Plan of Treatment section includes future care activities for the patient from [facility] [place] [facility]. This section includes future appointments and future orders which are active, pending or scheduled. Future Appointments This section includes appointments that were scheduled to occur 6 months from the date of the Encounter, up to a maximum of 20 appointments. The data comes from all [place] treatment facilities. Appointment Date/Time Appointment Type Appointme nt Facility Name Jun 05, 2024 09:00 AM AMBULATORY - MEDICINE [facility] Jul 28, 2024 03:00 PM AMBULATORY - REHAB MEDICIN E [facility] Active, Pending, and Scheduled Orders This section includes a listing of several types of active, pending, and scheduled orders, including clinic medications orders, diagnostic test orders, procedure orders and consult orders; where the start date of the order is 45 days before the date of the Encounter or 45 days after the date of theEncounter. The data comes from all [facility]. Test Date/Time Test Type Test Details Facility Name May 08, 2024 10:04 AM Consult Order COMMUNITY CARE-DENTAL GENERAL Cons Shoe Singer's Choice [facility] May 17, 2024 12:00 AM Laboratory - Chemistry Order CBC AND DIFF (AUTO) BLOOD (LAV-BLOOD) [facility] May 17, 2024 12:00 AM Laboratory - Chemistry Order BASIC METABOLIC PANEL (fasting) BLOOD (SST-SERUM) [facility] May 17, 2024 12:00 AM Laboratory - Chemistry Order LIVER FUNCTION BLOOD (SST-SERUM) [facility] May 17, 2024 12:00 AM Laboratory - Chemistry Order LIPID PANEL FASTING BLOOD (SST-SERUM) [facility] May 17, 2024 12:00 AM Laboratory - Chemistry Order TSH BLOOD (SST-SERUM) [facility] [place] [facility] May 17, 2024 12:00 AM Laboratory - Chemistry Order URINALYSIS CLEAN CATCH URINE [facility] [place] [facility] May 30, 2024 03:59 PM Consult Order COMMUNITY CARE-GEN SURGERY Cons Shoe Singer's Choice [place] [facility] [place] [facility] Vital Signs: All taken on the encounter date This section contains inpatient and outpatient Vital Signs collected on the date of the Encounter. Date/Time Temperature Pulse Blood Pressure Respiratory Rate SP02 Pain Height Weight Body Mass Index Source May 26, 2024 12:28 PM 138/80 [facility] [place] [facility] May 26, 2024 11:52 AM 97.6 66 151/80 16 98 4 71 232 32 [place] [facility] [place] [facility] Social History: Smoking Status (Most current) and Tobacco Use (All prior to encounter date) This section includes the most current, and the historical, smoking and tobacco- related health factors from the [place] facility where the Encounter took place. Current Smoking Status This section includes the most current smoking, or tobacco-related health factor, from the [place] facility where the Encounter took place. Date/Time Current Smoking Status Comment Facil ity May 26, 2024 10:30 AM VA-TOBACCO NEVER USED [place] [facility] [place] [facility] Tobacco Use History This section includes a history of the smoking, or tobacco-related health factors, that were collected on or before the date of the Encounter. The data comes from the [place] facility where the Encounter took place. Date/Time Smoking Status/Tobacco Use Comment F acility May 21, 2023 02:00 PM VA-TOBACCO NEVER USED [facility] [place] [facility] May 22, 2022 03:30 PM VA-TOBACCO FORMER USER [facility] [place] [facility] May 22, 2022 03:30 PM VA-TOBACCO QUIT 15 YRS OR MORE [facility] [place] [facility] Nov 15, 2018 10:40 AM VA-TOBACCO NEVER USED [facility] [place] [facility] Nov 16, 2016 01:42 PM LIFETIME NON-TOBACCO USER [facility] [place] [facility] Oct 07, 2015 01:01 PM LIFETIME NON-TOBACCO USER [facility] [place] Mar 29, 2009 02:36 PM QUIT TOBACCO USE > 7 YEARS AGO [facility] Advance Directives: All historical and current Section Date Range: From patient's date of to the date document was created. This section includes ALL of a patient's completed or amended [place] Advance and Rescinded Directives. The entries below indicate that a directive exists for the patient, but an actual copy is not included with this document. The data comes from all [place] facilities. Date Advance Directives Provider Source Jul 05, 2022 ADVANCE DIRECTIVE DHIRAJ GRACIA [facility] Encounter Notes: All associated encounter notes This section contains the clinical notes associated to the Encounter. Date/Time Encounter Note(s) Provider Source May 26, 2024 12:28 PM PHYSICIAN NOTE: LOCAL TITLE: MD NOTE STANDARD TITLE: PHYSICIAN NOTE DATE OF NOTE: MAY 26, 2024@12:28 ENTRY DATE: MAY 26, 2024@12:28:56 AUTHOR: ANDRES PEDRAZA COSIGNER: URGENCY: STATUS: COMPLETED Patient Name: TALON LAZO VITALS: Patient temperature: 97.6 F [36.4 C] (05/26/2024 11:52) Blood pressure: 138/80 (05/26/2024 12:28) Patient height: 71 in [180.3 cm] (05/26/2024 11:52) Patient weight: 232 lb [105.23 kg] (05/26/2024 11:52) Patient BMI: BMI: 32.4 Patient pulse: 66 (05/26/2024 11:52) Patient respiration: 16 (05/26/2024 11:52) Patient Pulse Oximetry: 98% (05/26/2024 11:52) Pain Ratin (05/26/2024 11:52) Active VA Medications: Active Outpatient Medications (including Supplies): No Medications Found Remote Medications: No Active 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 Patient feels well today with no complaints. patient is seen today with his daughter. For the past 5 months he has been a long-term resident of [facility] and receives all medical care from their staff. Physical examination Well-developed well-nourished male no acute distress coronary no murmur Lungs clear Assessment and plan: 1. Mild cognitive dysfunction: No complaints today Plan: Follow Follow-up 1 year Medication Reconciliation: Outpatient: Has the patient been taking medications as documented in the EMLR? YES: The patient has been taking medications as documented in the EMLR. Essential Medication List for Review used to complete this medication reconciliation. INCLUDED IN THIS LIST: Alphabetical list of active outpatient prescriptions dispensed from this [place] (local) and dispensed from another [place] or [place] facility (remote) as well as [...] whether with a VA or non-VA provider. PAVE Foot Check: A complete foot check was completed at this encounter. VISUAL INSPECTION: Includes inspection for skin breaks, deformity, erythema, trauma, pallor on elevation, dependent rubor, nail deformities, extensive callus and pitting edema. Visual exam results: Normal PEDAL PULSES: Includes palpation of dorsalis and posterior tibial pulses and signs/symptoms of vascular compromise like pain, pallor, parasthesia or paralysis. Present (even if diminished) SENSORY CHECK: Includes 10 gram Monofilament ([place]-Anni) test of sensation. Intact (Greater than or equal to 80% of sites checked) Abnormal (Less than 80% of sites checked): Intact LOW-RISK: LOW RISK INFORMATION PROVIDED: 1. Advised patient not to walk barefoot. 2. Explained the importance of daily foot checks for changes. 3. Stressed the importance of daily foot hygiene, including bathing and complete drying. The patient verbalized understanding and was offered a detailed handout on diabetic foot care. COVID-19 Immunization: Refused Moderna Monovalent COVID-19 vaccine Immunization: COVID-19 (MODERNA), MRNA, LNP-S, PF, 50 MCG/0.5 ML (AGES 12+ YEARS) Refusal Reason: PATIENT DECISION Patient refuses all immunization(s) in the COVID-19 group Date Documented: 05/26/24 12:31 Influenza Immunization: Deferral / Refusal The patient declines to receive the recommended dose of seasonal influenza vaccine. Immunization: INFLUENZA, UNSPECIFIED FORMULATION Refusal Reason: PATIENT DECISION Patient refuses all immunization(s) in the FLU group Date Documented: 05/26/24 12:31 /promise/ Andres Pedraza MD Staff Physician Signed: 05/26/2024 12:31 ANDRES [facility]EDRAZA [place] [facility]
--- OUTSIDE RECORDS SUMMARY | 2024-08-06 01:18 | XMS_ITS | Encounter Summary ---
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 ([facility]) MEDICARE ADVANTAGE MCR ([facility]) Aug 27, 2012 [id number] [id number] Gerard LAZO [facility] ([facility]) MEDICARE ADVANTAGE MCR ([facility]) Aug 27, 2012 [id number] [phone] Gerard LAZO PATIENT Selected Encounter This section includes the information on record at [place] for the Encounter. Date/Time Encounter Type Encounter Description Reason Pro vider Source Apr 25, 2024 12:00 AM Outpatient Encounter COMMUNITY CARE CONSULT IHE Encounter Template Text not used by VA Plan of Treatment: Future Appointments (+ 6 months) and Future Tests (+/- 45 days) The Plan of Treatment section includes future care activities for the patient [facility] [place] [facility]. This section includes future appointments and future orders which are active, pending or scheduled. Future Appointments This section includes appointments that were scheduled to occur 6 months from the date of the Encounter, up to a maximum of 20 appointments. The data comes from all [facility]. Appointment Date/Time Appointment Type Appointme nt Facility Name May 06, 2024 12:00 PM AMBULATORY - [place]ICINE [place] [facility] May 26, 2024 10:30 AM [place] [place] [facility] Jun 05, 2024 09:00 AM [place] [facility] Jul 28, 2024 03:00 PM [facility] Active, Pending, and Scheduled Orders This section includes a listing of several types of active, pending, and scheduled orders, including clinic medications orders, diagnostic test orders, procedure orders and consult orders; where the start date of the order is 45 days before the date of the Encounter or 45 days after the date of theEncounter. The data comes from all [facility]. Test Date/Time Test Type Test Details Facility Name May 08, 2024 10:04 AM Consult Order COMMUNITY CARE-DENTAL GENERAL Cons Beef Breaker[facility] Choice [facility] May 17, 2024 12:00 AM Laboratory - Chemistry Order CBC AND DIFF (AUTO) [facility]LO[facility] May 17, 2024 12:00 AM Laboratory - Chemistry Order LIVER FUNCTION BLOOD (SST[facility]SERUM) [facility] May 17, 2024 12:00 AM Laboratory - Chemistry Order BASIC METABOLIC PANEL (fasting) BLOOD (SST-SERUM) [facility] May 17, 2024 12:00 AM Laboratory - Chemistry Order LIPID PANEL FASTING BLOOD (SST-SERUM) [facility] May 17, 2024 12:00 AM Laboratory - Chemistry Order TSH BLOOD (SST-SERUM) [facility] May 17, 2024 12:00 AM Laboratory - Chemistry Order URINALYSIS CLEAN CATCH [facility] May 30, 2024 03:59 PM Consult Order COMMUNITY CARE-GEN SURGERY Cons Beef Breaker's Choice [facility] Social History: Smoking Status (Most current) and [...] 21, 2023 02:00 PM VA-TOBACCO NEVER USED [facility] Tobacco Use History This section includes a history of the smoking, or tobacco-related health factors, that were collected on or before the date of the Encounter. The data comes from the [place] facility where the Encounter took place. Date/Time Smoking Status/Tobacco Use Comment F acility May 22, 2022 03:30 PM VA-TOBACCO FORMER USER [facility] May 22, 2022 03:30 PM VA-TOBACCO QUIT 15 YRS OR MORE [facility] Nov 15, 2018 10:40 AM VA-TOBACCO NEVER USED [facility] Nov 16, 2016 01:42 PM LIFETIME NON-TOBACCO USER [facility] Oct 07, 2015 01:01 PM LIFETIME NON-TOBACCO USER [facility] Mar 29, 2009 02:36 PM QUIT TOBACCO USE > 7 YEARS AGO [facility] Advance Directives: All historical and current Section [...] Jul 05, 2022 ADVANCE DIRECTIVE DHIRAJ GRACIA [facility] Encounter Notes: All associated encounter notes This section contains the clinical notes associated to the Encounter. Date/Time Encounter Note(s) Provider Source Apr 25, 2024 12:00 AM NONVA CONSULT: LOCAL TITLE: COMMUNITY CARE-CONSULT RESULT NOTE STANDARD TITLE: NONVA CONSULT DATE OF NOTE: APR 25, 2024 ENTRY DATE: MAY 20, 2024@06:03:53 AUTHOR: CARIE MCKAY COSIGNER: URGENCY: STATUS: COMPLETED VistA Imaging - Scanned Document SCANNED DOCUMENT SIGNATURE NOT REQUIRED Electronically Filed: 05/20/2024 by: CARIE GERONIMO [facility]
--- OUTSIDE RECORDS SUMMARY | 2024-08-06 01:18 | XMS_ITS ---
Author Name [facility] [place] [place] [facility] [place] Address [address] [place] [address] Care Team Providers Care Imaging Specialist Name Role Phone SHAINA REYES Primary Care [...] Etienne's Name Patient's Relationship to Policy Etienne [facility] MEDICARE ADVANTAGE MCR ([facility]) Aug 27, 2012 [id number] PATIENT HEALTH [facility] ([facility]) MEDICARE ADVANTAGE MCR ([facility]) Aug 27, 2012 [id number] LAZO PATIENT Selected Encounter This section includes the information on record at [place] for the Encounter. Date/Time Encounter Type Encounter Description Reason Provider Source May 06, 2024 12:00 PM Outpatient Encounter GENERAL INTERNAL MEDICINE ICD-10-CM Z02.89 Encounter for other administrative examinations YOANDY IBANEZ Elif Encounter Template Text not used by [place] Assessments - Encounter Diagnoses This section includes the primary and secondary diagnoses documented for the Encounter. Date/Time Primary/Secondary Diagnosis Diagnosis Name Provider Source May 06, 2024 04:26 PM PRIMARY Encounter for other administrative examinations SELMAFideJULIA YOANDY [facility] Plan of Treatment: Future Appointments (+ 6 months) and Future Tests (+/- 45 days) The Plan of Treatment section includes future care activities for the patient from all [place] treatmentfacilities. This section includes future appointments and future orders which are active, pending or scheduled. Future Appointments This section includes appointments that were scheduled to occur 6 months from the date of the Encounter, up to a maximum of 20 appointments. The data comes from all [facility]. Appointment Date/Time Appointment Type Appointme nt Facility Name May 26, 2024 10:30 AM AMBULATORY - MEDICINE [facility] Jun 05, 2024 09:00 AM AMBULATORY - MEDICINE [facility] Jul 28, 2024 03:00 PM AMBULATORY - REHAB MEDICIN E [facility] Active, Pending, and Scheduled Orders This section includes a listing of several types of active, pending, and scheduled orders, including clinic medications orders, diagnostic test orders, procedure orders and consult orders; where the start date of the order is 45 days before the date of the Encounter or 45 days after the date of theEncounter. The data comes from all [facility]. Test Date/Time Test Type Test Details Facility Name May 08, 2024 10:04 AM Consult Order COMMUNITY CARE-DENTAL GENERAL Cons Booking Manager's Choice [facility] May 17, 2024 12:00 AM Laboratory - Chemistry Order CBC AND DIFF (AUTO) BLOOD (LAV-BLOOD) [facility] May 17, 2024 12:00 AM Laboratory - Chemistry Order BASIC METABOLIC PANEL (fasting) BLOOD (SST-SERUM) [facility] May 17, 2024 12:00 AM Laboratory - Chemistry Order LIVER FUNCTION BLOOD (SST-SERUM) [facility] May 17, 2024 12:00 AM Laboratory - Chemistry Order TSH BLOOD (SST-SERUM) [facility] May 17, 2024 12:00 AM Laboratory - Chemistry Order LIPID PANEL FASTING BLOOD (SST-SERUM) [facility] May 17, 2024 12:00 AM Laboratory - Chemistry Order URINALYSIS CLEAN CATCH URINE SP [facility] May 30, 2024 03:59 PM Consult Order COMMUNITY CARE-GEN SURGERY Cons Booking Manager's Choice [facility] Social History: Smoking Status (Most current) [...] 21, 2023 02:00 PM VA-TOBACCO NEVER USED [facility] Tobacco Use History This section includes a history of the smoking, or tobacco-related health factors, that were collected on or before the date of the Encounter. The data comes from the [place] facility where the Encounter took place. Date/Time Smoking Status/Tobacco Use Comment F acility May 22, 2022 03:30 PM VA-TOBACCO FORMER USER [facility] May 22, 2022 03:30 PM VA-TOBACCO QUIT 15 YRS OR MORE [facility] Nov 15, 2018 10:40 AM VA-TOBACCO NEVER USED [facility] Nov 16, 2016 01:42 PM LIFETIME NON-TOBACCO USER [facility] Oct 07, 2015 01:01 PM LIFETIME NON-TOBACCO USER [facility] Mar 29, 2009 02:36 PM QUIT TOBACCO USE > 7 YEARS AGO [facility] Advance Directives: All historical and current [...] Jul 05, 2022 ADVANCE DIRECTIVE DHIRAJ GRACIA [place] [facility] Encounter Notes: All associated encounter notes This section contains the clinical notes associated to the Encounter. Date/Time Encounter Note(s) Provider Source May 06, 2024 12:00 PM C & P EXAMINATION NOTE: LOCAL TITLE: COMPENSATION AND PENSION EXAM STANDARD TITLE: C & P EXAMINATION NOTE DATE OF NOTE: MAY 06, 2024@12:00 ENTRY DATE: MAY 06, 2024@16:24:56 AUTHOR: CAITY IBANEZ EXP COSIGNER: URGENCY: STATUS: COMPLETED Urinary Tract (Including Bladder and Urethra) Conditions (Excluding Male Reproductive System) Disability Benefits Questionnaire Name of Claimant/[place]: TALON Deep LAZO ([id number]) Is this questionnaire being completed in conjunction with a VA C&P examination request? [X] Yes [ ] No [ ] In-person examination [X] Records reviewed [ ] Examination via approved video telehealth [ ] Other, please specify in comments box Comments: The 2507 dated May 05, 2024 requests the following: The is service connected for bladder cancer and requires a routine future exam for this disability. Acceptable Clinical Evidence (NAREN) -------- Indicate the method used to obtain medical information to complete this document: [X] Review of available records (without in-person or video telehealth examination) using the Acceptable Clinical Evidence (NAREN) process because the existing medical evidence provided sufficient information on which to prepare the questionnaire and such an examination will likely provide no additional relevant evidence. Evidence Review Evidence reviewed (check all that apply): [ ] Not requested [ ] No records were reviewed [ ] VA claims file (hard copy paper C-file) [X] [place] e-folder [X] [place] electronic [place] [X] Other (please identify other evidence reviewed): Evidence Comments: VBMS, JLV, VISTAIMAGING, CPRS 1. Diagnosis: Note: These are condition(s) for which an evaluation has been requested on the exam request form (Internal [place]) or for which the [place] has requested medical evidence be provided for submission to [place]. 1A. Does the currently have, or have they ever been diagnosed with, a urinary tract condition of the bladder or urethra? [X] Yes [ ] No Note: These are the diagnoses determined during this current evaluation of the claimed condition(s) listed above. If there is no diagnosis, if the diagnosis is different from a previous diagnosis for this condition, or if there is a diagnosis of a complication due to the claimed condition, explain your findings and reasons in the remarks section. Date of diagnosis can be the date of the evaluation if the clinician is making the initial diagnosis, or an approximate date determined through record review or reported history. 1B. Provide only diagnoses that pertain to urinary tract conditions of the bladder or urethra: Diagnosis #1: MALIGNANT NEOPLASM OF THE BLADDER Date of diagnosis: [place] - SEE ORIGINAL CLAIM 1C. If there are additional diagnoses that pertain to urinary tract conditions of the bladder or urethra, list using above format: No response provided. 2. Medical History 2A. Describe the history (including onset and course) of the 's urinary tract condition - brief summary: LAST C&P REVIEW 09/12/2023 BY CONTRACTOR LAST C&P REVIEW 02/05/2023 BY THIS TABLET MAKING MACHINE OPERATOR. REVIEW OF AVAILABLE MEDICAL EVIDENCE: * 11/21/2023 PRIMARY CARE NOTE: Patient gets all care from urology for bladder cancer. Patient feels well today with no focal complaints. He says he has completed chemotherapy for bladder cancer. * 09/07/2023 HEME/ONC NURSING NOTES: Pt in today for C1 Gemcitabine bladder instillation, the 1st of 3 booster treatments. 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 3. Voiding Dysfunction 3A. Does the have a voiding dysfunction? [ ] Yes [X] No 3B. Etiology of voiding dysfunction, if known: No Response provided. 3C. Does the voiding dysfunction cause urine leakage? [ ] Yes [ ] No If yes, indicate severity: [ ] Does not require the wearing of absorbent material [ ] Requires absorbent material which must be changed less than 2 times per day [ ] Requires absorbent material which must be changed 2 to 4 times per day [ ] Requires absorbent material which must be changed more than 4 times per day [ ] Other, describe: 3D. Does the voiding dysfunction require the use of an appliance? [ ] Yes [ ] No 3E. Does the voiding dysfunction cause increased urinary frequency? [ ] Yes [ ] No If yes, check all that apply: [ ] Daytime voiding interval less than 1 hour [ ] Daytime voiding interval between 1 and 2 hours [ ] Daytime voiding interval between 2 and 3 hours [ ] Nighttime awakening to void 2 times [ ] Nighttime awakening to void 3 to 4 times [ ] Nighttime awakening to void 5 or more times 3F. Does the voiding dysfunction cause signs or symptoms of obstructed voiding? [ ] Yes [ ] No If yes, check all that apply: [ ] Hesitancy [ ] Slow stream [ ] Weak stream [ ] Decreased force of stream [ ] Urinary retention requiring intermittent catheterization [ ] Urinary retention requiring continuous catheterization [ ] Uroflowmetry peak flow rate less than 10 cc/sec [ ] Post void residuals greater than 150 cc [ ] Recurrent urinary tract infections secondary to obstruction [ ] Stricture disease If selected, indicate frequency of periodic dilatation: [ ] Does not require dilatation [ ] Requires dilatation [ ] 1 to 2 times per year [ ] Every 2 to 3 months [ ] Other, specify: [ ] Other, describe: 4. Urolithiasis 4A. Does the have a history of bladder calculi (cystolithiasis) or urethral calculi (urethrolithiasis)? [ ] Yes [X] No 4B. Indicate location of calculi - check all that apply: [ ] Urethra [ ] Bladder 4C. Has the [place] had treatment for recurrent stone formation in the bladder or urethra? [ ] Yes [ ] No If yes, indicate treatment - check all that apply: [ ] Invasive or non-invasive procedures two times or less per year [ ] Invasive or non-invasive procedures more than two times per year [ ] Diet therapy [ ] Drug therapy 4D. Does the [place] have signs or symptoms due to cystolithiasis or urethrolithiasis? [ ] Yes [ ] No If yes, indicate type/severity - check all that apply: Is catheter drainage required? [ ] Yes [ ] No [ ] Infection [ ] Voiding dysfunction [ ] Occasional attacks of colic [ ] Frequent attacks of colic [ ] Impaired kidney function* *For VA purposes, renal dysfunction includes evidence demonstrating the following for at least 3 consecutive months during the past 12 months: glomerular filtration rate (GFR) of less than 60 mL/min/1.73m2; or GFR from 60 to 89 mL/min/1.73m2 and the presence of at least one of the following: recurrent red blood cell (RBC) casts, white blood cell (WBC) casts, granular casts, structural kidney abnormalities (cystic, obstructive, or glomerular), or increased secretion of protein in the urine (proteinuria). GFR, estimated GFR (eGFR), and creatinine based approximations of GFR will be accepted for evaluation purposes when determined to be appropriate and calculated by a medical professional. Note: If the medical record contains multiple lab tests during this 12 month period, by at least 3 months, and there is no evidence to contradict those findings in the interim period, VA will accept that the demonstrated renal dysfunction has persisted for at least 3 consecutive months during the past 12 months. [ ] Other 5. Bladder or Urethral Infection ------ 5A. Does the [place] have a history of recurrent, symptomatic bladder or urethral infections? [ ] Yes [X] No If yes, complete 5B and 5C: 5B. Etiology of bladder or urethral infections, if known: No response provided. 5C. If the has had recurrent, symptomatic urethral or bladder infections, indicate all treatment modalities that apply: [ ] No treatment [ ] Suppressive drug therapy If checked, list medications used and indicate dates for courses of treatment over the past 12 months: No response provided. [ ] Lasting 6 months or longer [ ] For less than 6 months [ ] Hospitalization If checked, indicate frequency of hospitalizations: [ ] 1 or 2 per year [ ] More than 2 per year [ ] Drainage by stent or nephrostomy tube If checked, indicate dates drainage was performed over the past 12 months: No response provided. [ ] Continuous intensive management required. If checked, indicate types of treatment and medications used over the past 12 months: No response provided. [ ] Recurrent symptomatic infection [ ] Other Describe: 6. Other Bladder or Urethral Conditions 6A. Does the have any findings, signs, or symptoms attributable to a bladder fistula? [ ] Yes [X] No If yes, describe in Comment box below (6J). 6B. Does the have any findings, signs, or symptoms attributable to diverticulum of the bladder? [ ] Yes [X] No If yes, describe in Comment box below (6J). 6C. Does the have suprapubic cystotomy? [ ] Yes [X] No If yes, provide name of facility and date of procedure in Comment box below (6J) 6D. Does the [place] have any findings, signs, or symptoms attributable to a urethral fistula? [ ] Yes [X] No If yes, describe in Comment box below (6J). 6E. Does the [place] have multiple urethroperineal fistulae? [ ] Yes [X] No If yes, describe in Comment box below (6J). 6F. Does the have a neurogenic or severely dysfunctional bladder? [ ] Yes [X] No If yes, describe in Comment box below (6J). 6G. Does the have a history of bladder injury? [ ] Yes [X] No If yes, describe in Comment box below (6J). 6H. Has the had other bladder surgery? [X] Yes [ ] No If yes, describe in Comment box below (6J). 6I. Is there any renal dysfunction* due to a condition noted in this section? [ ] Yes [X] No If yes, also complete the appropriate questionnaire. *For VA purposes, renal dysfunction includes evidence demonstrating the following for at least 3 consecutive months during the past 12 months: glomerular filtration rate (GFR) of less than 60 mL/min/1.73m2; or GFR from 60 to 89 mL/min/1.73m2 and the presence of at least one of the following: recurrent red blood cell (RBC) casts, white blood cell (WBC) casts, granular casts, structural kidney abnormalities (cystic, obstructive, or glomerular), or increased secretion of protein in the urine (proteinuria). GFR, estimated GFR (eGFR), and creatinine based approximations of GFR will be accepted for evaluation purposes when determined to be appropriate and calculated by a medical professional. Note: If the medical record contains multiple lab tests during this 12 month period, by at least 3 months, and there is no evidence to contradict those findings in the interim period, VA will accept that the demonstrated renal dysfunction has persisted for at least 3 consecutive months during the past 12 months. 6J. Comments (if any, please identify the question number to which the comment pertains): TURBT after February 2022 7. Tumors and Neoplasms 7A. Does the currently have, or has had, a benign or malignant neoplasm or metastases related to any condition in the Diagnosis Section? [X] Yes [ ] No If yes, complete 7B - 7E: 7B. The neoplasm is: [ ] Benign [X] Malignant - if malignant, select all that apply: [ ] In remission [X] Active [X] Primary [ ] Secondary (metastatic) If secondary, indicate the primary site if known: No response provided. 7C. Has the completed treatment, or is the [place] currently undergoing treatment for, a benign or malignant neoplasm or metastases? [X] Yes [ ] No; watchful waiting If yes, indicate type of treatment the is currently undergoing or has completed. Check all that apply: [X] Treatment completed [ ] Surgery If selected, specify type of surgery: No response provided. and date of surgery: No response provided. [ ] Radiation therapy If selected, specify: Date of completion of most recent treatment: No response provided. or anticipated completion date of current treatment: No response provided. [X] Antineoplastic chemotherapy If selected, specify: Date of completion of most recent treatment: No response provided. or anticipated completion date of current treatment: 2023 [ ] Other therapeutic procedure If selected, specify type of procedure: No response provided. Date of completion or anticipated date of completion: No response provided. [ ] Other therapeutic treatment If selected, specify: Type of treatment: No response provided. Date of completion or anticipated date of completion: No response provided. 7D. Does the [place] currently have any residuals or complications due to the neoplasm (including metastases) or its treatment, other than those already documented in the report above? [ ] Yes [X] No If yes, list residuals or complications (brief summary), and also complete the appropriate questionnaire: No response provided. 7E. If there are additional benign or malignant neoplasms or metastases related to any of the diagnoses in the Diagnosis Section, describe using the above format: no additional comments 8. Other Pertinent Physical Findings, Complications, Conditions, Signs, Symptoms, and Scars 8A. Does the have any other pertinent physical findings, complications, conditions, signs, and/or symptoms related to any of the conditions listed in the Diagnosis Section? [ ] Yes [X] No If yes, describe - brief summary: No response provided. 8B. Does the have any scars or other disfigurement of the skin related to any of the conditions, or to the treatment of any of the conditions, listed in the Diagnosis Section? [ ] Yes [X] No If yes, also complete the appropriate dermatological questionnaire. 8C. Comments, if any: N/A 9. Diagnostic Testing Note: If diagnostic test results are in the medical record and reflect the 's current urinary tract condition, repeat testing is not required. 9A. Has the [place] had diagnostic testing in conjunction with this exam? [ ] Yes [X] No If yes, provide significant findings and/or results (type of test or procedure, date and results) - brief summary: No response provided. 9B. Are there any other significant diagnostic test findings or results related to the claimed condition(s) and/or diagnosis(es), that were reviewed in conjunction with this examination? [ ] Yes [X] No If yes, provide significant findings and/or results (type of test or procedure, date and results) - brief summary: No response provided. 10. Functional Impact Note: Provide the impact of only the diagnosed condition(s), without consideration of the impact of other medical conditions or factors, such as age. 10A. Does the 's condition of the bladder or urethra impact his or her ability to work? [ ] Yes [X] No If yes, describe the impact of each of the [place]'s bladder or urethra condition(s), providing one or more examples: No response provided. 11. Remarks 11A. Remarks (if any, please identify the section to which the remark pertains when appropriate): The 's condition is considered ACTIVE as less than a year passed since the last treatment. /promise/ YOANDY IBANEZ NURSE PRACTITIONER Signed: 05/06/2024 16:24 MANUELA IBANEZ [facility]
--- OUTSIDE RECORDS SUMMARY | 2024-08-06 01:20 | XMS_ITS ---
Author Organization [facility] Address [address] [place] [address] Care Team Providers Care Orthopedic Physician Name Role Phone Jl Santana Primary Care Provider Unav ailable Ke Saleem Unavailable [phone] REASON FOR VISIT CX 10:00 appt Encounters Encounter Location Date Provider Diagnosis [address] [address] 01/29/2024 Ke Saleem Plan Of Treatment No Information Progress Notes * Raad LAZO WDOB: [birth year] (88 yo M)Acc No.[id number]:01/29/2024 Patient:?Raad Lazo :1935???Age:88 Y???Sex:Male Address:[address] [place] [address] [place], [address] * true * Date:? Generated for Debbii alberto/Torrie/eTransmitting on:?08/06/2024 01:19 AM EST
--- OUTSIDE RECORDS SUMMARY | 2024-08-06 01:20 | XMS_ITS ---
Author Organization [facility] Address [address] [place] [address] Care Team Providers Care Sheriff'S Sergeant Name Role Phone Jl Santana Primary Care Provider Unav ailable Ke Saleem Unavailable [phone] Encounters Encounter Location Date Provider Diagnosis [facility] [address] [place] [address] 01/29/2024 Ke Saleem Plan Of Treatment No Information Progress Notes * Raad LAZO WDOB: [birth year] (89 yo M)Acc No.[id number]:01/29/2024 Progress Note Patient:?Raad LAZO Provider:?Ke Saleem DPM :1935???Age:88 Y???Sex:Male Ayaz e:01/29/2024 Address:[address] [place], [place] [id number] Pcp:DOC Wall Subjective: * Chief Complaints: * ??? * Medical History:? Objective: * Vitals:? Assessment: Plan: * Treatment: * Images: * The named appointment provid er may or may not be the originator of this progress note, and it is not deemed complete until electronically signed by the appointment provider. Sign off status: Pending * Provider:?Ke Saleem DPM Date:?2023 Generated for Susi dominguez/Torrie/eTransmitting on:?08/06/2024 01:19 AM EST
--- OUTSIDE RECORDS SUMMARY | 2024-08-06 01:20 | XMS_ITS | Patient Health Record ---
[facility] Organization [facility] Francesca albright [place] Address [address] [place] [address] Care Team Providers Care Director Of Preclinical Research Name Role Phone Jl Santana Primary Care Provider Unav ailable Ke Saleem Unavailable [phone] Allergies Allergen (clinical drug ingredient) Drug/Non Drug [...] Ordered Date Performed Result Body Sit e [id number] NAIL, 6 OR MORE 10/30/2023 N/A [id number] SKIN LESIONS, OVER 4 10/30/2023 N/A Encounters Encounter Location Date [facility] [address] [place] [address] 10/30/2023 Ke Saleem Atherosclerosis of [place] artery of both lower extremities, with unspecified presence of clinical manifestation I70.203 ; Tinea unguium B35.1 ; Pain in right toe(s) M79.674 and Pain in left toe(s) M79.[address] [address] 12/17/2023 [facility] [address] [facility] [address] [place] [address] 01/18/2024 [facility] [address] 01/29/2024 [facility] [address] 01/29/2024 Ke Saleem Assessments Encounter Date Diagnosis (ICD Code) Assessment Notes Treatment Notes Treatment Clinical Notes Section Notes 10/30/2023 Tinea unguium (ICD-10 - B35.1) 10/30/2023 Atherosclerosis of [place] artery of both lower extremities, with unspecified presence of clinical manifestation (ICD-10 - I70.203) 10/30/2023 Pain in right toe(s) (ICD-10 - M79.674) 10/30/2023 Pain in left toe(s) (ICD-10 - M79.675) Plan Of Treatment Pending Test Test Name Order Date [id number] NAIL, 6 OR MORE 07/31/2023 [id number] NAIL, 6 OR MORE 10/30/2023 [id number] SKIN LESIONS, OVER 4 10/30/19 24 [id number] SKIN LESIONS, 2 TO 4 07/31/20 23 Insurance Providers Payer Name Payer Address Payer Phone Subscriber Number Group Number Insured Name Patient Relationship to Insured Coverage Start Date Coverage End Date [employer] [address] [place] [phone] [id number] Raad Dewitt Self - patient is the insured Medical (General) History Medical History History ICD Code broken bones measles chicken pox prostate conditions Back,Hip,and Knee pain Cancer- skin,bladder Mumps Bone implants/screws hydrocephulus hemochromatosis Surgical History Surgery Date(Month/Year) brain surgery-fluid on brain 11/2012 appendectomy 11/2012 knee surgery 2018
--- OUTSIDE RECORDS SUMMARY | 2024-08-06 01:20 | XMS_ITS ---
Author Organization [facility] Address [address] [place] [address] Care Team Providers Care Ink Technician Name Role Phone Jl Santana Primary Care Provider Unav ailable Ke Saleem Unavailable [phone] REASON FOR VISIT Cx appt Encounters Encounter Location Date Provider Diagnosis [address] [address] 01/29/2024 Ke Saleem Plan Of Treatment No Information Progress Notes * Raad LAZO WDOB: [birth year] (88 yo M)Acc No.[id number]:01/29/2024 Patient:?Raad Lazo :1935???Age:88 Y???Sex:Male Address:[address] [place] [address] [place], [address] * true * Date:? Generated for Debbii alberto/Torrie/eTransmitting on:?08/06/2024 01:19 AM EST
== END 2024-07-31 10:57 | disposition home or self-care (01) ==
PROVIDERS: PCP Nurse Practitioner Family; Visit Provider Urology
DX: C67.9 Malignant neoplasm of bladder, unspecified (principal); Z13.9 Encounter for screening, unspecified
CPT/HCPCS: 52000; 99213

== ENCOUNTER → 2024-08-07 08:49 | Outpatient (REF) | payer OTHER, SELFPAY ==
--- NOTE | 2024-08-07 08:53 | CA_ITS ---
Transthoracic Echocardiogram Patient (Last, First, Middle): Raad Dewitt W Gender: Male Date of : 1935 Age: 89 Procedure Date: 08/07/2024 Procedure Type: Transthoracic Echocardiogram Location: OP Height: 180. cm Weight: 99.79 kg BSA: 2.19 m2 Heart Rate: 70 bpm BP: 118 / 70 mmHg Sleeve Setter: CHRIS Referring MD: Valdo Murphy MD Public Health Analyst: Alexis Webster MD Symptoms: I35.0 - Nonrheumatic aortic (valve) stenosis Study Quality: Fair ECG Rhythm: Sinus Conclusions: - 1. Normal LV ejection fraction of 60-65% with impaired relaxation filling pattern and elevated filling pressures 2. Moderately dilated left atrium 3. Severe aortic stenosis with mean gradient of 40 mm Hg 4. Upper limits normal ascending aortic size 5. No pericardial effusion Findings Left Ventricle Normal left ventricular cavity size. There is moderately increased left ventricular wall thickness. The left ventricular systolic function is normal. The visually estimated ejection fraction is between 60-65%. Spectral Doppler is indicative of an impaired relaxation filling pattern. Elevated filling pressures. E/E prime ratio is >15, consistent with elevated filling pressures. 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 Right Ventricle The right ventricle was not well visualized. There is normal right ventricular systolic function. Atria The left atrium is moderately dilated. Interatrial shunt cannot be excluded. The right atrium was not well visualized. Aortic Valve There is moderate calcification of the aortic valve. There is moderate thickening of the aortic valve. There is severe aortic valve stenosis. The peak aortic gradient is 64 mmHg.The mean gradient is 41 mmHg. The aortic valve area is 0.88 cm2. There is no aortic valve regurgitation. Mitral Valve There is moderate anterior and posterior mitral leaflet thickening. There is mild mitral annular calcification. There is trace mitral valve regurgitation. There is no mitral valve stenosis. Pulmonic Valve The pulmonic valve was not well visualized. Tricuspid Valve Likely normal tricuspid valve structure and function. Tricuspid regurgitation envelope is inadequate for calculation of right ventricular systolic pressure. Normal right atrial pressure. Great Vessels The pulmonary artery was not well visualized. There is no dilatation of the ascending aorta measuring 3.50 cm. Small plaque is seen in the sino tubular ridge. Venous The inferior vena cava is normal in size and collapses greater than 50% with inspiration. Pericardium/Pleural There is no evidence of pericardial effusion. Prior Study Comparison Changes noted compared to prior study dated: 12/05/2023. aortic stenosis is severe Measurements 2D Linear Measurements IVSd: 2.07 0.6-0.9/0.6-1.0 cm LVIDd: 2.00 3.9-5.3/4.2-5.9 cm LVIDd Index: 0.91 2.4-3.2/2.2-3.1 cm/m2 LVIDs: 1.52 2.0-3.6 cm LVPWd: 1.47 0.7-1.1 cm LA Diam: 4.20 2.7-3.8/3.0-4.0 cm LAIDs Index: 1.92 1.5-2.3 cm/m2 LV Mass: 168.51 67-162/88-224 g LV Mass Index: 76.95 43-95/49-115 g/m2 LVOT Diam: 2.20 3.0+(-)1.3 cm 2D Systolic Function EF 4C: 63.50 >55% EF 2C: 65.10 >55% EF BiP: 64.70 >55% Mitral Valve MV VTI: 0.39 MV Pk Perry: 1.64 MV Mn Perry: 0.83 MV Pk Grad: 11.00 MV Mn Grad: 3.00 MV Pk E: 0.76 MV PK A: 1.51 MV Decel Time: 406.00 E/A: 0.50 E'Lateral: 4.13 E'Medial: 4.03 E/E' Med: 18.80 E/E' Lat: 18.40 PHT: 119.00 MVA PHT: 1.85 MVA Continuity: 2.01 Decel [place]: 1.87 Aortic Valve AoV Pk Perry: 3.99 AoV Mn Perry: 2.89 AoV VTI: 0.90 AoV Pk Grad: 64.00 Aov Mn Grad: 41.00 KARISSA Cont.VTI: 0.88 LVOT LVOT Pk Perry: 0.99 LVOT Mn Perry: 0.73 LVOT VTI: 0.21 LVOT Pk Grad: 4.00 LVOT Mn Grad: 2.00 LVOT Diam: 2.20 LVOT Area: 3.80 Diastolic Function MV Pk E: 0.76 MV Pk A: 1.51 E/A: 0.50 E'Medial: 4.03 E/E' Med: 18.80 E' Laterial: 4.13 E/E' Lat: 18.40 Right Ventricle TAPSE (mm): 18.00 TVS' Perry: 13.20 Tricuspid Valve RA Press: 3.00 Great Vessels Aorta Sinus of Valsalva: 3.40 2.0-3.5 cm Ao Asc: 3.50 2.1-3.4 cm Ao Arch: 3.70 Pulmonary Valve PV Pk Perry: 0.96 Peak PV Grad: 4.00 Updated in Other Vendor System with Status of Final Alexis Webster MD electronically signed on 08/08/2024 3:43:40 PM with status of Final
--- OUTSIDE RECORDS SUMMARY | 2024-08-07 09:03 | XMS_ITS | Continuity of Care Document ---
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 Name Role Phone [facility] Unavailable Unavailable Problems Combined list of problems [...] By: SHAINA REYES Comment: followed by urology [facility] [place] [facility] Chronic dermatitis Active 08/27/19 21 Condition Oct 21, 2020 Entered By: SHAINA REYES Comment: referred to dermatology [facility] Erectile Dysfunction (SCT [id number]) Active 08/27/19 21 Condition Oct 21, 2020 Entered By: SHAINA REYES Comment: treated with Viagra [facility] Hydrocephalus (SNOMED CT [id number]) Active 08/27/19 13 Condition [facility] [...] Condition [place] Obesity Active 08/27/18 90 Condition [place] Cognitive disorder Active Condition J un 2022 Entered By: LISSY SANTIZO Comment: mild neurocognitive disorder (dysexecutive features) [facility] Exposure to potentially hazardous substance Active Condition Sep 29, 2022 Entered By: SHAINA REYES Comment: provided education [facility] Osteoarthritis * (ICD-9-CM 715.90) Active Condition [facility] Polyneuropathy [facility] Thiamine deficiency Active Condition [...] FOR TOOTH DECAY PREVENTI ON DENTAL 02/17/2024 [id number] LATANYA SHANE 2022 51 [facility] [place] [facility] Allergies, Adverse Reactions, Alerts Combined list of allergies from Department of Defense and Veterans Affairs facilities. It does not include entries that were removed or entered in error. Substance Category Reaction Severity Reaction type Status Date Reported Comments Source CORTISONE Propensity to adverse reactions to drug (finding) active 0 [facility] [place] [facility] Immunizations Combined list of available immunizations from the Department of Defense and Veterans Affairs facilities. Immunization Series Date Given Administered By Site Reaction Lot Number CVX Code Drug Porcelain Waxer Status Comments Source ZOSTER RECOMBINANT 1 2023 TEENA FLORES E LEFT DELTO ID [id number] 187 complet ed [facility] [place] [facility] COVID-19 (MODERNA), MRNA, LNP-S, PF, 50 MCG/0.5 ML (AGES 12+ YEARS) 1 2022 DEE DEE ALCANTAAR RIGHT DELTO ID [id number] 312 complet ed [facility] [place] [facility] INFLUENZA, HIGH-DOSE, QUADRIVALENT 2022 NEEMA CHAN M LEFT DELTO ID [id number] 197 complet ed [facility] [place] [facility] ZOSTER RECOMBINANT 1 2022 NEEMA CHAN M RIGHT DELTO ID [id number] 187 complet ed [facility] [place] [facility] COVID-19 (MODERNA), MRNA, LNP-S, BIVALENT BOOSTER, PF, 50 MCG/0.5 ML OR 25MCG/0.25 ML DOSE 2022 NEEMA CHAN M LEFT DELTO ID [id number] 229 complet ed [facility] [place] [facility] PNEUMOCOCCAL CONJUGATE PCV20, POLYSACCHARID E [id number] CONJUGATE, ADJUVANT, PF 2022 NEEMA CHAN M RIGHT DELTO ID [id number] 216 complet ed [facility] [place] [facility] TD (ADULT), 2 LF TETANUS TOXOID, PRESERVATIVE FREE, ADSORBED 2022 ROCIO,JENNIF ER M RIGHT DELTO ID [id number] 09 complet ed [facility] INFLUENZA, UNSPECIFIED FORMULATION 2021 88 complet ed [facility] COVID-19 (MODERNA), MRNA, LNP-S, PF, 100 MCG/0.5 ML DOSE 3 2020 207 complet ed MOD; [id number]; 1 [facility] COVID-19 (MODERNA), MRNA, LNP-S, PF, 100 MCG/0.5 ML DOSE 2 2020 207 complet ed MOD; [id number]; 1 [facility] COVID-19 (MODERNA), MRNA, LNP-S, PF, 100 MCG/0.5 ML DOSE 1 2020 207 complet ed MOD; [id number]; 1 [facility] [...] Reference Range Date Interpretation Specimen Comments Source TSH THYROTROPI N [UNITS/VOL UME] IN SERUM OR PLASMA 1.37 u[IU]/mL 0.35 - 5.00 05/15 Specimen Type: SERUM No comment entered. Ordering Provider: ED REYES Report Released Date/Time: May 13, 2023 06:02 PM Reporting Lab: [facility] [place] [facility] [address] [facility] [address] Performing Lab: [facility] [place] [facility] [address] [facility] [address] [facility] LIPID PANEL FASTING CHOLESTERO L [MASS/VOLU ME] IN SERUM OR PLASMA 158 mg/dL 05/15 Specimen Type: SERUM No comment entered. Ordering Provider: ED REYES Report Released Date/Time: May 13, 2023 06:02 PM Reporting Lab: [facility] [place] [facility] [address] [facility] [address] Performing Lab: [facility] [place] [facility] [address] [facility] [address] [facility] LIPID PANEL FASTING TRIGLYCERI DE [MASS/VOLU ME] IN SERUM OR PLASMA 139 mg/dL 0 - 150 05/15 Specimen Type: SERUM No comment entered. Ordering Provider: ED REYES Report Released Date/Time: May 13, 2023 06:02 PM Reporting Lab: [facility] [place] [facility] [address] [facility] [address] Performing Lab: [facility] [place] [facility] [address] [facility] [address] [facility] [facility] LIPID PANEL FASTING CHOLESTERO L IN LDL [MASS/VOLU ME] IN SERUM OR PLASMA BY CALCULATIO N 76 mg/dL 0 - 129 05/15 Specimen Type: SERUM No comment entered. Ordering Provider: ED REYES Report Released Date/Time: May 13, 2023 06:02 PM Reporting Lab: [facility] [place] [facility] [address] [facility] [address] Performing Lab: [facility] [place] [facility] [address] [facility] [address] [facility] LIPID PANEL FASTING CHOLESTERO L.TOTAL/CH OLESTEROL IN HDL [MASS RATIO] IN SERUM OR PLASMA 2.9 05/15 Specimen Type: SERUM No comment entered. Ordering Provider: ED REYES Report Released Date/Time: May 13, 2023 06:02 PM Reporting Lab: [facility] [place] [facility] [address] [facility] [address] Performing Lab: [facility] [place] [facility] [address] [facility] [address] [facility] LIPID PANEL FASTING CHOLESTERO L IN HDL [MASS/VOLU ME] IN SERUM OR PLASMA 54 mg/dL 40 - 60 05/15 Specimen Type: SERUM No comment entered. Ordering Provider: ED REYES Report Released Date/Time: May 13, 2023 06:02 PM Reporting Lab: [facility] [place] [facility] [address] [facility] [address] Performing Lab: [facility] [place] [facility] [address] [facility] [address] [facility] [facility] BASIC METABOLI C PANEL (fasting ) UREA NITROGEN [MASS/VOLU ME] IN SERUM OR PLASMA 13 mg/dL 7 - 25 05/15 Specimen Type: SERUM No comment entered. Ordering Provider: ED REYES Report Released Date/Time: May 13, 2023 06:02 PM Reporting Lab: [facility] [place] [facility] [address] [facility] [address] Performing Lab: [facility] [place] [facility] [address] [facility] [address] [facility] [facility] BASIC METABOLI C PANEL (fasting ) GLUCOSE [MASS/VOLU ME] IN SERUM OR PLASMA 121 mg/dL 65 - 100 05/15 H Specimen Type: SERUM No comment entered. Ordering Provider: ED REYES Report Released Date/Time: May 13, 2023 06:02 PM Reporting Lab: [facility] [place] [facility] [address] [facility] [address] Performing Lab: [facility] [address] [address] [facility] BASIC METABOLI C PANEL (fasting ) SODIUM [MOLES/VOL UME] IN SERUM OR PLASMA 140 mmol/L 135 - 145 05/15 Specimen Type: SERUM No comment entered. Ordering Provider: ED REYES Report Released Date/Time: May 13, 2023 06:02 PM Reporting Lab: [facility] [place] [facility] [address] [facility] [address] Performing Lab: [facility] [place] [facility] [address] [facility] [address] [facility] [place] [facility] BASIC METABOLI C PANEL (fasting ) POTASSIUM [MOLES/VOL UME] IN SERUM OR PLASMA 4.2 mmol/L 3.5 - 5.0 05/15 Specimen Type: SERUM No comment entered. Ordering Provider: ED REYES Report Released Date/Time: May 13, 2023 06:02 PM Reporting Lab: [facility] [place] [facility] [address] [facility] [address] Performing Lab: [facility] [place] [facility] [address] [facility] [address] [facility] [place] [facility] BASIC METABOLI C PANEL (fasting ) CHLORIDE [MOLES/VOL UME] IN SERUM OR PLASMA 106 mmol/L 100 - 110 05/15 Specimen Type: SERUM No comment entered. Ordering Provider: ED REYES Report Released Date/Time: May 13, 2023 06:02 PM Reporting Lab: [facility] [address] [address] Performing Lab: [facility] [address] [address] [facility] BASIC METABOLI C PANEL (fasting ) CARBON DIOXIDE, TOTAL [MOLES/VOL UME] IN SERUM OR PLASMA 25 meq/L 20 - 30 05/15 Specimen Type: SERUM No comment entered. Ordering Provider: ED REYES Report Released Date/Time: May 13, 2023 06:02 PM Reporting Lab: [facility] [address] [address] Performing Lab: [facility] [address] [address] [facility] BASIC METABOLI C PANEL (fasting ) CREATININE [MASS/VOLU ME] IN SERUM OR PLASMA 0.99 mg/dL 0.50 - 1.40 05/15 Specimen Type: SERUM No comment entered. Ordering Provider: ED REYES Report Released Date/Time: May 13, 2023 06:02 PM Reporting Lab: [facility] [address] [address] Performing Lab: [facility] [address] [address] [facility] BASIC METABOLI C PANEL (fasting ) GLOMERULAR FILTRATION RATE/1.73 SQ M.PREDICTE D [VOLUME RATE/AREA] IN SERUM, PLASMA OR BLOOD BY CREATININE -BASED FORMULA (CKD-EPI 2020) 73 mL/min 60 05/15 Specimen Type: SERUM No comment entered. Ordering Provider: ED REYES Report Released Date/Time: May 13, 2023 06:02 PM Reporting Lab: [facility] [place] [facility] [address] [facility] [address] Performing Lab: [facility] [place] [facility] [address] [facility] [address] [facility] [place] [facility] LIVER FUNCTION PROTEIN [MASS/VOLU ME] IN SERUM OR PLASMA 6.7 g/dL 6.0 - 8.3 05/15 Specimen Type: SERUM No comment entered. Ordering Provider: ED REYES Report Released Date/Time: May 13, 2023 06:02 PM Reporting Lab: [facility] [place] [facility] [address] [facility] [address] Performing Lab: [facility] [place] [facility] [address] [facility] [address] [facility] LIVER FUNCTION ALBUMIN [MASS/VOLU ME] IN SERUM OR PLASMA 3.7 g/dL 3.5 - 5.0 05/15 Specimen Type: SERUM No comment entered. Ordering Provider: ED REYES Report Released Date/Time: May 13, 2023 06:02 PM Reporting Lab: [facility] [place] [facility] [address] [facility] [address] Performing Lab: [facility] [place] [facility] [address] [facility] [address] [facility] [place] [facility] LIVER FUNCTION ALKALINE PHOSPHATAS E [ENZYMATIC ACTIVITY/V OLUME] IN SERUM OR PLASMA 77 U/L 40 - 150 05/15 Specimen Type: SERUM No comment entered. Ordering Provider: ED REYES Report Released Date/Time: May 13, 2023 06:02 PM Reporting Lab: [facility] [place] [facility] [address] [facility] [address] Performing Lab: [facility] [place] [facility] [address] [facility] [address] [facility] [place] [facility] LIVER FUNCTION ASPARTATE AMINOTRANS FERASE [ENZYMATIC ACTIVITY/V OLUME] IN SERUM OR PLASMA 19 U/L 5 - 34 05/15 Specimen Type: SERUM No comment entered. Ordering Provider: ED REYES Report Released Date/Time: May 13, 2023 06:02 PM Reporting Lab: [facility] [place] [facility] [address] [facility] [address] Performing Lab: [facility] [place] [facility] [address] [facility] [address] [facility] LIVER FUNCTION ALANINE AMINOTRANS FERASE [ENZYMATIC ACTIVITY/V OLUME] IN SERUM OR PLASMA 21 U/L 05/15 Specimen Type: SERUM No comment entered. Ordering Provider: ED REYES Report Released Date/Time: May 13, 2023 06:02 PM Reporting Lab: [facility] [place] [facility] [address] [facility] [address] Performing Lab: [facility] [place] [facility] [address] [facility] [address] [facility] [place] [facility] LIVER FUNCTION BILIRUBIN. TOTAL [MASS/VOLU ME] IN SERUM OR PLASMA 0.8 mg/dL 0.2 - 1.2 05/15 Specimen Type: SERUM No comment entered. Ordering Provider: ED REYES Report Released Date/Time: May 13, 2023 06:02 PM Reporting Lab: [facility] [place] [facility] [address] [facility] [address] Performing Lab: [facility] [place] [facility] [address] [facility] [address] [facility] [place] [facility] URINALYS IS CLEAN CATCH COLOR OF URINE Light-Ye llow 05/15 Specimen Type: URINE Comment: If Glucose = >500 and Ketones are positive, please alert the Physician. Ordering Provider: ED REYES Report Released Date/Time: May 13, 2023 06:02 PM Reporting Lab: [facility] [place] [facility] [address] [facility] [address] Performing Lab: [facility] [place] [facility] [address] [facility] [address] [facility] [place] [facility] URINALYS IS CLEAN CATCH APPEARANCE OF URINE Clear 05/15 Specimen Type: URINE Comment: If Glucose = >500 and Ketones are positive, please alert the Physician. Ordering Provider: ED REYES Report Released Date/Time: May 13, 2023 06:02 PM Reporting Lab: [facility] [place] [facility] [address] [facility] [address] Performing Lab: [facility] [place] [facility] [address] [facility] [address] [facility] [place] [facility] URINALYS IS CLEAN CATCH GLUCOSE [MASS/VOLU ME] IN URINE NEGATIVE mg/dL 05/15 Specimen Type: URINE Comment: If Glucose = >500 and Ketones are positive, please alert the Physician. Ordering Provider: ED REYES Report Released Date/Time: May 13, 2023 06:02 PM Reporting Lab: [facility] [place] [facility] [address] [facility] [address] Performing Lab: [facility] [place] [facility] [address] [facility] [address] [facility] [place] [facility] URINALYS IS CLEAN CATCH KETONES [MASS/VOLU ME] IN URINE BY TEST STRIP NEGATIVE mg/dL 05/15 Specimen Type: URINE Comment: If Glucose = >500 and Ketones are positive, please alert the Physician. Ordering Provider: ED REYES Report Released Date/Time: May 13, 2023 06:02 PM Reporting Lab: [facility] [place] [facility] [address] [facility] [address] Performing Lab: [facility] [place] [facility] [address] [facility] [address] [facility] [place] [facility] URINALYS IS CLEAN CATCH ERYTHROCYT ES [PRESENCE] IN URINE SEDIMENT BY LIGHT MICROSCOPY NEGATIVE mg/dL 05/15 Specimen Type: URINE Comment: If Glucose = >500 and Ketones are positive, please alert the Physician. Ordering Provider: ED REYES Report Released Date/Time: May 13, 2023 06:02 PM Reporting Lab: [facility] [place] [facility] [address] [facility] [address] Performing Lab: [facility] [place] [facility] [address] [facility] [address] [facility] [place] [facility] URINALYS IS CLEAN CATCH PROTEIN [MASS/VOLU ME] IN URINE BY TEST STRIP NEGATIVE mg/dL 05/15 Specimen Type: URINE Comment: If Glucose = >500 and Ketones are positive, please alert the Physician. Ordering Provider: ED REYES Report Released Date/Time: May 13, 2023 06:02 PM Reporting Lab: [facility] [place] [facility] [address] [facility] [address] Performing Lab: [facility] [place] [facility] [address] [facility] [address] [facility] [place] [facility] URINALYS IS CLEAN CATCH NITRITE [PRESENCE] IN URINE NEGATIVE mg/dL 05/15 Specimen Type: URINE Comment: If Glucose = >500 and Ketones are positive, please alert the Physician. Ordering Provider: ED REYES Report Released Date/Time: May 13, 2023 06:02 PM Reporting Lab: [facility] [place] [facility] [address] [facility] [address] Performing Lab: [facility] [place] [facility] [address] [facility] [address] [facility] [place] [facility] URINALYS IS CLEAN CATCH BILIRUBIN. TOTAL [PRESENCE] IN URINE NEGATIVE mg/dL 05/15 Specimen Type: URINE Comment: If Glucose = >500 and Ketones are positive, please alert the Physician. Ordering Provider: ED REYES Report Released Date/Time: May 13, 2023 06:02 PM Reporting Lab: [facility] [place] [facility] [address] [facility] [address] Performing Lab: [facility] [place] [facility] [address] [facility] [address] [facility] [place] [facility] URINALYS IS CLEAN CATCH SPECIFIC GRAVITY OF URINE BY REFRACTOME TRY 1.012 1.016 - 1.022 05/15 L Specimen Type: URINE Comment: If Glucose = >500 and Ketones are positive, please alert the Physician. Ordering Provider: ED REYES Report Released Date/Time: May 13, 2023 06:02 PM Reporting Lab: [facility] [place] [facility] [address] [facility] [address] Performing Lab: [facility] [place] [facility] [address] [facility] [address] [facility] [place] [facility] URINALYS IS CLEAN CATCH PH OF URINE BY TEST STRIP 7.0 5.0 - 9.0 05/15 Specimen Type: URINE Comment: If Glucose = >500 and Ketones are positive, please alert the Physician. Ordering Provider: ED REYES Report Released Date/Time: May 13, 2023 06:02 PM Reporting Lab: [facility] [place] [facility] [address] [facility] [address] Performing Lab: [facility] [place] [facility] [address] [facility] [address] [facility] [place] [facility] URINALYS IS CLEAN CATCH UROBILINOG EN [MASS/VOLU ME] IN URINE BY TEST STRIP <2.0mg/d L <2.0 - 2.0 05/15 Specimen Type: URINE Comment: If Glucose = >500 and Ketones are positive, please alert the Physician. Ordering Provider: ED REYES Report Released Date/Time: May 13, 2023 06:02 PM Reporting Lab: [facility] [place] [facility] [address] [facility] [address] Performing Lab: [facility] [place] [facility] [address] [facility] [address] [facility] [place] URINALYS IS CLEAN CATCH LEUKOCYTE ESTERASE [PRESENCE] IN URINE BY TEST STRIP NEGATIVE 05/15 Specimen Type: URINE Comment: If Glucose = >500 and Ketones are positive, please alert the Physician. Ordering Provider: ED REYES Report Released Date/Time: May 13, 2023 06:02 PM Reporting Lab: [facility] [place] [facility] [address] [facility] [address] Performing Lab: [facility] [place] [facility] [address] [facility] [address] [facility] [place] CBC AND DIFF (AUTO) LEUKOCYTES [#/VOLUME] IN BLOOD BY AUTOMATED COUNT 10.25 10*3/uL 4.50 - 11.00 05/15 Specimen Type: BLOOD No comment entered. Ordering Provider: ED REYES Report Released Date/Time: May 13, 2023 06:02 PM Reporting Lab: [facility] [place] [facility] [address] [facility] [address] Performing Lab: [facility] [place] [facility] [address] [facility] [address] [facility] [place] CBC AND DIFF (AUTO) ERYTHROCYT ES [#/VOLUME] IN BLOOD BY AUTOMATED COUNT 5.44 10*6/uL 4.23 - 5.66 05/15 Specimen Type: BLOOD No comment entered. Ordering Provider: ED REYES Report Released Date/Time: May 13, 2023 06:02 PM Reporting Lab: [facility] [place] [facility] [address] [facility] [address] Performing Lab: [facility] [place] [facility] [address] [facility] [address] [facility] [place] CBC AND DIFF (AUTO) HEMOGLOBIN [MASS/VOLU ME] IN BLOOD 17.0 g/dL 12.8 - 17 05/15 Specimen Type: BLOOD No comment entered. Ordering Provider: ED REYES Report Released Date/Time: May 13, 2023 06:02 PM Reporting Lab: [facility] [place] [facility] [address] [facility] [address] Performing Lab: [facility] [place] [facility] [address] [facility] [address] [facility] [place] [facility] CBC AND DIFF (AUTO) HEMATOCRIT [VOLUME FRACTION] OF BLOOD BY AUTOMATED COUNT 51.5 39.2 - 50.4 05/15 H Specimen Type: BLOOD No comment entered. Ordering Provider: ED REYES Report Released Date/Time: May 13, 2023 06:02 PM Reporting Lab: [facility] [place] [facility] [address] [facility] [address] Performing Lab: [facility] [place] [facility] [address] [facility] [address] [facility] [place] [facility] CBC AND DIFF (AUTO) MCV [ENTITIC VOLUME] BY AUTOMATED COUNT 94.7 fL 82 - 99 05/15 Specimen Type: BLOOD No comment entered. Ordering Provider: ED REYES Report Released Date/Time: May 13, 2023 06:02 PM Reporting Lab: [facility] [place] [facility] [address] [facility] [address] Performing Lab: [facility] [place] [facility] [address] [facility] [address] [facility] [place] [facility] CBC AND DIFF (AUTO) MCHC [MASS/VOLU ME] BY AUTOMATED COUNT 33.0 g/dL 30.8 - 35.1 05/15 Specimen Type: BLOOD No comment entered. Ordering Provider: ED REYES Report Released Date/Time: May 13, 2023 06:02 PM Reporting Lab: [facility] [facility] [address] [facility] [address] Performing Lab: [facility] [place] [facility] [address] [facility] [address] [facility] CBC AND DIFF (AUTO) PLATELETS [#/VOLUME] IN BLOOD BY AUTOMATED COUNT 154 10*3/uL 140 - 360 05/15 Specimen Type: BLOOD No comment entered. Ordering Provider: ED REYES Report Released Date/Time: May 13, 2023 06:02 PM Reporting Lab: [facility] [facility] [address] [facility] [address] Performing Lab: [facility] [place] [facility] [address] [facility] [address] [facility] CBC AND DIFF (AUTO) ERYTHROCYT E DISTRIBUTI ON WIDTH [RATIO] BY AUTOMATED COUNT 13.5 12.0 - 16.0 05/15 Specimen Type: BLOOD No comment entered. Ordering Provider: ED REYES Report Released Date/Time: May 13, 2023 06:02 PM Reporting Lab: [facility] [facility] [address] [facility] [address] Performing Lab: [facility] [facility] [address] [facility] [address] [facility] CBC AND DIFF (AUTO) MONOCYTES [#/VOLUME] IN BLOOD BY AUTOMATED COUNT 0.63 10*3/uL 0.30 - 1.10 05/15 Specimen Type: BLOOD No comment entered. Ordering Provider: ED REYSE Report Released Date/Time: May 13, 2023 06:02 PM Reporting Lab: [facility] [place] [facility] [address] [facility] [address] Performing Lab: [facility] [place] [facility] [address] [facility] [address] [facility] CBC AND DIFF (AUTO) MCH [ENTITIC MASS] BY AUTOMATED COUNT 31.3 pg 26.2 - 32.6 05/15 Specimen Type: BLOOD No comment entered. Ordering Provider: ED REYES Report Released Date/Time: May 13, 2023 06:02 PM Reporting Lab: [facility] [place] [facility] [address] [facility] [address] Performing Lab: [facility] [place] [facility] [address] [facility] [address] [facility] CBC AND DIFF (AUTO) NEUTROPHIL S/100 LEUKOCYTES IN BLOOD BY AUTOMATED COUNT 78.2 43.7 - 75.8 05/15 H Specimen Type: BLOOD No comment entered. Ordering Provider: ED REYES Report Released Date/Time: May 13, 2023 06:02 PM Reporting Lab: [facility] [place] [facility] [address] [facility] [address] Performing Lab: [facility] [place] [facility] [address] [facility] [address] [facility] CBC AND DIFF (AUTO) LYMPHOCYTE S/100 LEUKOCYTES IN BLOOD BY AUTOMATED COUNT 14.1 14.0 - 42.3 05/15 Specimen Type: BLOOD No comment entered. Ordering Provider: ED REYES Report Released Date/Time: May 13, 2023 06:02 PM Reporting Lab: [facility] [address] [facility] [address] Performing Lab: [facility] [address] [facility] [address] [facility] CBC AND DIFF (AUTO) MONOCYTES/ 100 LEUKOCYTES IN BLOOD BY AUTOMATED COUNT 6.1 5.1 - 13.7 05/15 Specimen Type: BLOOD No comment entered. Ordering Provider: ED REYES Report Released Date/Time: May 13, 2023 06:02 PM Reporting Lab: [facility] [place] [facility] [address] [facility] [address] Performing Lab: [facility] [place] [facility] [address] [facility] [address] [facility] CBC AND DIFF (AUTO) EOSINOPHIL S/100 LEUKOCYTES IN BLOOD BY AUTOMATED COUNT 0.5 0.4 - 6.8 05/15 Specimen Type: BLOOD No comment entered. Ordering Provider: ED REYES Report Released Date/Time: May 13, 2023 06:02 PM Reporting Lab: [facility] [address] [facility] [address] Performing Lab: [facility] [place] [facility] [address] [facility] [address] [facility] CBC AND DIFF (AUTO) BASOPHILS/ 100 LEUKOCYTES IN BLOOD BY AUTOMATED COUNT 0.7 0.1 - 2.0 05/15 Specimen Type: BLOOD No comment entered. Ordering Provider: ED REYES Report Released Date/Time: May 13, 2023 06:02 PM Reporting Lab: [facility] [address] [facility] [address] Performing Lab: [facility] [address] [place] [address] [facility] CBC AND DIFF (AUTO) NEUTROPHIL S [#/VOLUME] IN BLOOD BY AUTOMATED COUNT 8.01 10*3/uL 2.20 - 7.60 05/15 H Specimen Type: BLOOD No comment entered. Ordering Provider: ED REYES Report Released Date/Time: May 13, 2023 06:02 PM Reporting Lab: [facility] [place] [facility] [address] [facility] [address] Performing Lab: [facility] [address] [address] [facility] CBC AND DIFF (AUTO) LYMPHOCYTE S [#/VOLUME] IN BLOOD BY AUTOMATED COUNT 1.45 10*3/uL 1.00 - 3.20 05/15 Specimen Type: BLOOD No comment entered. Ordering Provider: ED REYES Report Released Date/Time: May 13, 2023 06:02 PM Reporting Lab: [facility] [address] [address] Performing Lab: [facility] [address] [address] [facility] CBC AND DIFF (AUTO) EOSINOPHIL S [#/VOLUME] IN BLOOD BY AUTOMATED COUNT 0.05 10*3/uL 0.03 - 0.44 05/15 Specimen Type: BLOOD No comment entered. Ordering Provider: ED REYES Report Released Date/Time: May 13, 2023 06:02 PM Reporting Lab: [facility] [address] [address] Performing Lab[facility] [place] [facility] [address] [facility] [address] [facility] CBC AND DIFF (AUTO) BASOPHILS [#/VOLUME] IN BLOOD BY AUTOMATED COUNT 0.07 10*3/uL 0.01 - 0.13 05/15 Specimen Type: BLOOD No comment entered. Ordering Provider: ED REYES Report Released Date/Time: May 13, 2023 06:02 PM Reporting Lab: [facility] [place] [address] [address] Performing Lab[facility] [place] [facility] [address] [facility] [address] [facility] CBC AND DIFF (AUTO) IMMATURE GRANULOCYT ES/100 LEUKOCYTES IN BLOOD BY AUTOMATED COUNT 0.4 0.0 - 0.7 05/15 Specimen Type: BLOOD No comment entered. Ordering Provider: ED REYES Report Released Date/Time: May 13, 2023 06:02 PM Reporting Lab: [facility] [place] [facility] [address] [facility] [address] Performing Lab: [facility] [place] [facility] [address] [facility] [address] [facility] CBC AND DIFF (AUTO) IMMATURE GRANULOCYT ES [#/VOLUME] IN BLOOD 0.04 10*3/uL 0.00 - 0.06 05/15 Specimen Type: BLOOD No comment entered. Ordering Provider: DE REYES Report Released Date/Time: May 13, 2023 06:02 PM Reporting Lab: [facility] [place] [facility] [address] [facility] [address] Performing Lab: [facility] [place] [facility] [address] [facility] [address] [facility] Vital Signs Combined list of inpatient and outpatient Vital Signs from Department of Defense and Veterans Affairs, ranging from 12 months to all on record, depending upon the facility. Vital Sign Value Date Comments Source SYSTOLIC BLOOD PRESSURE 151 05/26/20 24 11:52:31 [facility] DIASTOLIC BLOOD PRESSURE 80 024 11:52:31 [facility] PULSE OXIMETRY 98 05/26/2024 11:52:31 [facility] WEIGHT 232 05/26/2024 11:52:31 [facility] [facility] BMI 32kg/m2 05/26/2024 11:52:31 [facility] PAIN 4 05/26/2024 11:52:31 [facility] HEIGHT 71 05/26/2024 11:52:31 [facility] [id number] Diagnos is: ICD-10- CM Z02.89 Encount er for other adminis trative examina tions<b r/> FRANCISCO GAMBLE 02/05 [facility] En[facility] [id number] 02/14 [facility] En[facility] [id number] 02/15 [facility] BRIEF ASSESSMENT [id number] Diagnos is: ICD-10- CM 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
LATANYA SHANE 02/16 [facility] En[facility] [id number] 03/02 [facility] En[facility] [id number] 03/16 [facility] Encounter [id number] 03/19 [facility] SELF CARE MNGMENT TRAINING [id number] Diagnos is: ICD-10- CM R26.9 Unspeci fied abnorma lities of gait and mobilit y
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
ORLANDO REYES RD 05/21 [facility] En[facility] [id number] 05/24 [facility] Encounter [id number] 05/24 [facility] OFF/OP EST MAY X REQ PHY/QHP [id number] Diagnos is: ICD-10- CM Z23 Encount er for immuniz ation<b r/> HAMZAH ALCANTARA NON P 06/22 [facility] En[facility] [id number] 07/11 [facility] Encounter [id number] 07/11 [facility] Out[facility] Encounter [id number] 07/16 [facility] Out[facility] Encounter [id number] 09/04 [facility] Out[facility] Encounter [id number] 09/07 [facility] OFFICE O/P EST MOD 30 MIN [id number] Diagnos is: ICD-10- CM R41.9 Unsp symptom s and signs w cogniti ve functio ns and awarene ss
PAUL GRAMAJO IEL Y 09/17 [facility] En[facility] [id number] 10/12 [facility] Out[facility] Encounter [id number] 10/15 [facility] Out[facility] Encounter [id number] 11/13 [facility] Out[facility] Encounter [id number] 11/19 [facility] OFFICE O/P EST SF 10 MIN [id number] Diagnos is: ICD-10- CM 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
ORLANDO REYES RD 11/20 [facility] En[facility] [id number] 11/28 [facility] Out[facility] Encounter [id number] 12/02 [facility] OT EVAL LOW COMPLEX 30 MIN [id number] Diagnos is: ICD-10- CM R53.1 Weaknes s
BAUTISTASHANE ANE 12/04 [facility] [place] 1 [id number] Diagnos is: ICD-10- CM H25.813 Combine d forms of age-rel ated catarac t, bilater al
MERHAR,TRISTA H B 12/11 [facility] FIT SPECTACLES BIFOCAL [id number] Diagnos is: ICD-10- CM Z46.0 Encount er for fit/adj st of spectac les and contact lenses< br/> MERHAR,TRISTA H B 12/11 [facility] Out[facility] Encounter [id number] 01/08 [facility] Out[facility] Encounter [id number] 02/03 [facility] Out[facility] Encounter [id number] 02/05 [facility] Out[facility] Encounter [id number] 04/25 [facility] Outpatient Encounter [id number] Diagnos is: ICD-10- CM Z02.89 Encount er for other adminis trative examina tions<b r/> FRANCISCO GAMBLE 05/06 [facility] Outpatient Encounter [id number] 1.05/22 [facility] Out[facility] Encounter [id number] 1.05/23 [facility] Out[facility] Encounter [id number] 1.05/26 [facility] Outpatient Encounter [id number] [facility] OFFICE O/P EST SF 10 MIN [id number] 1. Diagnos is: ICD-10- CM R41.9 Unsp symptom s and signs w cogniti ve functio ns and awarene ss
ORLANDO REYES RD 05/26 [facility] Outpatient Encounter [id number] 07/25 [facility] OT EVAL LOW COMPLEX 30 MIN [id number] Diagnos is: ICD-10- CM R26.9 Unspeci fied abnorma lities of gait and mobilit y
REFUGIO CLARKE ICA L 07/28 [facility] Social History Combined list of available smoking, tobacco, and other social history from Department of Defense and Veterans Affairs facilities. Social History Type Response Date Comment Sourc e Tobacco smoking status NHIS VA-TOBACCO NEVER USED 05/26/2024 [facility] History of tobacco use VA-TOBACCO NEVER USED 05/21/2023 [facility] History of tobacco use CA-TOBACCO FORMER USER 05/22/2022 [facility] of [facility] History of tobacco use LIFETIME NON-TOBACCO USER 11/16/2016 [facility] History of tobacco use LIFETIME NON-TOBACCO USER 10/07/2015 [facility] History of tobacco use QUIT TOBACCO USE > 7 YEARS AGO 03/29/2009 [facility] Plan of Care List of future care activities from [facility] facilities. Additional future care activities may be listed in the Assessment and Plan section. Date/Time Care Activity Care Activity Detail Facili ty 12/17/2024 AMBULATORY - MEDICINE AMBULATORY - MEDICI [facility] Advance Directives List of completed, amended, or rescinded Advance Directives on record at [facility] facilities. An actual copy of the Directive is not included. Date Advance Directive Provider Source 07/05/2022 ADVANCE DIRECTIVE DHIRAJ GRACIA [facility]
--- OUTSIDE RECORDS SUMMARY | 2024-08-07 09:05 | XMS_ITS ---
Author Organization [facility] Address [address] [place] [address] Care Team Providers Care Ferris Wheel Attendant Name Role Phone Jl Santana Primary Care Provider Unav ailable Ke Saleem Unavailable [phone] REASON FOR VISIT Cx appt Encounters Encounter Location Date Provider Diagnosis [address] [address] 01/29/2024 Ke Saleem Plan Of Treatment No Information Progress Notes * Raad LAZO WDOB: [birth year] (88 yo M)Acc No.[id number]:01/29/2024 Patient:?Raad Lazo :1935???Age:88 Y???Sex:Male Address:[address] [place] [address] [place], [address] * true * Date:? Generated for Debbii alberto/Torrie/eTransmitting on:?08/07/2024 09:05 AM EST
--- OUTSIDE RECORDS SUMMARY | 2024-08-07 09:05 | XMS_ITS ---
Author Organization [facility] Address [address] [place] [address] Care Team Providers Care Transit Clerk Name Role Phone Jl Santana Primary Care Provider Unav ailable Ke Saleem Unavailable [phone] REASON FOR VISIT CX 10:00 appt Encounters Encounter Location Date Provider Diagnosis [address] [address] 01/29/2024 Ke Saleem Plan Of Treatment No Information Progress Notes * Raad LAZO WDOB: [birth year] (88 yo M)Acc No.[id number]:01/29/2024 Patient:?Raad Lazo :1935???Age:88 Y???Sex:Male Address:[address] [place] [address] [place], [address] * true * Date:? Generated for Printi alberto/Torrie/eTransmitting on:?08/07/2024 09:05 AM EST
--- OUTSIDE RECORDS SUMMARY | 2024-08-07 09:06 | XMS_ITS ---
Author Organization [facility] Address [address] [place] [address] Care Team Providers Care Interlacer Name Role Phone Jl Santana Primary Care Provider Unav ailable Ke Saleem Unavailable [phone] Encounters Encounter Location Date Provider Diagnosis [facility] [address] [place] [address] 01/29/2024 Ke Saleem Plan Of Treatment No Information Progress Notes * Raad LAZO WDOB: [birth year] (89 yo M)Acc No.[id number]:01/29/2024 Progress Note Patient:?Raad LAZO Provider:?Ke Saleem DPM :1935???Age:88 Y???Sex:Male Ayaz e:01/29/2024 Address:[address] [place], [place] [phone] Pcp:DOC Wall Subjective: * Chief Complaints: * ??? * Medical History:? Objective: * Vitals:? Assessment: Plan: * Treatment: * Images: * The named appointment provid er may or may not be the originator of this progress note, and it is not deemed complete until electronically signed by the appointment provider. Sign off status: Pending * Provider:?Ke Saleem DPM Date:?2023 Generated for Susi dominguez/Torrie/eTransmitting on:?08/07/2024 09:05 AM EST
--- OUTSIDE RECORDS SUMMARY | 2024-08-07 09:06 | XMS_ITS | Patient Health Record ---
[facility]right [place] Address [address] [place] [address] Care Team Providers Care Avid Editor Name Role Phone Jl Santana Primary Care Provider Unav ailable Ke Saleem Unavailable [phone] Allergies Allergen (clinical drug ingredient) Drug/Non Drug [...] Ordered Date Performed Result Body Sit e 87838-MIAMEVE NAIL, 6 OR MORE 10/30/2023 N/A 87860-NVLV SKIN LESIONS, OVER 4 10/30/2023 N/A Encounters Encounter Location Date Provider [facility] [address] [place] [address] 10/30/2023 Ke Saleem Atherosclerosis of [place] artery of both lower extremities, with unspecified presence of clinical manifestation I70.203 ; Tinea unguium B35.1 ; Pain in right toe(s) M79.674 and Pain in left toe(s) M79.[address] [address] 12/17/2023 [facility] [address] [facility] [address] [place] [address] 01/18/2024 [facility] [address] 01/29/2024 [facility] [address] 01/29/2024 Ke Saleem Assessments Encounter Date Diagnosis (ICD Code) Assessment Notes Treatment Notes Treatment Clinical Notes Section Notes 10/30/2023 Tinea unguium (ICD-10 - B35.1) 10/30/2023 Atherosclerosis of [place] artery of both lower extremities, with unspecified presence of clinical manifestation (ICD-10 - I70.203) 10/30/2023 Pain in right toe(s) (ICD-10 - M79.674) 10/30/2023 Pain in left toe(s) (ICD-10 - M79.675) Plan Of Treatment Pending Test Test Name Order Date 11443-KRLUOFI NAIL, 6 OR MORE 07/31/2023 47922-DYFVWQA NAIL, 6 OR MORE 10/30/2023 92639-ATXR SKIN LESIONS, OVER 4 10/30/19 24 73955-THEE SKIN LESIONS, 2 TO 4 07/31/20 23 Insurance Providers Payer Name Payer Address Payer Phone Subscriber Number Group Number Insured Name Patient Relationship to Insured Coverage Start Date Coverage End Date [employer] [address] [place] [phone] [id number] Raad Dewitt Self - patient is the insured Medical (General) History Medical History History ICD Code broken bones measles chicken pox prostate conditions Back,Hip,and Knee pain Cancer- skin,bladder Mumps Bone implants/screws hydrocephulus hemochromatosis Surgical History Surgery Date(Month/Year) brain surgery-fluid on brain 11/2012 appendectomy 11/2012 knee surgery 2018
== END ==
LOC: HO.CARD 08:49
PROVIDERS: PCP Nurse Practitioner Family; Visit Provider Internal Medicine
DX: I35.0 Nonrheumatic aortic (valve) stenosis (principal); E87.70 Fluid overload, unspecified
CPT/HCPCS: 93306

== ENCOUNTER → 2024-08-07 08:53 | Outpatient (BNV) | payer OTHER, SELFPAY | PROVIDERS: PCP Nurse Practitioner Family; Visit Provider Internal Medicine Cardiovascular Disease | DX: I42.2 Other hypertrophic cardiomyopathy (principal); I35.0 Nonrheumatic aortic (valve) stenosis; I35.8 Other nonrheumatic aortic valve disorders; I34.81 Nonrheumatic mitral (valve) annulus calcification | CPT/HCPCS: 93306 ==

== ENCOUNTER 2024-08-13 13:43 | Outpatient (AMB) | payer OTHER, SELFPAY ==
--- OUTSIDE RECORDS SUMMARY | 2024-08-13 13:46 | XMS_ITS | Encounter Summary ---
Author Name [facility] Address [address] [place] [address] Care Team Providers Care Production Material Handler Name Role Phone ANDRES PEDRAZA Primary [...] Name Patient's Relationship to Policy Etienne [facility] ([facility]) MEDICARE ADVANTAGE [facility] ([facility]) Aug 27, 2012 [id number] PATIENT [facility] ([facility]) MEDICARE ADVANTAGE [facility] ([facility]) Aug 27, 2012 [id number] PATIENT Selected Encounter This section includes the information on record at [place] for the Encounter. Date/Time Encounter Type Encounter Description Reason Pro vider Source Sep 04, 2023 12:48 PM Outpatient Encounter COMMUNITY CARE CONSULT IHE Encounter Template Text not used by [facility] Plan of Treatment: Future Appointments (+ 6 months) and Future Tests (+/- 45 days) The Plan of Treatment section includes future care activities [facility] the [facility] This section includes future appointments and future orders which are active, pending or scheduled. Future Appointments This section includes appointments that were scheduled to occur 6 months from the date of the Encounter, up to a maximum of 20 appointments. The data comes from all [place] treatment facilities. Appointment Date/Time Appointment Type Appointme nt Facility Name Sep 07, 2023 01:00 PM AMBULATORY - MEDICINE [facility] [place] [facility] Sep 17, 2023 11:00 AM AMBULATORY - NEUROLOGY [facility] [place] [facility] Nov 21, 2023 01:30 PM AMBULATORY - MEDICINE PA [facility] [place] [facility] Dec 05, 2023 09:30 AM AMBULATORY - REHAB MEDICIN E [facility] [place] [facility] Dec 12, 2023 09:30 AM AMBULATORY - MEDICINE [facility] [place] [facility] Dec 20, 2023 10:30 AM AMBULATORY - MEDICINE [facility] [place] [facility] January 09, 2024 11:30 AM AMBULATORY - MEDICINE [facility] [place] [facility] Feb 04, 2024 02:00 PM AMBULATORY - MEDICINE [facility] [place] [facility] Feb 06, 2024 02:15 PM AMBULATORY - MEDICINE [facility] [place] [facility] Social History: Smoking Status (Most current) and Tobacco Use (All prior to encounter date) This section includes the most current, and the historical, smoking and tobacco- related health factors from the [place] facility where the Encounter took place. Current Smoking Status This section includes the most current smoking, or tobacco-related health factor, from the [place] facility where the Encounter took place. Date/Time Current Smoking Status Comment Facil ity May 21, 2023 02:00 PM [facility] Tobacco Use History This section includes a history of the smoking, or tobacco-related health factors, that were collected on or before the date of the Encounter. The data comes from the [place] facility where the Encounter took place. Date/Time Smoking Status/Tobacco Use Comment F acility May 22, 2022 03:30 PM [facility] [place] [facility] May 22, 2022 03:30 PM VA-TOBACCO QUIT 15 YRS OR [facility] Nov 15, 2018 10:40 AM [facility]ACCO [facility] Nov 16, 2016 01:42 PM LIFETIME [facility] Oct 07, 2015 01:01 PM LIFET[facility] Mar 29, 2009 02:36 PM QUIT TOBACCO USE > 7 YEARS AGO [facility] Advance Directives: All historical and current Section Date Range: From patient's date of to the date document was created. This section includes ALL of a patient's completed or amended [place] Advance and Rescinded Directives. The entries below indicate that a directive exists for the patient, but an actual copy is not included with this document. The data comes from all [place] facilities. Date Advance Directives Provider Source Jul 05, 2022 ADVANCE DIRECTIVE SERV[facility]IR[facility] Encounter Notes: All associated encounter notes This section contains the clinical notes associated to the Encounter. Date/Time Encounter Note(s) Provider Source Sep 04, 2023 12:48 PM ADMINISTRATIVE NOT E: LOCAL TITLE: ADMINISTRATIVE NOTE STANDARD TITLE: ADMINISTRATIVE NOTE DATE OF NOTE: SEP 04, 2023@12:48 ENTRY DATE: SEP 04, 2023@12:49 AUTHOR: NICK CHAPA EXP COSIGNER: URGENCY: STATUS: COMPLETED ADMINISTRATIVE NOTE Has ADDENDA from [facility] requesting an authorization renewal. The current auth has . If PCP agrees, a new Oncology consult is needed. /deisi CHAPA RN Community Analytical Lab Analyst Signed: 09/04/2023 12:50 Receipt Acknowledged By: 09/04/2023 13:16 /promise/ Rosana Kohler RN, A[facility]N [facility] 09/04/2023 13:16 /promise/ Andres Pedraza MD Staff Physician 09/04/2023 ADDENDUM STATUS: COMPLETED done. please sign /CHUY Truong RN [facility] Signed: 09/04/2023 13:16 09/04/2023 ADDENDUM STATUS: COMPLETED Signed. /deisi Pedraza MD Staff Physician Signed: 09/04/2023 13:16 [facility]
--- OUTSIDE RECORDS SUMMARY | 2024-08-13 13:46 | XMS_ITS | Continuity of Care Document ---
Author Name [facility] Organization [facility] Care Team Providers Care Tripe Washer Name Role Phone DOD-MS Unavailable Unavailable Problems Combined list of problems [...] By: SHAINA REYES Comment: followed by urology [facility] [place] Chronic dermatitis Active 08/27/19 21 Condition Oct 21, 2020 Entered By: SHAINA REYES Comment: referred to dermatology [facility] [place] Erectile Dysfunction (SCT [id number]) Active 08/27/19 21 Condition Oct 21, 2020 Entered By: SHAINA REYES Comment: treated with Viagra [facility] Hydrocephalus (SNOMED CT 476257502) Active 08/27/19 13 Condition [facility] [...] Condition [place] Obesity Active 08/27/18 90 Condition [place] Cognitive disorder Active Condition J un 2022 Entered By: LISSY SANTIZO Comment: mild neurocognitive disorder (dysexecutive features) [facility] Exposure to potentially hazardous substance Active Condition Sep 29, 2022 Entered By: SHAINA REYES Comment: provided education [facility] Osteoarthritis * (ICD-9-CM 715.90) Active Condition [facility] Polyneuropathy [facility] Thiamine deficiency Active Condition Oct [...] FOR TOOTH DECAY PREVENTI ON DENTAL 02/17/2024 [id number] LATANYA SHANE 2022 51 [facility] [place] [facility] Allergies, Adverse Reactions, Alerts Combined list of allergies from Department of Defense and Veterans Affairs facilities. It does not include entries that were removed or entered in error. Substance Category Reaction Severity Reaction type Status Date Reported Comments Source CORTISONE Propensity to adverse reactions to drug (finding) active 0 [facility] [place] [facility] Immunizations Combined list of available immunizations from the Department of Defense and Veterans Affairs facilities. Immunization Series Date Given Administered By Site Reaction Lot Number CVX Code Drug Electrician Supervisor Airplane Status Comments Source ZOSTER RECOMBINANT 1 2023 TEENA FLORES E LEFT DELTO ID [id number] 187 complet ed [facility] [place] [facility] COVID-19 (MODERNA), MRNA, LNP-S, PF, 50 MCG/0.5 ML (AGES 12+ YEARS) 1 2022 DEE DEE ALCANTARA RIGHT DELTO ID [id number] 312 complet ed [facility] [place] [facility] INFLUENZA, HIGH-DOSE, QUADRIVALENT 2022 NEEMA CHAN M LEFT DELTO ID [id number] 197 complet ed [facility] [place] [facility] ZOSTER RECOMBINANT 1 2022 NEEMA CHAN M RIGHT DELTO ID [id number] 187 complet ed [facility] [place] [facility] COVID-19 (MODERNA), MRNA, LNP-S, BIVALENT BOOSTER, PF, 50 MCG/0.5 ML OR 25MCG/0.25 ML DOSE 2022 NEEMA CHAN M LEFT DELTO ID [id number] 229 complet ed [facility] [place] [facility] PNEUMOCOCCAL CONJUGATE PCV20, POLYSACCHARID E AET633 CONJUGATE, ADJUVANT, PF 2022 NEEMA CHAN M RIGHT DELTO ID [id number] 216 complet ed [facility] [place] [facility] TD (ADULT), 2 LF TETANUS TOXOID, PRESERVATIVE FREE, ADSORBED 2022 ROCIO,JENNIF ER M RIGHT DELTO ID [id number] 09 complet ed [facility] INFLUENZA, UNSPECIFIED FORMULATION 2021 88 complet ed [facility] [place] COVID-19 (MODERNA), MRNA, LNP-S, PF, 100 MCG/0.5 ML DOSE 3 2020 207 complet ed MOD; [id number]; 1 [facility] COVID-19 (MODERNA), MRNA, LNP-S, PF, 100 MCG/0.5 ML DOSE 2 2020 207 complet ed MOD; [id number]; 1 [facility] COVID-19 (MODERNA), MRNA, LNP-S, PF, 100 MCG/0.5 ML DOSE 1 2020 207 complet ed MOD; [id number]; 1 [facility] [place] [...] May 13, 2023 06:02 PM Reporting Lab: [facility] [place] [facility] [address] [facility] [facility] [address] Performing Lab: [facility] [place] [facility] [address] [facility] [facility] [address] [facility] [facility] LIPID PANEL FASTING CHOLESTERO L [MASS/VOLU ME] IN SERUM OR PLASMA 158 mg/dL 05/15 Specimen Type: SERUM No comment entered. Ordering Provider: ED REYES Report Released Date/Time: May 13, 2023 06:02 PM Reporting Lab: [facility] [place] [facility] [address] [facility] [address] Performing Lab: [facility] [place] [facility] [address] [facility] [facility] [address] [facility] [place] [facility] LIPID PANEL FASTING TRIGLYCERI DE [MASS/VOLU ME] IN SERUM OR PLASMA 139 mg/dL 0 - 150 05/15 Specimen Type: SERUM No comment entered. Ordering Provider: ED REYES Report Released Date/Time: May 13, 2023 06:02 PM Reporting Lab: [facility] [place] [facility] [address] [facility] [facility] [address] Performing Lab: [facility] [place] [facility] [address] [facility] [facility] [address] [facility] [place] [facility] LIPID PANEL FASTING CHOLESTERO L IN LDL [MASS/VOLU ME] IN SERUM OR PLASMA BY CALCULATIO N 76 mg/dL 0 - 129 05/15 Specimen Type: SERUM No comment entered. Ordering Provider: ED REYES Report Released Date/Time: May 13, 2023 06:02 PM Reporting Lab: [facility] [place] [facility] [address] [facility] [address] Performing Lab: [facility] [place] [facility] [address] [facility] [facility] [address] [facility] [place] [facility] LIPID PANEL FASTING CHOLESTERO L.TOTAL/CH OLESTEROL IN HDL [MASS RATIO] IN SERUM OR PLASMA 2.9 05/15 Specimen Type: SERUM No comment entered. Ordering Provider: ED REYES Report Released Date/Time: May 13, 2023 06:02 PM Reporting Lab: [facility] [place] [facility] [address] [facility] [facility] [address] Performing Lab: [facility] [place] [facility] [address] [facility] [address] [facility] [place] [facility] LIPID PANEL FASTING CHOLESTERO L IN HDL [MASS/VOLU ME] IN SERUM OR PLASMA 54 mg/dL 40 - 60 05/15 Specimen Type: SERUM No comment entered. Ordering Provider: ED REYES Report Released Date/Time: May 13, 2023 06:02 PM Reporting Lab: [facility] [place] [facility] [address] [facility] [facility] [address] Performing Lab: [facility] [place] [facility] [address] [facility] [facility] [address] [facility] [place] [facility] LIVER FUNCTION PROTEIN [MASS/VOLU ME] IN SERUM OR PLASMA 6.7 g/dL 6.0 - 8.3 05/15 Specimen Type: SERUM No comment entered. Ordering Provider: ED REYES Report Released Date/Time: May 13, 2023 06:02 PM Reporting Lab: [facility] [place] [facility] [address] [facility] [facility] [address] Performing Lab: [facility] [place] [facility] [address] [facility] [facility] [address] [facility] [place] [facility] LIVER FUNCTION ALBUMIN [MASS/VOLU ME] IN SERUM OR PLASMA 3.7 g/dL 3.5 - 5.0 05/15 Specimen Type: SERUM No comment entered. Ordering Provider: ED REYES Report Released Date/Time: May 13, 2023 06:02 PM Reporting Lab: [facility] [place] [facility] [address] [facility] [facility] [address] Performing Lab: [facility] [place] [facility] [address] [facility] [facility] [address] [facility] [place] [facility] LIVER FUNCTION ALKALINE PHOSPHATAS E [ENZYMATIC ACTIVITY/V OLUME] IN SERUM OR PLASMA 77 U/L 40 - 150 05/15 Specimen Type: SERUM No comment entered. Ordering Provider: ED REYES Report Released Date/Time: May 13, 2023 06:02 PM Reporting Lab: [facility] [place] [facility] [address] [facility] [facility] [address] Performing Lab: [facility] [place] [facility] [address] [facility] [facility] [address] [facility] [place] [facility] LIVER FUNCTION ASPARTATE AMINOTRANS FERASE [ENZYMATIC ACTIVITY/V OLUME] IN SERUM OR PLASMA 19 U/L 5 - 34 05/15 Specimen Type: SERUM No comment entered. Ordering Provider: ED REYES Report Released Date/Time: May 13, 2023 06:02 PM Reporting Lab: [facility] [place] [facility] [address] [facility] [facility] [address] Performing Lab: [facility] [place] [facility] [address] [facility] [facility] [address] [facility] [place] [facility] LIVER FUNCTION ALANINE AMINOTRANS FERASE [ENZYMATIC ACTIVITY/V OLUME] IN SERUM OR PLASMA 21 U/L 05/15 Specimen Type: SERUM No comment entered. Ordering Provider: ED REYES Report Released Date/Time: May 13, 2023 06:02 PM Reporting Lab: [facility]ENTERTRN [facility] [address] [address] Performing Lab: [facility]ERN [facility] [address] [address] [facility]ERN [facility]USE [facility] LIVER FUNCTION BILIRUBIN. TOTAL [MASS/VOLU ME] IN SERUM OR PLASMA 0.8 mg/dL 0.2 - 1.2 05/15 Specimen Type: SERUM No comment entered. Ordering Provider: ED REYES Report Released Date/Time: May 13, 2023 06:02 PM Reporting Lab: [facility] [address] [address] Performing Lab: [facility] [address] [address] [facility] BASIC METABOLI C PANEL (fasting ) UREA NITROGEN [MASS/VOLU ME] IN SERUM OR PLASMA 13 mg/dL 7 - 25 05/15 Specimen Type: SERUM No comment entered. Ordering Provider: ED REYES Report Released Date/Time: May 13, 2023 06:02 PM Reporting Lab: [facility] [address] [address] Performing Lab: [facility] TRN [facility]ITALUSEMON[facility]FI[facility] [address] [address] [facility]ERN [facility] HOSPITALUSE [facility] BASIC METABOLI C PANEL (fasting ) GLUCOSE [MASS/VOLU ME] IN SERUM OR PLASMA 121 mg/dL 65 - 100 05/15 H Specimen Type: SERUM No comment entered. Ordering Provider: ED REYES Report Released Date/Time: May 13, 2023 06:02 PM Reporting Lab: [facility]ENTERTRN [facility]ITALUSE[facility] [address] [address] Performing Lab: [facility]ENTERTRN [facility] HOSPITALUSE[address] [address] [facility] [place] [facility] BASIC METABOLI C PANEL (fasting ) SODIUM [MOLES/VOL UME] IN SERUM OR PLASMA 140 mmol/L 135 - 145 05/15 Specimen Type: SERUM No comment entered. Ordering Provider: ED REYES Report Released Date/Time: May 13, 2023 06:02 PM Reporting Lab: [facility] [place] [address] [address] Performing Lab: [facility] [place] [address] [address] [facility] [place] [facility] BASIC METABOLI C PANEL (fasting ) POTASSIUM [MOLES/VOL UME] IN SERUM OR PLASMA 4.2 mmol/L 3.5 - 5.0 05/15 Specimen Type: SERUM No comment entered. Ordering Provider: ED REYES Report Released Date/Time: May 13, 2023 06:02 PM Reporting Lab: [facility] [place] [address] [address] Performing Lab: [facility] [place] [address] [address] [facility] [place] [facility] BASIC METABOLI C PANEL (fasting ) CHLORIDE [MOLES/VOL UME] IN SERUM OR PLASMA 106 mmol/L 100 - 110 05/15 Specimen Type: SERUM No comment entered. Ordering Provider: ED REYES Report Released Date/Time: May 13, 2023 06:02 PM Reporting Lab: [facility] [place] [address] [address] Performing Lab: [facility] [place] [address] [address] [facility] [place] [facility] BASIC METABOLI C PANEL (fasting ) CARBON DIOXIDE, TOTAL [MOLES/VOL UME] IN SERUM OR PLASMA 25 meq/L 20 - 30 05/15 Specimen Type: SERUM No comment entered. Ordering Provider: ED REYES Report Released Date/Time: May 13, 2023 06:02 PM Reporting Lab: [facility] [place] [address] [place] [address] Performing Lab: [facility] [place] [facility] [address] [address] [facility] W[facility]N [place] [facility] BASIC METABOLI C PANEL (fasting ) CREATININE [MASS/VOLU ME] IN SERUM OR PLASMA 0.99 mg/dL 0.50 - 1.40 05/15 Specimen Type: SERUM No comment entered. Ordering Provider: ED REYES Report Released Date/Time: May 13, 2023 06:02 PM Reporting Lab: [facility] [place] [facility] [address] [address] Performing Lab: [facility]RL TRN [facility]ITALUSEMONTEFI[facility] [address] [address] [facility]ERN [facility]ITALUSE [facility] BASIC METABOLI C PANEL (fasting ) GLOMERULAR FILTRATION RATE/1.73 SQ M.PREDICTE D [VOLUME RATE/AREA] IN SERUM, PLASMA OR BLOOD BY CREATININE -BASED FORMULA (CKD-EPI 2020) 73 mL/min 60 05/15 Specimen Type: SERUM No comment entered. Ordering Provider: ED REYES Report Released Date/Time: May 13, 2023 06:02 PM Reporting Lab: [facility] [place] [facility] [address] [address] Performing Lab: [facility]RL TRN [facility]OS[facility]ITALUSE[address] [address] [facility] HOSPITALUSE [facility] URINALYS IS CLEAN CATCH COLOR OF URINE Light-Ye llow 05/15 Specimen Type: URINE Comment: If Glucose = >500 and Ketones are positive, please alert the Physician. Ordering Provider: ED REYES Report Released Date/Time: May 13, 2023 06:02 PM Reporting Lab: [facility] [place] [facility] [address] [address] Performing Lab: [facility] W[facility]N [facility] HOSPITALUSETS [address] [address] [facility]ERN [facility] HOSPITALUSE [facility] URINALYS IS CLEAN CATCH APPEARANCE OF URINE Clear 05/15 Specimen Type: URINE Comment: If Glucose = >500 and Ketones are positive, please alert the Physician. Ordering Provider: ED REYES Report Released Date/Time: May 13, 2023 06:02 PM Reporting Lab: [facility] [place] [facility] [address] [facility] [facility] [address] Performing Lab: [facility] [place] [facility] [address] [facility] [facility] [address] [facility] [place] [facility] URINALYS IS CLEAN CATCH GLUCOSE [MASS/VOLU ME] IN URINE NEGATIVE mg/dL 05/15 Specimen Type: URINE Comment: If Glucose = >500 and Ketones are positive, please alert the Physician. Ordering Provider: ED REYES Report Released Date/Time: May 13, 2023 06:02 PM Reporting Lab: [facility] [place] [facility] [address] [facility] [facility] [address] Performing Lab: [facility] [place] [facility] [address] [facility] [facility] [address] [facility] [place] [facility] URINALYS IS CLEAN CATCH KETONES [MASS/VOLU ME] IN URINE BY TEST STRIP NEGATIVE mg/dL 05/15 Specimen Type: URINE Comment: If Glucose = >500 and Ketones are positive, please alert the Physician. Ordering Provider: ED REYES Report Released Date/Time: May 13, 2023 06:02 PM Reporting Lab: [facility] [place] [facility] [address] [facility] [facility] [address] Performing Lab: [facility] [place] [facility] [address] [facility] [facility] [address] [facility] [place] [facility] URINALYS IS CLEAN CATCH ERYTHROCYT ES [PRESENCE] IN URINE SEDIMENT BY LIGHT MICROSCOPY NEGATIVE mg/dL 05/15 Specimen Type: URINE Comment: If Glucose = >500 and Ketones are positive, please alert the Physician. Ordering Provider: ED REYES Report Released Date/Time: May 13, 2023 06:02 PM Reporting Lab: [facility] [place] [facility] [address] [facility] [facility] [address] Performing Lab: [facility] [place] [facility] [address] [facility] [facility] [address] [facility] [place] [facility] URINALYS IS CLEAN CATCH PROTEIN [MASS/VOLU ME] IN URINE BY TEST STRIP NEGATIVE mg/dL 05/15 Specimen Type: URINE Comment: If Glucose = >500 and Ketones are positive, please alert the Physician. Ordering Provider: ED REYES Report Released Date/Time: May 13, 2023 06:02 PM Reporting Lab: [facility] [place] [facility] [address] [facility] [facility] [address] Performing Lab: [facility] [place] [facility] [address] [facility] [facility] [address] [facility] [place] [facility] URINALYS IS CLEAN CATCH NITRITE [PRESENCE] IN URINE NEGATIVE mg/dL 05/15 Specimen Type: URINE Comment: If Glucose = >500 and Ketones are positive, please alert the Physician. Ordering Provider: ED REYES Report Released Date/Time: May 13, 2023 06:02 PM Reporting Lab: [facility] [place] [facility] [address] [facility] [address] Performing Lab: [facility] [place] [facility] [address] [facility] [facility] [address] [facility] [place] [facility] URINALYS IS CLEAN CATCH BILIRUBIN. TOTAL [PRESENCE] IN URINE NEGATIVE mg/dL 05/15 Specimen Type: URINE Comment: If Glucose = >500 and Ketones are positive, please alert the Physician. Ordering Provider: ED REYES Report Released Date/Time: May 13, 2023 06:02 PM Reporting Lab: [facility] [place] [facility] [address] [address] Performing Lab: [facility] [facility] [address] [address] [facility] [place] [facility] URINALYS IS CLEAN CATCH SPECIFIC GRAVITY OF URINE BY REFRACTOME TRY 1.012 1.016 - 1.022 05/15 L Specimen Type: URINE Comment: If Glucose = >500 and Ketones are positive, please alert the Physician. Ordering Provider: ED REYES Report Released Date/Time: May 13, 2023 06:02 PM Reporting Lab: [facility] [place] [facility] [address] [facility] [facility] [address] Performing Lab: [facility] [place] [facility] [address] [facility] [facility] [address] [facility] [place] [facility] URINALYS IS CLEAN CATCH PH OF URINE BY TEST STRIP 7.0 5.0 - 9.0 05/15 Specimen Type: URINE Comment: If Glucose = >500 and Ketones are positive, please alert the Physician. Ordering Provider: ED REYES Report Released Date/Time: May 13, 2023 06:02 PM Reporting Lab: [facility] [place] [facility] [address] [facility] [facility] [address] Performing Lab: [facility] [place] [facility] [address] [facility] [facility] [address] [facility] [place] [facility] URINALYS IS CLEAN CATCH UROBILINOG EN [MASS/VOLU ME] IN URINE BY TEST STRIP <2.0mg/d L <2.0 - 2.0 05/15 Specimen Type: URINE Comment: If Glucose = >500 and Ketones are positive, please alert the Physician. Ordering Provider: ED REYES Report Released Date/Time: May 13, 2023 06:02 PM Reporting Lab: [facility] [place] [facility] [address] [facility] [facility] [address] Performing Lab: [facility] [place] [facility] [address] [facility] [facility] [address] [facility] [place] [facility] URINALYS IS CLEAN CATCH LEUKOCYTE ESTERASE [PRESENCE] IN URINE BY TEST STRIP NEGATIVE 05/15 Specimen Type: URINE Comment: If Glucose = >500 and Ketones are positive, please alert the Physician. Ordering Provider: ED REYES Report Released Date/Time: May 13, 2023 06:02 PM Reporting Lab: [facility] [place] [facility] [address] [facility] [address] Performing Lab: [facility] [place] [facility] [address] [facility] [facility] [address] [facility] [place] [facility] CBC AND DIFF (AUTO) LEUKOCYTES [#/VOLUME] IN BLOOD BY AUTOMATED COUNT 10.25 10*3/uL 4.50 - 11.00 05/15 Specimen Type: BLOOD No comment entered. Ordering Provider: ED REYES Report Released Date/Time: May 13, 2023 06:02 PM Reporting Lab: [facility] [place] [facility] [address] [facility] [address] Performing Lab: [facility] [place] [facility] [address] [facility] [facility] [address] [facility] [place] [facility] CBC AND DIFF (AUTO) ERYTHROCYT ES [#/VOLUME] IN BLOOD BY AUTOMATED COUNT 5.44 10*6/uL 4.23 - 5.66 05/15 Specimen Type: BLOOD No comment entered. Ordering Provider: ED REYES Report Released Date/Time: May 13, 2023 06:02 PM Reporting Lab: [facility] [place] [facility] [address] [facility] [address] Performing Lab: [facility] [place] [facility] [address] [facility] [address] [facility] [place] [facility] CBC AND DIFF (AUTO) HEMOGLOBIN [MASS/VOLU ME] IN BLOOD 17.0 g/dL 12.8 - 17 05/15 Specimen Type: BLOOD No comment entered. Ordering Provider: ED REYES Report Released Date/Time: May 13, 2023 06:02 PM Reporting Lab: [facility] [place] [facility] [address] [facility] [address] Performing Lab: [facility] [place] [facility] [address] [facility] [address] [facility] [place] [facility] CBC AND DIFF (AUTO) HEMATOCRIT [VOLUME FRACTION] OF BLOOD BY AUTOMATED COUNT 51.5 39.2 - 50.4 05/15 H Specimen Type: BLOOD No comment entered. Ordering Provider: ED REYES Report Released Date/Time: May 13, 2023 06:02 PM Reporting Lab: [facility] [place] [facility] [address] [facility] [address] Performing Lab: [facility] [place] [facility] [address] [facility] [address] [facility] [place] [facility] CBC AND DIFF (AUTO) MCV [ENTITIC VOLUME] BY AUTOMATED COUNT 94.7 fL 82 - 99 05/15 Specimen Type: BLOOD No comment entered. Ordering Provider: ED REYES Report Released Date/Time: May 13, 2023 06:02 PM Reporting Lab: [facility] [place] [facility] [address] [facility] [address] Performing Lab: [facility] [place] [facility] [address] [facility] [address] [facility] [place] [facility] CBC AND DIFF (AUTO) MCHC [MASS/VOLU ME] BY AUTOMATED COUNT 33.0 g/dL 30.8 - 35.1 05/15 Specimen Type: BLOOD No comment entered. Ordering Provider: ED REYES Report Released Date/Time: May 13, 2023 06:02 PM Reporting Lab: [facility] [place] [facility] [address] [facility] [address] Performing Lab: [facility] [place] [facility] [address] [facility] [address] [facility] [place] [facility] CBC AND DIFF (AUTO) PLATELETS [#/VOLUME] IN BLOOD BY AUTOMATED COUNT 154 10*3/uL 140 - 360 05/15 Specimen Type: BLOOD No comment entered. Ordering Provider: ED REYES Report Released Date/Time: May 13, 2023 06:02 PM Reporting Lab: [facility] [facility] [address] [address] Performing Lab: [facility] [place] [facility] [address] [facility] [address] [facility] [place] [facility] CBC AND DIFF (AUTO) ERYTHROCYT E DISTRIBUTI ON WIDTH [RATIO] BY AUTOMATED COUNT 13.5 12.0 - 16.0 05/15 Specimen Type: BLOOD No comment entered. Ordering Provider: ED REYES Report Released Date/Time: May 13, 2023 06:02 PM Reporting Lab: [facility] [place] [facility] [address] [facility] [address] Performing Lab: [facility] [place] [facility] [address] [facility] [address] [facility] [place] CBC AND DIFF (AUTO) MONOCYTES [#/VOLUME] IN BLOOD BY AUTOMATED COUNT 0.63 10*3/uL 0.30 - 1.10 05/15 Specimen Type: BLOOD No comment entered. Ordering Provider: ED REYES Report Released Date/Time: May 13, 2023 06:02 PM Reporting Lab: [facility] [place] [facility] [address] [address] Performing Lab: [facility] [place] [facility] [address] [address] [facility] [place] [facility] CBC AND DIFF (AUTO) MCH [ENTITIC MASS] BY AUTOMATED COUNT 31.3 pg 26.2 - 32.6 05/15 Specimen Type: BLOOD No comment entered. Ordering Provider: ED REYES Report Released Date/Time: May 13, 2023 06:02 PM Reporting Lab: [facility] [place] [facility] [address] [address] Performing Lab: [facility] [place] [facility] [address] [address] [facility] [place] [facility] CBC AND DIFF (AUTO) NEUTROPHIL S/100 LEUKOCYTES IN BLOOD BY AUTOMATED COUNT 78.2 43.7 - 75.8 05/15 H Specimen Type: BLOOD No comment entered. Ordering Provider: ED REYES Report Released Date/Time: May 13, 2023 06:02 PM Reporting Lab: [facility] [place] [facility] [address] [facility] [address] Performing Lab: [facility] [place] [facility] [address] [address] [facility] [place] [facility] CBC AND DIFF (AUTO) LYMPHOCYTE S/100 LEUKOCYTES IN BLOOD BY AUTOMATED COUNT 14.1 14.0 - 42.3 05/15 Specimen Type: BLOOD No comment entered. Ordering Provider: ED REYES Report Released Date/Time: May 13, 2023 06:02 PM Reporting Lab: [facility] [place] [address] [address] Performing Lab: [facility] [place] [address] [address] [facility] CBC AND DIFF (AUTO) MONOCYTES/ 100 LEUKOCYTES IN BLOOD BY AUTOMATED COUNT 6.1 5.1 - 13.7 05/15 Specimen Type: BLOOD No comment entered. Ordering Provider: ED REYES Report Released Date/Time: May 13, 2023 06:02 PM Reporting Lab: [facility] [place] [facility] [address] [address] Performing Lab: [facility] [place] [facility] [address] [address] [facility] CBC AND DIFF (AUTO) EOSINOPHIL S/100 LEUKOCYTES IN BLOOD BY AUTOMATED COUNT 0.5 0.4 - 6.8 05/15 Specimen Type: BLOOD No comment entered. Ordering Provider: ED REYES Report Released Date/Time: May 13, 2023 06:02 PM Reporting Lab: [facility] [place] [facility] [address] [address] Performing Lab: [facility] [place] [facility] [address] [address] [facility] CBC AND DIFF (AUTO) BASOPHILS/ 100 LEUKOCYTES IN BLOOD BY AUTOMATED COUNT 0.7 0.1 - 2.0 05/15 Specimen Type: BLOOD No comment entered. Ordering Provider: ED REYES Report Released Date/Time: May 13, 2023 06:02 PM Reporting Lab: [facility] [place] [address] [address] Performing Lab: [facility] [place] [address] [place] [address] [facility] CBC AND DIFF (AUTO) NEUTROPHIL S [#/VOLUME] IN BLOOD BY AUTOMATED COUNT 8.01 10*3/uL 2.20 - 7.60 05/15 H Specimen Type: BLOOD No comment entered. Ordering Provider: ED REYES Report Released Date/Time: May 13, 2023 06:02 PM Reporting Lab: [facility] [place] [facility] [address] [address] Performing Lab: [facility] [place] [address] [address] [facility] CBC AND DIFF (AUTO) LYMPHOCYTE S [#/VOLUME] IN BLOOD BY AUTOMATED COUNT 1.45 10*3/uL 1.00 - 3.20 05/15 Specimen Type: BLOOD No comment entered. Ordering Provider: ED REYES Report Released Date/Time: May 13, 2023 06:02 PM Reporting Lab: [facility] [place] [address] [address] Performing Lab: [facility] [place] [address] [address] [facility] [place] [facility] CBC AND DIFF (AUTO) EOSINOPHIL S [#/VOLUME] IN BLOOD BY AUTOMATED COUNT 0.05 10*3/uL 0.03 - 0.44 05/15 Specimen Type: BLOOD No comment entered. Ordering Provider: ED REYES Report Released Date/Time: May 13, 2023 06:02 PM Reporting Lab: [facility] [place] [address] [address] Performing Lab: [facility] [place] [facility] [address] [address] [facility] [place] CBC AND DIFF (AUTO) BASOPHILS [#/VOLUME] IN BLOOD BY AUTOMATED COUNT 0.07 10*3/uL 0.01 - 0.13 05/15 Specimen Type: BLOOD No comment entered. Ordering Provider: ED REYES Report Released Date/Time: May 13, 2023 06:02 PM Reporting Lab: [facility] [place] [address] [address] Performing Lab: [facility] [place] [facility] [address] [address] [facility] [place] [facility] CBC AND DIFF (AUTO) IMMATURE GRANULOCYT ES/100 LEUKOCYTES IN BLOOD BY AUTOMATED COUNT 0.4 0.0 - 0.7 05/15 Specimen Type: BLOOD No comment entered. Ordering Provider: ED REYES Report Released Date/Time: May 13, 2023 06:02 PM Reporting Lab: [facility] [place] [facility] [address] [address] Performing Lab: [facility] [place] [facility] [address] [address] [facility] [place] [facility] CBC AND DIFF (AUTO) IMMATURE GRANULOCYT ES [#/VOLUME] IN BLOOD 0.04 10*3/uL 0.00 - 0.06 05/15 Specimen Type: BLOOD No comment entered. Ordering Provider: ED REYES Report Released Date/Time: May 13, 2023 06:02 PM Reporting Lab: [facility] [place] [facility] [address] [address] Performing Lab: [facility] [place] [facility] [address] [address] [facility] [place] [facility] Vital Signs Combined list of inpatient and outpatient Vital Signs from Department of Defense and Veterans Affairs, ranging from 12 months to all on record, depending upon the facility. Vital Sign Value Date Comments Source SYSTOLIC BLOOD PRESSURE 151 05/26/20 24 11:52:31 [facility] [place] [facility] DIASTOLIC BLOOD PRESSURE 80 024 11:52:31 [facility] [place] [facility] PULSE OXIMETRY 98 05/26/2024 11:52:31 [facility] [place] [facility] WEIGHT 232 05/26/2024 11:52:31 [facility] [place] [facility] BMI 32kg/m2 05/26/2024 11:52:31 [facility] [place] [facility] PAIN 4 05/26/2024 11:52:31 [facility] [place] [facility] HEIGHT 71 05/26/2024 11:52:31 [facility] [id number] 02/14 [facility] En[facility] [id number] 02/15 [facility] BRIEF ASSESSMENT [id number] Diagnos is: ICD-10- CM 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
LATANYA SHANE 02/16 [facility] En[facility] [id number] 03/02 [facility] En[facility] [id number] 03/16 [facility] Encounter [id number] 03/19 [facility] SELF CARE MNGMENT TRAINING [id number] Diagnos is: ICD-10- CM R26.9 Unspeci fied abnorma lities of gait and mobilit y
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
ORLANDO REYES RD D 05/21 [facility] En[facility] [id number] 05/24 [facility] En[facility] [id number] 05/24 [facility] OFF/OP EST MAY X REQ PHY/QHP [id number] Diagnos is: ICD-10- CM Z23 Encount er for immuniz ation<b r/> HAMZAH ALCANTARA NON P 06/22 [facility] En[facility] [id number] 07/11 [facility] Encounter [id number] 07/11 [facility] Encounter [id number] 07/16 [facility] Encounter [id number] 09/04 [facility] Encounter [id number] 09/07 [facility] OFFICE O/P EST MOD 30 MIN [id number] Diagnos is: ICD-10- CM R41.9 Unsp symptom s and signs w cogniti ve functio ns and awarene ss
PAUL GRAMAJO IEL Y 09/17 [facility] En[facility] [id number] 10/12 [facility] En[facility] [id number] 10/15 [facility] Encounter [id number] 11/13 [facility] Encounter [id number] 11/19 [facility] OFFICE O/P EST SF 10 MIN [id number] Diagnos is: ICD-10- CM 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
ORLANDO REYES RD D 11/20 [facility] En[facility] [id number] 11/28 [facility] Encounter [id number] 12/02 [facility] OT EVAL LOW COMPLEX 30 MIN [id number] Diagnos is: ICD-10- CM R53.1 Weaknes s
SHANE BAUITSTA 12/04 [facility] [place] 1 [id number] Diagnos is: ICD-10- CM H25.813 Combine d forms of age-rel ated catarac t, bilater al
MERHAR,TRISTA H B 12/11 [facility] FIT SPECTACLES BIFOCAL [id number] Diagnos is: ICD-10- CM Z46.0 Encount er for fit/adj st of spectac les and contact lenses< br/> MERHAR,TRISTA H B 12/11 [facility] Out[facility] Encounter [id number] 01/08 [facility] Encounter [id number] 02/03 [facility] Encounter [id number] 02/05 [facility] Encounter [id number] 04/25 [facility] Out[facility] Encounter [id number] Diagnos is: ICD-10- CM Z02.89 Encount er for other adminis trative examina tions<b r/> FRANCISCO GAMBLE 05/06 [facility] Encounter [id number] 05/22 [facility] Encounter [id number] 05/23 [facility] Encounter [id number] 1.05/26 [facility] [place] [facility] Outpatient Encounter [id number] [facility] [place] OFFICE O/P EST SF 10 MIN [id number] 1. Diagnos is: ICD-10- CM R41.9 Unsp symptom s and signs w cogniti ve functio ns and awarene ss
ORLANDO REYES RD D 05/26 [facility] [place] Outpatient Encounter [id number] 1.07/25 [facility] [place] [facility] OT EVAL LOW COMPLEX 30 MIN [id number] Diagnos is: ICD-10- CM R26.9 Unspeci fied abnorma lities of gait and mobilit y
REFUGIO CLARKE ICA L 07/28 [facility] Outpatient Encounter [id number] 1.08/08 [facility] [place] [facility] Social History Combined list of available smoking, tobacco, and other social history from Department of Defense and Veterans Affairs facilities. Social History Type Response Date Comment [facility] e Tobacco smoking status UTIS VA-TOBACCO NEVER USED 05/26/2024 [facility] [place] [facility] History of tobacco use VA-TOBACCO NEVER USED 05/21/2023 [facility] [place] [facility] History of tobacco use VA-TOBACCO FORMER USER 05/22/2022 [facility] History of tobacco use MS-TOBACCO NEVER USED 11/15/[address] [facility] History of tobacco use LIFETIME NON-TOBACCO USER 11/16/2016 [facility] History of tobacco use LIFETIME NON-TOBACCO USER 10/07/2015 [facility] History of tobacco use QUIT TOBACCO USE > 7 YEARS AGO 03/29/2009 [facility] Plan of Care List of future care activities from [facility] facilities. Additional future care activities may be listed in the Assessment and Plan section. Date/Time Care Activity Care Activity Detail Facili ty 12/17/2024 AMBULATORY - MEDICINE AMBULATORY - MEDICI NE [facility] 08/08/2024 Consult Order COMMUNITY CARE-C ARDIOLOGY Cons Mothers Helper's Choice [facility] Advance Directives List of completed, amended, or rescinded Advance Directives on record at [facility] facilities. An actual copy of the Directive is not included. Date Advance Directive Provider Source 07/05/2022 ADVANCE DIRECTIVE DHIRAJ GRACIA [facility]
--- OUTSIDE RECORDS SUMMARY | 2024-08-13 13:47 | XMS_ITS | Encounter Summary ---
Author Name [facility] [place] Address [address] [place] [address] Care Team Providers Care Social Work Assistant Name Role Phone SHAINA REYES Primary Care [...] Patient's Relationship to Policy Etienne [facility] ([facility]) MEDICARE ADVANTAGE MCR ([facility]) Aug 27, 2012 [id number] [phone] Gerard LAZO PATIENT [facility] ([facility]) MEDICARE ADVANTAGE MCR ([facility]) Aug 27, 2012 [id number] [phone] Gerard LAZO PATIENT Selected Encounter This section includes the information on record at [place] for the Encounter. Date/Time Encounter Type Encounter Description Reason Pro vider Source Sep 07, 2023 12:00 PM Outpatient Encounter COMMUNITY CARE CONSULT IHE Encounter Template Text not used by [facility] Plan of Treatment: Future Appointments (+ 6 months) and Future Tests (+/- 45 days) The Plan of Treatment section includes future care activities for the patient from all [place] [facility]. This section includes future appointments and future orders which are active, pending or scheduled. Future Appointments This section includes appointments that were scheduled to occur 6 months from the date of the Encounter, up to a maximum of 20 appointments. The data comes from all [place] treatment facilities. Appointment Date/Time Appointment Type Appointme nt Facility Name Sep 17, 2023 11:00 AM AMBULATORY [place] [facility] [place] [facility] Nov 21, 2023 01:30 PM [place]ORY [place]ICINE [place] [facility] [place] [facility] Dec 05, 2023 09:30 AM AMBULATORY - [place]ICIN [place] [facility] [facility] Dec 12, 2023 09:30 AM [place] [facility] [place] [facility] Dec 20, 2023 10:30 AM [place]ORY [place] [facility] [place] [facility] January 09, 2024 11:30 AM [place]ORY [place] [facility] [place] [facility] Feb 04, 2024 02:00 PM [place] [facility] [place] [facility] Feb 06, 2024 02:15 PM [place]ORY [place] [facility] [place] [facility] Social History: Smoking Status (Most current) and Tobacco Use (All prior to encounter date) This section includes the most current, and the historical, smoking and tobacco- related health factors from the [place] facility where the Encounter took place. Current Smoking Status This section includes the most current smoking, or tobacco-related health factor, from the [place] facility where the Encounter took place. Date/Time Current Smoking Status Comment Melany ity May 21, 2023 02:00 PM [facility]ACCO [facility] Tobacco Use History This section includes a history of the smoking, or tobacco-related health factors, that were collected on or before the date of the Encounter. The data comes from the [place] facility where the Encounter took place. Date/Time Smoking Status/Tobacco Use Comment F acility May 22, 2022 03:30 PM VA-TOBACCO FOR[facility] USER [place] [facility] May 22, 2022 03:30 PM VA-TOBACCO QUIT 15 YRS OR MORE [place] [facility] Nov 15, 2018 10:40 AM [facility]ACCO [facility] Nov 16, 2016 01:42 PM LIFETIME NON-TOBACCO USER [place] [facility] Oct 07, 2015 01:01 PM LIFETIME NON-TOBACCO USER [place] [facility] [facility] Mar 29, 2009 02:36 PM QUIT TOBACCO USE > 7 YEARS AGO [facility] Advance Directives: All historical and current Section Date Range: From patient's date of to the date document was created. This section includes ALL of a patient's completed or amended [place] Advance and Rescinded Directives. The entries below indicate that a directive exists for the patient, but an actual copy is not included with this document. The data comes from all [place] facilities. Date Advance Directives Provider Source Jul 05, 2022 ADVANCE DIRECTIVE SAMIADHIRAJ [facility] Encounter Notes: All associated encounter notes [...] REQUIRED Electronically Filed: 11/09/2023 by: TEREZA GARRIDO FREIGHT AGENT TEREZA GARRIDO [facility]
--- OUTSIDE RECORDS SUMMARY | 2024-08-13 13:47 | XMS_ITS ---
Author Name [facility] [place] Address [address] [place] [address] Care Team Providers Care Geophysical Party Chief Name Role Phone ANDRES PEDRAZA Primary Care [...] to Policy Etienne [facility] ([facility]) MEDICARE ADVANTAGE MCR ([facility]) Aug 27, 2012 [id number] Gerard LAZO PATIENT [facility] ([facility]) MEDICARE ADVANTAGE MCR ([facility]) Aug 27, 2012 [id number] Gerard LAZO PATIENT Selected Encounter This [...] activities for the patient from all [place] [facility]. This section includes future appointments and [...] 21, 2023 01:30 PM [place] [facility] [place] [facility] Dec 05, 2023 09:30 AM AM[place] [facility] [place] [facility] Dec 12, 2023 09:30 AM [place] [place] [facility] Dec 20, 2023 10:30 AM [place] [facility] [place] [facility] January 09, 2024 11:30 AM [place] [place] [facility] Feb 04, 2024 02:00 PM AMBULATORY - MEDICINE [facility] [place] [facility] Feb 06, 2024 02:15 PM AMBULATORY - MEDICINE [facility] Social History: Smoking Status (Most current) and [...] 21, 2023 02:00 PM [facility]TO[facility]ACCO [facility] Tobacco Use History This section includes a history of the smoking, or tobacco-related health factors, that were collected on or before the date of the Encounter. The data comes from the [place] facility where the Encounter took place. Date/Time Smoking Status/Tobacco Use Comment F acility May 22, 2022 03:30 PM VA-TOBACCO FORMER USER [place] [facility] [place] [facility] May 22, 2022 03:30 PM VA-TOBACCO QUIT 15 YRS OR MORE [place] [facility] Nov 15, 2018 10:40 AM VA-TOBACCO NEVER USED [place] [facility] Nov 16, 2016 01:42 PM [facility] [place] [facility] Oct 07, 2015 01:01 PM LIFET[facility] Mar 29, 2009 02:36 PM QUIT TOBACCO USE > 7 YEARS AGO [facility] Advance Directives: All historical and current [...] EXP COSIGNER: URGENCY: STATUS: COMPLETED DEPARTMENT OF [facility] Toll Free Number Primary Care Telephone Assistance can be reached at extension [phone] [facility] scheduling can be reached at extension [phone] [facility] scheduling can be reached at ext [phone] TALON LAZO [address] [place] [address], [id number] October 15, 2023 Dear Nahomi, I received a message that you are requesting medications from the [place]. Please call to make an appointment to evaluate the medical issues which are associated with these medications. Please contact me if you have questions. Respectfully, Andres Pedraza MD Sincerely, Your Primary Care Team [facility] [address] [phone] [place] [address] [facility] [address] [place] [address] [place] [address] [phone] [facility] [address] [facility],[address] [place] [address] [place] [address] ANDRES [place]RAZA [place] [facility] [place]
--- OUTSIDE RECORDS SUMMARY | 2024-08-13 13:47 | XMS_ITS | Encounter Summary ---
Author Name [place] Address [address] [place] [address] Care Team Providers Care Ladies Locker Room Attendant Name Role Phone SHAINA REYES Primary Care [...] Patient's Relationship to Policy Etienne [facility] ([facility]) MEDICARE ADVANTAGE MCR ([facility]) Aug 27, 2012 [id number] Gerard LAZO PATIENT [facility] ([facility]) MEDICARE ADVANTAGE MCR ([facility]) Aug 27, 2012 [id number] Gerard LAZO PATIENT Selected Encounter This section includes the information on record at [place] for the Encounter. Date/Time Encounter Type Encounter [...] w cognitive functions and awareness DAVID GRAMAJO [place] [facility] [facility] Sep 17, 2023 05:19 PM SECONDARY (Idiopathic) normal pressure hydrocephalus DAVID GRAMAJO [place] [facility] [facility] Sep 17, 2023 05:19 PM SECONDARY Polyneuropathy, unspecified DAVID GRAMAJO [place] [facility] [facility] Plan of Treatment: Future Appointments (+ 6 months) and Future Tests (+/- 45 days) The Plan of Treatment section includes future care activities for the patient from all [place] [facility]. This section includes future appointments and future orders which are active, pending or scheduled. Future Appointments This section includes appointments that were scheduled to occur 6 months from the date of the Encounter, up to a maximum of 20 appointments. The data comes from all [place] treatment facilities. Appointment Date/Time Appointment Type Appointme nt Facility Name Nov 21, 2023 01:30 PM AMBULATORY - MEDICINE [place] C [place] [facility] Dec 05, 2023 09:30 AM AMBULATORY - REHAB MEDICIN E [place] [facility] [place] [facility] Dec 12, 2023 09:30 AM AMBULATORY - MEDICINE [place] C [place] [facility] Dec 20, 2023 10:30 AM AMBULATORY - MEDICINE [place] C [place] [facility] January 09, 2024 11:30 AM AMBULATORY - MEDICINE RI C [facility] [facility] Feb 04, 2024 02:00 PM AMBULATORY - MEDICINE RI C [place]L [place] [facility] Feb 06, 2024 02:15 PM AMBULATORY - MEDICINE [place] C [place] [facility] Vital Signs: All taken on the encounter date This section contains inpatient and outpatient Vital Signs collected on the date of the Encounter. Date/Time Temperature Pulse Blood Pressure Respiratory Rate SP02 Pain Height Weight Body Mass Index Source Sep 17, 2023 11:09 AM 97.5 F 70 /min 146/89 mm[Hg] 18 /min 97 % 4 [place] [facility] Social History: Smoking Status (Most current) and Tobacco Use (All prior to encounter date) This section includes the most current, and the historical, smoking and tobacco- related health factors from the [place] facility where the Encounter took place. Current Smoking Status This section includes the most current smoking, or tobacco-related health factor, from the [place] facility where the Encounter took place. Date/Time Current Smoking Status Comment Melany ity May 21, 2023 02:00 PM VA-TOBACCO NEVER USED [facility] Tobacco Use History This section includes a history of the smoking, or tobacco-related health factors, that were collected on or before the date of the Encounter. The data comes from the [place] facility where the Encounter took place. Date/Time Smoking Status/Tobacco Use Comment F acility May 22, 2022 03:30 PM [facility] May 22, 2022 03:30 PM VA-TOBACCO QUIT 15 YRS OR MORE [facility] Nov 15, 2018 10:40 AM VA-TOBACCO NEVER USED [facility] Nov 16, 2016 01:42 PM LIFETIME NON-TOBACCO USER [facility] Oct 07, 2015 01:01 PM LIFETIME NON-TOBACCO USER [facility] Mar 29, 2009 02:36 PM QUIT TOBACCO USE > 7 YEARS AGO [facility] Advance Directives: All historical and current Section Date Range: From patient's date of to the date document was created. This section includes ALL of a patient's completed or amended [place] Advance and Rescinded Directives. The entries below indicate that a directive exists for the patient, but an actual copy is not included with this document. The data comes from all [place] facilities. Date Advance Directives Provider Source Jul 05, 2022 ADVANCE DIRECTIVE DHIRAJ GRACIA [facility] Encounter Notes: All associated encounter notes [...] no longer driving at night, per [facility] directive, but is driving at other times, [...] new issues. David Gramajo MD Staff Neurologist [facility] ~30 mins spent on exam, assessment, counseling, and coordination [ X ] Management of Neurologic Condition was reassessed, taking into account pt's complex other medical issues and medications. [ X ] ~50% of exam was spent on discussion and education or coordination Medication Rec per Over Hauler Helper Nursing note on Aug@16:33. NO DISCREPANCIES FOUND [...] 17:22 DAVID GRAMAJO Y FELIPE CNTRL [facility]
--- OUTSIDE RECORDS SUMMARY | 2024-08-13 13:47 | XMS_ITS ---
Author Name [place] Address [address] [place] [address] Care Team Providers Care Clothes Presser Name Role Phone ANDRES PEDRAZA Primary Care [...] Etienne's Name Patient's Relationship to Policy Etienne [facility] ([facility]) MEDICARE ADVANTAGE MCR ([facility]) Aug 27, 2012 [id number] [phone] Gerard LAZO PATIENT [facility] ([facility]) MEDICARE ADVANTAGE [facility] ([facility]) Aug 27, 2012 [id number] [phone] 4 Gerard LAZO PATIENT Selected Encounter This section includes the information on record at [place] for the Encounter. Date/Time Encounter Type Encounter Description Reason Pro vider Source Oct 12, 2023 12:18 PM Outpatient Encounter ADMIN PAT ACTIVTIES (MASNONCT) IHE Encounter Template Text not used by [place] Plan of Treatment: Future Appointments (+ 6 months) and Future Tests (+/- 45 days) The Plan of Treatment section includes future care activities for the patient from all [place] [facility]. This section includes future appointments and future orders which are active, pending or scheduled. Future Appointments This section includes appointments that were scheduled to occur 6 months from the date of the Encounter, up to a maximum of 20 appointments. The data comes from all [place] treatment facilities. Appointment Date/Time Appointment Type Appointme nt Facility Name Nov 21, 2023 01:30 PM AMBULATORY - MEDICINE [place] C [place] [facility] Dec 05, 2023 09:30 AM AMBULATORY - REHAB MEDICIN E [place] [facility] [place] [facility] Dec 12, 2023 09:30 AM AMBULATORY - MEDICINE VA C [place] [facility] Dec 20, 2023 10:30 AM AMBULATORY - MEDICINE [place] C [place] [facility] January 09, 2024 11:30 AM AMBULATORY - MEDICINE [place] C [place] [facility] Feb 04, 2024 02:00 PM AMBULATORY - MEDICINE [place] C [place] [facility] Feb 06, 2024 02:15 PM AMBULATORY - MEDICINE [place] C [place] [facility] Social History: Smoking Status (Most current) and Tobacco Use (All prior to encounter date) This section includes the most current, and the historical, smoking and tobacco- related health factors from the [place] facility where the Encounter took place. Current Smoking Status This section includes the most current smoking, or tobacco-related health factor, from the [place] facility where the Encounter took place. Date/Time Current Smoking Status Comment Facil ity May 21, 2023 02:00 PM VA-TOBACCO NEVER USED [place] [facility] [place] [facility] Tobacco Use History This section includes a history of the smoking, or tobacco-related health factors, that were collected on or before the date of the Encounter. The data comes from the [place] facility where the Encounter took place. Date/Time Smoking Status/Tobacco Use Comment F acility May 22, 2022 03:30 PM VA-TOBACCO FORMER USER [place] [facility] [place] [facility] May 22, 2022 03:30 PM VA-TOBACCO QUIT 15 YRS OR MORE [place] [facility] [place] [facility] Nov 15, 2018 10:40 AM VA-TOBACCO NEVER USED [facility] [place] [facility] Nov 16, 2016 01:42 PM [facility] Oct 07, 2015 01:01 PM [facility]ET[facility] Mar 29, 2009 02:36 PM QUIT TOBACCO USE > 7 YEARS AGO [facility] Advance Directives: All historical and current Section Date Range: From patient's date of to the date document was created. This section includes ALL of a patient's completed or amended [place] Advance and Rescinded Directives. The entries below indicate that a directive exists for the patient, but an actual copy is not included with this document. The data comes from all [place] facilities. Date Advance Directives Provider Source Jul 05, 2022 ADVANCE DIRECTIVE DHIRAJ GRACIA [facility] Encounter Notes: All associated encounter notes [...] Vitamin B1 and Vitamin B12 from the [place]. He has been purchasing it over the counter recently. He also wants to know if he can get condoms from the [place]. He has bladder cancer and is receiving [...] Physician Signed: 10/15/2023 17:23 [facility]
--- OUTSIDE RECORDS SUMMARY | 2024-08-13 13:48 | XMS_ITS | Encounter Summary ---
Author Name [place] Address [address] [place] [address] Care Team Providers Care Cheese Cook Name Role Phone SHAINA PEDRAZA Primary Care [...] Patient's Relationship to Policy Etienne [facility] ([facility]) MEDICARE ADVANTAGE [facility] ([facility]) Aug 27, 2012 [id number] [phone] Gerard LAZO PATIENT [facility] ([facility]) MEDICARE ADVANTAGE [facility] ([facility]) Aug 27, 2012 [id number] Gerard LAZO PATIENT Selected Encounter This [...] Malignant neoplasm of bladder, unspecified SHAINA PEDRAZA [place] [facility] Nov 21, 2023 02:07 PM SECONDARY Encounter for immunization TEENA MANN [place] CNT [place] [facility] Plan of Treatment: Future Appointments (+ 6 months) and Future Tests (+/- 45 days) The Plan of Treatment section includes future care activities for the patient from all [place] treatmentfacilities. This section includes future appointments and future orders which are active, pending or scheduled. Future Appointments This section includes appointments that were scheduled to occur 6 months from the date of the Encounter, up to a maximum of 20 appointments. The data comes from all [place] treatment facilities. Appointment Date/Time Appointment Type Appointme nt Facility Name Dec 05, 2023 09:30 AM AMBULATORY - REHAB MEDICIN E [place] [facility] [place] [facility] Dec 12, 2023 09:30 AM AMBULATORY - MEDICINE [place] C [place]TRL [place] [facility] Dec 20, 2023 10:30 AM AMBULATORY - MEDICINE [place] C [place] [facility] January 09, 2024 11:30 AM AMBULATORY - MEDICINE [place] C [place]TR[place] [facility] Feb 04, 2024 02:00 PM AMBULATORY - MEDICINE [place] C [place] [facility] Feb 06, 2024 02:15 PM AMBULATORY - MEDICINE [place] C [place] [facility] Apr 25, 2024 11:30 AM AMBULATORY - MEDICINE [place] C [place] [facility] May 06, 2024 12:00 PM AMBULATORY - MEDICINE [place] C [place] [facility] Vital Signs: All taken on the encounter date This section contains inpatient and outpatient Vital Signs collected on the date of the Encounter. Date/Time Temperature Pulse Blood Pressure Respiratory Rate SP02 Pain Height Weight Body Mass Index Source Nov 21, 2023 01:55 PM 132/66 [place] [facility] Nov 21, 2023 01:40 PM 97.7 69 146/80 18 97 0 200 28 [facility] [place] [facility] Immunizations: All administered on the encounter [...] 2023 02:00 PM VA-TOBACCO NEVER USED [facility] Tobacco Use History This section includes a history of the smoking, or tobacco-related health factors, that were collected on or before the date of the Encounter. The data comes from the [place] facility where the Encounter took place. Date/Time Smoking Status/Tobacco Use Comment F acility May 22, 2022 03:30 PM [facility] May 22, 2022 03:30 PM VA-TOBACCO QUIT 15 YRS OR MORE NV CNTR [facility]STR[facility] Nov 15, 2018 10:40 AM NV-TOBACCO [facility] Nov 16, 2016 01:42 PM [facility] [place] [facility] Oct 07, 2015 01:01 PM LIFETIME [facility]ACCO [facility] [place] [facility] Mar 29, 2009 02:36 PM QUIT TOBACCO USE > 7 YEARS AGO [facility] Advance Directives: All historical and current [...] Jul 05, 2022 ADVANCE DIRECTIVE DHIRAJ GRACIA [facility] Encounter Notes: All associated encounter notes [...] No Active 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 Ordered occupational therapy. Discussed terms of [place] shared care pharmacy program. 11-11-2023 no-show labs. [...] of active outpatient prescriptions dispensed from this [place] (local) and dispensed from another [place] or [facility] facility (remote) as well as inpatient orders [...] Staff Physician Signed: 11/21/2023 14:07 SHAINA PEDRAZA [place] [facility] [place] [facility] Nov 21, 2023 01:43 PM PREVENTIVE [...] Nov 21, 2023 13:30 Series: Series 1 Digitizer: AdorStyle Lot: [id number] Exp Date: May 11, 2025 [facility]: [id number] Admin Route/Site: INTRAMUSCULAR/LEFT DELTOID Dosage: 0.5mL Vaccine Information Statement(s): RECOMBINANT ZOSTER VACCINE VIS Sep 30, 2021 ([place]) Order By: Policy Administered By: Phoenix Mann Vaccine Information Sheet (VIS) was given to the patient/caregiver, education regarding adverse reactions was discussed, as well as barriers to learning, if any, were acknowledged. /promise/ PHOENIX MANN LPN Signed: 11/21/2023 14:13 PHOENIX MANN [place] [facility]
--- OUTSIDE RECORDS SUMMARY | 2024-08-13 13:48 | XMS_ITS | Encounter Summary ---
Author Name Department [place] Organization [place] Address [address] [place] [address] Care Team Providers Care Global Human Resources Director Name Role Phone SHAINA REYES Primary Care [...] Patient's Relationship to Policy Etienne [facility] ([facility]) MEDICARE ADVANTAGE MCR ([facility]) Aug 27, 2012 [id number] Gerard LAZO PATIENT [facility] ([facility]) MEDICARE ADVANTAGE MCR ([facility]) Aug 27, 2012 [id number] Gerard LAZO PATIENT Selected Encounter This section includes the information on record at [place] for the Encounter. Date/Time Encounter Type Encounter Description Reason Pro vider Source Nov 20, 2023 12:00 PM Outpatient Encounter EVENT (HISTORICAL) IHE Encounter Template Text not used by [place] Plan of Treatment: Future Appointments (+ 6 months) and Future Tests (+/- 45 days) The Plan of Treatment section includes future care activities for the patient from all [place] [facility]. This section includes future appointments and future orders which are active, pending or scheduled. Future Appointments This section includes appointments that were scheduled to occur 6 months from the date of the Encounter, up to a maximum of 20 appointments. The data comes from all [place] treatment facilities. Appointment Date/Time Appointment Type Appointme nt Facility Name Nov 21, 2023 01:30 PM AMBULATORY - MEDICINE [place] C [place] [facility] Dec 05, 2023 09:30 AM AMBULATORY - REHAB MEDICIN E [place] [facility] Dec 12, 2023 09:30 AM AMBULATORY - MEDICINE ID C [place]TR[place] [facility] Dec 20, 2023 10:30 AM AMBULATORY - MEDICINE ID C [place]TR[place] [facility] January 09, 2024 11:30 AM AMBULATORY - MEDICINE [place] C [place]TRL [place] [facility] Feb 04, 2024 02:00 PM AMBULATORY - MEDICINE [facility] NTRL [place] [facility] Feb 06, 2024 02:15 PM AMBULATORY - MEDICINE ID C [place]TRL [place] [facility] Apr 25, 2024 11:30 AM AMBULATORY - MEDICINE ID C [place]TRL [place] [facility] May 06, 2024 12:00 PM AMBULATORY - MEDICINE [facility] NTRL [place] [facility] Social History: Smoking Status (Most current) and Tobacco Use (All prior to encounter date) This section includes the most current, and the historical, smoking and tobacco- related health factors from the [place] facility where the Encounter took place. Current Smoking Status This section includes the most current smoking, or tobacco-related health factor, from the [place] facility where the Encounter took place. Date/Time Current Smoking Status Comment Facil ity May 21, 2023 02:00 PM [facility]CO [facility] Tobacco Use History This section includes a history of the smoking, or tobacco-related health factors, that were collected on or before the date of the Encounter. The data comes from the [place] facility where the Encounter took place. Date/Time Smoking Status/Tobacco Use Comment F acility May 22, 2022 03:30 PM VA-TOBACCO FORMER USER [place]TRL [place] [facility] May 22, 2022 03:30 PM VA-TOBACCO QUIT 15 YRS OR MORE [facility] Nov 15, 2018 10:40 AM VA-TOBACCO [facility] Nov 16, 2016 01:42 PM LIFETIME NON-TOBACCO [facility] Oct 07, 2015 01:01 PM LIFETIME NON-TOBACCO [facility] Mar 29, 2009 02:36 PM QUIT TOBACCO USE > 7 YEARS AGO [facility] Advance Directives: All historical and current Section Date Range: From patient's date of to the date document was created. This section includes ALL of a patient's completed or amended [place] Advance and Rescinded Directives. The entries below indicate that a directive exists for the patient, but an actual copy is not included with this document. The data comes from all [place] facilities. Date Advance Directives Provider Source Jul 05, 2022 ADVANCE DIRECTIVE DHIRAJ GRACIA [facility] Encounter Notes: All associated encounter notes [...] REQUIRED Electronically Filed: 11/23/2023 by: NEEL TOLEDO [facility]
--- OUTSIDE RECORDS SUMMARY | 2024-08-13 13:49 | XMS_ITS ---
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 Date/Time Encounter Type Encounter [...] 2023 03:39 PM PRIMARY Weakness MICHELINE [facility]ISTA [facility] Plan of Treatment: Future Appointments (+ 6 months) and Future Tests (+/- 45 days) The Plan of Treatment section includes future care activities for the patient from all [place] [facility]. This section includes future appointments and future orders which are active, pending or scheduled. Future Appointments This section includes appointments that were scheduled to occur 6 months from the date of the Encounter, up to a maximum of 20 appointments. The data comes from all [place] treatment facilities. Appointment Date/Time Appointment Type Appointme nt Facility Name Dec 12, 2023 09:30 AM AMBULATORY - MEDICINE [place] [facility] [place] [facility] Dec 20, 2023 10:30 AM AMBULATORY - MEDICINE [place] [facility] [place] [facility] January 09, 2024 11:30 AM AMBULATORY - MEDICINE [place] [facility] [place] [facility] Feb 04, 2024 02:00 PM AMBULATORY - MEDICINE [place] [facility] [facility] Feb 06, 2024 02:15 PM AMBULATORY - MEDICINE [place] [facility] [facility] Apr 25, 2024 11:30 AM AMBULATORY - MEDICINE [place] [facility] [place] [facility] May 06, 2024 12:00 PM AMBULATORY - MEDICINE [place] [facility] [place] [facility] May 26, 2024 10:30 AM AMBULATORY - MEDICINE [facility] [place] [facility] Jun 05, 2024 09:00 AM AMBULATORY - MEDICINE [facility] [place] [facility] Social History: Smoking Status (Most current) and Tobacco Use (All prior to encounter date) This section includes the most current, and the historical, smoking and tobacco- related health factors from the [place] facility where the Encounter took place. Current Smoking Status This section includes the most current smoking, or tobacco-related health factor, from the [place] facility where the Encounter took place. Date/Time Current Smoking Status Comment Melany sánchez May 21, 2023 02:00 PM VA-TOBACCO NEVER USED [facility] Tobacco Use History This section includes a history of the smoking, or tobacco-related health factors, that were collected on or before the date of the Encounter. The data comes from the [place] facility where the Encounter took place. Date/Time Smoking Status/Tobacco Use Comment F acility May 22, 2022 03:30 PM VA-TOBACCO [facility]ER [facility] May 22, 2022 03:30 PM VA-TOBACCO QUIT 15 YRS OR MORE [facility] Nov 15, 2018 10:40 AM VA-TOBACCO NEVER USED [facility] Nov 16, 2016 01:42 PM LIFETIME NON-TOBACCO USER [facility] Oct 07, 2015 01:01 PM LIFETIME NON-TOBACCO [facility] Mar 29, 2009 02:36 PM QUIT TOBACCO USE > 7 YEARS AGO [facility] Advance Directives: All historical and current Section Date Range: From patient's date of to the date document was created. This section includes ALL of a patient's completed or amended [place] Advance and Rescinded Directives. The entries below indicate that a directive exists for the patient, but an actual copy is not included with this document. The data comes from all [place] facilities. Date Advance Directives Provider Source Jul 05, 2022 ADVANCE DIRECTIVE DHIRAJ GRACIA [facility] Encounter Notes: All associated encounter notes [...] Precautions: Fall Risk, pending stent surgery/12/20/23 at [facility] Patient identified by full name and [...] 3 bedrooms Bathroom: 1st floor sink/toilet Plan: [employer] application process to explore stand up shower in place of sink. 18 grab bar [employer] Oy Jenni: stand shower stall ? 3 x 3 due to space LTG: Explore variabilities of down stairs bathroom, to use [employer] funds to improve bathing set up and reduce need for access to second floor by stairway. STG: Walk in shower stall on 1st floor installed in place of sink. [employer] O[employer] jenni application intiated, and education provided on [...] 12/07/2023 08:03 MICHELINE BAUTISTA [facility]
--- OUTSIDE RECORDS SUMMARY | 2024-08-13 13:49 | XMS_ITS ---
Author Name [place] Address [address] [place] [address] Care Team Providers Care Stockroom Worker Name Role Phone SHAINA REYES Primary Care [...] Etienne's Name Patient's Relationship to Policy Etienne [facility] ([facility]) MEDICARE ADVANTAGE MCR ([facility]) Aug 27, 2012 [id number] [facility]IENT [facility]) MEDICARE ADVANTAGE MCR ([facility]) Aug 27, 2012 [id number] PATIENT Selected Encounter This section includes the information on record at [place] for the Encounter. Date/Time Encounter Type Encounter Description Reason Provider Source Dec 12, 2023 09:30 AM COMPRE OPH EXAM EST PT 1/> OPTOMETRY ICD-10-CM H25.813 Combined forms of age-related cataract, bilateral MERHAR,JAH B IHE Encounter Template Text not used by [place] Assessments - Encounter Diagnoses This section includes the primary and secondary diagnoses documented for the Encounter. Date/Time Primary/Secondary Diagnosis Diagnosis Name Provider Source Dec 12, 2023 05:23 PM PRIMARY Combined forms of age-related cataract, bilateral MERHAR,JAH B [place] [facility] [place] [facility] Dec 12, 2023 05:23 PM SECONDARY Hypermetropia, bilateral MERHAR,JAH B [facility] [place] [facility] Plan of Treatment: Future Appointments (+ 6 months) and Future Tests (+/- 45 days) The Plan of Treatment section includes future care activities for the patient from all [place] treatmentfanov[facility] centerities. This section includes future appointments [...] 20, 2023 10:30 AM AMBULATORY - MEDICINE [place] [facility] [facility] January 09, 2024 11:30 AM AMBULATORY - MEDICINE [place] [facility] [place] [facility] Feb 04, 2024 02:00 PM AMBULATORY - MEDICINE [place] [facility] [place] [facility] Feb 06, 2024 02:15 PM AMBULATORY - MEDICINE [place] [facility] [place] [facility] Apr 25, 2024 11:30 AM AMBULATORY - MEDICINE [place] [facility] [place] [facility] May 06, 2024 12:00 PM AMBULATORY - MEDICINE [place] [facility] [place] [facility] May 26, 2024 10:30 AM AMBULATORY - MEDICINE [place] [facility] [place] [facility] Jun 05, 2024 09:00 AM AMBULATORY - MEDICINE [facility] [facility] Social History: Smoking Status (Most [...] Servando sánchez May 21, 2023 02:00 PM [place]-TOBACCO NEVER USED [facility] Tobacco Use History This section includes a history of the smoking, or tobacco-related health factors, that were collected on or before the date of the Encounter. The data comes from the [place] facility where the Encounter took place. Date/Time Smoking Status/Tobacco Use Comment F acility May 22, 2022 03:30 PM VA-TOBACCO FORMER USER [facility] May 22, 2022 03:30 PM VA-TOBACCO QUIT 15 YRS OR MORE [facility] Nov 15, 2018 10:40 AM VA-TOBACCO NEVER USED [facility] Nov 16, 2016 01:42 PM LIFETIME NON-TOBACCO USER [facility] Oct 07, 2015 01:01 PM LIFETIME NON-TOBACCO [facility]ER [facility] Mar 29, 2009 02:36 PM QUIT TOBACCO USE > 7 YEARS AGO [facility] Advance Directives: All historical and current [...] Jul 05, 2022 ADVANCE DIRECTIVE DHIRAJ GRACIA [facility] Encounter Notes: All associated encounter notes [...] substance 3. Bladder cancer 4. Erectile Dysfunction ([facility] [id number]) 5. Thiamine deficiency 6. Chronic dermatitis 7. Polyneuropathy 8. Hydrocephalus (SNOMED CT [id number]) 9. Other Hemochromatosis 10. Vitamin D Deficiency [...] Signed: 12/12/2023 14:15 /promise/ JAH FALL OD Wood Preserving Plant Laborer Cosigned: 12/12/2023 17:23 12/12/2023 ADDENDUM STATUS: COMPLETED The optometry internetworking technician participated in this exam, I saw this [...] Remote Allergy/ADR Data available for this patient [facility] CORTISONE Med Recon NoGlossary (Tool #1) INCLUDED [...] the patient into personal health records (i.e. [facility]) are NOT included in this list. Non-VA medications documented outside this [place], remote inpatient orders (regardless of status) and remote clinic medications are NOT included in this list. The patient and provider must always discuss medications the patient is taking, regardless of where the medication was dispensed or obtained. OUTPT SODIUM FLUORIDE 1.1% TOOTHPASTE (Status = Active) BRUSH SMALL AMOUNT TO TEETH TWICE DAILY FOR TOOTH DECAY PREVENTION Rx# [id number] Last Released: 06/29/23 Qty/Days Supply: 51/60 Rx Expiration Date: 02/17/24 Refills Remainin Indication: FOR TOOTH DECAY PREVENTION OUTPT THIAMINE 100MG TAB (Status = Active) TAKE ONE TABLET BY MOUTH ONCE DAILY FOR VITAMIN SUPPLEMENTATION Rx# [id number] Last Released: 01/23/23 Qty/Days Supply: 100/90 Rx Expiration Date: 01/18/24 Refills Remainin SUPPLIES /promise/ JAH FALL OD Wood Preserving Plant Laborer Signed: 12/12/2023 17:23 KELLIE FLORESRL [facility] [place] [facility]
--- OUTSIDE RECORDS SUMMARY | 2024-08-13 13:49 | XMS_ITS | Encounter Summary ---
Author Name [place] Address [address] [place] [address] Care Team Providers Care Breaker Up Name Role Phone ANDRES PEDRAZA Primary Care [...] Name Patient's Relationship to Policy Etienne [facility] ([facility]) MEDICARE ADVANTAGE MCR ([facility]) Aug 27, 2012 [id number] PATIENT [facility] ([facility]) MEDICARE ADVANTAGE MCR ([facility]) Aug 27, 2012 [id number] PATIENT Selected Encounter This section includes the information on record at [place] for the Encounter. Date/Time Encounter Type Encounter Description Reason Pro vider Source Dec 03, 2023 01:00 PM Outpatient Encounter COMMUNITY CARE CONSULT IHE Encounter Template Text not used by VA Plan of Treatment: Future Appointments (+ 6 months) and Future Tests (+/- 45 days) The Plan of Treatment section includes future care activities for the patient from all [place] [facility]. This section includes future appointments and future orders which are active, pending or scheduled. Future Appointments This section includes appointments that were scheduled to occur 6 months from the date of the Encounter, up to a maximum of 20 appointments. The data comes from all [place] treatment facilities. Appointment Date/Time Appointment Type Appointme nt Facility Name Dec 05, 2023 09:30 AM AMBULATORY - REHAB MEDICIN E [place] [facility] [place] [facility] Dec 12, 2023 09:30 AM AMBULATORY - MEDICINE [place] [facility] [place] [facility] Dec 20, 2023 10:30 AM AMBULATORY - MEDICINE [place] [facility] [place] [facility] January 09, 2024 11:30 AM AMBULATORY - MEDICINE [place] [facility] [place] [facility] Feb 04, 2024 02:00 PM AMBULATORY - MEDICINE [place] [facility] [place] [facility] Feb 06, 2024 02:15 PM AMBULATORY - MEDICINE [place] [facility] [place] [facility] Apr 25, 2024 11:30 AM AMBULATORY - MEDICINE [place] [facility] [place] [facility] May 06, 2024 12:00 PM AMBULATORY - MEDICINE [place] [facility] [place] [facility] May 26, 2024 10:30 AM AMBULATORY - MEDICINE [place] [facility] [place] [facility] Social History: Smoking Status (Most current) and Tobacco Use (All prior to encounter date) This section includes the most current, and the historical, smoking and tobacco- related health factors from the [place] facility where the Encounter took place. Current Smoking Status This section includes the most current smoking, or tobacco-related health factor, from the [place] facility where the Encounter took place. Date/Time Current Smoking Status Comment Facil ity May 21, 2023 02:00 PM VA-TOBACCO NEVER USED [facility] Tobacco Use History This section includes a history of the smoking, or tobacco-related health factors, that were collected on or before the date of the Encounter. The data comes from the [place] facility where the Encounter took place. Date/Time Smoking Status/Tobacco Use Comment F acility May 22, 2022 03:30 PM VA-TOBACCO FORMER USER [place] [facility] [place] [facility] May 22, 2022 03:30 PM VA-TOBACCO QUIT 15 YRS OR MORE [facility] Nov 15, 2018 10:40 AM VA-TOBACCO NEVER USED [place] [facility] Nov 16, 2016 01:42 PM LIFETIME NON-TOBACCO USER [place] [facility] Oct 07, 2015 01:01 PM LIFETIME NON-TOBACCO USER [facility] Mar 29, 2009 02:36 PM QUIT TOBACCO USE > 7 YEARS AGO [facility] Advance Directives: All historical and current Section Date Range: From patient's date of to the date document was created. This section includes ALL of a patient's completed or amended [place] Advance and Rescinded Directives. The entries below indicate that a directive exists for the patient, but an actual copy is not included with this document. The data comes from all [place] facilities. Date Advance Directives Provider Source Jul 05, 2022 ADVANCE DIRECTIVE DHIRAJ GRACIA [facility] Encounter Notes: All associated encounter notes This section contains the clinical notes associated to the Encounter. Date/Time Encounter Note(s) Provider Source Dec 03, 2023 06:39 PM ADDENDUM: LOCAL TITLE: Addendum STANDARD TITLE: ADDENDUM DATE OF NOTE: DEC 03, 2023@18:39:40 ENTRY DATE: DEC 03, 2023@18:39:41 AUTHOR: CATHY HURTADO EXP COSIGNER: URGENCY: STATUS: COMPLETED Updated on the status of cardiology consult for [place]. He states he is scheduled for a cardiac cath 12/20/23 at [facility]. [place] Cardiology notes are available in [place]. Discussed about a diagnostic catheterization workup towards TAVR and he seems interested. [place] states he would like a VA referral if appropriate for this appt at [facility]. Thank you /promise/ CATHY HURTADO [facility] Care BSN RN RAF Signed: 12/03/2023 18:45 Receipt Acknowledged By: 12/05/2023 09:24 /promise/ Rosana Kohler RN, BSN Primary Care 12/04/2023 09:31 /es/ Andres Pedraza MD Staff Physician --- Original Document --- 12/03/23 COMMUNITY CARE-CARE COORDINATION PLAN NOTE: [facility] is requesting VA Consult for appt that occured on 11/20/[address] Murphy for non-rheumatic aortic stenosis. If in agreement please enter CC consult. Thank you [address] [place] [address] Tax ID: [id number] /promise/ CATHY HURTADO Community Care BSN RN RAF Signed: 12/03/2023 13:03 Receipt Acknowledged By: 12/03/2023 16:43 /promise/ Andres Pedraza MD Staff Physician 12/03/2023 16:11 /es/ Rosana Kohler RN, BSN Primary Care 12/03/2023 ADDENDUM STATUS: COMPLETED done /promise/ Rosana Kohler RN, BSN Primary Care Signed: 12/03/2023 15:57 12/04/2023 ADDENDUM STATUS: COMPLETED Done. /promise/ Andres Pedraza MD Staff Physician Signed: 12/04/2023 09:31 CATHY HURTADO [place] [facility] [place] [facility] Dec 03, 2023 01:00 PM NONVA NOTE: LOCAL TITLE: COMMUNITY CARE-CARE COORDINATION PLAN NOTE STANDARD TITLE: NONVA NOTE DATE OF NOTE: DEC 03, 2023@13:00 ENTRY DATE: DEC 03, 2023@13:00:34 AUTHOR: CATHY HURTADO EXP COSIGNER: URGENCY: STATUS: COMPLETED COMMUNITY CARE-CARE COORDINATION PLAN NOTE Has ADDENDA [facility] is requesting VA Consult for appt that occured on 11/20/[address] Murphy for non-rheumatic aortic stenosis. If in agreement please enter CC consult. Thank you [address] [place] [address] Tax ID: [id number] /promise/ CATHY HURTADO Count Includes [facility] CHUY RN RAF Signed: 12/03/2023 13:03 Receipt Acknowledged By: 12/03/2023 16:43 /promise/ Andres Pedraza MD Staff Physician 12/03/2023 16:11 /es/ Rosana Kohler RN, BSN Primary Care 12/03/2023 ADDENDUM STATUS: COMPLETED done /promise/ Rosana Kohler RN, BSN Primary Care Signed: 12/03/2023 15:57 12/03/2023 ADDENDUM STATUS: COMPLETED Updated [place] on the status of cardiology consult for [place]. He states he is scheduled for a cardiac cath 12/20/23 at [facility]. [place] Cardiology notes are available in [place]. Discussed about a diagnostic catheterization workup towards TAVR and he seems interested. [place] states he would like a VA referral if appropriate for this appt at [facility]. Thank you /promise/ CATHY HURTADO Count Includes [facility] CHUY [place] RAF Signed: 12/03/2023 18:45 Receipt Acknowledged By: * AWAITING SIGNATURE * ROSANA KOHLER 12/04/2023 09:31 /promise/ Andres Pedraza MD Staff Physician 12/04/2023 ADDENDUM STATUS: COMPLETED Done. /promise/ Andres Pedraza MD Staff Physician Signed: 12/04/2023 09:31 CATHY HURTADO [facility]
--- OUTSIDE RECORDS SUMMARY | 2024-08-13 13:49 | XMS_ITS ---
Author Name [facility] [place] Organization [place] Address [address] [place] [address] Care Team Providers Care Conservation Assistant Name Role Phone SHAINA REYES Primary [...] Patient's Relationship to Policy Etienne [facility] ([facility]) MEDICARE ADVANTAGE [facility] ([facility]) Aug 27, 2012 [id number] PATIENT HEALTH [facility] ([facility]) MEDICARE ADVANTAGE [facility] ([facility]) Aug 27, 2012 [id number] PATIENT Selected Encounter This section includes the information on record at [place] for the Encounter. Date/Time Encounter Type Encounter [...] of spectacles and contact lenses [facility]LL [facility] Plan of Treatment: Future Appointments (+ 6 months) and Future Tests (+/- 45 days) The Plan of Treatment section includes future care activities for the patient from all [place] [facility] [place]. This section includes future appointments and future orders which are active, pending or scheduled. Future Appointments This section includes appointments that were scheduled to occur 6 months from the date of the Encounter, up to a maximum of 20 appointments. The data comes from all [place] treatment facilities. Appointment Date/Time Appointment Type Appointme nt Facility Name Dec 20, 2023 10:30 AM AMBULATORY - MEDICINE [facility] [place] [facility] January 09, 2024 11:30 AM AMBULATORY MEDICINE [facility] [place] [facility] Feb 04, 2024 02:00 PM AMBULATORY - MEDICINE [facility] [place] [facility] Feb 06, 2024 02:15 PM AMBULATORY MEDICINE [facility] [place] [place] [facility] Apr 25, 2024 11:30 AM AMBULATORY MEDICINE [facility] [place] [place] [facility] May 06, 2024 12:00 PM AMBULATORY MEDICINE [facility] [place] [facility] May 26, 2024 10:30 AM AMBULATORY MEDICINE [facility] [place] [place] [facility] Jun 05, 2024 09:00 AM AMBULATORY MEDICINE [facility] Social History: Smoking Status (Most current) and Tobacco Use (All prior to encounter date) This section includes the most current, and the historical, smoking and tobacco- related health factors from the [place] facility where the Encounter took place. Current Smoking Status This section includes the most current smoking, or tobacco-related health factor, from the [place] facility where the Encounter took place. Date/Time Current Smoking Status Servando sánchez May 21, 2023 02:00 PM AR-TOBACCO NEVER USED [facility] Tobacco Use History This section includes a history of the smoking, or tobacco-related health factors, that were collected on or before the date of the Encounter. The data comes from the [place] facility where the Encounter took place. Date/Time Smoking Status/Tobacco Use Comment F acility May 22, 2022 03:30 PM VA-TOBACCO FOR[facility] May 22, 2022 03:30 PM VA-TOBACCO QUIT 15 YRS OR MORE [facility] Nov 15, 2018 10:40 AM VA-TOBACCO NEVER USED [facility] Nov 16, 2016 01:42 PM LIFETIME NON-TOBACCO USER [facility] Oct 07, 2015 01:01 PM LIFETIME NON-TOBACCO USER [facility] Mar 29, 2009 02:36 PM QUIT TOBACCO USE > 7 YEARS AGO [facility] Advance Directives: All historical and current Section Date Range: From patient's date of to the date document was created. This section includes ALL of a patient's completed or amended [place] Advance and Rescinded Directives. The entries below indicate that a directive exists for the patient, but an actual copy is not included with this document. The data comes from all [place] facilities. Date Advance Directives Provider Source Jul 05, 2022 ADVANCE DIRECTIVE DHIRAJ GRACIA [facility] Encounter Notes: All associated encounter notes [...] Dir: [id number]:0.00 Dir2: FITTING INFORMATION FPD:65 NPD:62 [place]:R: L: SEG HT:R:12 L:12 Tint:None Shade:None VA Billable Items FRAME: BARB HAHN [id number] Right Lens: POLY BIFOCAL FT28 PHOTOCHROMIC MARTIN 1.586 POLY Left Lens: POLY BIFOCAL FT28 PHOTOCHROMIC MARTIN 1.586 POLY /promise/ NUNU BEST HEEL SEAT FITTER Signed: 12/12/2023 10:53 Receipt Acknowledged By: 12/12/2023 11:30 /promise/ BELL ORO OPTOMETRY TECH 12/12/2023 ADDENDUM STATUS: COMPLETED PDS Service Crew Supervisor fit patient with 1 pair(s) of bifocal eyeglasses on 12/12/2023. OPT HT entered consult(s) as requested for provider signature. /promise/ BELL ORO OPTOMETRY TECH Signed: 12/12/2023 11:32 NUNU BEST CNTRL TRBucky [facility]
--- OUTSIDE RECORDS SUMMARY | 2024-08-13 13:49 | XMS_ITS | Encounter Summary ---
Author Name [place] Address [address] [place] [address] Care Team Providers Care Mobile Phlebotomist Name Role Phone SHAINA REYES Primary Care [...] Relationship to Policy Etienne [facility] ([facility]) MEDICARE ADVANTAGE [facility] ([facility]) Aug 27, 2012 [id number] PATIENT [facility] ([facility]) MEDICARE ADVANTAGE [facility] ([facility]) Aug 27, 2012 [id number] PATIENT Selected Encounter This [...] activities for the patient from all [facility]. This section includes future appointments and [...] REHAB MEDICIN E [place] [facility] Dec 12, 2023 09:30 AM AMBULATORY - MEDICINE [place] [facility] Dec 20, 2023 10:30 AM AMBULATORY - MEDICINE [place] [facility] [place] [facility] January 09, 2024 11:30 AM AMBULATORY - MEDICINE [place] [facility] [place] [facility] Feb 04, 2024 02:00 PM AMBULATORY - MEDICINE [place] [facility] [place] [facility] Feb 06, 2024 02:15 PM AMBULATORY - MEDICINE [place] [facility] [place] [facility] Apr 25, 2024 11:30 AM AMBULATORY - MEDICINE [place] [facility] [place] [facility] May 06, 2024 12:00 PM AMBULATORY - MEDICINE [place] C [place] [facility] May 26, 2024 10:30 AM AMBULATORY - MEDICINE [place] C [place] [facility] Social History: Smoking Status (Most current) [...] 21, 2023 02:00 PM VA-TOBACCO NEVER USED [facility] WSN [facility] Tobacco Use History This section includes a history of the smoking, or tobacco-related health factors, that were collected on or before the date of the Encounter. The data comes from the [place] facility where the Encounter took place. Date/Time Smoking Status/Tobacco Use Comment F acility May 22, 2022 03:30 PM VA-TOBACCO FORMER USER [place]TRL [place] [facility] May 22, 2022 03:30 PM VA-TOBACCO QUIT 15 YRS OR MORE [facility] Nov 15, 2018 10:40 AM VA-TOBACCO NEVER USED [facility] Nov 16, 2016 01:42 PM LIFETIME NON-TOBACCO US[facility] Oct 07, 2015 01:01 PM LIFETIME NON-TOBACCO [facility] Mar 29, 2009 02:36 PM QUIT TOBACCO USE > 7 YEARS AGO [facility] Advance Directives: All historical and current [...] Jul 05, 2022 ADVANCE DIRECTIVE DHIRAJ GRACIA [facility] Encounter Notes: All associated encounter notes [...] ADDENDA Patient Name: TALON LAZO Patient SSN: [id number] Date and time of Appointment No show [...] Signed: 11/29/2023 09:09 MICHELINE BAUTISTA CNTRL WSTRN [facility]
--- OUTSIDE RECORDS SUMMARY | 2024-08-13 13:50 | XMS_ITS ---
Author Name [place] Address [address] [place] [address] Care Team Providers Care Geology Professor Name Role Phone SHAINA REYES Primary Care [...] Etienne's Name Patient's Relationship to Policy Etienne [facility] ([facility]) MEDICARE ADVANTAGE [facility] ([facility]) Aug 27, 2012 [id number] PATIENT [facility]ALTH [facility] ([facility]) MEDICARE ADVANTAGE [facility] ([facility]) Aug 27, 2012 [id number] [id number] PATIENT Selected Encounter This [...] activities for the patient from all [place] [facility]. This section includes future appointments and future orders which are active, pending or scheduled. Future Appointments This section includes appointments that were scheduled to occur 6 months from the date of the Encounter, up to a maximum of 20 appointments. The data comes from all [facility]. Appointment Date/Time Appointment Type Appointme nt Facility Name Jul 28, 2024 03:00 PM AMBULATORY - [facility] MEDICIN E [facility] Aug 07, 2024 10:00 AM AMBULATORY - MEDICINE [facility] Dec 17, 2024 12:30 PM AM[facility]ULAT[facility] - [facility] NTRR[facility] Active, Pending, and Scheduled Orders This section includes a listing of several types of active, pending, and scheduled orders, including clinic medications orders, diagnostic test orders, procedure orders and consult orders; where the start date of the order is 45 days before the date of the Encounter or 45 days after the date of theEncounter. The data comes from all [facility]. Test Date/Time Test Type Test Details Facility Name Aug 08, 2024 04:58 PM Consult Order COMMUNITY CARE-CARDIOLOGY Cons Railcar Brake Operator's Choice [facility] Social History: Smoking Status (Most current) [...] Facil ity May 26, 2024 10:30 AM [place]-TOBACCO NEVER USED [facility] Tobacco Use History This section includes a history of the smoking, or tobacco-related health factors, that were collected on or before the date of the Encounter. The data comes from the [place] facility where the Encounter took place. Date/Time Smoking Status/Tobacco Use Comment F acility May 21, 2023 02:00 PM VA-TOBACCO [facility] May 22, 2022 03:30 PM VA-TOBACCO FORMER USER [place] CNTR [facility] May 22, 2022 03:30 PM VA-TOBACCO QUIT 15 YRS OR MORE [facility] Nov 15, 2018 10:40 AM VA-TOBACCO NEVER USED [facility] Nov 16, 2016 01:42 PM LIFETIME NON-TOBACCO USER [facility] Oct 07, 2015 01:01 PM LIFETIME NON-TOBACCO USER [facility] Mar 29, 2009 02:36 PM QUIT TOBACCO USE > 7 YEARS AGO [facility] Advance Directives: All historical and current [...] Jul 05, 2022 ADVANCE DIRECTIVE DHIRAJ GRACIA [facility] Encounter Notes: All associated encounter notes This section contains the clinical notes associated to the Encounter. Date/Time Encounter Note(s) Provider Source Jul 25, 2024 08:26 AM OCCUPATIONAL THERA PY NOTE: LOCAL TITLE: OCCUPATIONAL THERAPY STANDARD TITLE: OCCUPATIONAL THERAPY NOTE DATE OF NOTE: JUL 25, 2024@08:26 ENTRY DATE: JUL 25, 2024@08:26:19 AUTHOR: LISSET CLARKE EXP COSIGNER: URGENCY: STATUS: COMPLETED secondary market manager, Saima Vences, at [facility] requesting a light-weight manual w/c to use for distances within the facility and community. Appointment scheduled for 07/28/24 @ 3:00. /promise/ LISSET CLARKE OTR/L OCCUPATIONAL THERAPIST Signed: 07/25/2024 08:27 LISSET CLARKE [facility]
--- OUTSIDE RECORDS SUMMARY | 2024-08-13 13:50 | XMS_ITS | Encounter Summary ---
Author Name [place] Address [address] [place] [address] Care Team Providers Care Neuropsychology Division Chief Name Role Phone SHAINA REYES Primary Care [...] Patient's Relationship to Policy Etienne [facility] ([facility]) MEDICARE ADVANTAGE [facility] ([facility]) Aug 27, 2012 [id number] PATIENT [facility] ([facility]) MEDICARE ADVANTAGE [facility] ([facility]) Aug 27, 2012 [id number] PATIENT Selected Encounter This [...] activities for the patient from all [place] [facility]. This section includes future appointments [...] 04, 2024 02:00 PM AMBULATORY - MEDICINE [place] [facility] Feb 06, 2024 02:15 PM AMBULATORY - MEDICINE [place] [facility] Apr 25, 2024 11:30 AM AMBULATORY - MEDICINE [place] [facility] May 06, 2024 12:00 PM AMBULATORY - MEDICINE [place] C [place] [facility] May 26, 2024 10:30 AM AMBULATORY - MEDICINE [place] C [place] [facility] Jun 05, 2024 09:00 AM AMBULATORY - MEDICINE [place] C [place] [facility] Social History: Smoking Status (Most current) [...] 21, 2023 02:00 PM VA-TOBACCO NEVER [facility]ED [facility] Tobacco Use History This section includes a history of the smoking, or tobacco-related health factors, that were collected on or before the date of the Encounter. The data comes from the [place] facility where the Encounter took place. Date/Time Smoking Status/Tobacco Use Comment F acility May 22, 2022 03:30 PM VA-TOBACCO FORMER USER [place]TRL [place] [facility] May 22, 2022 03:30 PM VA-TOBACCO QUIT 15 YRS OR MORE [place] [facility] Nov 15, 2018 10:40 AM VA-TOBACCO NEVER USED [place] CNTRL [place] [facility] Nov 16, 2016 01:42 PM LIFETIME NON-TOBACCO USER [place]TRL [place] [facility] Oct 07, 2015 01:01 PM LIFETIME NON-TOBACCO USER [facility] Mar 29, 2009 02:36 PM QUIT TOBACCO USE > 7 YEARS AGO [facility] Advance Directives: All historical and [...] Jul 05, 2022 ADVANCE DIRECTIVE DHIRAJ GRACIA [facility] Encounter Notes: All associated encounter [...] REQUIRED Electronically Filed: 03/24/2024 by: MUSTAPHA VEGA Impregnating 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 MUSTAPHA VEGA [facility]
--- OUTSIDE RECORDS SUMMARY | 2024-08-13 13:50 | XMS_ITS ---
Author Name Department [place] Organization [facility] [place] Address [address] [place] [address] Care Team Providers Care Carrier Driver Name Role Phone ANDRES PEDRAZA Primary Care [...] Etienne's Name Patient's Relationship to Policy Etienne [facility] ([facility]) MEDICARE ADVANTAGE MCR ([facility]) Aug 27, 2012 [id number] Gerard LAZO PATIENT [facility] ([facility]) MEDICARE ADVANTAGE MCR ([facility]) Aug 27, 2012 [id number] [phone] Gerard LAZO PATIENT Selected Encounter This [...] activities for the patient from all [place] [facility] This section includes future appointments and future orders which are active, pending or scheduled. Future Appointments This section includes appointments that were scheduled to occur 6 months from the date of the Encounter, up to a maximum of 20 appointments. The data comes from all [facility]. Appointment Date/Time Appointment Type Appointme nt Facility Name May 26, 2024 10:30 AM AMBULATORY - MEDICINE [facility] Jun 05, 2024 09:00 AM AMBULATORY - MEDICINE [facility] Jul 28, 2024 03:00 PM AMBULATORY - REHAB MEDICIN E [facility] Aug 07, 2024 10:00 AM AMBULATORY - MEDICINE [facility] Active, Pending, and Scheduled Orders This section includes a listing of several types of active, pending, and scheduled orders, including clinic medications orders, diagnostic test orders, procedure orders and consult orders; where the start date of the order is 45 days before the date of the Encounter or 45 days after the date of theEncounter. The data comes from all [facility]. Test Date/Time Test Type Test Details Facility Name May 08, 2024 10:04 AM Consult Order COMMUNITY CARE-DENTAL GENERAL Cons Ramp Agent's Choice [facility] May 17, 2024 12:00 AM Laboratory - Chemistry Order CBC AND DIFF (AUTO) BLOOD (LAV-BLOOD) [facility] May 17, 2024 12:00 AM Laboratory - Chemistry Order BASIC METABOLIC PANEL (fasting) BLOOD (SST-SERUM) [facility] May 17, 2024 12:00 AM Laboratory - Chemistry Order LIVER FUNCTION BLOOD (SST-SERUM) [facility] May 17, 2024 12:00 AM Laboratory - Chemistry Order TSH BLOOD (SST-SERUM) [facility] May 17, 2024 12:00 AM Laboratory - Chemistry Order URINALYSIS CLEAN CATCH URINE [facility] May 17, 2024 12:00 AM Laboratory - Chemistry Order LIPID PANEL FASTING BLOOD (SST-SERUM) [facility] May 30, 2024 03:59 PM Consult Order COMMUNITY CARE-GEN SURGERY Cons Ramp Agent's Choice [facility] Social History: Smoking Status (Most current) and Tobacco Use (All prior to encounter date) This section includes the most current, and the historical, smoking and tobacco- related health factors from the [place] facility where the Encounter took place. Current Smoking Status This section includes the most current smoking, or tobacco-related health factor, from the [place] facility where the Encounter took place. Date/Time Current Smoking Status Comment Facil ity May 21, 2023 02:00 PM VA-TOBACCO NEVER USED [facility] Tobacco Use History This section includes a history of the smoking, or tobacco-related health factors, that were collected on or before the date of the Encounter. The data comes from the [place] facility where the Encounter took place. Date/Time Smoking Status/Tobacco Use Comment F acility May 22, 2022 03:30 PM VA-TOBACCO FORMER USER [facility] May 22, 2022 03:30 PM VA-TOBACCO QUIT 15 YRS OR MORE [facility] Nov 15, 2018 10:40 AM ME-TOBACCO NEVER USED [facility] Nov 16, 2016 01:42 PM LIFETIME NON-TOBACCO USER [facility] Oct 07, 2015 01:01 PM LIFETIME NON-TOBACCO USER [facility] Mar 29, 2009 02:36 PM QUIT TOBACCO USE > 7 YEARS AGO [facility] Advance Directives: All historical and current [...] Jul 05, 2022 ADVANCE DIRECTIVE DHIRAJ GRACIA [facility] Encounter Notes: All associated encounter notes [...] Patient Name: TALON LAZO Patient Primary Phone: [phone] Patient Primary Address: [address] [place] [address] Patient : 1935 Patient Age: 88 Caller/Recipient Relation to Patient: Other If Other Describe Relation to Patient: [facility] 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 Julio Dumont MD [address] [place] [id number] Anal Fissure, appt. scheduled 06/07/24 IMPORTANT: This note was created by [facility] Contact [facility] staff. Please do not alert the staff member by adding them as a signer for future communications. Alerts are not monitored by this user. /es/ CODIE GIL [facility] AMSA Signed: 05/23/2024 13:27 Receipt Acknowledged By: * AWAITING SIGNATURE * ROSANA KOHLER 05/30/2024 09:47 /es/ DYLLAN RAYA LPN LPN 05/23/2024 ADDENDUM STATUS: COMPLETED spoke with caller. She states he has to see GI doc. They will fax notes. 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 Julio Dumont MD [address] [place] [address] [place] [id number] Anal Fissure, appt. scheduled 06/07/24 IMPORTANT: This note was created by [facility] Clinical Contact Center staff. Please do not alert the staff member by adding them as a signer for future communications. Alerts are not monitored by this user. /es/ CODIE [id number] [facility] A[facility] Signed: 05/23/2024 13:27 Receipt Acknowledged By: * AWAITING SIGNATURE * ROSANA KOHLER * AWAITING SIGNATURE * DYLLAN RAYA 05/23/2024 ADDENDUM STATUS: COMPLETED spoke with caller. She states he has to see GI doc. They will fax notes. /es/ Rosana Kohler RN, BSN Primary Care Signed: 05/23/2024 14:49 05/29/2024 ADDENDUM STATUS: COMPLETED in right fax. please advise. thank you. /es/ Rosana Kohler RN, BSN Primary Care Signed: 05/29/2024 14:42 Receipt Acknowledged By: * AWAITING SIGNATURE * ANDRES PEDRAZA 05/30/2024 ADDENDUM STATUS: COMPLETED [facility] says [facility] has an anal fissure. 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 Julio Dumont MD [address] [place] [address] [place] [address] Anal Fissure, appt. scheduled 06/07/24 IMPORTANT: This note was created by [facility] Clinical Contact Center staff. Please do not alert the staff member by adding them as a signer for future communications. Alerts are not monitored by this user. /es/ CODIE BRENNANN1 [facility] AMS[facility] Signed: 05/23/2024 13:27 Receipt Acknowledged By: * AWAITING SIGNATURE * ROSANA KOHLER 05/30/2024 09:47 /es/ DYLLAN RAYA LPN LPN 05/23/2024 ADDENDUM STATUS: COMPLETED spoke with caller. She states he has to see GI doc. They will fax notes. /promise/ Rosana Kohler RN, BSN Primary Care Signed: 05/23/2024 14:49 05/29/2024 ADDENDUM STATUS: COMPLETED Fax does not give information about GI or surgery. Please ask caller why patient needs to be seen by GI. /es/ Andres Pedraza MD Staff Physician Signed: 05/29/2024 14:49 Receipt Acknowledged By: 05/30/2024 08:18 /deisi Kohler RN, BSN Primary Care 05/30/2024 ADDENDUM STATUS: COMPLETED [facility] says [facility] has an anal fissure. /promise/ Rosana Kohler RN, BSN Primary Care Signed: 05/30/2024 08:15 Receipt Acknowledged By: 05/30/2024 16:01 /promise/ Andres Pedraza MD Staff Physician 05/30/2024 ADDENDUM STATUS: COMPLETED Done. /promise/ Andres Pedraza MD Staff Physician Signed: 05/30/2024 16:00 ROSANA KOHLER ME CNT [facility] [place] [facility] May 23, 2024 01:27 PM ADMINISTRATIVE NOT E: LOCAL TITLE: CCC: SCHEDULING ADMINISTRATION STANDARD TITLE: ADMINISTRATIVE NOTE DATE OF NOTE: MAY 23, 2024@13:27:39 ENTRY DATE: MAY 23, 2024@13:27:39 AUTHOR: CODIE TROTTER EXP COSIGNER: URGENCY: STATUS: COMPLETED CCC: SCHEDULING ADMINISTRATION Has ADDENDA Patient Demographics Patient Name: TALON LAZO Patient Primary Phone: [phone] Patient Primary Address: [address] [place] [address] Patient : 1935 Patient Age: 88 Caller/Recipient Relation to Patient: Other If Other Describe Relation to Patient: [facility] 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 Julio Dumont MD [address] [place] [address] [place] [address] Anal Fissure, appt. scheduled 06/07/24 IMPORTANT: This note was created by [facility] Clinical Contact Center staff. Please do not alert the staff member by adding them as a signer for future communications. Alerts are not monitored by this user. /promise/ CODIE TROTTER VISN1 [facility] AMSA Signed: 05/23/2024 13:27 Receipt Acknowledged By: 06/03/2024 09:57 /deisi Kohler RN, BSN Primary Care 05/30/2024 09:47 /es/ DYLLAN RAYA LPN SUPERVISOR CELL OPERATION 05/23/2024 ADDENDUM STATUS: COMPLETED spoke with caller. She states he has to see GI doc. They will fax notes. /deisi Kohler RN, BSN Primary Care Signed: 05/23/2024 14:49 05/29/2024 ADDENDUM STATUS: COMPLETED in right fax. please advise. thank you. /deisi Kohler RN, BSN Primary Care Signed: 05/29/2024 14:42 Receipt Acknowledged By: 05/30/2024 16:00 /promise/ Andres Pedraza MD Staff Physician 05/29/2024 ADDENDUM STATUS: [...] 08:15 Receipt Acknowledged By: 05/30/2024 16:01 /promise/ Andres Pedraza MD Staff Physician 05/30/2024 ADDENDUM STATUS: COMPLETED Done. /deisi Pedraza MD Staff Physician Signed: 05/30/2024 16:00 [facility]TER [facility]
--- OUTSIDE RECORDS SUMMARY | 2024-08-13 13:50 | XMS_ITS ---
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) MEDICARE ADVANTAGE MCR ([facility]) Aug 27, 2012 [id number] [phone] Gerard LAZO PATIENT [facility] ([facility]) MEDICARE ADVANTAGE MCR ([facility]) Aug 27, 2012 [id number] Gerard LAZO PATIENT Selected Encounter This [...] activities for the patient from all [place] [facility]. This section includes future appointments and future [...] - MEDICINE [place] [facility] [place] [facility] Apr 25, 2024 11:30 AM AMBULATORY - MEDICINE [place] [facility] [facility] May 06, 2024 12:00 PM AMBULATORY - MEDICINE [place] C [facility] [place] [facility] May 26, 2024 10:30 AM AMBULATORY - MEDICINE [place] C [facility] [place] [facility] Jun 05, 2024 09:00 AM AMBULATORY - MEDICINE [place] C [facility] [place] [place] [facility] Jul 28, 2024 03:00 PM AMBULATORY - [facility] Social History: Smoking Status (Most [...] 21, 2023 02:00 PM [facility]BACCO [facility] Tobacco Use History This section includes a history of the smoking, or tobacco-related health factors, that were collected on or before the date of the Encounter. The data comes from the [place] facility where the Encounter took place. Date/Time Smoking Status/Tobacco Use Comment F acility May 22, 2022 03:30 PM VA-TOBACCO FORMER USER [place] [facility] [facility] May 22, 2022 03:30 PM VA-TOBACCO QUIT 15 YRS OR MORE [place] [facility] [place] [facility] Nov 15, 2018 10:40 AM VA-TOBACCO NEVER USED [place] [facility] [facility] Nov 16, 2016 01:42 PM LIFETIME NON-TOBACCO USER [place] [facility] [place] [facility] Oct 07, 2015 01:01 PM LIFETIME NON-TOBACCO USER [facility] Mar 29, 2009 02:36 PM QUIT TOBACCO USE > 7 YEARS AGO [facility] Advance Directives: All historical and current [...] Jul 05, 2022 ADVANCE DIRECTIVE DHIRAJ GRACIA [facility] Encounter Notes: All associated encounter notes [...] REQUIRED Electronically Filed: 02/18/2024 by: [place] MARTINE[facility]
--- OUTSIDE RECORDS SUMMARY | 2024-08-13 13:50 | XMS_ITS | Encounter Summary ---
Author Name [place] Address [address] [place] [address] Care Team Providers Care Dental Surgery Doctor Name Role Phone SHAINA REYES Primary Care [...] Etienne's Name Patient's Relationship to Policy Etienne [facility] ([facility]) MEDICARE ADVANTAGE MCR ([facility]) Aug 27, 2012 [id number] Gerard LAZO PATIENT [facility] ([facility]) MEDICARE ADVANTAGE MCR ([facility]) Aug 27, 2012 [id number] Gerard LAZO PATIENT Selected Encounter This section includes the information on record at [place] for the Encounter. Date/Time Encounter Type Encounter Description Reason Pro vider Source Feb 06, 2024 12:00 PM Outpatient Encounter COMMUNITY CARE CONSULT IHE Encounter Template Text not used by [facility] Plan of Treatment: Future Appointments (+ 6 months) and Future Tests (+/- 45 days) The Plan of Treatment section includes future care activities for the patient from all [place] [facility] [place]. This section includes future appointments and future orders which are active, pending or scheduled. Future Appointments This section includes appointments that were scheduled to occur 6 months from the date of the Encounter, up to a maximum of 20 appointments. The data comes from all [place] treatment facilities. Appointment Date/Time Appointment Type Appointme nt Facility Name Apr 25, 2024 11:30 AM AMBULATORY - MEDICINE [place] [facility] May 06, 2024 12:00 PM AMBULATORY - MEDICINE [place] C [place] [facility] May 26, 2024 10:30 AM AMBULATORY - MEDICINE [place] C [place] [facility] Jun 05, 2024 09:00 AM AMBULATORY - MEDICINE [place] C [place] [facility] Jul 28, 2024 03:00 PM AMBULATORY - REHAB MEDICIN E [place] [facility] Aug 07, 2024 10:00 AM AMBULATORY - MEDICINE [facility] Social History: Smoking Status (Most current) and Tobacco Use (All prior to encounter date) This section includes the most current, and the historical, smoking and tobacco- related health factors from the [place] facility where the Encounter took place. Current Smoking Status This section includes the most current smoking, or tobacco-related health factor, from the [place] facility where the Encounter took place. Date/Time Current Smoking Status Comment Facil ity May 21, 2023 02:00 PM VA-TOBACCO [facility] Tobacco Use History This section includes a history of the smoking, or tobacco-related health factors, that were collected on or before the date of the Encounter. The data comes from the [place] facility where the Encounter took place. Date/Time Smoking Status/Tobacco Use Comment F acility May 22, 2022 03:30 PM VA-TOBACCO FORMER USER [place]TR[facility] [place] [facility] May 22, 2022 03:30 PM VA-TOBACCO QUIT 15 YRS OR MORE [place] [place] [facility] Nov 15, 2018 10:40 AM VA-TOBACCO NEVER USED [place] [place] [facility] Nov 16, 2016 01:42 PM LIFETIME NON-TOBACCO USER [place]TR[place] [facility] Oct 07, 2015 01:01 PM LIFETIME NON-TOBACCO USER [facility] Mar 29, 2009 02:36 PM QUIT TOBACCO USE > 7 YEARS AGO [facility] Advance Directives: All historical and current Section Date Range: From patient's date of to the date document was created. This section includes ALL of a patient's completed or amended [place] Advance and Rescinded Directives. The entries below indicate that a directive exists for the patient, but an actual copy is not included with this document. The data comes from all [place] facilities. Date Advance Directives Provider Source Jul [...] REQUIRED Electronically Filed: 03/03/2024 by: NEEL TOLEDO [facility] Feb 06, 2024 12:00 PM NONVA CONSULT: LOCAL TITLE: COMMUNITY CARE-CONSULT RESULT NOTE STANDARD TITLE: NONVA CONSULT DATE OF NOTE: FEB 06, 2024@12:00 ENTRY DATE: APR 25, 2024@14:16:38 AUTHOR: NEEL SALDIVAR EXP COSIGNER: URGENCY: STATUS: COMPLETED VistA Imaging - Scanned Document SCANNED DOCUMENT SIGNATURE NOT REQUIRED Electronically Filed: 04/25/2024 by: NEEL TOLEDO [facility]
--- OUTSIDE RECORDS SUMMARY | 2024-08-13 13:50 | XMS_ITS ---
Author Name [place] Organization [place] Address [address] [place] [address] Care Team Providers Care Farm Loan Representative Name Role Phone ANDRES PEDRAZA Primary Care [...] to Policy Etienne [facility] ([facility]) MEDICARE ADVANTAGE MCR ([facility]) Aug 27, 2012 [id number] LAZO PATIENT [facility] ([facility]) MEDICARE ADVANTAGE MCR ([facility]) Aug 27, 2012 [id number] LAZO PATIENT Selected Encounter This [...] w cognitive functions and awareness ANDRES PEDRAZA [facility] Plan of Treatment: Future Appointments (+ 6 months) and Future Tests (+/- 45 days) The Plan of Treatment section includes future care activities for the patient from all [place] treatmentfacilst. [facility]. This section includes future appointments and future orders which are active, pending or scheduled. Future Appointments This section includes appointments that were scheduled to occur 6 months from the date of the Encounter, up to a maximum of 20 appointments. The data comes from all [facility]. Appointment Date/Time Appointment Type Appointme nt Facility Name Jun 05, 2024 09:00 AM AMBULATORY - MEDICINE [facility] Jul 28, 2024 03:00 PM AMBULATORY - REHAB MEDICIN E [facility] Aug 07, 2024 10:00 AM AMBULATORY - MEDICINE [facility] Active, Pending, and Scheduled Orders This section includes a listing of several types of active, pending, and scheduled orders, including clinic medications orders, diagnostic test orders, procedure orders and consult orders; where the start date of the order is 45 days before the date of the Encounter or 45 days after the date of theEncounter. The data comes from all [facility]. Test Date/Time Test Type Test Details Facility Name May 08, 2024 10:04 AM Consult Order COMMUNITY CARE-DENTAL GENERAL Cons Molder Machine Tender's Choice [facility] May 17, 2024 12:00 AM Laboratory - Chemistry Order CBC AND DIFF (AUTO) BLOOD (LAV-BLOOD) [facility] May 17, 2024 12:00 AM Laboratory - Chemistry Order BASIC METABOLIC PANEL (fasting) BLOOD (SST-SERUM) [facility] May 17, 2024 12:00 AM Laboratory - Chemistry Order LIVER FUNCTION BLOOD (SST-SERUM) [facility] May 17, 2024 12:00 AM Laboratory - Chemistry Order TSH BLOOD (SST-SERUM) [facility] [place] [facility] May 17, 2024 12:00 AM Laboratory - Chemistry Order LIPID PANEL FASTING BLOOD (SST-SERUM) [facility] [place] [facility] May 17, 2024 12:00 AM Laboratory - Chemistry Order URINALYSIS CLEAN CATCH URINE SP [facility] [place] [facility] May 30, 2024 03:59 PM Consult Order COMMUNITY CARE-GEN SURGERY Cons Molder Machine Tender's Choice CT [facility] [place] [facility] Vital Signs: All taken on the encounter date This section contains inpatient and outpatient Vital Signs collected on the date of the Encounter. Date/Time Temperature Pulse Blood Pressure Respiratory Rate SP02 Pain Height Weight Body Mass Index Source May 26, 2024 12:28 PM 138/80 [facility] [place] [facility] May 26, 2024 11:52 AM 97.6 66 151/80 16 [address] [facility] [place] [facility] Social History: Smoking Status (Most [...] Current Smoking Status Comment Melany ity May 26, 2024 10:30 AM VA-TOBACCO NEVER USED CT [facility] [place] [facility] Tobacco Use History This section includes a history of the smoking, or tobacco-related health factors, that were collected on or before the date of the Encounter. The data comes from the CT facility where the Encounter took place. Date/Time Smoking Status/Tobacco Use Comment F acility May 21, 2023 02:00 PM VA-TOBACCO NEVER USED [facility] [place] [facility] May 22, 2022 03:30 PM VA-TOBACCO FORMER USER [facility] [place] [facility] May 22, 2022 03:30 PM VA-TOBACCO QUIT 15 YRS OR MORE [facility] [place] [facility] Nov 15, 2018 10:40 AM VA-TOBACCO NEVER USED [facility] [place] [facility] Nov 16, 2016 01:42 PM LIFETIME NON-TOBACCO USER [facility] Oct 07, 2015 01:01 PM LIFETIME NON-TOBACCO USER [facility] Mar 29, 2009 02:36 PM QUIT TOBACCO USE > 7 YEARS AGO [facility] Advance Directives: All historical and current [...] DATE: MAY 26, 2024@12:28:56 AUTHOR: ANDRES PEDRAZA EXP COSIGNER: URGENCY: STATUS: [...] No Active Remote 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 Patient feels well today with no complaints. patient is seen today with his daughter. For the past 5 months he has been a long-term resident of [facility] and receives all medical care from their [...] of active outpatient prescriptions dispensed from this CT (local) and dispensed from another CT or DoD facility (remote) as well as [...] diminished) SENSORY CHECK: Includes 10 gram Monofilament (Columbia-Anni) test of sensation. Intact (Greater than or [...] Staff Physician Signed: 05/26/2024 12:[address] [facility]
--- OUTSIDE RECORDS SUMMARY | 2024-08-13 13:50 | XMS_ITS | Encounter Summary ---
Author Name [facility] [place] Organization [place] Address [address] [place] [address] Care Team Providers Care Transport Medic Name Role Phone SHAINA REYES Primary Care [...] Policy Etienne [facility] ([facility]) MEDICARE ADVANTAGE MCR ([facility]) Aug 27, 2012 [id number] [phone] Gerard LAZO PATIENT [facility] ([facility]) MEDICARE ADVANTAGE MCR ([facility]) Aug 27, 2012 [id number] [phone] Gerard LAZO PATIENT Selected Encounter This section includes the information on record at [place] for the Encounter. Date/Time Encounter Type Encounter Description Reason Pro vider Source Apr 25, 2024 12:00 AM Outpatient Encounter COMMUNITY CARE CONSULT IHE Encounter Template Text not used by [facility] Plan of Treatment: Future Appointments (+ 6 months) and Future Tests (+/- 45 days) The Plan of Treatment section includes future care activities for the patient [facility] [place] [facility] This section includes future appointments [...] 06, 2024 12:00 PM AMBULATORY - MEDICINE [facility] NTR [facility] May 26, 2024 10:30 AM AMBULATORY - MEDICINE [facility]L [facility] Jun 05, 2024 09:00 AM AMBULATORY - MEDICINE [facility] Jul 28, 2024 03:00 PM [facility] Aug 07, 2024 10:00 AM [facility] Active, Pending, and Scheduled Orders This section [...] AM Consult Order COMMUNITY CARE-DENTAL GENERAL Cons Advanced Registered Nurse's Choice [facility] May 17, 2024 12:00 AM Laboratory - Chemistry Order CBC AND DIFF (AUTO) [facility] May 17, 2024 12:00 AM Laboratory - Chemistry Order BASIC METABOLIC PANEL (fasting) [facility]LO[facility] ([facility]UM[facility] May 17, 2024 12:00 AM Laboratory - Chemistry Order LIPID PANEL FASTING [facility]LOOD (SST[facility]SERUM[facility] May 17, 2024 12:00 AM Laboratory - Chemistry Order TSH BLOOD (SST[facility]SERUM[facility] May 17, 2024 12:00 AM Laboratory - Chemistry Order LIVER FUNCTION BLOOD (SST[facility]SERUM[facility] May 17, 2024 12:00 AM Laboratory - Chemistry Order URINALYSIS CLEAN CATCH URINE SP [facility] May 30, 2024 03:59 PM Consult Order COMMUNITY CARE-GEN SURGERY Cons Advanced Registered Nurse's Choice [facility] Social History: Smoking Status (Most current) and Tobacco Use (All prior to encounter date) This section includes the most current, and the historical, smoking and tobacco- related health factors from the [place] facility where the Encounter took place. Current Smoking Status This section includes the most current smoking, or tobacco-related health factor, from the [place] facility where the Encounter took place. Date/Time Current Smoking Status Comment Facil ity May 21, 2023 02:00 PM VA-TOBACCO NEVER USED [facility] Tobacco Use History This section includes a history of the smoking, or tobacco-related health factors, that were collected on or before the date of the Encounter. The data comes from the [place] facility where the Encounter took place. Date/Time Smoking Status/Tobacco Use Comment F acility May 22, 2022 03:30 PM VA-TOBACCO FORMER USER [facility] May 22, 2022 03:30 PM VA-TOBACCO QUIT 15 YRS OR MORE [facility] Nov 15, 2018 10:40 AM DC-TOBACCO NEVER USED [facility] Nov 16, 2016 01:42 PM LIFETIME NON-TOBACCO USER [facility] Oct 07, 2015 01:01 PM LIFETIME NON-TOBACCO USER [facility] Mar 29, 2009 02:36 PM QUIT TOBACCO USE > 7 YEARS AGO [facility] Advance Directives: All historical and current Section Date Range: From patient's date of to the date document was created. This section includes ALL of a patient's completed or amended [place] Advance and Rescinded Directives. The entries below indicate that a directive exists for the patient, but an actual copy is not included with this document. The data comes from all [place] facilities. Date Advance Directives Provider Source Jul [...] REQUIRED Electronically Filed: 05/20/2024 by: CARIE GERONIMO CNTRL W[facility]
--- OUTSIDE RECORDS SUMMARY | 2024-08-13 13:50 | XMS_ITS | Encounter Summary ---
Author Name Department of [place] Organization [place] Address [address] [place] [address] Care Team Providers Care Enterprise Architect Name Role Phone SHAINA REYES Primary Care [...] Etienne's Name Patient's Relationship to Policy Etienne [facility]) MEDICARE ADVANTAGE MCR ([facility]) Aug 27, 2012 [id number] LAZO PATIENT [facility]ALTH [facility] ([facility]) MEDICARE ADVANTAGE MCR ([facility]) Aug 27, 2012 [id number] LAZO PATIENT Selected Encounter This section includes the information on record at [place] for the Encounter. Date/Time Encounter Type Encounter Description Reason Provider Source May 06, 2024 12:00 PM Outpatient Encounter GENERAL INTERNAL MEDICINE ICD-10-CM Z02.89 Encounter for other administrative examinations YOANDY IBANEZ Elif Encounter Template Text not used by [place] Assessments - Encounter Diagnoses This section includes the primary and secondary diagnoses documented for the Encounter. Date/Time Primary/Secondary Diagnosis Diagnosis Name Provider Source May 06, 2024 04:26 PM PRIMARY Encounter for other administrative examinations YOANDY IBANEZ [facility] Plan of Treatment: Future Appointments (+ 6 months) and Future Tests (+/- 45 days) The Plan of Treatment section includes future care activities for the patient from all [place] treatmentfacilities. This section includes future appointments and future orders which are active, pending or scheduled. Future Appointments This section includes appointments that were scheduled to occur 6 months from the date of the Encounter, up to a maximum of 20 appointments. The data comes from all [facility]. Appointment Date/Time Appointment Type Appointme nt Facility Name May 26, 2024 10:30 AM AMBULATORY - MEDICINE [facility] Jun 05, 2024 09:00 AM AMBULATORY - MEDICINE [facility] Jul 28, 2024 03:00 PM AMBULATORY - REHAB MEDICIN E [facility] Aug 07, 2024 10:00 AM AMBULATORY - MEDICINE [facility] Active, Pending, and Scheduled Orders This section includes a listing of several types of active, pending, and scheduled orders, including clinic medications orders, diagnostic test orders, procedure orders and consult orders; where the start date of the order is 45 days before the date of the Encounter or 45 days after the date of theEncounter. The data comes from all [facility]. Test Date/Time Test Type Test Details Facility Name May 08, 2024 10:04 AM Consult Order COMMUNITY CARE-DENTAL GENERAL Cons Lean Engineer's Choice [facility] May 17, 2024 12:00 AM Laboratory - Chemistry Order BASIC METABOLIC PANEL (fasting) BLOOD (SST-SERUM) [facility] May 17, 2024 12:00 AM Laboratory - Chemistry Order CBC AND DIFF (AUTO) BLOOD (LAV-BLOOD) [facility] May 17, 2024 12:00 AM Laboratory - Chemistry Order LIVER FUNCTION BLOOD (SST-SERUM) [facility] May 17, 2024 12:00 AM Laboratory - Chemistry Order URINALYSIS CLEAN CATCH [facility] May 17, 2024 12:00 AM Laboratory - Chemistry Order TSH BLOOD (SST-SERUM) [facility] May 17, 2024 12:00 AM Laboratory - Chemistry Order LIPID PANEL FASTING BLOOD (SST-SERUM) [facility] May 30, 2024 03:59 PM Consult Order COMMUNITY CARE-GEN SURGERY Cons Lean Engineer's Choice [facility] Social History: Smoking Status (Most current) [...] 21, 2023 02:00 PM VA-TOBACCO NEVER USED [facility] Tobacco Use History This section includes a history of the smoking, or tobacco-related health factors, that were collected on or before the date of the Encounter. The data comes from the [place] facility where the Encounter took place. Date/Time Smoking Status/Tobacco Use Comment F acility May 22, 2022 03:30 PM [facility] May 22, 2022 03:30 PM VA-TOBACCO QUIT 15 YRS OR MORE [facility] Nov 15, 2018 10:40 AM [facility]TO[facility]ACCO [facility] Nov 16, 2016 01:42 PM LIFETIME [facility]BACCO [facility] Oct 07, 2015 01:01 PM LIFETIME [facility]ACCO [facility] Mar 29, 2009 02:36 PM QUIT TOBACCO USE > 7 YEARS AGO [facility] Advance Directives: All historical and current [...] Jul 05, 2022 ADVANCE DIRECTIVE DHIRAJ GRACIA [place] [facility] Encounter Notes: All associated encounter notes [...] Reproductive System) Disability Benefits Questionnaire Name of Claimant/[place]: TALON LAZO ([id number]) Is this questionnaire being completed in conjunction with a VA C&P examination request? [X] Yes [ ] No [ ] In-person examination [X] Records reviewed [ ] Examination via approved video telehealth [ ] Other, please specify in comments box Comments: The 2507 dated May 05, 2024 requests the following: The [place] is service connected for bladder cancer and [...] claims file (hard copy paper C-file) [X] [place] e-folder [X] [place] electronic health record [X] Other (please identify other evidence reviewed): Evidence Comments: VBMS, JLV, VISTAIMAGING, CPRS 1. Diagnosis: Note: These are condition(s) for which an evaluation has been requested on the exam request form (Internal [place]) or for which the [place] has requested medical evidence be provided for submission to [place]. 1A. Does the currently have, or have [...] history (including onset and course) of the [place]'s urinary tract condition - brief summary: LAST C&P REVIEW 09/12/2023 BY CONTRACTOR LAST C&P REVIEW 02/05/2023 BY THIS PIN TICKET MACHINE OPERATOR. REVIEW OF AVAILABLE MEDICAL EVIDENCE: [...] Other, describe: 4. Urolithiasis 4A. Does the [place] have a history of bladder calculi (cystolithiasis) or urethral calculi (urethrolithiasis)? [ ] Yes [X] No 4B. Indicate location of calculi - check all that apply: [ ] Urethra [ ] Bladder 4C. Has the had treatment for recurrent stone formation in the bladder or urethra? [ ] Yes [ ] No If yes, indicate treatment - check all that apply: [ ] Invasive or non-invasive procedures two times or less per year [ ] Invasive or non-invasive procedures more than two times per year [ ] Diet therapy [ ] Drug therapy 4D. Does the have signs or symptoms due to cystolithiasis [...] or Urethral Infection ------ 5A. Does the have a history of recurrent, symptomatic bladder or urethral infections? [ ] Yes [X] No If yes, complete 5B and 5C: 5B. Etiology of bladder or urethral infections, if known: No response provided. 5C. If the [place] has had recurrent, symptomatic urethral or bladder [...] Comment box below (6J) 6D. Does the [place] have any findings, signs, or symptoms attributable to a urethral fistula? [ ] Yes [X] No If yes, describe in Comment box below (6J). 6E. 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 [ ] Yes [...] Comment box below (6J). 6H. Has the [place] had other bladder surgery? [X] Yes [ [...] 7. Tumors and Neoplasms 7A. Does the [place] currently have, or has had, a benign [...] known: No response provided. 7C. Has the [place] completed treatment, or is the [place] currently undergoing treatment for, a benign or [...] completion: No response provided. 7D. Does the currently have any residuals or complications due [...] Signs, Symptoms, and Scars 8A. Does the [place] have any other pertinent physical findings, complications, [...] testing is not required. 9A. Has the [place] had diagnostic testing in conjunction with this [...] describe the impact of each of the 's bladder or urethra condition(s), providing one or more examples: No response provided. 11. Remarks 11A. Remarks (if any, please identify the section to which the remark pertains when appropriate): The 's condition is considered ACTIVE as less than a year passed since the last treatment. /promise/ YOANDY IBANEZ NURSE PRACTITIONER Signed: 05/06/2024 16:24 MANUELA IBANEZ [facility] CNTRL W[facility]
--- OUTSIDE RECORDS SUMMARY | 2024-08-13 13:50 | XMS_ITS ---
Author Name [place] Organization [place] Address [address] [place] [address] Care Team Providers Care Drop Hammer Pile Driver Operator Name Role Phone SHAINA REYES Primary Care [...] Name Patient's Relationship to Policy Etienne [facility] ([facility]) MEDICARE ADVANTAGE MCR ([facility]) Aug 27, 2012 [id number] PATIENT [facility] ([facility] MEDICARE ADVANTAGE MCR ([facility]) Aug 27, 2012 [id number] [address] PATIENT Selected Encounter This [...] activities for the patient from all [place] [facility]. This section includes future appointments and future orders which are active, pending or scheduled. Future Appointments This section includes appointments that were scheduled to occur 6 months from the date of the Encounter, up to a maximum of 20 appointments. The data comes from all [facility]. Appointment Date/Time Appointment Type Appointme nt Facility Name Jun 05, 2024 09:00 AM AMBULATORY - MEDICINE [facility] Jul 28, 2024 03:00 PM AMBULATORY - REHAB MEDICIN E [facility] Aug 07, 2024 10:00 AM AMBULATORY - MEDICINE [facility] Active, Pending, and Scheduled Orders This section includes a listing of several types of active, pending, and scheduled orders, including clinic medications orders, diagnostic test orders, procedure orders and consult orders; where the start date of the order is 45 days before the date of the Encounter or 45 days after the date of theEncounter. The data comes from all [facility]. Test Date/Time Test Type Test Details Facility Name May 08, 2024 10:04 AM Consult Order COMMUNITY CARE-DENTAL GENERAL Cons Vp Clinical Research's Choice [facility] May 17, 2024 12:00 AM Laboratory - Chemistry Order CBC AND DIFF (AUTO) BLOOD (LAV-BLOOD) [facility] May 17, 2024 12:00 AM Laboratory - Chemistry Order BASIC METABOLIC PANEL (fasting) BLOOD (SST-SERUM) [facility] May 17, 2024 12:00 AM Laboratory - Chemistry Order LIVER FUNCTION BLOOD (SST-SERUM) [facility] May 17, 2024 12:00 AM Laboratory - Chemistry Order TSH BLOOD (SST-SERUM) [facility] May 17, 2024 12:00 AM Laboratory - Chemistry Order LIPID PANEL FASTING BLOOD (SST-SERUM) [facility] May 17, 2024 12:00 AM Laboratory - Chemistry Order URINALYSIS CLEAN CATCH URINE [facility] May 30, 2024 03:59 PM Consult Order COMMUNITY CARE-GEN SURGERY Cons Vp Clinical Research's Choice [place] [facility] [place] [facility] Vital Signs: All taken on the encounter date This section contains inpatient and outpatient Vital Signs collected on the date of the Encounter. Date/Time Temperature Pulse Blood Pressure Respiratory Rate SP02 Pain Height Weight Body Mass Index Source May 26, 2024 12:28 PM 138/80 [place] [facility] [place] [facility] May 26, 2024 11:52 AM 97.6 66 151/80 16 98 4 71 232 32 [place] [facility] [place] [facility] Social History: Smoking Status (Most [...] 2024 10:30 AM [facility]ACCO [facility] [place] [facility] Tobacco Use History This section includes a history of the smoking, or tobacco-related health factors, that were collected on or before the date of the Encounter. The data comes from the [place] facility where the Encounter took place. Date/Time Smoking Status/Tobacco Use Comment F acility May 21, 2023 02:00 PM VA-TOBACCO NEVER USED [place] [facility] [place] [facility] May 22, 2022 03:30 PM VA-TOBACCO FORMER USER [place] [facility] [place] [facility] May 22, 2022 03:30 PM VA-TOBACCO QUIT 15 YRS OR MORE [place] [facility] [place] [facility] Nov 15, 2018 10:40 AM VA-TOBACCO NEVER USED [place] [facility] [place] [facility] Nov 16, 2016 01:42 PM LIFETIME NON-TOBACCO USER [place] [facility] [place] [facility] Oct 07, 2015 01:01 PM LIFETIME NON-TOBACCO USER [place] [facility] [place] [facility] Mar 29, 2009 02:36 PM QUIT TOBACCO USE > 7 YEARS AGO [place] [facility] [place] [facility] Advance Directives: All historical and [...] Jul 05, 2022 ADVANCE DIRECTIVE DHIRAJ GRACIA [facility] Encounter Notes: All associated encounter notes This section contains the clinical notes associated to the Encounter. Date/Time Encounter Note(s) Provider Source May 26, 2024 11:02 AM CLERICAL NOTE: LOCAL TITLE: APPOINTMENT NO SHOW STANDARD TITLE: CLERICAL NOTE DATE OF NOTE: MAY 26, 2024@11:02 ENTRY DATE: MAY 26, 2024@11:02:22 AUTHOR: DHIRAJ GRACIA EXP COSIGNER: URGENCY: STATUS: COMPLETED Patient Name: TALON LAZO Patient SSN: [id number] Date and time of Appointment No show [...] GRACIA AMSA Signed: 05/26/2024 11:02 DHIRAJ GRACIA [facility]
--- OUTSIDE RECORDS SUMMARY | 2024-08-13 13:50 | XMS_ITS ---
Author Name [place] Address [address] [place] [address] Care Team Providers Care Patrol Man Name Role Phone SHAINA REYES Primary Care [...] Etienne's Name Patient's Relationship to Policy Etienne [facility] ([facility]) MEDICARE ADVANTAGE MCR ([facility]) Aug 27, 2012 [id number] PATIENT [facility]ALTH [facility] ([facility]) MEDICARE ADVANTAGE MCR ([facility]) Aug 27, 2012 [id number] [address] PATIENT Selected Encounter This [...] activities for the patient from all [place] [facility]. This section includes future appointments and future orders which are active, pending or scheduled. Future Appointments This section includes appointments that were scheduled to occur 6 months from the date of the Encounter, up to a maximum of 20 appointments. The data comes from all [facility] facilities. Appointment Date/Time Appointment Type Appointme nt Facility Name May 26, 2024 10:30 AM AMBULATORY - [facility] Jun 05, 2024 09:00 AM AMBULATORY - MEDICINE [facility] Jul 28, 2024 03:00 PM AMBULATORY - REHAB MEDICIN E [facility] Aug 07, 2024 10:00 AM AMBULATORY - MEDICINE [facility] Active, Pending, and Scheduled Orders This [...] comes from all [facility]. Test Date/Time Test Type Test Details Facility Name May 08, 2024 10:04 AM Consult Order COMMUNITY CARE-DENTAL GENERAL Cons Shop Steward's Choice [facility] May 17, 2024 12:00 AM Laboratory - Chemistry Order CBC AND DIFF (AUTO) BLOOD (LAV-BLOOD) [facility] May 17, 2024 12:00 AM Laboratory - Chemistry Order BASIC METABOLIC PANEL (fasting) [facility]LOOD ([facility]SERUM) [facility] May 17, 2024 12:00 AM Laboratory - Chemistry Order LIVER FUNCTION BLOOD (SST-SERUM) [facility] May 17, 2024 12:00 AM Laboratory - Chemistry Order LIPID PANEL FASTING BLOOD (SST-SERUM) [facility] May 17, 2024 12:00 AM Laboratory - Chemistry Order TSH BLOOD (SST-SERUM) [facility] May 17, 2024 12:00 AM Laboratory - Chemistry Order URINALYSIS CLEAN [facility]ATCH [facility] May 30, 2024 03:59 PM Consult Order COMMUNITY CARE-GEN SURGERY Cons Shop Steward's Choice [facility] Social History: Smoking Status (Most [...] 21, 2023 02:00 PM VA-TOBACCO NEVER USED [facility] Tobacco Use History This section includes a history of the smoking, or tobacco-related health factors, that were collected on or before the date of the Encounter. The data comes from the [place] facility where the Encounter took place. Date/Time Smoking Status/Tobacco Use Comment F acility May 22, 2022 03:30 PM [facility] May 22, 2022 03:30 PM VA-TOBACCO QUIT [facility] YRS [facility] Nov 15, 2018 10:40 AM [facility] Nov 16, 2016 01:42 PM LIFETIME NON-[facility]BACCO [facility] Oct 07, 2015 01:01 PM LIFETIME [facility]ACCO [facility] Mar 29, 2009 02:36 PM QUIT TOBACCO USE > 7 YEARS AGO [facility] Advance Directives: All historical and [...] Jul 05, 2022 ADVANCE DIRECTIVE DHIRAJ GRACIA [facility] Encounter Notes: All associated encounter [...] to your upcoming appt. [X] Location in [facility] [X] Fasting labs [ ] Lab work within 30 days [ ] Urine [ ] No Preparation Action taken: [X] Called , left voice message Apr [ ] Called , unable to leave voice mail [ ] Spoke to /healthcare administrator to remind them of upcoming appt/preparations Upcoming Appointments: 05/26/2024 10:30 CWM/NO/PACT 2 12/17/2024 12:30 CWM/NO/OPTOMETRY/MERHAR /es/ DHIRAJ GRACIA AMSA Signed: 05/22/2024 14:[address] [facility] [place] [facility]
--- OUTSIDE RECORDS SUMMARY | 2024-08-13 13:51 | XMS_ITS ---
Author Name [place] Address [address] [place] [address] Care Team Providers Care Cytogenetic Technician Name Role Phone SHAINA PEDRAZA Primary Care [...] Etienne's Name Patient's Relationship to Policy Etienne [facility] ([facility]) MEDICARE ADVANTAGE [facility] ([facility]) Aug 27, 2012 [id number] PATIENT [facility]ALTH [facility] ([facility]) MEDICARE ADVANTAGE [facility] ([facility]) Aug 27, 2012 [id number] [address] PATIENT Selected Encounter This [...] abnormalities of gait and mobility LISSET CLARKE [facility] Plan of Treatment: Future Appointments (+ 6 months) and Future Tests (+/- 45 days) The Plan of Treatment section includes future care activities for the patient from all [place] [facility]. This section includes future appointments and future orders which are active, pending or scheduled. Future Appointments This section includes appointments that were scheduled to occur 6 months from the date of the Encounter, up to a maximum of 20 appointments. The data comes from all [facility]. Appointment Date/Time Appointment Type Appointme nt Facility Name Aug 07, 2024 10:00 AM AMBULATORY - MEDICINE [facility] Dec 17, 2024 12:30 PM AMBULATORY - MEDICINE [facility] Active, Pending, and Scheduled Orders This section includes a listing of several types of active, pending, and scheduled orders, including clinic medications orders, diagnostic test orders, procedure orders and consult orders; where the start date of the order is 45 days before the date of the Encounter or 45 days after the date of theEncounter. The data comes from all [facility] hospital. Test Date/Time Test Type Test Details Facility Name Aug 08, 2024 04:58 PM Consult Order COMMUNITY CARE-CARDIOLOGY Cons Director Radio News's Choice [facility] Social History: Smoking Status (Most current) [...] 26, 2024 10:30 AM VA-TOBACCO NEVER USED [facility] Tobacco Use History This section includes a history of the smoking, or tobacco-related health factors, that were collected on or before the date of the Encounter. The data comes from the [place] facility where the Encounter took place. Date/Time Smoking Status/Tobacco Use Comment F acility May 21, 2023 02:00 PM [facility] [place] [facility] May 22, 2022 03:30 PM VA-TOBACCO FORMER USER [place] [facility] [place] [facility] May 22, 2022 03:30 PM VA-TOBACCO QUIT 15 YRS OR MORE [facility] Nov 15, 2018 10:40 AM VA-TOBACCO NEVER USED [facility] Nov 16, 2016 01:42 PM LIFETIME NON-TOBACCO USER [place] [facility] [place] [facility] Oct 07, 2015 01:01 PM LIFETIME NON-TOBACCO USER [place] [facility] [place] [facility] Mar 29, 2009 02:36 PM QUIT TOBACCO USE > 7 YEARS AGO [facility] Advance Directives: All historical and current Section [...] Jul 05, 2022 ADVANCE DIRECTIVE DHIRAJ GRACIA [facility] W[facility] Encounter Notes: All associated encounter notes [...] this initial assessment on 07/28/24 at the [facility]. Significant Medical History: R knee replacement PMHx: Active problems - Computerized Problem List is the source for the followin. Anal fissure 2. Cognitive disorder 3. Exposure to potentially hazardous substance 4. Bladder cancer 5. Erectile Dysfunction (SCT [id number]) 6. Thiamine deficiency 7. Chronic dermatitis 8. Polyneuropathy 9. 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 Vitamin D Deficiency 12. 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 Decreased, vision NEC 15. Obesity 16. Dyslipidemia ENVIRONMENT/SOCIAL SUPPORT: Living situation: LTC at the [facility] Support/services: 24 hour assist as needed CURRENT LEVEL OF FUNCTION: ADLs: requires some assist with ADL's IADLs: dependent Mobility: Transfers: independent Ambulation: supervision with walker- short distances W/c propulsion: independent- BL UE's and LE's WHEELCHAIR HISTORY: [x] Manual [ ] electric Model: [employer] EX2 Seat: Width: 18 Depth: 18 Issues: uncomfortable, wrong size PRIMARY GOAL: improve distances within the facility and community access with family and for appointments O/ Pt seen at [facility]. Seated in Ex2 manual w/c. OT EVAL: [...] with once chair arrives to clinic at [facility]. LT. Pt will demonstrate ability to independently manage manual w/c within the LTC setting and community in order to increase independence, effectively in activities and iADL's ST. Assess for most appropriate mobility device 2. [place] will demonstrate good safety with manual chair /es/ LISSET CLARKE OTR/L OCCUPATIONAL THERAPIST Signed: 07/29/2024 15:02 LISSET CLARKE [place] [facility]
--- OUTSIDE RECORDS SUMMARY | 2024-08-13 13:51 | XMS_ITS | Encounter Summary ---
Author Name [place] Address [address] [place] [address] Care Team Providers Care Denture Processor Name Role Phone ANDRES PEDRAZA Primary Care [...] Relationship to Policy Etienne [facility] ([facility]) MEDICARE ADVANTAGE MCR ([facility]) Aug 27, 2012 [id number] PATIENT [facility] ([facility]) MEDICARE ADVANTAGE MCR ([facility]) Aug 27, 2012 [id number] PATIENT Selected Encounter This section includes the information on record at [place] for the Encounter. Date/Time Encounter Type Encounter Description Reason Pro vider Source Aug 08, 2024 10:16 AM Outpatient Encounter COMMUNITY CARE CONSULT IHE Encounter Template Text not used by VA Plan of Treatment: Future Appointments (+ 6 months) and Future Tests (+/- 45 days) The Plan of Treatment section includes future care activities for the patient from all [place] [facility]. This section includes future appointments [...] 17, 2024 12:30 PM AMBULATORY - MEDICINE [facility] Active, Pending, and Scheduled Orders This section includes a listing of several types of active, pending, and scheduled orders, including clinic medications orders, diagnostic test orders, procedure orders and consult orders; where the start date of the order is 45 days before the date of the Encounter or 45 days after the date of theEncounter. The data comes from all [facility] facilities. Test Date/Time Test Type Test Details Facility Name Aug 08, 2024 04:58 PM Consult Order COMMUNITY CARE-CARDIOLOGY Cons Organic Chemistry Teacher's Choice [facility] Social History: Smoking Status (Most [...] 26, 2024 10:30 AM VA-TOBACCO [facility] Tobacco Use History This section includes a history of the smoking, or tobacco-related health factors, that were collected on or before the date of the Encounter. The data comes from the [place] facility where the Encounter took place. Date/Time Smoking Status/Tobacco Use Comment F acility May 21, 2023 02:00 PM VA-TOBACCO NEVER USED [place] [facility] [place] [facility] May 22, 2022 03:30 PM VA-TOBACCO FORMER USER [place] [facility] [place] [facility] May 22, 2022 03:30 PM VA-TOBACCO QUIT 15 YRS OR MORE [facility] Nov 15, 2018 10:40 AM VA-TOBACCO NEVER USED [place] [facility] Nov 16, 2016 01:42 PM LIFETIME NON-TOBACCO USER [facility]N [facility] Oct 07, 2015 01:01 PM LIFETIME NON-TOBACCO [facility] Mar 29, 2009 02:36 PM [...] the Encounter. Date/Time Encounter Note(s) Provider Source Aug 08, 2024 02:20 PM ADDENDUM: LOCAL TITLE: Addendum STANDARD TITLE: ADDENDUM DATE OF NOTE: AUG 08, 2024@14:20:47 ENTRY DATE: AUG 08, 2024@14:20:47 AUTHOR: ROSANA KOHLER EXP COSIGNER: URGENCY: STATUS: COMPLETED My computer won't enter this consult right now. please enter if agree. thank you. /promise/ Rosana Kohler RN, BSN Primary Care Signed: 08/08/2024 14:21 Receipt Acknowledged By: 08/08/2024 16:59 /promise/ Andres Pedraza MD Staff Physician --- Original Document --- 08/08/24 ADMINISTRATIVE NOTE: [facility] was [facility] by [facility] yesterday 08/07/24 for an echocardiogram and has follow up scheduled for next week. Troy's previous authorization is . Should PCP be in agreement a new Cardiology consult would be needed for continuation of care. Alerting PACT for review and RCI nurse for informational purposes. /deisi JONES Signed: 08/08/2024 10:18 Receipt Acknowledged By: 08/08/2024 14:21 /deisi Kohler RN, BSN Primary Care 08/08/2024 16:59 /promise/ Andres Pedraza MD Staff Physician 08/08/2024 13:02 /promise/ GISSELL FLOWERS RN Referral Coordination Initiative Nurse 08/08/2024 ADDENDUM STATUS: COMPLETED done. please sign if agree. thank you. /deisi Kohler RN, BSN Primary Care Signed: 08/08/2024 10:44 08/08/2024 ADDENDUM STATUS: COMPLETED Done. /deisi Pedraza MD Staff Physician Signed: 08/08/2024 16:58 ROSANA KOHLER [place] [facility] [facility] Aug 08, 2024 10:16 AM ADMINISTRATIVE NOT E: LOCAL TITLE: ADMINISTRATIVE NOTE STANDARD TITLE: ADMINISTRATIVE NOTE DATE OF NOTE: AUG 08, 2024@10:16 ENTRY DATE: AUG 08, 2024@10:16:55 AUTHOR: FERCHO JONES EXP COSIGNER: URGENCY: STATUS: COMPLETED ADMINISTRATIVE NOTE Has ADDENDA Received call from Zuleyka at [facility] reporting Troy was seen by [facility] yesterday 08/07/24 for an echocardiogram and has follow up scheduled for next week. 's previous authorization is . Should PCP be in agreement a new Cardiology consult would be needed for continuation of care. Alerting PACT for review and RCI nurse for informational purposes. /deisi JONES Signed: 08/08/2024 10:18 Receipt Acknowledged By: 08/08/2024 14:21 /deisi Kohler RN, BSN Primary Care 08/08/2024 16:59 /promise/ Andres Pedraza MD Staff Physician 08/08/2024 13:02 /promise/ GISSELL FLOWERS outboard motors experimental mechanic Coordination Initiative Nurse 08/08/2024 ADDENDUM STATUS: COMPLETED done. please sign if agree. thank you. /es/ Rosana Edita RN, BSN Primary Care Signed: 08/08/2024 10:44 08/08/2024 ADDENDUM STATUS: COMPLETED My computer won't enter this consult right now. please enter if agree. thank you. /promise/ Rosana Kohler RN, BSN Primary Care Signed: 08/08/2024 14:21 Receipt Acknowledged By: 08/08/2024 16:59 /promise/ Andres Pedraza MD Staff Physician 08/08/2024 ADDENDUM STATUS: COMPLETED Done. /promise/ Andres Pedraza MD Staff Physician Signed: 08/08/2024 16:58 FERCHO JONES [facility]
--- OUTSIDE RECORDS SUMMARY | 2024-08-13 13:52 | XMS_ITS | Patient Health Record ---
Author Organization [facility] Francesca [place]right [place] Address [address] [place] [address] Care Team Providers Care Surface Miner Name Role Phone Jl Santana Primary Care Provider Unav ailable Ke Saleem Unavailable [phone] Allergies Allergen (clinical drug ingredient) Drug/Non Drug [...] Ordered Date Performed Result Body Sit e 70335-JVISWYT NAIL, 6 OR MORE 10/30/2023 N/A 94821-SSXI SKIN LESIONS, OVER 4 10/30/2023 N/A Encounters Encounter Location Date Provider Diagnosis [facility] [address] [place] [address] 10/30/2023 Ke Saleem Atherosclerosis of green[place] artery of both lower extremities, with unspecified presence of clinical manifestation I70.203 ; Tinea unguium B35.1 ; Pain in right toe(s) M79.674 and Pain in left toe(s) M79.[address] [address] 12/17/2023 [facility] [address] [place] [address] 01/18/2024 [facility] [address] 01/29/2024 Ke [facility] [address] 01/29/2024 Ke Saleem Assessments Encounter Date Diagnosis (ICD Code) Assessment Notes Treatment Notes Treatment Clinical Notes Section Notes 10/30/2023 Tinea unguium (ICD-10 - B35.1) 10/30/2023 Atherosclerosis of [place] artery of both lower extremities, with unspecified presence of clinical manifestation (ICD-10 - I70.203) 10/30/2023 Pain in right toe(s) (ICD-10 - M79.674) 10/30/2023 Pain in left toe(s) (ICD-10 - M79.675) Plan Of Treatment Pending Test Test Name Order Date [id number]-AYKLANF NAIL, 6 OR MORE 07/31/2023 82436-NOHXIVN NAIL, 6 OR MORE 10/30/2023 90746-QPJS SKIN LESIONS, OVER 4 10/30/19 24 02691-TWFI SKIN LESIONS, 2 TO 4 07/31/20 23 Insurance Providers Payer Name Payer Address Payer Phone Subscriber Number Group Number Insured Name Patient Relationship to Insured Coverage Start Date Coverage End Date [employer] [address] JOHNIE Anderson [phone] [id number] Raad Dewitt Self - patient is the insured Medical (General) History Medical History History ICD Code broken bones measles chicken pox prostate conditions Back,Hip,and Knee pain Cancer- skin,bladder Mumps Bone implants/screws hydrocephulus hemochromatosis Surgical History Surgery Date(Month/Year) brain surgery-fluid on brain 11/2012 appendectomy 11/2012 knee surgery 2018
--- OUTSIDE RECORDS SUMMARY | 2024-08-13 13:52 | XMS_ITS ---
Author Organization [facility] Address [address] [place] [address] Care Team Providers Care Bulk Mail Clerk Name Role Phone Jl Santana Primary Care Provider Unav ailable Ke Saleem Unavailable [phone] REASON FOR VISIT Cx appt Encounters Encounter Location Date Provider Diagnosis [address] [address] 01/29/2024 Ke Saleem Plan Of Treatment No Information Progress Notes * Raad LAZO WDOB: [birth year] (88 yo M)Acc No.[id number]:01/29/2024 Patient:?Raad Lazo :1935???Age:88 Y???Sex:Male Address:[address] [place] [address] [place], [address] * true * Date:? Generated for Debbii alberto/Torrie/eTransmitting on:?08/13/2024 01:51 PM EST
--- OUTSIDE RECORDS SUMMARY | 2024-08-13 13:52 | XMS_ITS ---
Author Organization [facility] Address [address] [place] [address] Care Team Providers Care Bunghole Borer Name Role Phone Jl Santana Primary Care Provider Unav ailable Ke Saleem Unavailable [phone] Encounters Encounter Location Date Provider Diagnosis [facility] [address] [place] [address] 01/29/2024 Ke Saleem Plan Of Treatment No Information Progress Notes * Raad LAZO WDOB: [birth year] (89 yo M)Acc No.[id number]:01/29/2024 Progress Note Patient:?Raad LAZO Provider:?Ke Saleem DPM :1935???Age:88 Y???Sex:Male Ayaz e:01/29/2024 Address:[address] [place], [place] [id number] Pcp:DOC Wall Subjective: * Chief Complaints: * ??? * Medical History:? Objective: * Vitals:? Assessment: Plan: * Treatment: * Images: * The named appointment provid er may or may not be the originator of this progress note, and it is not deemed complete until electronically signed by the appointment provider. Sign off status: Pending * Provider:?Ke Saleem DPM Date:?2023 Generated for Susi dominguez/Torrie/eTransmitting on:?08/13/2024 01:51 PM EST
--- OUTSIDE RECORDS SUMMARY | 2024-08-13 13:52 | XMS_ITS ---
Author Organization [facility] Address [address] [place] [address] Care Team Providers Care In School Suspension Aide Name Role Phone Jl Santana Primary Care Provider Unav ailable Ke Saleem Unavailable [phone] REASON FOR VISIT CX 10:00 appt Encounters Encounter Location Date Provider Diagnosis [address] [address] 01/29/2024 Ke Saleem Plan Of Treatment No Information Progress Notes * Raad LAZO WDOB: [birth year] (88 yo M)Acc No.[id number]:01/29/2024 Patient:?Raad Lazo :1935???Age:88 Y???Sex:Male Address:[address] [place] [address] [place], [address] * true * Date:? Generated for Debbii alberto/Torrie/eTransmitting on:?08/13/2024 01:51 PM EST
--- NOTE | 2024-08-13 13:59 | MHC.OFFVIS ---
Vital Signs 08/13/24 14:00 Height 5 ft 11 in Weight 227 lb 1.218 oz BMI 31.7 BP 118/60 Blood Pressure Location Lt brachial Position Sitting Pulse 76 Pulse Source Pulse Oximeter Intake Visit Reasons: 6 mth s/p echo Allergies hydrocortisone [Cortizone-10] Allergy (Unknown, Verified 07/31/24 10:01) hives Medication List - Last Reconciled 08/13/24 by Valdo Murphy MD cholecalciferol (vitamin D3) 25 mcg PO DAILY garlic 100 mg PO DAILY [ibuprofen 200 mg PO Q6-8H PRN] mecobalamin (vitamin B12) 1,000 mcg PO DAILY pyridoxine (vitamin B6) 500 mg PO DAILY thiamine HCl (vitamin B1) 100 mg PO DAILY HPI Comments Details: Raad returns for follow-up regarding aortic stenosis. Overall, he states he feels okay. He does not have any clear-cut complaints like angina or shortness of breath or dizzy spells or syncopal episodes. We had originally planned cardiac catheterization/possible TAVR but then decided against it as there was concern for bleeding from bladder with antiplatelet drugs. Now we are revisiting that thought. 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 Daughter No problems noted. Social History Household Members: None Housing: House Are you a primary healthcare financial analyst to a significant other at home: No Do you presently have visiting nurse or other home services: Yes (daily Meals on Wheels, very supportive Daughter Funmi and Son-in-law Raad) Alcohol intake: current Alcohol intake frequency: 0-2 drinks per day Alcohol type: other Comment: aware of trip hazard Patient Tobacco Use Status: Never used Tobacco e-Cigarette/Vaping Use: Never Used Second Hand Smoke Exposure: No Substance Use Type: Marijuana Advance Directives Date on File: 03/22/22 service: Yes Current occupational status: retired Cognitive needs: No Hearing needs: No Vision needs: Yes Review of Systems Const Denies weakness ENT Denies dizziness Card Denies chest pain, Denies chest pain with activity, Denies syncope, Denies rapid heart rate, Denies pedal edema, Denies edema, Denies leg edema, Denies lightheadedness, Denies palpitations, Denies dyspnea, Denies dyspnea on exertion and Denies orthopnea Resp Denies cough, Denies dyspnea and Denies dyspnea on exertion GI Denies hematochezia and Denies change in stool character Musc Denies abnormal gait, Denies muscle cramps, Denies muscle weakness, Denies numbness, Denies radiating pain into limb and Denies tingling Neuro Denies abnormal gait, Denies dizziness, Denies syncope, Denies numbness, Denies tingling and Denies weakness Endo Denies palpitations Physical Exam Vital Signs: Last Vital Signs Pulse 76 08/13/24 14:00 BP 118/60 08/13/24 14:00 BMI result Body Mass Index 31.7 Const General: comfortable and no acute distress Orientation/consciousness: patient oriented x3 HEENT Other: Unremarkable Head: Yes normal to inspection Neck Neck: Yes normal visual inspection Chest Chest palpation & inspection: normal inspection of the chest Resp Auscultation: clear to auscultation bilaterally Cardio Palpation: normal PMI Heart sounds: S1 normal heart sound present, S2 abnormal, no gallops, Murmur heart sound present systolic III/ and at the right sternal border and no rubs GI Palpation (GI): Soft to palpation Back/Spine/Pelvis Other: unremarkable Skin General skin exam: no rashes or lesions noted Neuro General: patient oriented x3 Extrem General: Yes normal to inspection Psych Mental Status: mental status grossly normal Assessment & Plan Assessment & Plan (1) Non-rheumatic aortic stenosis: Code(s): I35.0 - Nonrheumatic aortic (valve) stenosis Category: Medical Plan In the recent echocardiogram, LVEF 60-65%. With regard to the aortic valve, mean gradient across the valve is 41 mm Hg with a peak of 64 mm Hg. Calculated valve area of 0.9sqcm. Overall, suggestive of severe aortic stenosis. We discussed about findings, prognosis, treatment options, overall plan. The main concern is if he will bleed from the bladder cancer while taking antiplatelet drugs. Hence we can try baby aspirin for a few months to see if he tolerates it or not. If he indeed tolerates it, then we may be able to proceed with diagnostic catheterization and TAVR. However, if there is any clear hematuria on aspirin, then we need to reassess. We discussed about these conflicting issues today. Daughter understands. Coding Level of Care Code Est Pt Level 4 (23926) Diagnoses Non-rheumatic aortic stenosis I35.0
[2024-08-13 14:00] VITALS: BP 118/60; PULSE 76; BMI 31.7
== END 2024-08-13 15:08 | disposition home or self-care (01) ==
PROVIDERS: PCP Nurse Practitioner Family; Visit Provider Internal Medicine
DX: I35.0 Nonrheumatic aortic (valve) stenosis (principal)
CPT/HCPCS: 99214

== ENCOUNTER → 2024-08-13 13:43 | Outpatient (BNVA) | payer OTHER, SELFPAY | PROVIDERS: PCP Nurse Practitioner Family; Visit Provider Internal Medicine | DX: I35.0 Nonrheumatic aortic (valve) stenosis (principal) | CPT/HCPCS: 99212 ==

== ENCOUNTER 2024-09-26 12:48 | Outpatient (AMB) | payer MEDICARE, SELFPAY ==
--- OUTSIDE RECORDS SUMMARY | 2024-09-26 13:01 | XMS_ITS | Continuity of Care Document ---
Author Name [facility] Organization [facility] Care Team Providers Care Cruise Coordinator Name Role Phone [facility] Unavailable Unavailable Problems Combined list of problems [...] By: SHAINA REYES Comment: followed by urology [facility] [place] Chronic dermatitis Active 08/27/19 21 Condition Oct 21, 2020 Entered By: SHAINA REYES Comment: referred to dermatology [facility] Erectile Dysfunction (SCT [id number]) Active 08/27/19 21 Condition Oct 21, 2020 Entered By: SHAINA REYES Comment: treated with Viagra [facility] Hydrocephalus (SNOMED CT [id number]) Active 08/27/19 13 Condition [facility] [...] Condition [place] Obesity Active 08/27/18 90 Condition [place] Cognitive disorder Active Condition J un 2022 Entered By: LISSY SANTIZO Comment: mild neurocognitive disorder (dysexecutive features) [facility] Exposure to potentially hazardous substance Active Condition Sep 29, 2022 Entered By: SHAINA REYES Comment: provided education [facility] Osteoarthritis * (ICD-9-CM 715.90) Active Condition [facility] Polyneuropathy Active Condition [facility] Thiamine deficiency Active Condition Oct 21, 2020 Entered By: SHAINA REYES Comment: treated with supplement [facility] Diagnosis: ICD-10-CM R26.9 Unspecified abnormalities of gait and mobility Active Diagnosis [facility] [place] Diagnosis: ICD-10-CM R41.9 Unsp symptoms and signs w cognitive functions and awareness Active Diagnosis [facility] Diagnosis: ICD-10-CM Z02.89 Encounter for other administrative examinations Active Diagnosis [facility] Diagnosis: ICD-10-CM Z46.0 Encounter for fit/adjst of spectacles and contact lenses Active Diagnosis [facility] Diagnosis: ICD-10-CM H25.813 Combined forms of age-related cataract, bilateral Active Diagnosis [facility] Diagnosis: ICD-10-CM R53.1 Weakness Active Diagnosis [facility] Diagnosis: ICD-10-CM C67.9 Malignant neoplasm of bladder, unspecified Active Diagnosis [facility] Diagnosis: ICD-10-CM Z23 Encounter for immunization Active Diagnosis [facility] Medications Combined list of outpatient medications [...] FOR TOOTH DECAY PREVENTI ON DENTAL 02/17/2024 [id number] LATANYA SHANE 2022 51 [facility] Allergies, Adverse Reactions, Alerts Combined list of allergies from Department of Defense and Veterans Affairs facilities. It does not include entries that were removed or entered in error. Substance Category Reaction Severity Reaction type Status Date Reported Comments Source CORTISONE Propensity to adverse reactions to drug (finding) active 0 [facility] [place] [facility] Immunizations Combined list of available immunizations from the Department of Defense and Veterans Affairs facilities. Immunization Series Date Given Administered By Site Reaction Lot Number CVX Code Drug Control Integration Engineer Status Comments Source ZOSTER RECOMBINANT 1 2023 TEENA FLORES E LEFT DELTO ID [id number] 187 complet ed [facility] COVID-19 (MODERNA), MRNA, LNP-S, PF, 50 MCG/0.5 ML (AGES 12+ YEARS) 1 2022 DEE DEE ALCANTARA RIGHT DELTO ID [id number] 312 complet ed [facility] INFLUENZA, HIGH-DOSE, QUADRIVALENT 2022 NEEMA CHAN M LEFT DELTO ID [id number] 197 complet ed [facility] ZOSTER RECOMBINANT 1 2022 NEEMA CHAN M RIGHT DELTO ID [id number] 187 complet ed [facility] [place] COVID-19 (MODERNA), MRNA, LNP-S, BIVALENT BOOSTER, PF, 50 MCG/0.5 ML OR 25MCG/0.25 ML DOSE 2022 NEEMA CHAN ER M LEFT DELTO ID [id number] 229 complet ed [facility] [place] PNEUMOCOCCAL CONJUGATE PCV20, POLYSACCHARID E [id number] CONJUGATE, ADJUVANT, PF 2022 NEEMA CHAN M RIGHT DELTO ID [id number] 216 complet ed [facility] TD (ADULT), 2 LF TETANUS TOXOID, PRESERVATIVE FREE, ADSORBED 2022 NEEMA CHAN ER M RIGHT DELTO ID [id number] 09 complet ed [facility] INFLUENZA, UNSPECIFIED FORMULATION 2021 88 complet ed [facility] COVID-19 (MODERNA), MRNA, LNP-S, PF, 100 MCG/0.5 ML DOSE 3 2020 207 complet ed MOD; [id number]; 1 [facility] COVID-19 (MODERNA), MRNA, LNP-S, PF, 100 MCG/0.5 ML DOSE 2 2020 207 complet ed MOD; [id number]; 1 [facility] COVID-19 (MODERNA), MRNA, LNP-S, PF, 100 MCG/0.5 ML DOSE 1 2020 207 complet ed MOD; [id number]; 1 [facility] [...] May 13, 2023 06:02 PM Reporting Lab: [facility] [place] [facility] [address] [address] Performing Lab: [facility] [place] [facility] [address] [address] [facility] [place] [facility] LIPID PANEL FASTING CHOLESTERO L [MASS/VOLU ME] IN SERUM OR PLASMA 158 mg/dL 05/15 Specimen Type: SERUM No comment entered. Ordering Provider: ED REYES Report Released Date/Time: May 13, 2023 06:02 PM Reporting Lab: [facility] [place] [facility] [address] [address] Performing Lab: [facility] [place] [facility] [address] [address] [facility] [place] [facility] LIPID PANEL FASTING TRIGLYCERI DE [MASS/VOLU ME] IN SERUM OR PLASMA 139 mg/dL 0 - 150 05/15 Specimen Type: SERUM No comment entered. Ordering Provider: DE REYES Report Released Date/Time: May 13, 2023 06:02 PM Reporting Lab: [facility] [place] [facility] [address] [address] Performing Lab: [facility] [place] [facility] [address] [address] [facility] LIPID PANEL FASTING CHOLESTERO L IN LDL [MASS/VOLU ME] IN SERUM OR PLASMA BY CALCULAMENG N 76 mg/dL 0 - 129 05/15 Specimen Type: SERUM No comment entered. Ordering Provider: ED REYES Report Released Date/Time: May 13, 2023 06:02 PM Reporting Lab: [facility] [place] [facility] [address] [address] Performing Lab: [facility] [place] [facility] [address] [address] [facility] [place] [facility] LIPID PANEL FASTING CHOLESTERO L.TOTAL/CH OLESTEROL IN HDL [MASS RATIO] IN SERUM OR PLASMA 2.9 05/15 Specimen Type: SERUM No comment entered. Ordering Provider: ED REYES Report Released Date/Time: May 13, 2023 06:02 PM Reporting Lab: [facility] [place] [facility] [address] [address] Performing Lab: [facility] [place] [facility] [address] [address] [facility] LIPID PANEL FASTING CHOLESTERO L IN HDL [MASS/VOLU ME] IN SERUM OR PLASMA 54 mg/dL 40 - 60 05/15 Specimen Type: SERUM No comment entered. Ordering Provider: ED REYES Report Released Date/Time: May 13, 2023 06:02 PM Reporting Lab: [facility] [place] [facility] [address] [address] Performing Lab: [facility] [place] [facility] [address] [address] [facility]STIT[facility]L TRN [facility] LIVER FUNCTION PROTEIN [MASS/VOLU ME] IN SERUM OR PLASMA 6.7 g/dL 6.0 - 8.3 05/15 Specimen Type: SERUM No comment entered. Ordering Provider: ED REYES Report Released Date/Time: May 13, 2023 06:02 PM Reporting Lab: [facility] [place] [facility] [address] [address] Performing Lab: [facility] [place] [facility] [address] [address] [facility] [place] [facility] LIVER FUNCTION ALBUMIN [MASS/VOLU ME] IN SERUM OR PLASMA 3.7 g/dL 3.5 - 5.0 05/15 Specimen Type: SERUM No comment entered. Ordering Provider: ED REYES Report Released Date/Time: May 13, 2023 06:02 PM Reporting Lab: [facility] [place] [facility] [address] [address] Performing Lab: [facility] [place] [facility] [address] [address] [facility] [place] [facility] LIVER FUNCTION ALKALINE PHOSPHATAS E [ENZYMATIC ACTIVITY/V OLUME] IN SERUM OR PLASMA 77 U/L 40 - 150 05/15 Specimen Type: SERUM No comment entered. Ordering Provider: ED REYES Report Released Date/Time: May 13, 2023 06:02 PM Reporting Lab: [facility] [place] [facility] [address] [address] Performing Lab: [facility] [place] [facility] [address] [address] [facility] [place] [facility] LIVER FUNCTION ASPARTATE AMINOTRANS FERASE [ENZYMATIC ACTIVITY/V OLUME] IN SERUM OR PLASMA 19 U/L 5 - 34 05/15 Specimen Type: SERUM No comment entered. Ordering Provider: ED REYES Report Released Date/Time: May 13, 2023 06:02 PM Reporting Lab: [facility] [place] [facility] [address] [address] Performing Lab: [facility] [place] [facility] [address] [address] [facility] [place] [facility] LIVER FUNCTION ALANINE AMINOTRANS FERASE [ENZYMATIC ACTIVITY/V OLUME] IN SERUM OR PLASMA 21 U/L 05/15 Specimen Type: SERUM No comment entered. Ordering Provider: ED REYES Report Released Date/Time: May 13, 2023 06:02 PM Reporting Lab: [facility] [place] [facility] [address] [address] Performing Lab: [facility] [place] [facility] [address] [address] [facility] [place] [facility] LIVER FUNCTION BILIRUBIN. TOTAL [MASS/VOLU ME] IN SERUM OR PLASMA 0.8 mg/dL 0.2 - 1.2 05/15 Specimen Type: SERUM No comment entered. Ordering Provider: ED REYES Report Released Date/Time: May 13, 2023 06:02 PM Reporting Lab: [facility] [place] [facility] [address] [address] Performing Lab: [facility] [place] [facility] [address] [address] [facility] [place] [facility] BASIC METABOLI C PANEL (fasting ) UREA NITROGEN [MASS/VOLU ME] IN SERUM OR PLASMA 13 mg/dL 7 - 25 05/15 Specimen Type: SERUM No comment entered. Ordering Provider: ED REYES Report Released Date/Time: May 13, 2023 06:02 PM Reporting Lab: [facility] [place] [facility] [address] [address] Performing Lab: [facility] [place] [facility] [address] [address] [facility] [place] [facility] BASIC METABOLI C PANEL (fasting ) GLUCOSE [MASS/VOLU ME] IN SERUM OR PLASMA 121 mg/dL 65 - 100 05/15 H Specimen Type: SERUM No comment entered. Ordering Provider: ED REYES Report Released Date/Time: May 13, 2023 06:02 PM Reporting Lab: [facility] [place] [facility] [address] [address] Performing Lab: [facility] [place] [facility] [address] [address] [facility] [place] [facility] BASIC METABOLI C PANEL (fasting ) SODIUM [MOLES/VOL UME] IN SERUM OR PLASMA 140 mmol/L 135 - 145 05/15 Specimen Type: SERUM No comment entered. Ordering Provider: ED REYES Report Released Date/Time: May 13, 2023 06:02 PM Reporting Lab: [facility] [address] [address] Performing Lab: [facility]STIT[facility]ERCRESTWOOD [facility]ENTERTRN [facility] [address] [address] [facility]STITUTERCRESTWOOD MEDICAL CENTERTRN [facility]ITALUSE [facility] BASIC METABOLI C PANEL (fasting ) POTASSIUM [MOLES/VOL UME] IN SERUM OR PLASMA 4.2 mmol/L 3.5 - 5.0 05/15 Specimen Type: SERUM No comment entered. Ordering Provider: ED REYES Report Released Date/Time: May 13, 2023 06:02 PM Reporting Lab: [facility]STITUTERCRESTWOOD MEDICAL CENTERTRN [address] [address] Performing Lab: [facility] INSTITUTERL TRN [facility] [address] [address] [facility] INSTIT[facility]L TRN [facility]ITAL[facility] BASIC METABOLI C PANEL (fasting ) CHLORIDE [MOLES/VOL UME] IN SERUM OR PLASMA 106 mmol/L 100 - 110 05/15 Specimen Type: SERUM No comment entered. Ordering Provider: ED REYES Report Released Date/Time: May 13, 2023 06:02 PM Reporting Lab: [facility]STITUTERCRESTWOOD MED[facility] CENTERTRN [address] [address] Performing Lab: [facility] INSTITUTERL TRN [facility]ITAL[facility] [address] [facility]STITUT[facility]L TRN [facility]ITALUSE [facility] BASIC METABOLI C PANEL (fasting ) CARBON DIOXIDE, TOTAL [MOLES/VOL UME] IN SERUM OR PLASMA 25 meq/L 20 - 30 05/15 Specimen Type: SERUM No comment entered. Ordering Provider: ED REYES Report Released Date/Time: May 13, 2023 06:02 PM Reporting Lab: [facility]STITUTERCRESTWOOD [facility] CENTERTRN [facility]ITAL[facility] [address] Performing Lab: [facility]STITUTERCRESTWOOD [facility] CENTERTRN [facility]ITALUSE[address] [address] [facility]STITUTERCRESTWOOD [facility] CENTERTRN [place] [facility] BASIC METABOLI C PANEL (fasting ) CREATININE [MASS/VOLU ME] IN SERUM OR PLASMA 0.99 mg/dL 0.50 - 1.40 05/15 Specimen Type: SERUM No comment entered. Ordering Provider: ED REYES Report Released Date/Time: May 13, 2023 06:02 PM Reporting Lab: [facility]STIT[facility]ERCRESTWOOD [facility]ENTERTRN [place] [facility] [address] [address] Performing Lab: [place] [facility] [place] [facility] [address] [address] [facility] INSTITUTERCULLMAN [facility] CENTERN MASSUSE [facility] BASIC METABOLI C PANEL (fasting ) GLOMERULAR FILTRATION RATE/1.73 SQ M.PREDICTE D [VOLUME RATE/AREA] IN SERUM, PLASMA OR BLOOD BY CREATININE -BASED FORMULA (CKD-EPI 2020) 73 mL/min 60 05/15 Specimen Type: SERUM No comment entered. Ordering Provider: ED REYES Report Released Date/Time: May 13, 2023 06:02 PM Reporting Lab: [facility]L [facility] [place] [facility] [address] [address] Performing Lab: [facility]STIT[facility]L [facility] [place] [facility] [address] [address] [facility] INSTITUTERCULLMAN REGIONAL MEDICAL CENTERN [facility]OSPITALUSE [facility] URINALYS IS CLEAN CATCH COLOR OF URINE Light-Ye llow 05/15 Specimen Type: URINE Comment: If Glucose = >500 and Ketones are positive, please alert the Physician. Ordering Provider: ED REYES Report Released Date/Time: May 13, 2023 06:02 PM Reporting Lab: [facility] [place] [facility] [address] [address] Performing Lab: [facility]STITUTERCRESTWOOD MEDICAL CENTERTRN [place] [facility] [address] [address] [facility]ENTERN [facility]PITALUSE [facility] URINALYS IS CLEAN CATCH APPEARANCE OF URINE Clear 05/15 Specimen Type: URINE Comment: If Glucose = >500 and Ketones are positive, please alert the Physician. Ordering Provider: ED REYES Report Released Date/Time: May 13, 2023 06:02 PM Reporting Lab: [facility] [place] [facility] [address] [address] Performing Lab: [facility] [place] [facility] [address] [address] [facility] [place] [facility] URINALYS IS CLEAN CATCH GLUCOSE [MASS/VOLU ME] IN URINE NEGATIVE mg/dL 05/15 Specimen Type: URINE Comment: If Glucose = >500 and Ketones are positive, please alert the Physician. Ordering Provider: ED REYES Report Released Date/Time: May 13, 2023 06:02 PM Reporting Lab: [facility] [place] [facility] [address] [address] Performing Lab: [facility] [place] [facility] [address] [address] [facility] [place] [facility] URINALYS IS CLEAN CATCH KETONES [MASS/VOLU ME] IN URINE BY TEST STRIP NEGATIVE mg/dL 05/15 Specimen Type: URINE Comment: If Glucose = >500 and Ketones are positive, please alert the Physician. Ordering Provider: ED REYES Report Released Date/Time: May 13, 2023 06:02 PM Reporting Lab: [facility] [place] [facility] [address] [address] Performing Lab: [facility] [place] [facility] [address] [address] [facility] [place] [facility] URINALYS IS CLEAN CATCH ERYTHROCYT ES [PRESENCE] IN URINE SEDIMENT BY LIGHT MICROSCOPY NEGATIVE mg/dL 05/15 Specimen Type: URINE Comment: If Glucose = >500 and Ketones are positive, please alert the Physician. Ordering Provider: ED REYES Report Released Date/Time: May 13, 2023 06:02 PM Reporting Lab: [facility] [place] [facility] [address] [address] Performing Lab: [facility] [place] [facility] [address] [address] [facility] [place] [facility] URINALYS IS CLEAN CATCH PROTEIN [MASS/VOLU ME] IN URINE BY TEST STRIP NEGATIVE mg/dL 05/15 Specimen Type: URINE Comment: If Glucose = >500 and Ketones are positive, please alert the Physician. Ordering Provider: ED REYES Report Released Date/Time: May 13, 2023 06:02 PM Reporting Lab: [facility] INSTITUTERCULLMAN [facility]ION[facility] MEDICAL CENTERN [facility]PITALUSE[address] [address] Performing Lab: [facility] INSTITUTERCULL[facility] REGION[facility] MEDICAL CENTERN [facility]OSPITALUSE[address] [address] [facility] INSTITUTERCULL[facility] MEDICAL CENTERN [facility] HOSPITALUSE [facility] URINALYS IS CLEAN CATCH NITRITE [PRESENCE] IN URINE NEGATIVE mg/dL 05/15 Specimen Type: URINE Comment: If Glucose = >500 and Ketones are positive, please alert the Physician. Ordering Provider: ED REYES Report Released Date/Time: May 13, 2023 06:02 PM Reporting Lab: [facility]ENTERN [facility]PITALUSE[address] [address] Performing Lab: [facility] INSTITUTERCULL[facility] MEDICAL CENTERN [facility]OSPITALUSE[address] [address] [facility]ENTERN [facility] HOSPITALUSE [facility] URINALYS IS CLEAN CATCH BILIRUBIN. TOTAL [PRESENCE] IN URINE NEGATIVE mg/dL 05/15 Specimen Type: URINE Comment: If Glucose = >500 and Ketones are positive, please alert the Physician. Ordering Provider: ED REYES Report Released Date/Time: May 13, 2023 06:02 PM Reporting Lab: [facility] INSTITUTERCULLMAN [facility]ION[facility] MEDICAL CENTERN MASSUSE[address] [address] Performing Lab: [facility] INSTITUTERCRESTWOOD MEDICAL CENTERTRN [facility]ITALUSE[address] [address] [facility] INSTITUTERCULLMAN [facility] MEDICAL CENTERN [facility] HOSPITALUSE [facility] URINALYS IS CLEAN CATCH SPECIFIC GRAVITY OF URINE BY REFRACTOME TRY 1.012 1.016 - 1.022 05/15 L Specimen Type: URINE Comment: If Glucose = >500 and Ketones are positive, please alert the Physician. Ordering Provider: ED REYES Report Released Date/Time: May 13, 2023 06:02 PM Reporting Lab: [facility] INSTITUTERCULLMAN [facility] MEDICAL CENTERN [facility]OSPITALUSE[address] [address] Performing Lab: [facility] [place] [facility] [address] [address] [facility] INSTITUTERL WSTRN [place] [facility] URINALYS IS CLEAN CATCH PH OF URINE BY TEST STRIP 7.0 5.0 - 9.0 05/15 Specimen Type: URINE Comment: If Glucose = >500 and Ketones are positive, please alert the Physician. Ordering Provider: ED REYES Report Released Date/Time: May 13, 2023 06:02 PM Reporting Lab: [facility] [place] [facility] [address] [address] Performing Lab: [facility] INSTITUTERL [facility] [place] [facility] [address] [address] [facility] INSTITUTERCRESTWOOD MEDICAL CENTERTRN [place] [facility] URINALYS IS CLEAN CATCH UROBILINOG EN [MASS/VOLU ME] IN URINE BY TEST STRIP <2.0mg/d L <2.0 - 2.0 05/15 Specimen Type: URINE Comment: If Glucose = >500 and Ketones are positive, please alert the Physician. Ordering Provider: ED REYES Report Released Date/Time: May 13, 2023 06:02 PM Reporting Lab: [facility] INSTITUTERL TRN [place] [facility] [address] [address] Performing Lab: [facility] [place] [facility] [address] [address] [facility] INSTITUTERL TRN [facility]ENTERCHUSE [facility] URINALYS IS CLEAN CATCH LEUKOCYTE ESTERASE [PRESENCE] IN URINE BY TEST STRIP NEGATIVE 05/15 Specimen Type: URINE Comment: If Glucose = >500 and Ketones are positive, please alert the Physician. Ordering Provider: ED REYES Report Released Date/Time: May 13, 2023 06:02 PM Reporting Lab: [facility]L [facility] [place] [facility] [address] [address] Performing Lab: [facility] INSTITUTERL WSTRN [facility]ENTERCHUSETS [facility] [address] [address] [facility] INSTITUTERL TRN [place] [facility] CBC AND DIFF (AUTO) LEUKOCYTES [#/VOLUME] IN BLOOD BY AUTOMATED COUNT 10.25 10*3/uL 4.50 - 11.00 05/15 Specimen Type: BLOOD No comment entered. Ordering Provider: ED REYES Report Released Date/Time: May 13, 2023 06:02 PM Reporting Lab: [facility] [place] [facility] [address] [facility] [address] Performing Lab: [facility] [place] [facility] [address] [address] [facility] [place] [facility] CBC AND DIFF (AUTO) ERYTHROCYT ES [#/VOLUME] IN BLOOD BY AUTOMATED COUNT 5.44 10*6/uL 4.23 - 5.66 05/15 Specimen Type: BLOOD No comment entered. Ordering Provider: ED REYES Report Released Date/Time: May 13, 2023 06:02 PM Reporting Lab: [facility] [place] [facility] [address] [address] Performing Lab: [facility] [place] [facility] [address] [address] [facility] [place] [facility] CBC AND DIFF (AUTO) HEMOGLOBIN [MASS/VOLU ME] IN BLOOD 17.0 g/dL 12.8 - 17 05/15 Specimen Type: BLOOD No comment entered. Ordering Provider: ED REYES Report Released Date/Time: May 13, 2023 06:02 PM Reporting Lab: [facility] [place] [facility] [address] [id number] Performing Lab: [facility] [place] [facility] [address] [id number] [facility] [place] [facility] CBC AND DIFF (AUTO) HEMATOCRIT [VOLUME FRACTION] OF BLOOD BY AUTOMATED COUNT 51.5 39.2 - 50.4 05/15 H Specimen Type: BLOOD No comment entered. Ordering Provider: ED REYES Report Released Date/Time: May 13, 2023 06:02 PM Reporting Lab: [facility] [facility] [address] [facility] [address] Performing Lab: [facility] [place] [facility] [address] [address] [facility] CBC AND DIFF (AUTO) MCV [ENTITIC VOLUME] BY AUTOMATED COUNT 94.7 fL 82 - 99 05/15 Specimen Type: BLOOD No comment entered. Ordering Provider: ED REYES Report Released Date/Time: May 13, 2023 06:02 PM Reporting Lab: [facility] [address] [address] Performing Lab: [facility] [place] [facility] [address] [address] [facility] [place] [facility] CBC AND DIFF (AUTO) MCHC [MASS/VOLU ME] BY AUTOMATED COUNT 33.0 g/dL 30.8 - 35.1 05/15 Specimen Type: BLOOD No comment entered. Ordering Provider: ED REYES Report Released Date/Time: May 13, 2023 06:02 PM Reporting Lab: [facility] [address] [address] Performing Lab: [facility] [place] [facility] [address] [address] [facility] CBC AND DIFF (AUTO) PLATELETS [#/VOLUME] IN BLOOD BY AUTOMATED COUNT 154 10*3/uL 140 - 360 05/15 Specimen Type: BLOOD No comment entered. Ordering Provider: ED REYES Report Released Date/Time: May 13, 2023 06:02 PM Reporting Lab: [facility] [place] [facility] [address] [address] Performing Lab: [facility] [place] [place] [facility] [address] [address] [facility] [place] [facility] CBC AND DIFF (AUTO) ERYTHROCYT E DISTRIBUTI ON WIDTH [RATIO] BY AUTOMATED COUNT 13.5 12.0 - 16.0 05/15 Specimen Type: BLOOD No comment entered. Ordering Provider: ED REYES Report Released Date/Time: May 13, 2023 06:02 PM Reporting Lab: [facility] [place] [facility] [address] [address] Performing Lab: [facility] [place] [facility] [address] [address] [facility] [place] CBC AND DIFF (AUTO) MONOCYTES [#/VOLUME] IN BLOOD BY AUTOMATED COUNT 0.63 10*3/uL 0.30 - 1.10 05/15 Specimen Type: BLOOD No comment entered. Ordering Provider: ED REYES Report Released Date/Time: May 13, 2023 06:02 PM Reporting Lab: [facility] [place] [facility] [address] [address] Performing Lab: [facility] [place] [facility] [address] [address] [facility] [place] CBC AND DIFF (AUTO) MCH [ENTITIC MASS] BY AUTOMATED COUNT 31.3 pg 26.2 - 32.6 05/15 Specimen Type: BLOOD No comment entered. Ordering Provider: ED REYES Report Released Date/Time: May 13, 2023 06:02 PM Reporting Lab: [facility] [place] [facility] [address] [address] Performing Lab: [facility] [place] [facility] [address] [address] [facility] [place] [facility] CBC AND DIFF (AUTO) NEUTROPHIL S/100 LEUKOCYTES IN BLOOD BY AUTOMATED COUNT 78.2 43.7 - 75.8 05/15 H Specimen Type: BLOOD No comment entered. Ordering Provider: ED REYES Report Released Date/Time: May 13, 2023 06:02 PM Reporting Lab: [facility] [place] [facility] [address] [address] Performing Lab: [facility] [place] [facility] [address] [address] [facility] [place] CBC AND DIFF (AUTO) LYMPHOCYTE S/100 LEUKOCYTES IN BLOOD BY AUTOMATED COUNT 14.1 14.0 - 42.3 05/15 Specimen Type: BLOOD No comment entered. Ordering Provider: ED REYES Report Released Date/Time: May 13, 2023 06:02 PM Reporting Lab: [facility] [place] [facility] [address] [address] Performing Lab: [facility] [place] [facility] [address] [address] [facility] [place] [facility] CBC AND DIFF (AUTO) MONOCYTES/ 100 LEUKOCYTES IN BLOOD BY AUTOMATED COUNT 6.1 5.1 - 13.7 05/15 Specimen Type: BLOOD No comment entered. Ordering Provider: ED REYES Report Released Date/Time: May 13, 2023 06:02 PM Reporting Lab: [facility] [place] [facility] [address] [address] Performing Lab: [facility] [place] [facility] [address] [address] [facility] [place] [facility] CBC AND DIFF (AUTO) EOSINOPHIL S/100 LEUKOCYTES IN BLOOD BY AUTOMATED COUNT 0.5 0.4 - 6.8 05/15 Specimen Type: BLOOD No comment entered. Ordering Provider: ED REYES Report Released Date/Time: May 13, 2023 06:02 PM Reporting Lab: [facility] [place] [facility] [address] [address] Performing Lab: [facility] [place] [facility] [address] [address] [facility] [place] [facility] CBC AND DIFF (AUTO) BASOPHILS/ 100 LEUKOCYTES IN BLOOD BY AUTOMATED COUNT 0.7 0.1 - 2.0 05/15 Specimen Type: BLOOD No comment entered. Ordering Provider: ED REYES Report Released Date/Time: May 13, 2023 06:02 PM Reporting Lab: [facility] [place] [facility] [address] [address] Performing Lab: [facility] [place] [facility] [address] [address] [facility] [place] [facility] CBC AND DIFF (AUTO) NEUTROPHIL S [#/VOLUME] IN BLOOD BY AUTOMATED COUNT 8.01 10*3/uL 2.20 - 7.60 05/15 H Specimen Type: BLOOD No comment entered. Ordering Provider: DE REYES Report Released Date/Time: May 13, 2023 06:02 PM Reporting Lab: [facility] [place] [facility] [address] [address] Performing Lab: [facility] [place] [facility] [address] [address] [facility] [place] [facility] CBC AND DIFF (AUTO) LYMPHOCYTE S [#/VOLUME] IN BLOOD BY AUTOMATED COUNT 1.45 10*3/uL 1.00 - 3.20 05/15 Specimen Type: BLOOD No comment entered. Ordering Provider: ED REYES Report Released Date/Time: May 13, 2023 06:02 PM Reporting Lab: [facility] [place] [facility] [address] [address] Performing Lab: [facility] [place] [facility] [address] [address] [facility] [place] CBC AND DIFF (AUTO) EOSINOPHIL S [#/VOLUME] IN BLOOD BY AUTOMATED COUNT 0.05 10*3/uL 0.03 - 0.44 05/15 Specimen Type: BLOOD No comment entered. Ordering Provider: ED REYES Report Released Date/Time: May 13, 2023 06:02 PM Reporting Lab: [facility] [place] [facility] [address] [address] Performing Lab: [facility] [place] [facility] [address] [address] [facility] [place] CBC AND DIFF (AUTO) BASOPHILS [#/VOLUME] IN BLOOD BY AUTOMATED COUNT 0.07 10*3/uL 0.01 - 0.13 05/15 Specimen Type: BLOOD No comment entered. Ordering Provider: ED REYES Report Released Date/Time: May 13, 2023 06:02 PM Reporting Lab: [facility] [place] [facility] [address] [address] Performing Lab: [facility] [place] [facility] [address] [place] [address] [facility] [place] CBC AND DIFF (AUTO) IMMATURE GRANULOCYT ES/100 LEUKOCYTES IN BLOOD BY AUTOMATED COUNT 0.4 0.0 - 0.7 05/15 Specimen Type: BLOOD No comment entered. Ordering Provider: ED REYES Report Released Date/Time: May 13, 2023 06:02 PM Reporting Lab: [facility] [place] [facility] [address] [address] Performing Lab: [facility] [place] [facility] [address] [address] [facility] [place] [facility] CBC AND DIFF (AUTO) IMMATURE GRANULOCYT ES [#/VOLUME] IN BLOOD 0.04 10*3/uL 0.00 - 0.06 05/15 Specimen Type: BLOOD No comment entered. Ordering Provider: ED REYES Report Released Date/Time: May 13, 2023 06:02 PM Reporting Lab: [facility] [place] [facility] [address] [address] Performing Lab: [facility] [place] [facility] [address] [address] [facility] [place] [facility] Vital Signs Combined list of inpatient and outpatient Vital Signs from Department of Defense and Veterans Affairs, ranging from 12 months to all on record, depending upon the facility. Vital Sign Value Date Comments Source SYSTOLIC BLOOD PRESSURE 151 05/26/20 24 11:52:31 [facility] [place] [facility] DIASTOLIC BLOOD PRESSURE 80 024 11:52:31 [facility] [place] [facility] PULSE OXIMETRY 98 05/26/2024 11:52:31 [facility] [place] [facility] WEIGHT 232 05/26/2024 11:52:31 [facility] [place] [facility] BMI 32kg/m2 05/26/2024 11:52:31 [facility] [place] [facility] PAIN 4 05/26/2024 11:52:31 [facility] [place] [facility] HEIGHT 71 05/26/2024 11:52:31 [facility] [place] [facility] TEMPERATURE 97.6 05/26/2024 11:52:31 [facility] [...] 11/21/2023 13:40:38 [facility] [place] [facility] Encounters Combined list of: 1) Encounters from Department of Veterans Affairs facilities going back up to thelast 18 months. 2) Encounters from the Department of Defense facilities going back up to 280 months. Location Location Details Encounter Type Encounter Number Reason For Visit Attending Provider ADM Date DC Date Status Disposition Source [facility] [place] [facility] SELF CARE MNGMENT TRAINING [id number] Diagnos is: ICD-10- CM R26.9 Unspeci fied abnorma lities of gait and mobilit y
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
ORLANDO REYES RD D 05/21 [facility] En[facility] [id number] 05/24 [facility] En[facility] [id number] 05/24 [facility] OFF/OP EST MAY X REQ PHY/QHP [id number] Diagnos is: ICD-10- CM Z23 Encount er for immuniz ation<b r/> HAMZAH ALCANTARA NON P 06/22 [facility] En[facility] [id number] 07/11 [facility] En[facility] [id number] 07/11 [facility] Encounter [id number] 07/16 [facility] Encounter [id number] 09/04 [facility] Encounter [id number] 09/07 [facility] OFF[facility] O/P EST MOD 30 MIN [id number] Diagnos is: ICD-10- CM R41.9 Unsp symptom s and signs w cogniti ve functio ns and awarene ss
AVILAPAUL IEL Y 09/17 [facility] En[facility] [id number] 10/12 [facility] En[facility] [id number] 10/15 [facility] Encounter [id number] 11/13 [facility] Encounter [id number] 11/19 [facility] [place] [facility] OFFICE O/P EST SF 10 MIN [id number] Diagnos is: ICD-10- CM 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
ORLANDO REYES RD D 11/20 [facility] En[facility] [id number] 11/28 [facility] Encounter [id number] 12/02 [facility] OT EVAL LOW COMPLEX 30 MIN [id number] Diagnos is: ICD-10- CM R53.1 Weaknes s
SHANE BAUTISTA 12/04 [facility] COMPRE OPH EXAM EST PT 1/> [id number] Diagnos is: ICD-10- CM H25.813 Combine d forms of age-rel ated catarac t, bilater al
MERHAR,TRISTA H B 12/11 [facility] FIT SPECTACLES BIFOCAL [id number] Diagnos is: ICD-10- CM Z46.0 Encount er for fit/adj st of spectac les and contact lenses< br/> MERHAR,TRISTA H B 12/11 [facility] Out[facility] Encounter [id number] 01/08 [facility] Out[facility] Encounter [id number] 02/03 [facility] Out[facility] Encounter [id number] 02/05 [facility] Encounter [id number] 04/25 [facility] Out[facility] Encounter [id number] Diagnos is: ICD-10- CM Z02.89 Encount er for other adminis trative examina tions<b r/> FRANCISCO GAMBLE 05/06 [facility] Encounter [id number] 05/22 [facility] En[facility] [id number] 05/23 [facility] Encounter [id number] 1.05/26 [facility] Out[facility] Encounter [id number] [facility] [place] [facility] OFFICE O/P EST SF 10 MIN [id number] 1. Diagnos is: ICD-10- CM R41.9 Unsp symptom s and signs w cogniti ve functio ns and awarene ss
ORLANDO REYES RD D 05/26 [facility] En[facility] [id number] 1.07/25 [facility] OT EVAL LOW COMPLEX 30 MIN [id number] Diagnos is: ICD-10- CM R26.9 Unspeci fied abnorma lities of gait and mobilit y
REFUGIO CLARKE ICA L 07/28 [facility] En[facility] [id number] 08/08 [facility] Encounter [id number] 09/09 [facility] [place] Social History Combined list of available smoking, tobacco, and other social history from Department of Defense and Veterans Affairs facilities. Social History Type Response Date Comment Sourc e Tobacco smoking status [facility] VA-TOBACCO NEVER USED 05/26/2024 [facility] [place] [facility] History of tobacco use [facility]-TOBACCO NEVER USED 05/21/2023 [facility] [place] [facility] History of tobacco use [facility]-TOBACCO FORMER USER 05/22/2022 [facility] History of tobacco use [facility]-TOBACCO NEVER USED 11/15/2018 [facility] History of tobacco use LIFETIME NON-TOBACCO USER 11/16/2016 [facility] History of tobacco use LIFETIME NON-TOBACCO USER 10/07/2015 [facility] History of tobacco use QUIT TOBACCO USE > 7 YEARS AGO 03/29/2009 [facility] Plan of Care List of future care activities from [facility] facilities. Additional future care activities may be listed in the Assessment and Plan section. Date/Time Care Activity Care Activity Detail Facili ty 10/07/2024 AMBULATORY - REHAB MEDICINE AMBULATORY - REHAB MEDICINE [facility] 12/17/2024 AMBULATORY - MEDICINE AMBULATORY - MEDICI NE [facility] Advance Directives List of completed, amended, or rescinded Advance Directives on record at [facility] facilities. An actual copy of the Directive is not included. Date Advance Directive Provider Source 07/05/2022 ADVANCE DIRECTIVE DHIRAJ GRACIA [facility]
--- NOTE | 2024-09-26 13:16 | MHC.OFFVIS ---
Vital Signs 09/26/24 13:17 Height 5 ft 11 in Weight 227 lb BMI 31.7 Intake Visit Reasons: Inj- LT Knee Durolane Intake Note: Raad presents today for his left knee durolane gel injection. Allergies hydrocortisone [Cortizone-10] Allergy (Unknown, Verified 09/26/24 13:17) hives HPI HPI Inj- LT Knee Durolane: Details: Here for left knee Durolane. 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 Daughter No problems noted. Social History Household Members: None Housing: House Are you a primary customer care assistant to a significant other at home: No Do you presently have visiting nurse or other home services: Yes (daily Meals on Wheels, very supportive Daughter Funmi and Son-in-law Raad) Alcohol intake: current Alcohol intake frequency: 0-2 drinks per day Alcohol type: other Comment: aware of trip hazard Patient Tobacco Use Status: Never used Tobacco e-Cigarette/Vaping Use: Never Used Second Hand Smoke Exposure: No Substance Use Type: Marijuana Advance Directives Date on File: 03/22/22 service: Yes Current occupational status: retired Cognitive needs: No Hearing needs: No Vision needs: Yes Physical Exam Vital Signs: BMI result Body Mass Index 31.7 Extrem Other: skin c/d/i Office Procedures Joint Inj/Aspir; Non-Pain Clin Joint Injection/Drain Details: Injected Durolane. Site was prepped using aseptic technique. Patient tolerated the procedure well. Shoulders, Hips, Knees, Knee Large Joint Injection 96420: Bilateral Knee Coding Procedure code (CPT) selection complete Assessment & Plan Assessment & Plan (1) Arthritis of left knee: Code(s): M17.12 - Unilateral primary osteoarthritis, left knee Category: Medical Plan: Durolane injection Coding Level of Care Code Est Pt Level 2 (98008) Diagnoses Arthritis of left knee M17.12 CPT Codes Shoulders, Hips, Knees, - Knee Large Joint Injection 55563: Bilateral Knee ([id number])
[2024-09-26 13:17] VITALS: BMI 31.7
== END 2024-09-26 15:50 | disposition home or self-care (01) ==
PROVIDERS: PCP Nurse Practitioner Family; Visit Provider Orthopaedic Surgery
DX: M17.12 Unilateral primary osteoarthritis, left knee (principal)
CPT/HCPCS: 20610

== ENCOUNTER → 2024-09-26 12:48 | Outpatient (BNVA) | payer MEDICARE, SELFPAY | PROVIDERS: PCP Nurse Practitioner Family; Visit Provider Orthopaedic Surgery | DX: M17.12 Unilateral primary osteoarthritis, left knee (principal) | CPT/HCPCS: 20610; J7318 ==

== ENCOUNTER 2024-10-30 13:46 | Outpatient (AMB) | payer MEDICARE, SELFPAY ==
--- NOTE | 2024-10-30 13:47 | A.OFFVIS_ITS ---
Vital Signs 10/30/24 13:51 Height 5 ft 11 in Weight 228 lb BMI 31.8 BP 130/72 Blood Pressure Location Lt brachial Position Sitting Pulse 78 Pulse Source Monitor Intake Visit Reasons: 3 mth f/up It Project Lead Required: No Accompanied by: Self / Same As Patient Allergies hydrocortisone [Cortizone-10] Allergy (Unknown, Verified 09/26/24 13:17) hives Medication List - Last Reconciled 10/30/24 by Valdo Murphy MD aspirin 81 mg PO DAILY cholecalciferol (vitamin D3) 25 mcg PO DAILY garlic 100 mg PO DAILY [ibuprofen 200 mg PO Q6-8H PRN] mecobalamin (vitamin B12) 1,000 mcg PO DAILY pyridoxine (vitamin B6) 500 mg PO DAILY sennosides 8.6 mg PO BEDTIME thiamine HCl (vitamin B1) 100 mg PO DAILY tramadol 50 mg PO Q8H PRN HPI Comments Details: Raad returns for follow-up regarding aortic stenosis. Overall, he states he feels okay. He does not have any clear-cut complaints like angina or shortness of breath or dizzy spells or syncopal episodes. Minimal activity due to musculo skeletal pain. Comes in a wheelchair. We had originally planned cardiac catheterization/possible TAVR but then decided against it as there was concern for bleeding from bladder with antiplatelet dr segovia. Now we are revisiting that thought. We put him on a baby aspirin and seems to be tolerating that. 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 Daughter No problems noted. Social History Household Members: None Housing: House Are you a primary ocular care technologist to a significant other at home: No Do you presently have visiting nurse or other home services: Yes (daily Meals on Wheels, very supportive Daughter Funmi and Son-in-law Raad) Alcohol intake: current Alcohol intake frequency: 0-2 drinks per day Alcohol type: other Comment: aware of trip hazard Patient Tobacco Use Status: Never used Tobacco e-Cigarette/Vaping Use: Never Used Second Hand Smoke Exposure: No Substance Use Type: Marijuana Advance Directives Date on File: 03/22/22 service: Yes Current occupational status: retired Cognitive needs: No Hearing needs: No Vision needs: Yes Review of Systems Const Denies chills, Denies fatigue, Denies fever(s), Denies frequent falls, Denies weakness, Denies weight gain and Denies weight loss ENT Denies dizziness Card Denies chest pain, Denies leg edema, Denies lightheadedness, Denies palpitations, Denies dyspnea and Denies dyspnea on exertion Resp Denies cough, Denies dyspnea and Denies dyspnea on exertion GI Denies hematochezia Musc Denies abnormal gait, Denies muscle weakness, Denies numbness, Denies radiating pain into limb and Denies tingling Neuro Denies abnormal gait, Denies dizziness, Denies frequent falls, Denies numbness, Denies tingling and Denies weakness Endo Denies fatigue and Denies palpitations Physical Exam Vital Signs: Last Vital Signs Pulse 78 10/30/24 13:51 BP 130/72 10/30/24 13:51 BMI result Body Mass Index 31.8 Const General: comfortable and no acute distress Orientation/consciousness: patient oriented x3 HEENT Other: Unremarkable Head: Yes normal to inspection Neck Neck: Yes normal visual inspection Chest Chest palpation & inspection: normal inspection of the chest Resp Auscultation: clear to auscultation bilaterally Cardio Palpation: normal PMI Heart sounds: S1 normal heart sound present, S2 abnormal, no gallops, Murmur heart sound present systolic III/ and at the right sternal border and no rubs GI Palpation (GI): Soft to palpation Back/Spine/Pelvis Other: unremarkable Skin General skin exam: no rashes or lesions noted Neuro General: patient oriented x3 Extrem General: Yes normal to inspection Psych Mental Status: mental status grossly normal Office Procedures EKG Details: EKG with sinus rhythm at 78/Min; right bundle-branch block pattern; cannot exclude old inferior infarct; [place] [id number], Complete Assessment & Plan Assessment & Plan (1) Non-rheumatic aortic stenosis: Code(s): I35.0 - Nonrheumatic aortic (valve) stenosis Category: Medical Plan In the recent echocardiogram, mean gradient across aortic valve was 41 mm Hg with a peak of 64 mm Hg. Calculated valve area of 0.88 sq cm. Preserved LVEF at 60-65%. Severe septal hypertrophy. Overall, consistent with severe aortic stenosis. We discussed about watchful waiting versus proceeding with TAVR workup. He stated that he would rather just hold off for now and get rechecked in 6 months. That seems reasonable considering his age, frailty, propensity for urinary bleeding and his preference. He seems to be tolerating baby aspirin well which may mean that he might be okay with the TAVR valve. However, to be decided. We will follow up in 6 months with an echocardiogram. Call with concerns in the interim. Discussed with daughter. Patient Instructions: - Monitor for symptoms such as chest pain, dizziness, or shortness of breath and seek immediate care if they occur. - Continue taking baby aspirin as prescribed. - Maintain light physical activity as tolerated to reduce the risk of deconditioning. - Follow up in six months for reevaluation of aortic valve status. - Prepare for potential angiogram and TAVR if symptoms or diagnostic findings in dicate progression. Coding Level of Care Code Est Pt Level 4 (28638) Complex EM visit Add On G2211 Diagnoses Non-rheumatic aortic stenosis I35.0 CPT Codes EKG - CPT: 37712-[id number], Complete ([id number])
[2024-10-30 13:51] VITALS: BP 130/72; PULSE 78; BMI 31.8
--- OUTSIDE RECORDS SUMMARY | 2024-10-30 16:44 | XMS_ITS | Patient Health Record ---
[facility] Address [address] [place] [address] Care Team Providers Care Phlebotomy Services Technician Name Role Phone Jl Santana Primary Care Provider Unav ailable Ke Saleem Unavailable [phone] Allergies Allergen (clinical drug ingredient) Drug/Non Drug [...] Are you an other tobacco user? No Encounters Encounter Location Date Provider Diagnosis [facility] [address] [place] [address] [facility] [address] [place] [id number] [facility] [address] [place] [address] [facility] [address] [place] [address] 01/29/2024 Ke Saleem Plan Of Treatment Pending Test Test Name Order Date [id number] NAIL, 6 OR MORE 07/31/2023 [id number] NAIL, 6 OR MORE 10/30/2023 [id number] SKIN LESIONS, OVER 4 10/30/19 24 [id number] SKIN LESIONS, 2 TO 4 07/31/20 23 Insurance Providers Payer Name Payer Address Payer Phone Subscriber Number Group Number Insured Name Patient Relationship to Insured Coverage Start Date Coverage End Date [employer] [address] [place] [address] [id number] Raad Dewitt Self - patient is the insured Medical (General) History Medical History History ICD Code broken bones measles chicken pox prostate conditions Back,Hip,and Knee pain Cancer- skin,bladder Mumps Bone implants/screws hydrocephulus hemochromatosis Surgical History Surgery Date(Month/Year) brain surgery-fluid on brain 11/2012 appendectomy 11/2012 knee surgery 2018
--- OUTSIDE RECORDS SUMMARY | 2024-10-30 16:44 | XMS_ITS ---
Author Name [facility] [place] [facility] [facility] [place] Address [address] [place] [address] Care Team Providers Care Center Director Name Role Phone SHAINA PEDRAZA Primary Care [...] Etienne's Name Patient's Relationship to Policy Etienne [facility] ([facility]) MEDICARE ADVANTAGE M[facility] ([facility]) Aug 27, 2012 [id number] PATIENT [facility]ALTH [facility] ([facility]) MEDICARE ADVANTAGE [facility] ([facility]) Aug 27, 2012 [id number] PATIENT Selected Encounter This section includes the information on record at [place] for the Encounter. Date/Time Encounter Type Encounter Description Reason Provider Source Oct 07, 2024 01:00 PM WHEELCHAIR MNGMENT TRAINING WHEELCHAIR & ADVAN MOBILITY ICD-10-CM R26.9 Unspecified abnormalities of gait and mobility LISSET CLARKE Encounter Template Text not used by [place] Assessments - Encounter Diagnoses This section includes the primary and secondary diagnoses documented for the Encounter. Date/Time Primary/Secondary Diagnosis Diagnosis Name Provider Source Oct 08, 2024 03:07 PM PRIMARY Unspecified abnormalities of gait and mobility LISSET CLARKE [place] [facility] [place] [facility] Plan of Treatment: Future Appointments (+ 6 months) and Future Tests (+/- 45 days) The Plan of Treatment section includes future care activities for the patient from all [place] [facility]. This section includes future appointments and future orders which are active, pending or scheduled. Future Appointments This section includes appointments that were scheduled to occur 6 months from the date of the Encounter, up to a maximum of 20 appointments. The data comes from all [place] treatment facilities. Appointment Date/Time Appointment Type Appointme nt Facility Name Dec 17, 2024 12:30 PM AMBULATORY - MEDICINE [facility] Social History: Smoking Status [...] Facil ity May 26, 2024 10:30 AM [place] [facility] [place] [facility] Tobacco Use History This section includes a history of the smoking, or tobacco-related health factors, that were collected on or before the date of the Encounter. The data comes from the [place] facility where the Encounter took place. Date/Time Smoking Status/Tobacco Use Comment F acility May 21, 2023 02:00 PM VA-TOBACCO NEVER USED [place] [facility] [place] [facility] May 22, 2022 03:30 PM VA-TOBACCO FORMER USER [place] [facility] [place] [facility] May 22, 2022 03:30 PM VA-TOBACCO QUIT 15 YRS OR MORE [place] [facility] [place] [facility] Nov 15, 2018 10:40 AM VA-TOBACCO NEVER USED [place] [facility] [place] [facility] Nov 16, 2016 01:42 PM LIFETIME NON-TOBACCO USER [place] [facility] [place] [facility] Oct 07, 2015 01:01 PM LIFETIME NON-TOBACCO USER [facility] Mar 29, 2009 02:36 PM QUIT TOBACCO USE > 7 YEARS AGO [facility] Advance Directives: All historical and current Section Date Range: From patient's date of to the date document was created. This section includes ALL of a patient's completed or amended [place] Advance and Rescinded Directives. The entries below indicate that a directive exists for the patient, but an actual copy is not included with this document. The data comes from all [place] facilities. Date Advance Directives Provider Source Jul 05, 2022 ADVANCE DIRECTIVE DHIRAJ GRACIA [facility] Encounter Notes: All associated encounter notes This section contains the clinical notes associated to the Encounter. Date/Time Encounter Note(s) Provider Source Oct 07, 2024 01:00 PM OCCUPATIONAL THERA PY TREATMENT PLAN NOTE: LOCAL TITLE: OCCUPATIONAL THERAPY PROGRESS NOTE STANDARD TITLE: OCCUPATIONAL THERAPY TREATMENT PLAN NOTE DATE OF NOTE: OCT 07, 2024@13:00 ENTRY DATE: OCT 08, 2024@14:58:58 AUTHOR: LISSET CLARKE COSIGNER: URGENCY: STATUS: COMPLETED Occupational Therapy Progress Note (Wheelchair Clinic) Initial Evaluation date: Jul Progress Note Date: 2024 Treatment #: 2 Treatment time: 24' Diagnosis: Unspecified Abnormalities of Gait and Mobility(ICD-10-CM R26.9) Provider: Dr. Pedraza OCCUPATIONAL THERAPY MANUAL W/C FITTING/ISSUE NOTE S/ Pt with diagnosis of abnormal gait was seen on 07/28/24 to order manual w/c. Pt seen today for fit and training in use of areas marked below at the [facility]. Type of chair being issued: Q2 19x19, tension adjustable back Serial #: [id number] Cushion: Ion O/ Barriers to learning wheelchair skills: No [x] Yes [ ] Others present for training: rehabilitation therapist at [facility] WHEELCHAIR MANAGEMENT TRAINING ( ' ) Transfers: cgA Wheelchair Adjustments: 1. adjusted tension adjustable back rest 2. adjusted arm rest height 3. increased front seat to floor height by 1/2 by raising front casters Educated in wheelchair operation: 1. Removable parts: wheel locks [x] armrests [x] leg rests[x] 2. Folding/transport of device Patient Provided With: [x] Medical Insurance Clerk's manual Mobility Check: [place] propels wheelchair with: BUE's and BLE's Demonstrated safe independent use of manual w/c for: level surfaces Yes [x] No [ ] n/t [ ] ability to lock brakes: Yes [x] No [ ] n/t [ ] ability to lift chair: Yes [ ] No [ ] n/t [x] caregiver ability to lift chair: Yes [ ] No [ ] n/t [x] Pt stated satisfied with wheelchair: Yes [x] No [ ] Additional recommendations: 1. recommend applewood insert- will order to fit 19x19 cushion A/ Pt issued Q2 manual wheelchair this date. Demonstrated good safety with operation, mobility, and propulsion this date. Recommendation for [employer] insert- will order for delivery to 's home. P/ [place] seen for w/c fitting this date with no concerns at this time. /promise/ LISSET CLARKE OTR/L OCCUPATIONAL THERAPIST Signed: 10/08/2024 15:07 LISSET CLARKE [place] [facility]
--- OUTSIDE RECORDS SUMMARY | 2024-10-30 16:44 | XMS_ITS ---
Author Organization [facility] Address [address] [place] [address] Care Team Providers Care Special Education Supervisor Name Role Phone Jl Santana Primary Care Provider Unav ailable Ke Saleem Unavailable [phone] REASON FOR VISIT CX 10:00 appt Encounters Encounter Location Date Provider Diagnosis [address] [address] 01/29/2024 Ke Saleem Plan Of Treatment No Information Progress Notes * Raad LAZO WDOB: [birth year] (88 yo M)Acc No.[id number]:01/29/2024 Patient:?Raad Lazo :1935???Age:88 Y???Sex:Male Address:[address] [place] [address] [place], [address] * true * Date:? Generated for Debbii alberto/Torrie/eTransmitting on:?10/30/2024 04:44 PM EST
--- OUTSIDE RECORDS SUMMARY | 2024-10-30 16:44 | XMS_ITS | Continuity of Care Document ---
Author Name [facility] Organization [facility] Care Team Providers Care Body Sander Name Role Phone [facility]OD-[facility] Unavailable Unavailable Problems [...] [facility] [place] [facility] Erectile Dysfunction (SCT [id number]) Active 08/27/19 21 Condition Oct 21, 2020 Entered By: SHAINA REYES Comment: treated with Viagra [facility] Hydrocephalus (SNOMED CT [id number]) Active 08/27/19 13 Condition [facility] [...] Condition [place] Obesity Active 08/27/18 90 Condition [place] Cognitive disorder Active Condition J un 2022 Entered By: LISSY SANTIZO Comment: mild neurocognitive disorder (dysexecutive features) [facility] Exposure to potentially hazardous substance Active Condition Sep 29, 2022 Entered By: SHAINA REYES Comment: provided education [facility] Osteoarthritis * (ICD-9-CM 715.90) Active Condition [facility] Polyneuropathy Active Condition [facility] Thiamine deficiency Active Condition Oct 21, 2020 Entered By: SHAINA REYES Comment: treated with supplement [facility] Diagnosis: ICD-10-CM R26.9 Unspecified abnormalities of gait and mobility Active Diagnosis [facility] Diagnosis: ICD-10-CM R41.9 Unsp symptoms and signs w cognitive functions and awareness Active Diagnosis [facility] Diagnosis: ICD-10-CM Z02.89 Encounter for other administrative examinations Active Diagnosis [facility] FR[facility] Diagnosis: ICD-10-CM Z46.0 Encounter for fit/adjst of spectacles and contact lenses Active Diagnosis [facility] Diagnosis: ICD-10-CM H25.813 Combined forms of age-related cataract, bilateral Active Diagnosis [facility] Diagnosis: ICD-10-CM R53.1 Weakness Active Diagnosis [facility] Diagnosis: ICD-10-CM C67.9 Malignant neoplasm of bladder, unspecified Active Diagnosis [facility] Diagnosis: ICD-10-CM Z23 Encounter for immunization Active Diagnosis [facility] Allergies, Adverse Reactions, Alerts Combined list of allergies from Department of Defense and Veterans Affairs facilities. It does not include entries that were removed or entered in error. Substance Category Reaction Severity Reaction type Status Date Reported Comments Source CORTISONE Propensity to adverse reactions to drug (finding) active 0 [facility] Immunizations Combined list of available immunizations from the Department of Defense and Veterans Affairs facilities. 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 Status Comments Source ZOSTER RECOMBINANT 1 2023 TEENA FLORES E LEFT DELTO ID [id number] 187 complet ed [facility] COVID-19 (MODERNA), MRNA, LNP-S, PF, 50 MCG/0.5 ML (AGES 12+ YEARS) 1 2022 DEE DEE ALCANTARA RIGHT DELTO ID [id number] 312 complet ed [facility] INFLUENZA, HIGH-DOSE, QUADRIVALENT 2022 NEEMA CHAN M LEFT DELTO ID [id number] 197 complet ed [facility] ZOSTER RECOMBINANT 1 2022 NEEMA CHAN M RIGHT DELTO ID [id number] 187 complet ed [facility] COVID-19 (MODERNA), MRNA, LNP-S, BIVALENT BOOSTER, PF, 50 MCG/0.5 ML OR 25MCG/0.25 ML DOSE 2022 NEEMA CHAN M LEFT DELTO ID [id number] 229 complet ed [facility] PNEUMOCOCCAL CONJUGATE PCV20, POLYSACCHARID E [id number] CONJUGATE, ADJUVANT, PF 2022 NEEMA CHAN M RIGHT DELTO ID [id number] 216 complet ed [facility] TD (ADULT), 2 LF TETANUS TOXOID, PRESERVATIVE FREE, ADSORBED 2022 NEEMA CHAN M RIGHT DELTO ID [id number] 09 complet ed [facility] INFLUENZA, UNSPECIFIED FORMULATION 2021 88 complet ed [facility] COVID-19 (MODERNA), MRNA, LNP-S, PF, 100 MCG/0.5 ML DOSE 3 2020 207 complet ed MOD; [id number]; 1 [facility] COVID-19 (MODERNA), MRNA, LNP-S, PF, 100 MCG/0.5 ML DOSE 2 2020 207 complet ed MOD; [id number]; 1 [facility] COVID-19 (MODERNA), MRNA, LNP-S, PF, 100 MCG/0.5 ML DOSE 1 2020 207 complet ed MOD; [id number]; 1 [facility] [...] May 13, 2023 06:02 PM Reporting Lab: [facility] [address] [facility] [address] Performing Lab: [facility] [address] [facility] [address] [facility] BASIC METABOLI C PANEL (fasting ) UREA NITROGEN [MASS/VOLU ME] IN SERUM OR PLASMA 13 mg/dL 7 - 25 05/15 Specimen Type: SERUM No comment entered. Ordering Provider: ED REYES Report Released Date/Time: May 13, 2023 06:02 PM Reporting Lab: [facility] [place] [facility] [address] [facility] [address] Performing Lab: [facility] [address] [facility] [address] [facility] BASIC METABOLI C PANEL (fasting ) GLUCOSE [MASS/VOLU ME] IN SERUM OR PLASMA 121 mg/dL 65 - 100 05/15 H Specimen Type: SERUM No comment entered. Ordering Provider: ED REYES Report Released Date/Time: May 13, 2023 06:02 PM Reporting Lab: [facility] [place] [facility] [address] [facility] [address] Performing Lab: [facility] [place] [facility] [address] [facility] [address] [facility]SN [facility] BASIC METABOLI C PANEL (fasting ) SODIUM [MOLES/VOL UME] IN SERUM OR PLASMA 140 mmol/L 135 - 145 05/15 Specimen Type: SERUM No comment entered. Ordering Provider: ED REYES Report Released Date/Time: May 13, 2023 06:02 PM Reporting Lab: [facility] [place] [facility] [address] [facility] [address] Performing Lab: [place] [facility] [place] [facility] [address] [facility] [address] [place] [facility] [place] [facility] BASIC METABOLI C PANEL (fasting ) POTASSIUM [MOLES/VOL UME] IN SERUM OR PLASMA 4.2 mmol/L 3.5 - 5.0 05/15 Specimen Type: SERUM No comment entered. Ordering Provider: ED REYES Report Released Date/Time: May 13, 2023 06:02 PM Reporting Lab: [place] [facility] [place] [facility] [address] [facility] [address] Performing Lab: [place] [facility] [facility] [address] [facility] [address] [facility] BASIC METABOLI C PANEL (fasting ) CHLORIDE [MOLES/VOL UME] IN SERUM OR PLASMA 106 mmol/L 100 - 110 05/15 Specimen Type: SERUM No comment entered. Ordering Provider: ED REYES Report Released Date/Time: May 13, 2023 06:02 PM Reporting Lab: [facility] [facility] [address] [facility] [address] Performing Lab: [place] [facility] [facility] [address] [facility] [address] [facility] BASIC METABOLI C PANEL (fasting ) CARBON DIOXIDE, TOTAL [MOLES/VOL UME] IN SERUM OR PLASMA 25 meq/L 20 - 30 05/15 Specimen Type: SERUM No comment entered. Ordering Provider: ED REYES Report Released Date/Time: May 13, 2023 06:02 PM Reporting Lab: [place] [facility] [facility] [address] [facility] [address] Performing Lab: [place] [facility] [facility] [address] [facility] [address] [facility] [place] [facility] BASIC METABOLI C PANEL (fasting ) CREATININE [MASS/VOLU ME] IN SERUM OR PLASMA 0.99 mg/dL 0.50 - 1.40 05/15 Specimen Type: SERUM No comment entered. Ordering Provider: ED REYES Report Released Date/Time: May 13, 2023 06:02 PM Reporting Lab: [place] [facility] [facility] [address] [facility] [address] Performing Lab: [place] [facility] [facility] [address] [facility] [address] [place] [facility] BASIC METABOLI C PANEL (fasting ) GLOMERULAR FILTRATION RATE/1.73 SQ M.PREDICTE D [VOLUME RATE/AREA] IN SERUM, PLASMA OR BLOOD BY CREATININE -BASED FORMULA (CKD-EPI 2020) 73 mL/min 60 05/15 Specimen Type: SERUM No comment entered. Ordering Provider: ED REYES Report Released Date/Time: May 13, 2023 06:02 PM Reporting Lab: [place] [facility] [facility] [address] [facility] [address] Performing Lab: [place] [facility] [address] [facility] [address] [facility] LIPID PANEL FASTING CHOLESTERO L [MASS/VOLU ME] IN SERUM OR PLASMA 158 mg/dL 05/15 Specimen Type: SERUM No comment entered. Ordering Provider: ED REYES Report Released Date/Time: May 13, 2023 06:02 PM Reporting Lab: [place] [facility] [facility] [address] [facility] [address] Performing Lab: [place] [facility] [address] [facility] [address] [facility] LIPID PANEL FASTING TRIGLYCERI DE [MASS/VOLU ME] IN SERUM OR PLASMA 139 mg/dL 0 - 150 05/15 Specimen Type: SERUM No comment entered. Ordering Provider: ED REYES Report Released Date/Time: May 13, 2023 06:02 PM Reporting Lab: [facility] [place] [facility] [address] [facility] [address] Performing Lab: [place] [facility] [address] [address] [facility] [place] [facility] LIPID PANEL FASTING CHOLESTERO L IN LDL [MASS/VOLU ME] IN SERUM OR PLASMA BY CALCULACASEYO N 76 mg/dL 0 - 129 05/15 Specimen Type: SERUM No comment entered. Ordering Provider: ED REYES Report Released Date/Time: May 13, 2023 06:02 PM Reporting Lab: [facility] [place] [facility] [address] [facility] [address] Performing Lab: [facility] [place] [facility] [address] [facility] [address] [place] [facility] [place] [facility] LIPID PANEL FASTING CHOLESTERO L.TOTAL/CH OLESTEROL IN HDL [MASS RATIO] IN SERUM OR PLASMA 2.9 05/15 Specimen Type: SERUM No comment entered. Ordering Provider: ED REYES Report Released Date/Time: May 13, 2023 06:02 PM Reporting Lab: [place] [facility] [facility] [address] [facility] [address] Performing Lab: [place] [facility] [facility] [address] [facility] [address] [facility] [place] [facility] LIPID PANEL FASTING CHOLESTERO L IN HDL [MASS/VOLU ME] IN SERUM OR PLASMA 54 mg/dL 40 - 60 05/15 Specimen Type: SERUM No comment entered. Ordering Provider: ED REYES Report Released Date/Time: May 13, 2023 06:02 PM Reporting Lab: [place] [facility] [facility] [address] [facility] [address] Performing Lab: [facility] [facility] [address] [facility] [address] [facility] [place] [facility] LIVER FUNCTION PROTEIN [MASS/VOLU ME] IN SERUM OR PLASMA 6.7 g/dL 6.0 - 8.3 05/15 Specimen Type: SERUM No comment entered. Ordering Provider: ED REYES Report Released Date/Time: May 13, 2023 06:02 PM Reporting Lab: [place] [facility] [facility] [address] [facility] [address] Performing Lab: [facility] [facility] [address] [facility] [address] [place] [facility] [facility] LIVER FUNCTION ALBUMIN [MASS/VOLU ME] IN SERUM OR PLASMA 3.7 g/dL 3.5 - 5.0 05/15 Specimen Type: SERUM No comment entered. Ordering Provider: ED REYES Report Released Date/Time: May 13, 2023 06:02 PM Reporting Lab: [facility] [address] [facility] [address] Performing Lab: [facility] [facility] [address] [facility] [address] [place] [facility] [facility] LIVER FUNCTION ALKALINE PHOSPHATAS E [ENZYMATIC ACTIVITY/V OLUME] IN SERUM OR PLASMA 77 U/L 40 - 150 05/15 Specimen Type: SERUM No comment entered. Ordering Provider: ED REYES Report Released Date/Time: May 13, 2023 06:02 PM Reporting Lab: [facility] [place] [facility] [address] [facility] [address] Performing Lab: [place] [facility] [place] [facility] [address] [facility] [address] [place] [facility] [facility] LIVER FUNCTION ASPARTATE AMINOTRANS FERASE [ENZYMATIC ACTIVITY/V OLUME] IN SERUM OR PLASMA 19 U/L 5 - 34 05/15 Specimen Type: SERUM No comment entered. Ordering Provider: ED REYES Report Released Date/Time: May 13, 2023 06:02 PM Reporting Lab: [facility] [place] [facility] [address] [facility] [address] Performing Lab: [facility] [place] [facility] [address] [facility] [address] [facility] [place] [facility] LIVER FUNCTION ALANINE AMINOTRANS FERASE [ENZYMATIC ACTIVITY/V OLUME] IN SERUM OR PLASMA 21 U/L 05/15 Specimen Type: SERUM No comment entered. Ordering Provider: ED REYES Report Released Date/Time: May 13, 2023 06:02 PM Reporting Lab: [facility] [place] [facility] [address] [facility] [address] Performing Lab: [place] [facility] [place] [facility] [address] [facility] [address] [facility] [place] [facility] LIVER FUNCTION BILIRUBIN. TOTAL [MASS/VOLU ME] IN SERUM OR PLASMA 0.8 mg/dL 0.2 - 1.2 05/15 Specimen Type: SERUM No comment entered. Ordering Provider: ED REYES Report Released Date/Time: May 13, 2023 06:02 PM Reporting Lab: [place] [facility] [facility] [address] [facility] [address] Performing Lab: [place] [facility] [place] [facility] [address] [facility] [address] [facility] [place] [facility] URINALYS IS CLEAN CATCH COLOR OF URINE Light-Ye llow 05/15 Specimen Type: URINE Comment: If Glucose = >500 and Ketones are positive, please alert the Physician. Ordering Provider: DE REYES Report Released Date/Time: May 13, 2023 06:02 PM Reporting Lab: [facility] [place] [facility] [address] [facility] [address] Performing Lab: [facility] [place] [facility] [address] [facility] [address] [facility] [place] [facility] URINALYS IS CLEAN CATCH APPEARANCE OF URINE Clear 05/15 Specimen Type: URINE Comment: If Glucose = >500 and Ketones are positive, please alert the Physician. Ordering Provider: ED REYES Report Released Date/Time: May 13, 2023 06:02 PM Reporting Lab: [facility] [place] [facility] [address] [facility] [address] Performing Lab: [place] [facility] [place] [facility] [address] [facility] [address] [facility] [place] [facility] URINALYS IS CLEAN CATCH GLUCOSE [MASS/VOLU ME] IN URINE NEGATIVE mg/dL 05/15 Specimen Type: URINE Comment: If Glucose = >500 and Ketones are positive, please alert the Physician. Ordering Provider: ED REYES Report Released Date/Time: May 13, 2023 06:02 PM Reporting Lab: [facility] [address] [facility] [address] Performing Lab: [facility] [address] [facility] [address] [facility] URINALYS IS CLEAN CATCH KETONES [MASS/VOLU ME] IN URINE BY TEST STRIP NEGATIVE mg/dL 05/15 Specimen Type: URINE Comment: If Glucose = >500 and Ketones are positive, please alert the Physician. Ordering Provider: ED REYES Report Released Date/Time: May 13, 2023 06:02 PM Reporting Lab: [facility] [address] [facility] [address] Performing Lab: [facility] [address] [facility] [address] [facility] [place] URINALYS IS CLEAN CATCH ERYTHROCYT ES [PRESENCE] IN URINE SEDIMENT BY LIGHT MICROSCOPY NEGATIVE mg/dL 05/15 Specimen Type: URINE Comment: If Glucose = >500 and Ketones are positive, please alert the Physician. Ordering Provider: ED REYES Report Released Date/Time: May 13, 2023 06:02 PM Reporting Lab: [facility] [place] [address] [facility] [address] Performing Lab: [facility] [place] [facility] [address] [facility] [address] [facility] [place] [facility] URINALYS IS CLEAN CATCH PROTEIN [MASS/VOLU ME] IN URINE BY TEST STRIP NEGATIVE mg/dL 05/15 Specimen Type: URINE Comment: If Glucose = >500 and Ketones are positive, please alert the Physician. Ordering Provider: ED REYES Report Released Date/Time: May 13, 2023 06:02 PM Reporting Lab: [facility] [place] [facility] [address] [facility] [address] Performing Lab: [facility] [place] [facility] [address] [facility] [address] [facility] [place] URINALYS IS CLEAN CATCH NITRITE [PRESENCE] IN URINE NEGATIVE mg/dL 05/15 Specimen Type: URINE Comment: If Glucose = >500 and Ketones are positive, please alert the Physician. Ordering Provider: ED REYES Report Released Date/Time: May 13, 2023 06:02 PM Reporting Lab: [facility] [place] [facility] [address] [facility] [address] Performing Lab: [place] [facility] [place] [facility] [address] [facility] [address] [facility] [place] [facility] URINALYS IS CLEAN CATCH BILIRUBIN. TOTAL [PRESENCE] IN URINE NEGATIVE mg/dL 05/15 Specimen Type: URINE Comment: If Glucose = >500 and Ketones are positive, please alert the Physician. Ordering Provider: ED REYES Report Released Date/Time: May 13, 2023 06:02 PM Reporting Lab: [facility] [place] [facility] [address] [facility] [address] Performing Lab: [place] [facility] [place] [facility] [address] [facility] [address] [facility] URINALYS IS CLEAN CATCH SPECIFIC GRAVITY OF URINE BY REFRACTOME TRY 1.012 1.016 - 1.022 05/15 L Specimen Type: URINE Comment: If Glucose = >500 and Ketones are positive, please alert the Physician. Ordering Provider: ED REYES Report Released Date/Time: May 13, 2023 06:02 PM Reporting Lab: [facility] [place] [facility] [address] [facility] [address] Performing Lab: [facility] [place] [facility] [address] [facility] [address] [place] [facility] [facility] URINALYS IS CLEAN CATCH PH OF URINE BY TEST STRIP 7.0 5.0 - 9.0 05/15 Specimen Type: URINE Comment: If Glucose = >500 and Ketones are positive, please alert the Physician. Ordering Provider: ED REYES Report Released Date/Time: May 13, 2023 06:02 PM Reporting Lab: [facility] [place] [facility] [address] [facility] [address] Performing Lab: [facility] [facility] [address] [facility] [address] [place] [facility] [facility] URINALYS IS CLEAN CATCH UROBILINOG EN [MASS/VOLU ME] IN URINE BY TEST STRIP <2.0mg/d L <2.0 - 2.0 05/15 Specimen Type: URINE Comment: If Glucose = >500 and Ketones are positive, please alert the Physician. Ordering Provider: ED REYES Report Released Date/Time: May 13, 2023 06:02 PM Reporting Lab: [facility] [place] [facility] [address] [facility] [address] Performing Lab: [place] [facility] [place] [facility] [address] [facility] [address] [place] [facility] [place] [facility] URINALYS IS CLEAN CATCH LEUKOCYTE ESTERASE [PRESENCE] IN URINE BY TEST STRIP NEGATIVE 05/15 Specimen Type: URINE Comment: If Glucose = >500 and Ketones are positive, please alert the Physician. Ordering Provider: ED REYES Report Released Date/Time: May 13, 2023 06:02 PM Reporting Lab: [place] [facility] [place] [facility] [address] [facility] [address] Performing Lab: [place] [facility] [place] [facility] [address] [facility] [address] [facility] CBC AND DIFF (AUTO) LEUKOCYTES [#/VOLUME] IN BLOOD BY AUTOMATED COUNT 10.25 10*3/uL 4.50 - 11.00 05/15 Specimen Type: BLOOD No comment entered. Ordering Provider: ED REYES Report Released Date/Time: May 13, 2023 06:02 PM Reporting Lab: [place] [facility] [place] [facility] [address] [facility] [address] Performing Lab: [place] [facility] [place] [facility] [address] [facility] [address] [facility] [facility] CBC AND DIFF (AUTO) ERYTHROCYT ES [#/VOLUME] IN BLOOD BY AUTOMATED COUNT 5.44 10*6/uL 4.23 - 5.66 05/15 Specimen Type: BLOOD No comment entered. Ordering Provider: ED REYES Report Released Date/Time: May 13, 2023 06:02 PM Reporting Lab[facility] [place] [facility] [address] [facility] [phone] Performing Lab: [facility] [address] [facility] [phone] [facility] [place] [facility] CBC AND DIFF (AUTO) HEMOGLOBIN [MASS/VOLU ME] IN BLOOD 17.0 g/dL 12.8 - 17 05/15 Specimen Type: BLOOD No comment entered. Ordering Provider: ED REYES Report Released Date/Time: May 13, 2023 06:02 PM Reporting Lab: [facility] [address] [address] Performing Lab: [facility] [address] [address] [facility] [place] [facility] CBC AND DIFF (AUTO) HEMATOCRIT [VOLUME FRACTION] OF BLOOD BY AUTOMATED COUNT 51.5 39.2 - 50.4 05/15 H Specimen Type: BLOOD No comment entered. Ordering Provider: ED REYES Report Released Date/Time: May 13, 2023 06:02 PM Reporting Lab: [facility] [place] [facility] [address] [facility] [address] Performing Lab: [facility] [place] [facility] [address] [facility] [address] [facility] CBC AND DIFF (AUTO) MCV [ENTITIC VOLUME] BY AUTOMATED COUNT 94.7 fL 82 - 99 05/15 Specimen Type: BLOOD No comment entered. Ordering Provider: ED REYES Report Released Date/Time: May 13, 2023 06:02 PM Reporting Lab: [facility] [place] [place] [facility] [address] [facility] [address] Performing Lab: [facility] [address] [address] [facility] CBC AND DIFF (AUTO) MCHC [MASS/VOLU ME] BY AUTOMATED COUNT 33.0 g/dL 30.8 - 35.1 05/15 Specimen Type: BLOOD No comment entered. Ordering Provider: ED REYES Report Released Date/Time: May 13, 2023 06:02 PM Reporting Lab: [facility] [place] [facility] [address] [facility] [address] Performing Lab: [facility] [place] [facility] [address] [facility] [address] [facility] CBC AND DIFF (AUTO) PLATELETS [#/VOLUME] IN BLOOD BY AUTOMATED COUNT 154 10*3/uL 140 - 360 05/15 Specimen Type: BLOOD No comment entered. Ordering Provider: ED REYES Report Released Date/Time: May 13, 2023 06:02 PM Reporting Lab: [facility] [place] [facility] [address] [facility] [address] Performing Lab: [facility] [place] [facility] [address] [facility] [address] [facility] [place] [facility] CBC AND DIFF (AUTO) ERYTHROCYT E DISTRIBUTI ON WIDTH [RATIO] BY AUTOMATED COUNT 13.5 12.0 - 16.0 05/15 Specimen Type: BLOOD No comment entered. Ordering Provider: ED REYES Report Released Date/Time: May 13, 2023 06:02 PM Reporting Lab: [facility] [place] [facility] [address] [facility] [address] Performing Lab: [facility] [place] [facility] [address] [facility] [address] [facility] CBC AND DIFF (AUTO) MONOCYTES [#/VOLUME] IN BLOOD BY AUTOMATED COUNT 0.63 10*3/uL 0.30 - 1.10 05/15 Specimen Type: BLOOD No comment entered. Ordering Provider: ED REYES Report Released Date/Time: May 13, 2023 06:02 PM Reporting Lab: [facility] [place] [address] [address] Performing Lab: [facility] [place] [facility] [address] [facility] [address] [facility] CBC AND DIFF (AUTO) MCH [ENTITIC MASS] BY AUTOMATED COUNT 31.3 pg 26.2 - 32.6 05/15 Specimen Type: BLOOD No comment entered. Ordering Provider: ED REYES Report Released Date/Time: May 13, 2023 06:02 PM Reporting Lab: [facility] [place] [facility] [address] [facility] [address] Performing Lab: [facility] [place] [facility] [address] [facility] [address] [facility] [place] CBC AND DIFF (AUTO) NEUTROPHIL S/100 LEUKOCYTES IN BLOOD BY AUTOMATED COUNT 78.2 43.7 - 75.8 05/15 H Specimen Type: BLOOD No comment entered. Ordering Provider: ED REYES Report Released Date/Time: May 13, 2023 06:02 PM Reporting Lab: [facility] [place] [facility] [address] [facility] [address] Performing Lab: [facility] [place] [facility] [address] [facility] [address] [facility] CBC AND DIFF (AUTO) LYMPHOCYTE S/100 LEUKOCYTES IN BLOOD BY AUTOMATED COUNT 14.1 14.0 - 42.3 05/15 Specimen Type: BLOOD No comment entered. Ordering Provider: ED REYES Report Released Date/Time: May 13, 2023 06:02 PM Reporting Lab: [facility] [place] [facility] [address] [facility] [address] Performing Lab: [facility] [place] [facility] [address] [facility] [address] [facility] CBC AND DIFF (AUTO) MONOCYTES/ 100 LEUKOCYTES IN BLOOD BY AUTOMATED COUNT 6.1 5.1 - 13.7 05/15 Specimen Type: BLOOD No comment entered. Ordering Provider: ED REYES Report Released Date/Time: May 13, 2023 06:02 PM Reporting Lab: [facility] [place] [facility] [address] [facility] [address] Performing Lab: [facility] [place] [facility] [address] [facility] [address] [facility] [place] [facility] CBC AND DIFF (AUTO) EOSINOPHIL S/100 LEUKOCYTES IN BLOOD BY AUTOMATED COUNT 0.5 0.4 - 6.8 05/15 Specimen Type: BLOOD No comment entered. Ordering Provider: ED REYES Report Released Date/Time: May 13, 2023 06:02 PM Reporting Lab: [facility] [place] [facility] [address] [facility] [address] Performing Lab: [facility] [place] [facility] [address] [facility] [address] [facility] [place] [facility] CBC AND DIFF (AUTO) BASOPHILS/ 100 LEUKOCYTES IN BLOOD BY AUTOMATED COUNT 0.7 0.1 - 2.0 05/15 Specimen Type: BLOOD No comment entered. Ordering Provider: ED REYES Report Released Date/Time: May 13, 2023 06:02 PM Reporting Lab: [facility] [place] [facility] [address] [facility] [address] Performing Lab: [facility] [place] [facility] [address] [facility] [address] [facility] [place] [facility] CBC AND DIFF (AUTO) NEUTROPHIL S [#/VOLUME] IN BLOOD BY AUTOMATED COUNT 8.01 10*3/uL 2.20 - 7.60 05/15 H Specimen Type: BLOOD No comment entered. Ordering Provider: ED REYES Report Released Date/Time: May 13, 2023 06:02 PM Reporting Lab: [facility] [place] [facility] [address] [facility] [address] Performing Lab: [facility] [place] [facility] [address] [facility] [address] [facility] [place] [facility] CBC AND DIFF (AUTO) LYMPHOCYTE S [#/VOLUME] IN BLOOD BY AUTOMATED COUNT 1.45 10*3/uL 1.00 - 3.20 05/15 Specimen Type: BLOOD No comment entered. Ordering Provider: ED REYES Report Released Date/Time: May 13, 2023 06:02 PM Reporting Lab: [facility] [place] [facility] [address] [facility] [address] Performing Lab: [facility] [place] [facility] [address] [facility] [address] [facility] [place] [facility] CBC AND DIFF (AUTO) EOSINOPHIL S [#/VOLUME] IN BLOOD BY AUTOMATED COUNT 0.05 10*3/uL 0.03 - 0.44 05/15 Specimen Type: BLOOD No comment entered. Ordering Provider: ED REYES Report Released Date/Time: May 13, 2023 06:02 PM Reporting Lab: [facility] [place] [facility] [address] [facility] [address] Performing Lab: [facility] [place] [facility] [address] [facility] [address] [facility] [place] [facility] CBC AND DIFF (AUTO) BASOPHILS [#/VOLUME] IN BLOOD BY AUTOMATED COUNT 0.07 10*3/uL 0.01 - 0.13 05/15 Specimen Type: BLOOD No comment entered. Ordering Provider: ED REYES Report Released Date/Time: May 13, 2023 06:02 PM Reporting Lab: [facility] [place] [facility] [address] [facility] [address] Performing Lab: [facility] [place] [facility] [address] [facility] [address] [facility] [place] [facility] CBC AND DIFF (AUTO) IMMATURE GRANULOCYT ES/100 LEUKOCYTES IN BLOOD BY AUTOMATED COUNT 0.4 0.0 - 0.7 05/15 Specimen Type: BLOOD No comment entered. Ordering Provider: ED REYES Report Released Date/Time: May 13, 2023 06:02 PM Reporting Lab: [facility] [place] [facility] [address] [facility] [address] Performing Lab: [facility] [place] [facility] [address] [facility] [address] [facility] CBC AND DIFF (AUTO) IMMATURE GRANULOCYT ES [#/VOLUME] IN BLOOD 0.04 10*3/uL 0.00 - 0.06 05/15 Specimen Type: BLOOD No comment entered. Ordering Provider: ED REYES Report Released Date/Time: May 13, 2023 06:02 PM Reporting Lab: [facility] [place] [facility] [address] [facility] [address] Performing Lab: [facility] [place] [facility] [address] [facility] [address] [facility] [place] [facility] Vital Signs Combined list of inpatient and outpatient Vital Signs from Department of Defense and Veterans Affairs, ranging from 12 months to all on record, depending upon the facility. Vital Sign Value Date Comments Source SYSTOLIC BLOOD PRESSURE 151 05/26/20 24 11:52:31 [facility] [place] DIASTOLIC BLOOD PRESSURE 80 024 11:52:31 [facility] [place] PULSE OXIMETRY 98 05/26/2024 11:52:31 [facility] WEIGHT 232 05/26/2024 11:52:31 [facility] BMI 32 kg/m2 05/26/2024 11:52:31 [facility] PAIN 4 05/26/2024 11:52:31 [facility] HEIGHT 71 05/26/2024 11:52:31 [facility] [...] 13:40:38 [facility] [place] BMI 28 kg/m2 11/21/2023 13:40:38 [facility] PAIN 0 11/21/2023 13:40:38 [facility] TEMPERATURE 97.7 11/21/2023 13:40:38 [facility] PULSE 69 11/21/2023 13:40:38 [facility] RESPIRATION 18 11/21/2023 13:40:38 [facility] [place] Encounters Combined list of: 1) Encounters from Department of Veterans Affairs facilities going backup to the last 18 months, not all VA inpatient encounters are included; 2) Encounters from the Department of Defense facilities going backup to 280 months. 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 ORLANDO REYES RD D 05/21 [facility] Out[facility] Encounter [id number] 05/24 [facility] Out[facility] Encounter [id number] 05/24 [facility] OFF/OP EST MAY X REQ PHY/QHP [id number] Diagnos is: ICD-10- CM Z23 Encount er for immuniz ation HAMZAH ALCANTARA NON P 06/22 [facility] Out[facility] Encounter [id number] 07/11 [facility]counter [id number] 07/11 [facility] Out[facility] Encounter [id number] 07/16 [facility] Encounter [id number] 09/04 [facility] Encounter [id number] 09/07 [facility] OFFICE O/P EST MOD 30 MIN [id number] Diagnos is: ICD-10- CM R41.9 Unsp symptom s and signs w cogniti ve functio ns and awarene ss PAUL GRAMAJO IEL Y 09/17 [facility] Encounter [id number] 10/12 [facility] Out[facility] Encounter [id number] 10/15 [facility]counter [id number] 11/13 [facility] Encounter [id number] 11/19 [facility] 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 Outpatient Encounter [id number] 11/28 [facility] [place] Outpatient Encounter [id number] 12/02 [facility] [place] OT EVAL LOW COMPLEX 30 MIN [id number] Diagnos is: ICD-10- CM R53.1 Weakira s SHANE BAUTISTA ANE 12/04 [facility] [place] COMPRE OPH EXAM EST PT 1/ [id number] Diagnos is: ICD-10- CM H25.813 Combine d forms of age-rel ated catarac t, bilater al JUAN DAVIDTRISTA H B 12/11 [facility] [place] FIT SPECTACLES BIFOCAL [id number] Diagnos is: ICD-10- CM Z46.0 Encount er for fit/adj st of spectac les and contact lenses JUAN DAVIDTRISTA H B 12/11 [facility] [place] Outpatient Encounter [id number] 01/08 [facility] [place] Outpatient Encounter [id number] 02/03 [facility] Encounter [id number] 02/05 [facility] Out[facility] Encounter [id number] 04/25 [facility] Out[facility] Encounter [id number] 1. Diagnos is: ICD-10- CM Z02.89 Encount er for other adminis trative examina tiFRANCISCO Teague 05/06 [facility] Encounter [id number] 1.05/22 [facility] Out[facility] Encounter [id number] 1.05/23 [facility] Encounter [id number] 1.05/26 [facility] Out[facility] Encounter [id number] [facility] OFFICE O/P EST SF 10 MIN [id number] 1. 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 REFUGIO CLARKE ICA L 07/28 [facility] Encounter [id number] 08/08 [facility] Out[facility] Encounter [id number] 09/09 [facility] WHEELCHAIR MNGMENT TRAINING [id number] Diagnos is: ICD-10- CM R26.9 Unspeci fied abnorma lities of gait and mobilit y REFUGIO CLARKE ICA L 10/07 [facility] Social History Combined list of available smoking, tobacco, and other social history from Department of Defense and Veterans Affairs facilities. Social History Type Response Date Comment [facility] e Tobacco smoking status NHIS VA-TOBACCO NEVER USED 05/26/2024 [facility] History of tobacco use VA-TOBACCO NEVER USED 05/21/2023 [facility] History of tobacco use VA-TOBACCO FORMER USER 05/22/2022 [facility] History of tobacco use VA-TOBACCO NEVER USED 11/15/2018 [facility] History of tobacco use LIFETIME NON-TOBACCO USER 11/16/2016 [facility] History of tobacco use LIFETIME NON-TOBACCO USER 10/07/2015 [facility] [place] [facility] History of tobacco use QUIT TOBACCO USE > 7 YEARS AGO 03/29/2009 [facility] Plan of Care List of future care activities from [facility] facilities. Additional future care activities may be listed in the Assessment and Plan section. Date/Time Care Activity Care Activity Detail Facili ty 12/17/2024 AMBULATORY - MEDICINE AMBULATORY - MEDICI NE [facility] Advance Directives List of completed, amended, or rescinded Advance Directives on record at [facility] facilities. An actual copy of the Directive is not included. Date Advance Directive Provider Source 07/05/2022 ADVANCE DIRECTIVE DHIRAJ GRACIA [facility]
--- OUTSIDE RECORDS SUMMARY | 2024-10-30 16:44 | XMS_ITS ---
Author Organization [facility] Address [address] [place] [address] Care Team Providers Care Keno Manager Name Role Phone Jl Santana Primary Care Provider Unav ailable Ke Saleem Unavailable [phone] Encounters Encounter Location Date Provider Diagnosis [facility] [address] [place] [address] 01/29/2024 Ke Saleem Plan Of Treatment No Information Progress Notes * Raad LAZO WDOB: [birth year] (89 yo M)Acc No.[id number]:01/29/2024 Progress Note Patient:?Raad LAZO Provider:?eK Saleem DPM :1935???Age:88 Y???Sex:Male Ayaz e:01/29/2024 Address:[address] [place], [place] [address] [phone] Pcp:DOC Wall Subjective: * Chief Complaints: * ??? * Medical History:? Objective: * Vitals:? Assessment: Plan: * Treatment: * Images: * The named appointment provid er may or may not be the originator of this progress note, and it is not deemed complete until electronically signed by the appointment provider. Sign off status: Pending * Provider:?Ke Saleem DPM Date:?2023 Generated for Susi dominguez/Torrie/eTransmitting on:?10/30/2024 04:44 PM EST
--- OUTSIDE RECORDS SUMMARY | 2024-10-30 16:44 | XMS_ITS ---
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 Generated for Debbii alberto/Torrie/eTransmitting on:?10/30/2024 04:44 PM EST
== END 2024-10-30 14:20 | disposition home or self-care (01) ==
PROVIDERS: PCP Nurse Practitioner Family; Visit Provider Internal Medicine
DX: I35.0 Nonrheumatic aortic (valve) stenosis (principal)
CPT/HCPCS: 93010; 99214; G2211

== ENCOUNTER → 2024-10-30 13:46 | Outpatient (BNVA) | payer MEDICARE, SELFPAY | PROVIDERS: PCP Nurse Practitioner Family; Visit Provider Internal Medicine | DX: I35.0 Nonrheumatic aortic (valve) stenosis (principal) | CPT/HCPCS: 93005; 99212 ==

== ENCOUNTER 2024-11-21 07:00 | Outpatient (REF) | payer MEDICARE, SELFPAY ==
[2024-11-21 07:04] LABS: MANUAL DIFF FLAG NO
[2024-11-21 07:24] LABS: Estimated Average Glucose 146 mg/dL; Hemoglobin A1c % 6.7 % (<6.0); Total Hemoglobin (HGBA1C) 4177.1635 umol/L
[2024-11-21 07:26] LABS: Basophils Absolute Auto 0.1 X10*3/uL (0.0-0.2); Basophils Percent Auto 0.9 % (0-2); Eosinophils Absolute Auto 0.1 X10*3/uL (0.0-0.4); Eosinophils Percent Auto 1.2 % (0-4); Hematocrit 46.7 % (42.0-52.0); Hemoglobin 15.8 g/dl (14.0-18.0); Imm Gran Abs Auto 0.03 X10*3/uL (0.00-0.03); Imm Gran Pct Auto 0.5 % (0.0-0.4); Lymphocytes Absolute Auto 1.7 X10*3/uL (1.2-4.9); Lymphocytes Percent Auto 25.8 % (20-40); Mean Corpuscular HGB Conc 33.8 g/dl (31.0-36.0); Mean Corpuscular Hemoglobin 31.2 pg (27.0-33.0); Mean Corpuscular Volume 92.1 fL (80.0-98.0); Mean Platelet Volume 10.4 fL (9.4-12.4); Monocytes Absolute Auto 0.5 X10*3/uL (0.1-1.2); Monocytes Percent Auto 7.2 % (2-11); Neutrophils Absolute Auto 4.2 x10*3/uL (2.0-8.3); Neutrophils Percent Auto 64.4 % (45-73); Platelet Count 141 X10*3/uL (160-400); Red Blood Count 5.07 X10*6/uL (4.60-5.80); Red Cell Distribution Width 13.4 % (11.0-16.0); White Blood Count 6.5 X10*3/uL (4.8-10.8)
[2024-11-21 07:38] LABS: Alanine Aminotransferase 18 U/L (0-40); Albumin Level 3.5 g/dL (3.5-5.0); Alkaline Phosphatase 60 U/L (39-117); Anion Gap 10 (12-20); Aspartate Amino Transferase 22 U/L (5-37); Bilirubin Total 0.4 mg/dL (0.0-1.0); Blood Urea Nitrogen 17 mg/dL (9-16); Calcium 8.9 mg/dL (8.4-10.2); Carbon Dioxide 22 mmol/L (22-29); Chloride 111 mmol/L (96-108); Estimated Glomerular Filt Rate > 60; Glucose Random 104 mg/dL (60-115); Magnesium 2.1 mg/dL (1.6-2.6); Potassium 4.4 mmol/L (3.3-5.1); Sodium 139 mmol/L (135-145); Total Protein 6.3 g/dL (6.5-8.0)
[2024-11-21 07:49] LABS: Prostate Specific Antigen 5.24 ng/mL (<0.05-4.0)
[2024-11-21 08:01] LABS: Thyroid Stimulating Hormone 1.21 uIU/mL (0.32-4.0)
== END 2024-11-21 07:01 | disposition home or self-care (01) ==
LOC: HO.HSH3N 07:00
PROVIDERS: Visit Provider Nurse Practitioner Acute Care
DX: E11.9 Type 2 diabetes mellitus without complications (principal); N40.1 Benign prostatic hyperplasia with lower urinary tract symptoms; Z12.5 Encounter for screening for malignant neoplasm of prostate; C67.9 Malignant neoplasm of bladder, unspecified
CPT/HCPCS: 36415; 80053; 83036; 83735; 84153; 84443; 85025

== ENCOUNTER 2025-01-28 13:59 | Outpatient (AMB) | payer MEDICARE, SELFPAY ==
--- NOTE | 2025-01-28 14:02 | MHC.OFFVIS ---
Vital Signs 01/28/25 14:11 Height 5 ft 11 in Weight 231 lb 14.821 oz BMI 32.3 BP 100/62 Blood Pressure Location Lt brachial Position Sitting Intake Visit Reasons: Aortic stenosis Intake Note: TAVR evaluation -SOB Seasonal Package Handler Required: No Accompanied by: Daughter Allergies hydrocortisone [Cortizone-10] Allergy (Unknown, Verified 09/26/24 13:17) hives Medication List - Last Reconciled 01/28/25 by Tramaine Braba MD aspirin 81 mg PO DAILY cholecalciferol (vitamin D3) 25 mcg PO DAILY garlic 100 mg PO DAILY [ibuprofen 200 mg PO Q6-8H PRN] mecobalamin (vitamin B12) 1,000 mcg PO DAILY pyridoxine (vitamin B6) 500 mg PO DAILY sennosides 8.6 mg PO BEDTIME thiamine HCl (vitamin B1) 100 mg PO DAILY tramadol 50 mg PO Q8H PRN HPI Comments Details: [age] year gentleman here to discuss management of severe aortic valve stenosis. He had echocardiography performed recently which showed calcified valve with mean gradient of 41 mm Hg and aortic valve area of 0.88 cm2. He has background history of bladder cancer which is in remission. No recent bleeding and he has been tolerating baby aspirin. 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 He came to the office in a wheelchair. [facility] [place] He is saying that he walks around the facility 1 to 2 times a day. His daughter accompanied him and is saying that this is not a big facility and mostly he is quite sedentary and spends the day in the wheelchair. He is denying any chest pain, shortness of breath or syncope. 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 Daughter No problems noted. Social History Household Members: None Housing: House Are you a primary resident care manager to a significant other at home: No Do you presently have visiting nurse or other home services: Yes (daily Meals on Wheels, very supportive Daughter Funmi and Son-in-law Raad) Alcohol intake: current Alcohol intake frequency: 0-2 drinks per day Alcohol type: other Comment: aware of trip hazard Patient Tobacco Use Status: Never used Tobacco e-Cigarette/Vaping Use: Never Used Second Hand Smoke Exposure: No Substance Use Type: Marijuana Advance Directives Date on File: 03/22/22 service: Yes Current occupational status: retired Cognitive needs: No Hearing needs: No Vision needs: Yes Review of Systems Const Denies chills, Denies fatigue, Denies fever(s), Denies frequent falls, Denies weakness, Denies weight gain and Denies weight loss ENT Denies dizziness Card Denies chest pain, Denies leg edema, Denies lightheadedness, Denies palpitations, Denies dyspnea and Denies dyspnea on exertion Resp Denies cough, Denies dyspnea and Denies dyspnea on exertion GI Denies hematochezia Musc Denies abnormal gait, Denies muscle weakness, Denies numbness, Denies radiating pain into limb and Denies tingling Neuro Denies abnormal gait, Denies dizziness, Denies frequent falls, Denies numbness, Denies tingling and Denies weakness Endo Denies fatigue and Denies palpitations Physical Exam Vital Signs: Last Vital Signs BP 100/62 01/28/25 14:11 BMI result Body Mass Index 32.3 GENERAL APPEARANCE: in no acute distress, pleasant. NECK: no carotid bruit, no jugular venous distention. SKIN: no suspicious lesions, warm and dry. HEART: Ejection systolic murmur with absent 2nd heart sound, regular rate and rhythm. LUNGS: clear to auscultation bilaterally. ABDOMEN: soft, nontender. EXTREMITIES: 2+ edema. PERIPHERAL PULSES: equal. NEUROLOGIC: No gross deficits, AAO X 3 Office Procedures EKG Details: Normal sinus rhythm 72 beats per minute, right bundle-branch block, normal axis, inferior infarct, QTC 464 milliseconds. [id number], Complete Assessment & Plan Assessment & Plan (1) Non-rheumatic aortic stenosis: Code(s): I35.0 - Nonrheumatic aortic (valve) stenosis Category: Medical Plan Pleasant 89 year gentleman who is here to discuss management of severe aortic valve stenosis. We discussed about management options including surgery versus transcatheter aortic valve replacement. Given his overall deconditioning, age and background of bladder cancer he seems to be a better candidate for transcatheter aortic valve replacement. He will see Cardiothoracic surgery consultation anyway. We discussed in detail about transcatheter aortic valve replacement. I have explained him about TAVR protocol CT and gathering further information. I have discussed with him about complications including bleeding, vascular injury, infection, stroke, and brisk for pacemaker. Risk for pacemaker is quite pertinent because he has known right bundle-branch block. The patient is interested in transcatheter aortic valve replacement. We will refer him for CT surgery consultation and we will do a TAVR protocol CT. After that we will discuss him in the heart team meeting. Thank you for allowing me to participate in the care of your patient. Please feel free to contact me if you have any questions. Coding Level of Care Code New Pt Level 5 (43773) Diagnoses Non-rheumatic aortic stenosis I35.0 CPT Codes EKG - CPT: [id number], Complete ([id number])
--- OUTSIDE RECORDS SUMMARY | 2025-01-28 14:02 | XMS_ITS | Encounter Summary ---
Author Name [facility] [place] [facility] [facility] [place] Address [address] [place] [address] Care Team Providers Care Hunter Trapper Name Role Phone SHAINA REYES Primary Care [...] Etienne's Name Patient's Relationship to Policy Etienne [facility] ([facility]) MEDICARE ADVANTAGE MCR ([facility]) Aug 27, 2012 [id number] PATIENT [facility] ([facility]) MEDICARE ADVANTAGE MCR ([facility]) Aug 27, 2012 [id number]ZO PATIENT Selected Encounter This section includes the information on record at [place] for the Encounter. Date/Time Encounter Type Encounter Description Reason Provider Source Dec 17, 2024 12:30 PM OFFICE O/P EST MOD 30 MIN OPTOMETRY ICD-10-CM H25.813 Combined forms of age-related cataract, bilateral MERHAR,JAH B IHE Encounter Template Text not used by VA Assessments - Encounter Diagnoses This section includes the primary and secondary diagnoses documented for the Encounter. Date/Time Primary/Secondary Diagnosis Diagnosis Name Provider Source Dec 17, 2024 05:16 PM PRIMARY Combined forms of age-related cataract, bilateral JUAN DAVID,JAH B [place] [facility] [place] [facility] Dec 17, 2024 05:16 PM SECONDARY Dry eye syndrome of bilateral lacrimal glands JUAN DAVID,JAH B [place] [facility] [place] [facility] Dec 17, 2024 05:16 PM SECONDARY Hypermetropia, bilateral MERHAR,JAH B [place] [facility] [place] [facility] Dec 17, 2024 05:16 PM SECONDARY Squamous blepharitis left eye, upper and lower eyelids JUAN DAVID,JAH B [place] [facility] [place] [facility] Dec 17, 2024 05:16 PM SECONDARY Squamous blepharitis right eye, upper and lower eyelids [facility] Plan of Treatment: Future Appointments (+ 6 months) and Future Tests (+/- 45 days) The Plan of Treatment section includes future care activities for the patient [facility] [place] [facility] This section includes future appointments and future orders which are active, pending or scheduled. Future Appointments This section includes appointments that were scheduled to occur 6 months from the date of the Encounter, up to a maximum of 20 appointments. The data comes from all [place] treatment facilities. Appointment Date/Time Appointment Type Appointme nt Facility Name December 26, 2024 01:00 PM AMBULATORY - MEDICINE [facility] [place] [facility] May 25, 2025 01:00 PM [facility] - [facility] Active, Pending, and Scheduled Orders This section includes a listing of several types of active, pending, and scheduled orders, including clinic medications orders, diagnostic test orders, procedure orders and consult orders; where the start date of the order is 45 days before the date of the Encounter or 45 days after the date of theEncounter. The data comes from all [place] treatment facilities. Test Date/Time Test Type Test Details Facility Name December 31, 2024 10:28 AM Consult Order COMMUNITY CARE-DENTAL GENERAL Cons Cabinet [facility]'s Choice [facility] Social History: Smoking Status (Most current) and Tobacco Use (All prior to encounter date) This section includes the most current, and the historical, smoking and tobacco- related health factors from the [place] facility where the Encounter took place. Current Smoking Status This section includes the most current smoking, or tobacco-related health factor, from the [place] facility where the Encounter took place. Date/Time Current Smoking Status Comment Melany ity May 26, 2024 10:30 AM VA-TOBACCO NEVER USED [facility] Tobacco Use History This section includes a history of the smoking, or tobacco-related health factors, that were collected on or before the date of the Encounter. The data comes from the [place] facility where the Encounter took place. Date/Time Smoking Status/Tobacco Use Comment F acility May 21, 2023 02:00 PM VA-TOBACCO [facility]ED [facility] May 22, 2022 03:30 PM VA-TOBACCO FOR[facility]ER [facility] May 22, 2022 03:30 PM VA-TOBACCO QUIT 15 YRS OR MORE [facility] Nov 15, 2018 10:40 AM VA-TOBACCO NEVER USED [facility] Nov 16, 2016 01:42 PM LIFETIME NON-TOBACCO USER [facility] Oct 07, 2015 01:01 PM LIFETIME NON-TOBACCO USER [facility] Mar 29, 2009 02:36 PM QUIT TOBACCO USE > 7 YEARS AGO [facility] Advance Directives: All historical and current Section Date Range: From patient's date of to the date document was created. This section includes ALL of a patient's completed or amended [place] Advance and Rescinded Directives. The entries below indicate that a directive exists for the patient, but an actual copy is not included with this document. The data comes from all [place] facilities. Date Advance Directives Provider Source Jul 05, 2022 ADVANCE DIRECTIVE DHIRAJ GRACIA [facility] Encounter Notes: All associated encounter notes This section contains the clinical notes associated to the Encounter. Date/Time Encounter Note(s) Provider Source Dec 17, 2024 05:16 PM ADDENDUM: LOCAL TITLE: Addendum STANDARD TITLE: ADDENDUM DATE OF NOTE: DEC 17, 2024@17:16:38 ENTRY DATE: DEC 17, 2024@17:16:40 AUTHOR: JAH FALL EXP COSIGNER: URGENCY: STATUS: COMPLETED please assist in ordering duplicate glasses: RX INFORMATION OD +4.75 -2.00 X90 Add:+2.75 Pzm:0.00 Dir: Prz2:0.00 Dir2: OS +4.25 -2.00 X85 Add:+2.75 Pzm:0.00 Dir: Prz2:0.00 Dir2: FITTING INFORMATION FPD:65 NPD:62 [place]:R: L: SEG HT:R:15 L:15 Tint:None Shade:None VA Billable Items FRAME: EVANS ANTIQUE BLACK [id number] Right Lens: POLY BIFOCAL FT28 PHOTOCHROMIC MARTIN 1.586 POLY Left Lens: POLY BIFOCAL FT28 PHOTOCHROMIC MARTIN 1.586 POLY /promise/ JAH FALL OD Wrecking Supervisor Signed: 12/17/2024 17:16 Receipt Acknowledged By: 12/18/2024 08:28 /promise/ Charley Garcia Optometry Health Application Technician --- Original Document --- 12/17/24 OPTOMETRY NOTE: 89 WHITE MALE NOT OR Last eye exam: 12/12/23 Reason for Visit/CC: patient here for a comprehensive eye exam. Vision seems fine. Every so often eyes burn. OHx: cataracts OU refractive error OU (-) Pain: (-) CORONA: (-) Diplopia: (-) Flashes: (-) Floaters: (-) Amaurosis Fugax/Tia's: (-) Eye Injury: (-) Eye Surgery: (-) TBI (-) FOHx: MHx: Code Description K60.2 Anal fissure ([facility] [id number]) R41.9 Cognitive disorder ([facility] [id number]) Z77.29 Exposure to potentially hazardous substance ([facility] [id number]) C67.9 Bladder cancer ([facility] [id number]) N52.9 Erectile Dysfunction ([facility] [id number]) E51.9 Thiamine deficiency ([facility] [id number]) L30.9 Chronic dermatitis ([facility] [id number]) G62.9 Polyneuropathy ([facility] [id number]) G91.2 Hydrocephalus ([facility] [id number]) 275.03 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) 268.9 Vitamin D Deficiency (ICD-9-CM 268.9) 715.90 Osteoarthritis (ICD-9-CM 715.90) 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, Partial (ICD-9-CM 389.9) 369.9 Decreased, vision NEC (ICD-9-CM 369.9) 278.00 Obesity (ICD-9-CM 278.00) 272.4 Dyslipidemia (ICD-9-CM 272.4) Other: SYSTEMIC MEDICATIONS/OCULAR MEDICATIONS: Active and Recently Outpatient Medications (excluding Supplies): No Medications Found written med list: nystatin topical BID amoxicillin before dental metamucil aspirin 81mg calcium cholecalciferol pyridoxine HCL thiamine HCL 100mg polyvinyl alcohol QID prn cyanocobalamin garlic 400mg sennosides capsaicin lidocaine tramadol acetaminophin ALLERGIES: CORTISONE LAST BP: 138/80 (05/26/2024 12:28) PERTINENT LABS: No data for HEMOGLOBIN A1C Current Rx with last BCVA: OD: +4.50 -2.00 x 090 20/20-2 OS: +4.25 -2.00 x 085 20/40-2 Add: +2.75 DVA ( )sc ( x )cc OD 20/50 OS 20/40-2 Pupils: PERRL (-)APD EOM: Full all meridia OU, (-) pain/diplopia Confrontation Visual Lamas: Full all meridia OU Subjective: OD +4.75 -2.00 x 090 20/30+2 OS +4.25 -2.00 x 085 20/40-2 NI Add: +2.75 SLE: Lids/Lashes: dermatochalasis OU, moderate blepharitis OU Conjunctiva: mild injection OU Corneas: 1+ SPK OU Iris: flat and clear OU Anterior Chamber: deep and quiet OU Angles: open OU Lens: 1-2+ NS OU, 2+ ACC OU, 1+ central PSC OS>OD TAP @ 12:33pm Maloney OD 14 mm Hg OS 14 mm Hg Dilating Drops: 1 gtt 1% Tropicamide OU, 2.5% phenylephrine OU (Pt. ed. on side effects) Vitreous: Syneresis OU C/D (Size and Rim Description) OD 0.45 pink & healthy OS 0.40 pink & healthy temp PPA OU Macula OD flat, few drusen OS flat and clear A/V: normal caliber OU Posterior Pole: clear OU Periphery: Flat and intact (-)holes, tears, detachments 360 OU Assessment/Plan: 1. combined cataracts OU, mildly visually significant but pt continues to function well. Monitor 2. 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 Recommend artificial tears BID OU and lid scrubs daily - gave written instructions to SNF. 3. hyperopia OU, regular astigmatism OU - order new bifocals RTC 1 year or earlier PRN Total time: 35 minutes *This includes time spent before the visit reviewing the chart, time spent during visit (not including procedures coded separately), and time spent on documentation after the visit on the same date of service. patient offered and declined printed medication list Medication Reconciliation: Outpatient: Has the patient been taking medications as documented in the EMLR? No: Discrepencies were identified. See below. Essential Medication List for Review used to complete this medication reconciliation. INCLUDED IN THIS LIST: Alphabetical list of active outpatient prescriptions dispensed from this [facility] (local) and dispensed from another [place] or [facility] facility (remote) as well as inpatient orders (local, pending and active), local clinic medications, locally documented non-VA medications, and local prescriptions that have or been discontinued in the past 90 days. - Discrepancies were identified, addressed, and discussed with the patient/caregiver at this encounter. Discrepancies: see above list - All changes in medications, including all [...] Remote Allergy/ADR Data available for this patient [facility] CORTISONE Med [facility] (Tool #1) INCLUDED IN THIS LIST: Alphabetical list of active outpatient prescriptions dispensed from this VA (local) and dispensed from another [place] or [facility] facility (remote) as well as inpatient orders (local pending and active), local clinic medications, locally documented non-VA medications, and local prescriptions that have or been discontinued in the past 90 days. Non-VA Meds Last Documented On: Mar 29, 2009 NOTE The display of VA prescriptions dispensed from another [place] or [facility] facility (remote) is limited to active outpatient prescription entries matched to National Drug File at the originating site and may not include some items such as investigational drugs, compounds, etc. NOT INCLUDED IN THIS LIST: Medications self-entered by the patient into personal health records (i.e. [employer]) are NOT included in this list. Non-VA medications documented outside this [place], remote inpatient orders (regardless of status) and remote clinic medications are NOT included in this list. The patient and provider must always discuss medications the patient is taking, regardless of where the medication was dispensed or obtained. SUPPLIES /promise/ JAH FALL OD Wrecking Supervisor Signed: 12/17/2024 17:16 JAH FALL [place] [facility] [place] [facility] Dec 17, 2024 12:17 PM OPTOMETRY NOTE: LOCAL TITLE: OPTOMETRY NOTE STANDARD TITLE: OPTOMETRY NOTE DATE OF NOTE: DEC 17, 2024@12:17 ENTRY DATE: DEC 17, 2024@12:17:55 AUTHOR: JAH FALL EXP COSIGNER: URGENCY: STATUS: COMPLETED OPTOMETRY NOTE Has ADDENDA 89 WHITE MALE NOT OR Last eye exam: 12/12/23 Reason for Visit/CC: patient here for a comprehensive eye exam. Vision seems fine. Every so often eyes burn. [place]x: cataracts OU refractive error OU (-) Pain: (-) CORONA: (-) Diplopia: (-) Flashes: (-) Floaters: (-) Amaurosis Fugax/Tia's: (-) Eye Injury: (-) Eye Surgery: (-) TBI (-) FOHx: MHx: Code Description K60.2 Anal fissure ([facility] [id number]) R41.9 Cognitive disorder ([facility] [id number]) Z77.29 Exposure to potentially hazardous substance ([facility] [id number]) C67.9 Bladder cancer ([facility] [id number]) N52.9 Erectile Dysfunction ([facility] [id number]) E51.9 Thiamine deficiency ([facility] [id number]) L30.9 Chronic dermatitis ([facility] [id number]) G62.9 Polyneuropathy ([facility] 72749803) G91.2 Hydrocephalus ([facility] [id number]) 275.03 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) 268.9 Vitamin D Deficiency (ICD-9-CM 268.9) 715.90 Osteoarthritis (ICD-9-CM 715.90) 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, Partial (ICD-9-CM 389.9) 369.9 Decreased, vision NEC (ICD-9-CM 369.9) 278.00 Obesity (ICD-9-CM 278.00) 272.4 Dyslipidemia (ICD-9-CM 272.4) Other: SYSTEMIC MEDICATIONS/OCULAR MEDICATIONS: Active and Recently Outpatient Medications (excluding Supplies): No Medications Found written med list: nystatin topical BID amoxicillin before dental metamucil aspirin 81mg calcium cholecalciferol pyridoxine HCL thiamine HCL 100mg polyvinyl alcohol QID prn cyanocobalamin garlic 400mg sennosides capsaicin lidocaine tramadol acetaminophin ALLERGIES: CORTISONE LAST BP: 138/80 (05/26/2024 12:28) PERTINENT LABS: No data for HEMOGLOBIN A1C Current Rx with last BCVA: OD: +4.50 -2.00 x 090 20/20-2 OS: +4.25 -2.00 x 085 20/40-2 Add: +2.75 DVA ( )sc ( x )cc OD 20/50 OS 20/40-2 Pupils: PERRL (-)APD EOM: Full all meridia OU, (-) pain/diplopia Confrontation Visual Lamas: Full all meridia OU Subjective: OD +4.75 -2.00 x 090 20/30+2 OS +4.25 -2.00 x 085 20/40-2 NI Add: +2.75 SLE: Lids/Lashes: dermatochalasis OU, moderate blepharitis OU Conjunctiva: mild injection OU Corneas: 1+ SPK OU Iris: flat and clear OU Anterior Chamber: deep and quiet OU Angles: open OU Lens: 1-2+ NS OU, 2+ ACC OU, 1+ central PSC OS>OD TAP @ 12:33pm Maloney OD 14 mm Hg OS 14 mm Hg Dilating Drops: 1 gtt 1% Tropicamide OU, 2.5% phenylephrine OU (Pt. ed. on side effects) Vitreous: Syneresis OU C/D (Size and Rim Description) OD 0.45 pink & healthy OS 0.40 pink & healthy temp PPA OU Macula OD flat, few drusen OS flat and clear A/V: normal caliber OU Posterior Pole: clear OU Periphery: Flat and intact (-)holes, tears, detachments 360 OU Assessment/Plan: 1. combined cataracts OU, mildly visually significant but pt continues to function well. Monitor 2. 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 Recommend artificial tears BID OU and lid scrubs daily - gave written instructions to SNF. 3. hyperopia OU, regular astigmatism OU - order new bifocals RTC 1 year or earlier PRN Total time: 35 minutes *This includes time spent before the visit reviewing the chart, time spent during visit (not including procedures coded separately), and time spent on documentation after the visit on the same date of service. patient offered and declined printed medication list Medication Reconciliation: Outpatient: Has the patient been taking medications as documented in the EMLR? No: Discrepencies were identified. See below. Essential Medication List for Review used to complete this medication reconciliation. INCLUDED IN THIS LIST: Alphabetical list of active outpatient prescriptions dispensed from this VA (local) and dispensed from another [place] or [facility] facility (remote) as well as inpatient orders (local, pending and active), local clinic medications, locally documented non-VA medications, and local prescriptions that have or been discontinued in the past 90 days. - Discrepancies were identified, addressed, and discussed with the patient/caregiver at this encounter. Discrepancies: see above list - All changes in medications, including all [...] Remote Allergy/ADR Data available for this patient [place] [facility] [place] [facility] CORTISONE Med Recon [employer] (Tool #1) INCLUDED IN THIS LIST: Alphabetical list of active outpatient prescriptions dispensed from this VA (local) and dispensed from another [place] or [facility] facility (remote) as well as inpatient orders (local pending and active), local clinic medications, locally documented non-VA medications, and local prescriptions that have or been discontinued in the past 90 days. Non-VA Meds Last Documented On: Mar 29, 2009 NOTE The display of VA prescriptions dispensed from another [place] or [facility] facility (remote) is limited to active outpatient prescription entries matched to National Drug File at the originating site and may not include some items such as investigational drugs, compounds, etc. NOT INCLUDED IN THIS LIST: Medications self-entered by the patient into personal health records (i.e. [employer]) are NOT included in this list. Non-VA medications documented outside this [place], remote inpatient orders (regardless of status) and remote clinic medications are NOT included in this list. The patient and provider must always discuss medications the patient is taking, regardless of where the medication was dispensed or obtained. SUPPLIES /deisi FALL OD Wrecking Supervisor Signed: 12/17/2024 17:16 12/17/2024 ADDENDUM STATUS: COMPLETED please assist in ordering duplicate glasses: RX INFORMATION OD +4.75 -2.00 X90 Add:+2.75 Pzm:0.00 Dir: Prz2:0.00 Dir2: OS +4.25 -2.00 X85 Add:+2.75 Pzm:0.00 Dir: Prz2:0.00 Dir2: FITTING INFORMATION FPD:65 NPD:62 [place]:R: L: SEG HT:R:15 L:15 Tint:None Shade:None VA Billable Items FRAME: EVANS ANTIQUE BLACK [id number] Right Lens: POLY BIFOCAL FT28 PHOTOCHROMIC MARTIN 1.586 POLY Left Lens: POLY BIFOCAL FT28 PHOTOCHROMIC MARTIN 1.586 POLY /promise/ JAH FALL OD Wrecking Supervisor Signed: 12/17/2024 17:16 Receipt Acknowledged By: 12/18/2024 08:28 /promise/ Charley Garcia Optometry Health Application Technician 12/18/2024 ADDENDUM STATUS: COMPLETED Optometry Health Application Technician ordered patient 1 pair(s) of ft28 eyeglasses on 12/18/24 as directed by provider. OPT HT entered consult(s) for order on behalf of provider. /promise/ Charley Garcia Optometry Health Application Technician Signed: 12/18/2024 08:29 JAH FALL [facility]
[2025-01-28 14:11] VITALS: BP 100/62; BMI 32.3
== END 2025-01-28 14:49 | disposition home or self-care (01) ==
PROVIDERS: PCP Nurse Practitioner Family; Visit Provider Internal Medicine Cardiovascular Disease
DX: I35.0 Nonrheumatic aortic (valve) stenosis (principal); R94.31 Abnormal electrocardiogram [ECG] [EKG]
CPT/HCPCS: 93010; 99204

== ENCOUNTER → 2025-01-28 13:59 | Outpatient (BNVA) | payer MEDICARE, SELFPAY | PROVIDERS: PCP Nurse Practitioner Family; Visit Provider Internal Medicine Cardiovascular Disease | DX: I35.0 Nonrheumatic aortic (valve) stenosis (principal); I45.10 Unspecified right bundle-branch block; R94.31 Abnormal electrocardiogram [ECG] [EKG] | CPT/HCPCS: 93005; 99202 ==

== ENCOUNTER 2025-02-05 09:57 | Outpatient (AMB) | payer MEDICARE, SELFPAY ==
--- NOTE | 2025-02-05 10:24 | MHC.OFFVIS ---
Intake Visit Reasons: 6m Cysto Intake Note: Patient is present for 6M Cystoscopy Urology Medication:VITAMIN B12,VITAMIN B6,VITAMIN B1 Antibiotic Allergy:NONE Blood Thinner:ASPIRIN Lot:[id number] Exp:01/02/27 Psych Nurse Required: No Allergies hydrocortisone [Cortizone-10] Allergy (Unknown, Verified 02/05/25 10:26) hives HPI Comments Details: Raad is a pleasant male. He is a patient of Dr. Lester. He is seen for following urologic conditions - lower urinary tract symptoms - nephrolithiasis - erectile dysfunction - bladder cancer Here for interval check cysto currently on Q six-month cycle Bladder clear Slow PSA climb Had been at [facility] in the early Has had urinary urgency and frequency requiring use of adult diapers secondary to bladder chemotherapy Bladder cancer TURBT 07/18 high-grade noninvasive Initial therapy TURBT with bladder therapy - TURBT 07/18, 08/17 6 week induction gemcitabine, 02/16 boost, 05/19 boost, 08/18 boost, 02/17 boost gemcitabine Cystoscopy - 10/19 slowly healing right sidewall Interventions - TURBT 07/18 Tumor site: Right side wall Histologic type: Papillary urothelial carcinoma, noninvasive Histologic grade: High-grade Muscularis propria: Not identified Extent of invasion: Non-invasive papillary carcinoma Imaging - 07/18 CT urogram 1.8 cm bladder mass Cytology - 08/18 Neg, 02/17 NAD, 05/20 NAD Workplace exposure - [facility] in the early - follow [employer] Smoking history - nonsmoker Lower urinary tract symptoms GreenLight laser prostate performed 2019 Had been able to come off medications Nocturia x1 PSA - 11/18 5.2 Nephrolithiasis Passage of stone mid 2020 right side Imaging - 01/14 CT scan distal right ureteric stone mild hydronephrosis 3 mm - 07/17 renal ultrasound 3 mm left stone - 02/15 renal ultrasound no stones - 02/15 CT urogram Continue with B6 and imaging [facility] Medical History (Updated 09/26/24 @ 15:25 by Benito Mcnair MD) Blood per rectum Venous stasis Venous insufficiency Tricuspid valve insufficiency Hydrocephalus Depression Mitral valve insufficiency BCC (basal cell carcinoma) Aortic stenosis Hemochromatosis Neuropathy Surgical History History of vein stripping 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 Daughter No problems noted. Social History Household Members: None Housing: House Are you a primary daycare director to a significant other at home: No Do you presently have visiting nurse or other home services: Yes (daily Meals on Wheels, very supportive Daughter Funmi and Son-in-law Raad) Alcohol intake: current Alcohol intake frequency: 0-2 drinks per day Alcohol type: other Comment: aware of trip hazard Patient Tobacco Use Status: Never used Tobacco e-Cigarette/Vaping Use: Never Used Second Hand Smoke Exposure: No Substance Use Type: Marijuana Advance Directives Date on File: 03/22/22 service: Yes Current occupational status: retired Cognitive needs: No Hearing needs: No Vision needs: Yes Review of Systems Const Denies chills and Denies fever(s) Card Reports no additional complaints and Denies syncope Resp Denies cough GI Denies abdominal pain and Denies heartburn Reports as per HPI and Denies change in libido Neuro Denies syncope Psych Denies change in libido Endo Denies change in libido Physical Exam Const General: cooperative, healthy appearing, comfortable and no acute distress Orientation/consciousness: patient oriented x3 HEENT Face and sinus: Yes normal facial exam Mouth: moist mucous membranes Neck Neck: Yes normal visual inspection, Yes full ROM and Yes trachea midline Chest Chest palpation & inspection: normal inspection of the chest Resp Effort & Inspection: normal respiratory effort, able to speak in complete sentences and no respiratory distress GI Inspection: Yes normal to inspection Back/Spine/Pelvis Cervical Spine: normal cervical lordosis Thoracic/Lumbar Spine: thoracic and lumbar spine normal to inspection Skin General skin exam: no rashes or lesions noted Neuro General: patient oriented x3, gait normal, tone normal and moves all extremities Extrem General: Yes normal to inspection and Yes capillary refill normal Office Procedures Cystoscopy Consent Discussed risk and benefit or proposed procedure with the patient. Information consent for procedure given to the patient. Discussed technical aspects, risks, benefits and alternatives in full. Addressed all of the patient's questions and concerns regarding the procedure. The patient demonstrated knowledge and understanding. They wish to proceed with this procedure. Preparation The patient was prepped in the usual manner. A ladle operator was present and in the room. Genitalia was prepped with betadine solution in a sterile manner. Lidocaine Jelly 2% was placed into the urethra and 16Fr flexible Olympus cystoscope was inserted into the meatus after adequate lubrication. Procedure Cystoscopy performed using a disposable Urovue digital 16 Mexican cystoscope. Meatus uncircumcised Urethra anterior and posterior urethra normal Prostatic Urethra unremarkable Bladder examination with retroflexion of cystoscope Bladder Orifices normal shape and position Bladder Capacity Normal Trabeculations grade 2 Cellule Formation None Diverticulum Formation None Mucosal Erythema None Bladder Tumor None [id number] DISPOSABLE SCOPE URO-G FLEXIBLE SCOPE Procedure code (CPT) selection complete Office Meds lidocaine HCl 2 % mucosal jelly in applicator Performing Provider: Duane Lindsay MD Performing Location: [facility] Administered by: Josefina Wise RN on 02/05/25 11:07 Dose Route Admin Location Dispensed Lot Number Expiration Date NDC Soaping Department Supervisor 10 mL intra-urethral 10 mL nitrofurantoin monohydrate/macrocrystals 100 mg capsule Performing Provider: Duane Lindsay MD Performing Location: [facility] Administered by: Josefina Wise RN on 02/05/25 11:07 Dose Route Admin Location Dispensed Lot Number Expiration Date NDC Soaping Department Supervisor 100 mg PO 1 cap Assessment & Plan Assessment & Plan (1) Bladder cancer: Comment: 02/15 superficial right base Code(s): C67.9 - Malignant neoplasm of bladder, unspecified Category: Medical Plan Six-month follow-up cysto office Orders: Orders AMB Urinalysis Automated Today Z13.9 - Encounter for screening, unspecified AMB Cystoscopy Today C67.9 - Malignant neoplasm of bladder, unspecified, R31.9 - Hematuria, unspecified Medications: New nitrofurantoin monohyd/m-cryst 100 mg 100 mg PO ONCE 1 cap 0RF C67.9 - Malignant neoplasm of bladder, unspecified, R31.9 - Hematuria, unspecified lidocaine HCl 2% 10 mL intra-urethral ONCE 10 mL 0RF C67.9 - Malignant neoplasm of bladder, unspecified, R31.9 - Hematuria, unspecified Patient Instructions: This note is constructed using voice recognition software. While every effort has been made to ensure accuracy home health speech therapist errors may have been included. Imaging studies, laboratory and physical exam results were discussed and reviewed in detail. No major barriers to patient understanding were identified. An opportunity to ask questions regarding the treatment plan was provided. All questions were answered. The patient expressed understanding and agreement with the above treatment plan. The patient is aware they should contact our office by phone for worsening of their current condition or the appearance of new urologic symptoms. Compliance is encouraged with any medications and followup testing that is ordered. It is a privilege to participate in the urologic care of your patient. If you have any questions or concerns regarding treatment for the above conditions, or other urologic issues, please do not hesitate to contact me. The office telephone contact is [phone]. Sincerely, Dr Duane Lindsay MD, [facility] - Urology Compassionate Specialist Care for the Genitourinary System Coding Level of Care Code Est Pt Level 3 (01151) Complex EM visit Add On G2211 Diagnoses Bladder cancer C67.9 CPT Codes Cystoscopy - CPT: [id number] ([id number])
--- OUTSIDE RECORDS SUMMARY | 2025-02-05 11:12 | XMS_ITS | Patient Health Record ---
Author Organization [facility] natalee [place] Address [address] [place] [address] Care Team Providers Care Operations Manager Name Role Phone Jl Santana Primary Care Provider Unav ailable Ke Saleem Unavailable [phone] Allergies Allergen (clinical drug ingredient) Drug/Non Drug [...] Are you an other tobacco user? No Plan Of Treatment Pending Test Test Name Order Date [id number] NAIL, 6 OR MORE 07/31/2023 [id number] NAIL, 6 OR MORE 10/30/2023 [id number] SKIN LESIONS, OVER 4 10/30/19 24 [id number] SKIN LESIONS, 2 TO 4 07/31/20 23 Insurance Providers Payer Name Payer Address Payer Phone Subscriber Number Group Number Insured Name Patient Relationship to Insured Coverage Start Date Coverage End Date [employer] [address] [place] [phone] [id number] Raad Dewitt Self - patient is the insured Medical (General) History Medical History History ICD Code broken bones measles chicken pox prostate conditions Back,Hip,and Knee pain Cancer- skin,bladder Mumps Bone implants/screws hydrocephulus hemochromatosis Surgical History Surgery Date(Month/Year) brain surgery-fluid on brain 11/2012 appendectomy 11/2012 knee surgery 2018
== END 2025-02-05 11:22 | disposition home or self-care (01) ==
LOC: HO.HUSH 09:57
PROVIDERS: PCP Nurse Practitioner Family; Visit Provider Urology
DX: C67.9 Malignant neoplasm of bladder, unspecified (principal); R31.9 Hematuria, unspecified; Z13.9 Encounter for screening, unspecified
CPT/HCPCS: 52000; 99213

== ENCOUNTER → 2025-02-05 09:57 | Outpatient (BNVA) | payer MEDICARE, SELFPAY | PROVIDERS: PCP Nurse Practitioner Family; Visit Provider Urology | DX: R31.9 Hematuria, unspecified (principal); C67.9 Malignant neoplasm of bladder, unspecified; N52.9 Male erectile dysfunction, unspecified; N39.0 Urinary tract infection, site not specified | CPT/HCPCS: 52000; 81003; 99212 ==

== ENCOUNTER 2025-02-10 06:10 | Outpatient (REF) | payer MEDICARE, SELFPAY ==
[2025-02-10 06:53] LABS: Alanine Aminotransferase 21 U/L (0-40); Albumin Level 3.7 g/dL (3.5-5.0); Alkaline Phosphatase 61 U/L (39-117); Anion Gap 10 (12-20); Aspartate Amino Transferase 19 U/L (5-37); Bilirubin Total 0.4 mg/dL (0.0-1.0); Blood Urea Nitrogen 20 mg/dL (9-16); Calcium 8.8 mg/dL (8.4-10.2); Carbon Dioxide 25 mmol/L (22-29); Chloride 110 mmol/L (96-108); Estimated Glomerular Filt Rate > 60; Glucose Random 104 mg/dL (60-115); Potassium 4.1 mmol/L (3.3-5.1); Sodium 141 mmol/L (135-145); Total Protein 6.2 g/dL (6.5-8.0)
== END 2025-02-10 06:11 | disposition home or self-care (01) ==
LOC: HO.HSH3N 06:10
PROVIDERS: Visit Provider Internal Medicine
DX: I35.0 Nonrheumatic aortic (valve) stenosis (principal)
CPT/HCPCS: 36415; 80053

== ENCOUNTER → 2025-03-26 23:59 | Outpatient (BNV) | payer MEDICARE, SELFPAY | PROVIDERS: PCP Nurse Practitioner Family; Visit Provider Internal Medicine Cardiovascular Disease | DX: I35.0 Nonrheumatic aortic (valve) stenosis (principal); Z00.6 Encounter for examination for normal comparison and control in clinical research program | CPT/HCPCS: 33361; 99152 ==

== ENCOUNTER → 2025-05-01 10:20 | Outpatient (REF) | payer OTHER, SELFPAY ==
--- OUTSIDE RECORDS SUMMARY | 2020-02-19 12:08 | XMS_ITS | Encounter Summary ---
Author Organization [facility] Address [address] [place] [phone] Phone Care Team Providers Care Ibm Bpm Developer Name Role Phone Jl Huber PROFESSOR COMPUTER SCIENCE Primary Care Provider + Encounter Details Date Type Department Care Team (Late st Contact Info) Description 02/19/2020 12:08 PM EDT Hospital Encounter [facility] [address] [place] [phone] Mariza Lua CNP [address] [place] [id number] [email or web address] Social History Tobacco Use Types Packs/Day Years Used Date Smoking Tobacco: Never Smokeless Tobacco: Never Alcohol Use Standard Drinks/Week Comments Yes 3 (1 standard drink = 0.6 oz pur e alcohol) daily Education Answer Date Recorded Are you interested in more education? Not on larry e 12/22/2022 Are you concerned about learning? Not on file 12/22/2022 No 12/22/2022 No 12/22/2022 Digital Access Answer Date Recorded No 01/20/2023 No 01/20/2023 No 01/20/2023 Reliable internet access at home? Not on file 01/20/2023 Device with a working camera? Not on file Sex and Gender Information Value Date Recorded Sex Assigned at Not on file Legal Sex Male 11:09 AM EDT Gender Identity Not on file Sexual Orientation Not on file documented as of this encounter Plan of Treatment Not on file documented as of this encounter Procedures Procedure Name Priority Date/Time Associated Diagnosis Comments XR CHEST PA AND LATERAL 2 VIEWS Urgent/patient waiting 02/19/2020 12:13 PM EDT Bilateral rales documented in this encounter Results * XR CHEST PA AND LATERAL 2 VIEWS (02/19/2020 12:13 PM EDT) Anatomical Region Laterality Modality Chest Radiographic Chastity ging 02/19/2020 12:3 1 PM EDT Impressions 02/19/2020 12:32 PM EDT Minimal left basilar linear atelectasis versus scarring without other significant cardiopulmonary abnormality apparent. POS [id number] Narrative 02/19/2020 12:32 PM EDT COMPARISON: None FINDINGS: PA and lateral views reveal the lungs to be moderately well-expanded. There is minimal linear opacity at the left base which may reflect an element of atelectasis or scarring. No focal infiltrate or pleural effusion. Heart and pulmonary vessels within normal limits in size. No pulmonary edema pattern. Visualized bony thorax intact. Ventriculoperitoneal shunt tubing traverses the right chest wall. Procedure Note Patsy Louise MD - 02/19/2020 COMPARISON: None FINDINGS: PA and lateral views reveal the lungs to be moderately well-expanded.There is minimal linear opacity at the left base which may reflect anelement of atelectasis or scarring. No focal infiltrate or pleuraleffusion. Heart and pulmonary vessels within normal limits in size. Nopulmonary edema pattern. Visualized bony thorax intact.Ventriculoperitoneal shunt tubing traverses the right chest wall. IMPRESSION: Minimal left basilar linear atelectasis versus scarring without othersignificant cardiopulmonary abnormality apparent. POS [id number] Mariza Lua CYBER INCIDENT HANDLER IMG XR CHEST Final Resul t documented in this encounter Visit Diagnoses Not on filedocumented in this encounter Care Teams Ibm Bpm Developer Relationship Specialty Start Date End Date Jl Huber NP [facility] [place] [address] PCP - General Family Medicine 02/19/20 documented as of this encounter Additional Source Comments The information contained in this document represents components of the legal health record. It is not the complete legal health record.[facility]
--- OUTSIDE RECORDS SUMMARY | 2024-01-29 06:00 | XMS_ITS ---
Author Organization [facility] Address [address] [place] [address] Care Team Providers Care Student Support Services Director Name Role Phone Jl Santana Primary Care Provider Unav ailable Ke Saleem Unavailable [phone] Encounters Encounter Location Date Provider Diagnosis [facility] [address] [place] [address] 01/29/2024 Ke Saleem Plan Of Treatment No Information Progress Notes * Raad LAZO WDOB: [birth year] (89 yo M)Acc No.[id number]:01/29/2024 Progress Note Patient: Raad RUFF Provider: Elif Saleem DPM :1935 A ge:88 Y S ex:Male Date:01/29/2024 Address:[address] [place], [place] [address]Gillian [id number] Pcp:DOC Wall Subjective: * Chief Complaints: * * Medical History: Objective: * Vitals: Assessment: Plan: * Treatment: * Images: * The named appointment provid er may or may not be the originator of this progress note, and it is not deemed complete until electronically signed by the appointment provider. Sign off status: Pending * Provider: Elif Saleem DPM Date: 0 01/29/2024 Generated for Debbii alberto/Torrie/eTransmitting on: 0 05/01/2025 11:23 AM EDT
--- OUTSIDE RECORDS SUMMARY | 2025-04-26 23:59 | XMS_ITS | Continuity of Care Document ---
Author Organization [facility] Jose jeanie Address [address] [place] [address]- Care Team Providers Care Stock Controller Name Role Phone Brandon SORENSEN, Zuleyka Gee Primary Care Physician [place] [facility] [place](s): 03/27/25 - 04/26/25 [facility] [address] [place] [address] Drive [address] [place] [address]- Encounter Type: Triage Allergies, Adverse Reactions, Alerts No Known Allergies Medications acetaminophen 325 mg oral tablet 975 mg, 3, tablet, By Mouth, 2 times a day, Refills 0, Maintenance, 03/17/25 2:35:00 PM EDT, Partialfill upon patient request if the prescription is for a schedule II opioid drug. Start Date: 03/17/25 Status: Ordered Medication Dispense Status: Completed Total Allowed Fills: 1 Fills Dispensed: 0 ammonium lactate 12% topical cream 1 application, Topically, 2 times a day, PRN Dry Skin, Apply to bilateral legs as needed for dry skin, # 140 Gm, 0 Refills, Maintenance, 03/17/25 2:48:00 PM EDT, Cream, Partial fill upon patient request if the prescription is for a schedule II opioid drug. Start Date: 03/17/25 Status: Ordered Medication Dispense Status: Completed Quantity: 140.0 Unit: g Total Allowed Fills: 1 Fills Dispensed: 0 amoxicillin 500 mg oral capsule See Instructions, Take 4 capsules together 1 hour prior to all dental visits, 0 Refills, Maintenance, 03/17/25 2:36:00 PM EDT, Capsule, Partial fill upon patient request if the prescription is for a schedule II opioid drug. Start Date: 03/17/25 Status: Ordered Medication Dispense Status: Completed Total Allowed Fills: 1 Fills Dispensed: 0 aspirin 81 mg oral delayed release tablet 81 mg, 1, tablet, By Mouth, Daily, # 30 tablet, Refills 0, Maintenance, 03/17/25 2:38:00 PM EDT, Partial fill upon patient request if the prescription is for a schedule II opioid drug. Start Date: 03/17/25 Status: Ordered Medication Dispense Status: Completed Quantity: 30.0 Unit: tablet Total Allowed Fills: 1 Fills Dispensed: 0 B-12 0 Refills, Maintenance, 05/02/22 9:34:00 AM EDT, Partial fill upon patient request if the prescription is for a schedule II opioid drug. Start Date: 05/02/22 Status: Ordered Medication Dispense Status: Completed Total Allowed Fills: 1 Fills Dispensed: 0 calcium carbonate 500 mg (200 mg elemental calcium) oral tablet, chewable 1,000 mg, 2, tablet, Chew, Every hour, PRN, Not to exceed 7 tablets/24 hours., # 60 tablet, Refills0, Maintenance, heartburn, dyspepsia, 03/17/25 2:37:00 PM EDT, Partial fill upon patient request if the prescription is for a schedule II opioid drug. Start Date: 03/17/25 Status: Ordered Medication Dispense Status: Completed Quantity: 60.0 Unit: tablet Total Allowed Fills: 1 Fills Dispensed: 0 capsaicin 0.075% topical cream 1 application, Topically, 4 times a day, PRN left knee pain, Apply to left knee as needed for pain,# 30 Gm, 0 Refills, Maintenance, 03/17/25 2:34:00 PM EDT, Cream, Partial fill upon patient request if the prescription is for a schedule II opioid drug. Start Date: 03/17/25 Status: Ordered Medication Dispense Status: Completed Quantity: 30.0 Unit: g Total Allowed Fills: 1 Fills Dispensed: 0 Citrucel SF = 2 Gm, By Mouth, 3 times a day, 0 Refills, Maintenance, 07/26/16 8:28:52 AM EST Start Date: 07/26/16 Status: Ordered Medication Dispense Status: Completed Total Allowed Fills: 1 Fills Dispensed: 0 docusate sodium 100 mg oral capsule 100 mg, 1, capsule, By Mouth, Daily, PRN, Refills 0, Maintenance, as needed for constipation, 03/17/25 2:36:00 PM EDT, Partial fill upon patient request if the prescription is for a schedule II opioiddrug. Start Date: 03/17/25 Status: Ordered Medication Dispense Status: Completed Total Allowed Fills: 1 Fills Dispensed: 0 Garlic = 400 mg, By Mouth, Daily, 0 Refills, Maintenance, 03/17/25 2:32:00 PM EDT, Partial fill upon patient request if the prescription is for a schedule II opioid drug. Start Date: 03/17/25 Status: Ordered Medication Dispense Status: Completed Total Allowed Fills: 1 Fills Dispensed: 0 guaiFENesin 100 mg/5 mL oral liquid 10 mL = 200 mg, By Mouth, Every 4 hours, PRN for cough, # 300 mL, 0 Refills, Maintenance, 03/17/25 2:35:00 PM EDT, Liquid, Partial fill upon patient request if the prescription is for a schedule II opioid drug. Start Date: 03/17/25 Status: Ordered Medication Dispense Status: Completed Quantity: 300.0 Unit: mL Total Allowed Fills: 1 Fills Dispensed: 0 lidocaine 4% patch See Instructions, Apply 1 patch daily to left knee for pain. Do not leave patch on for more than 12hours at a time., 0 Refills, Maintenance, 03/17/25 2:35:00 PM EDT, Partial fill upon patient requestif the prescription is for a schedule II opioid drug. Start Date: 03/17/25 Status: Ordered Medication Dispense Status: Completed Total Allowed Fills: 1 Fills Dispensed: 0 lidocaine 4% patch 1 patch, Topically, Daily at bedtime, Apply 1 patch to right shoulder at bedtime. Remove patch in morning. Do not leave patch on for more than 12 hours at a time., 0 Refills, Maintenance, 03/17/25 2:48:00 PM EDT, Partial fill upon patient request if the prescription is for a schedule II opioid drug. Start Date: 03/17/25 Status: Ordered Medication Dispense Status: Completed Total Allowed Fills: 1 Fills Dispensed: 0 menthol-methyl salicylate 10%-15% topical cream 1 application, Topically, Daily, PRN as needed for pain, RIGHT SHOULDER, # 85 Gm, 0 Refills, Maintenance, 03/17/25 2:49:00 PM EDT, Cream, Partial fill upon patient request if the prescription is for aschedule II opioid drug. Start Date: 03/17/25 Status: Ordered Medication Dispense Status: Completed Quantity: 85.0 Unit: g Total Allowed Fills: 1 Fills Dispensed: 0 Miscellaneous Rx See Instructions, 0 Refills, Maintenance, Give 30ml bourbon or scotch every evening per 's request., 03/17/25 2:35:00 PM EDT Start Date: 03/17/25 Status: Ordered Medication Dispense Status: Completed Total Allowed Fills: 1 Fills Dispensed: 0 naproxen 500 mg oral tablet 1 tablet = 500 mg, By Mouth, 2 times a day, 0 Refills, Maintenance, 07/26/16 8:27:28 AM EST Start Date: 07/26/16 Status: Ordered Medication Dispense Status: Completed Total Allowed Fills: 1 Fills Dispensed: 0 Senna 8.6 mg oral tablet 8.6 mg, 1, tablet, By Mouth, Daily at bedtime, PRN, Refills 0, Maintenance, as needed for constipation, 03/17/25 2:34:00 PM EDT, Partial fill upon patient request if the prescription is for a scheduleII opioid drug. Start Date: 03/17/25 Status: Ordered Medication Dispense Status: Completed Total Allowed Fills: 1 Fills Dispensed: 0 traMADol 50 mg oral tablet 1 tablet = 50 mg, By Mouth, Daily, PRN Pain , Moderate, Not to be given within 8 hours of scheduledTramadol dose, 0 Refills, Maintenance, 03/17/25 2:36:00 PM EDT, Partial fill upon patient request ifthe prescription is for a schedule II opioid drug. Start Date: 03/17/25 Status: Ordered Medication Dispense Status: Completed Total Allowed Fills: 1 Fills Dispensed: 0 traMADol 50 mg oral tablet 1 tablet = 50 mg, By Mouth, Daily, Daily scheduled dose, 0 Refills, Maintenance, 03/17/25 2:37:00 PMEDT, Tablet, Partial fill upon patient request if the prescription is for a schedule II opioid drug. Start Date: 03/17/25 Status: Ordered Medication Dispense Status: Completed Total Allowed Fills: 1 Fills Dispensed: 0 Vitamin B1 Daily, 0 Refills, Maintenance, 05/02/22 9:34:00 AM EDT, Partial fill upon patient request if the prescription is for a schedule II opioid drug. Start Date: 05/02/22 Status: Ordered Medication Dispense Status: Completed Total Allowed Fills: 1 Fills Dispensed: 0 Vitamin B6 Daily, 0 Refills, Maintenance, 05/02/22 9:34:00 AM EDT, Partial fill upon patient request if the prescription is for a schedule II opioid drug. Start Date: 05/02/22 Status: Ordered Medication Dispense Status: Completed Total Allowed Fills: 1 Fills Dispensed: 0 Vitamin D3 1000 intl units oral tablet 1 tablet = 1,000 International_Units, By Mouth, Daily, 0 Refills, Maintenance, 07/26/16 8:29:07 AM EST Start Date: 07/26/16 Status: Ordered Medication Dispense Status: Completed Total Allowed Fills: 1 Fills Dispensed: 0 Problem List Condition Confirmation Course Effective Dates Status Health St atus Informant Obese class I Confirmed Active Social History Social History Type Response Smoking Status Never smoker entered on: 07/26/16 Sex Sex Representation Male (finding) Patient Care team information Care Team Personnel Name: Zuleyka Taylro NP Position: S Associate Professional Member Role: PCP Address: [address] [place] [address] Cardiac [address] Telecom: Care Team Related Persons Name: STEPHEN CORADO Name: JANNA LAZO Insurance Providers Guarantor name: TALON LAZO Health Plan Information #: 1 Payer: [facility] Payer Identifier: LITO Member Number: [id number] Group Number: [id number] Subscriber Identifier: LITO Relationship to Subscriber: self Coverage Type: NA Coverage Verification Date: NA Telecom: NA Address:
--- NOTE | 2025-05-01 10:26 | CA_ITS ---
Transthoracic Echocardiogram Patient (Last, First, Middle): Esdras Deep Shankar Gender: M Date of : 1935 Age: 89 Procedure Date: 05/01/2025 Procedure Type: Transthoracic Echocardiogram Location: OP Height: 180.34 cm Weight: 102.06 kg BSA: 2.22 m2 Heart Rate: 83 bpm BP: 140 / 80 mmHg Physical Plant Manager: SB Referring MD: Tramaine Barba MD Lieutenant/Deputy: Alexis Webster MD Symptoms: Z95.2 - Presence of prosthetic heart valve Study Quality: Adequate w contrast ECG Rhythm: Sinus Conclusions: - 1. Technically limited study 2. Normal LV ejection fraction of 60-65% with impaired relaxation filling pattern 3. Normally function bioprosthetic aortic valve with mean gradient of 9 mm Hg with trivial aortic regurgitation 4. Upper limits of normal ascending aortic size on some views Findings Procedure Information Contrast agent, definity, is being given per protocol without apparent complications. Left Ventricle Normal left ventricular size, thickness, and systolic function. The visually estimated ejection fraction is between 60-65%. Spectral Doppler is indicative of an impaired relaxation filling pattern. Right Ventricle The right ventricle was not well visualized. Atria The left atrium is normal in size. Interatrial shunt cannot be excluded. The right atrium was not well visualized. Aortic Valve A bioprosthetic aortic valve is present. The prosthetic aortic valve appears to be functioning normally. The mean gradient is 9 mmHg. There is trace (trivial) aortic valve regurgitation. Mitral Valve The mitral valve was not well visualized. There is mild anterior mitral leaflet thickening. There is severe mitral annular calcification. There is trace mitral valve regurgitation. There is no mitral valve stenosis. Pulmonic Valve The pulmonic valve was not well visualized. Tricuspid Valve The tricuspid valve was not well visualized. Tricuspid regurgitation envelope is inadequate for calculation of right ventricular systolic pressure. Indeterminate right atrial pressure. Great Vessels The aorta was not well visualized. The pulmonary artery was not well visualized. Venous The inferior vena cava was not well visualized. Pericardium/Pleural The pericardium was not well visualized. Prior Study Comparison Changes noted compared to prior study dated: 08/07/2024. normally function bioprosthetic valve as replaced [place] severe aortic stenosis Measurements 2D Linear Measurements IVSd: 1.28 0.6-0.9/0.6-1.0 cm LVIDd: 4.12 3.9-5.3/4.2-5.9 cm LVIDd Index: 1.86 2.4-3.2/2.2-3.1 cm/m2 LVIDs: 2.08 2.0-3.6 cm LVPWd: 1.00 0.7-1.1 cm LA Diam: 4.10 2.7-3.8/3.0-4.0 cm LAIDs Index: 1.85 1.5-2.3 cm/m2 LV Mass: 199.90 67-162/88-224 g LV Mass Index: 90.04 43-95/49-115 g/m2 LVOT Diam: 2.10 3.0+(-)1.3 cm 2D Systolic Function EF 4C: 63.50 >55% EF 2C: 60.70 >55% EF BiP: 63.20 >55% Mitral Valve MV VTI: 0.32 MV Pk Perry: 1.57 MV Mn Perry: 0.92 MV Pk Grad: 10.00 MV Mn Grad: 4.00 MV Pk E: 0.73 MV PK A: 1.41 MV Decel Time: 362.00 E/A: 0.50 E'Lateral: 5.22 E'Medial: 3.92 E/E' Med: 18.60 E/E' Lat: 13.90 PHT: 106.00 MVA PHT: 2.08 MVA Continuity: 2.21 Decel [place]: 2.01 Aortic Valve AoV Pk Perry: 2.07 AoV Mn Perry: 1.37 AoV VTI: 0.36 AoV Pk Grad: 17.00 Aov Mn Grad: 9.00 KARISSA Cont.VTI: 1.94 LVOT LVOT Pk Perry: 0.93 LVOT Mn Perry: 0.69 LVOT VTI: 0.20 LVOT Pk Grad: 3.00 LVOT Mn Grad: 2.00 LVOT Diam: 2.10 LVOT Area: 3.46 Diastolic Function MV Pk E: 0.73 MV Pk A: 1.41 E/A: 0.50 E'Medial: 3.92 E/E' Med: 18.60 E' Laterial: 5.22 E/E' Lat: 13.90 Right Ventricle TVS' Perry: 9.46 Great Vessels Aorta Ao Asc: 3.50 2.1-3.4 cm Pulmonary Veins Pulm Vein S/D 1.30 Updated in Other Vendor System with Status of Final Alexis Webster MD electronically signed on 05/01/2025 1:32:51 PM with status of Final
--- OUTSIDE RECORDS SUMMARY | 2025-05-01 11:24 | XMS_ITS | Clinical Summary ---
Author Organization [employer] Address [address] [facility] 7 [place] [address] Care Team Providers Care Mobile Marketing Manager Name Role Phone Unavailable Primary Care Provider Unavailabl e Allergies Active Allergy Reactions Criticality Noted Date Comments Hydrocortisone 07/09/2024 Medications gabapentin (Neurontin) 100 MG capsule Take 100 mg by mouth 4 times daily. Active guaiFENesin 200 MG tablet Take 200 mg by mouth every 4 (four) hours if needed for cough. Active Lidocaine (HM Lidocaine Patch) 4 % patch Apply topically every 12 (twelve) hours. Active nystatin (Mycostatin) cream Apply topically 2 times daily. Active capsicum (Zostrix) 0.075 % topical cream Apply topically 3 times daily. Active senna-docusate (Maia-Colace) 8.6-50 MG tablet Take 1 tablet by mouth Once per day. Active cyanocobalamin (Vitamin B-12) 500 MCG tablet Take 500 mcg by mouth Once per day. Active acetaminophen (Tylenol) 325 MG suppository Insert into the rectum. Active Thiamine HCl (vitamin B-1) 250 MG tablet Take 100 mg by mouth Once per day. Active pyridoxine (Vitamin B-6) 50 MG tablet Take 50 mg by mouth Once per day. Active cholecalciferol (Vitamin D-3) 25 MCG tablet Take 25 mcg by mouth Once per day. Active amoxicillin (Amoxil) 500 MG tablet Take 2,000 mg by mouth. Pre-Med before Dental procedures per medical clearance Active aspirin 81 MG EC tablet Take 81 mg by mouth Once per day. Active traMADol (Ultram) 50 MG tablet Take 50 mg by mouth. Active Social History Tobacco Use Types Packs/Day Years Used Date Smoking Tobacco: Unknown Tobacco Cessation:Counseling Given: Not Answered Alcohol Use Standard Drinks/Week Comments Defer 0 (1 standard drink = 0.6 oz pur e alcohol) Sex and Gender Information Value Date Recorded Sex Assigned at Male 03/04/2024 9:56 AM EDT Legal Sex Male 9:54 AM EDT Gender Identity Male 03/04/2024 9:56 AM EDT Sexual Orientation Straight 03/04/2024 9: 56 AM EDT Last Filed Vital Signs Vital Sign Reading Time Taken Comments Blood Pressure 128/66 09/10/2024 9:13 AM EST Pulse - - Temperature - - Respiratory Rate - - Oxygen Saturation - - Inhaled Oxygen Concentration - - Weight - - Height - - Body Mass Index - - Plan of Treatment Health Maintenance Due Date Last Done Comments Depression Screening 1935 Lipid Panel 1935 SDOH Screening 1935 Alcohol/Substance Use Screening 1947 RSV Patients and Patients Aged 60 years or older (1 - 1-dose 75+ series) 2010 Dental Oral Exam 01/07/2025 07/09/2024 Dental Prophylaxis 02/05/2025 08/06/2024 COVID-19 Vaccine ( season) 2025 06/22/2023, 09/29/2022, 07/11/2021, Additional history exists Influenza Vaccine (#1) 2025 , 05/21/2023, 06/08/2022, Additional history exists Dental X-Ray: Bitewings 07/10/2025 07/09/2024 Tobacco Screening 11/13/2025 11/13/2024 Dental X-Ray: Full Mouth 07/10/2027 07/09/2024 DTaP/Tdap/Td Vaccines (4 - Td or Tdap) 09/29/2032 09/29/2022, 02/28/2017, 03/04/2013 Pneumococcal Vaccine: 50+ Years Completed 09/29/2022 Zoster Vaccines Completed 11/21/2023, 04/28, 06/17/2013 HIB Vaccines Aged Out No longer eligi ble based on patient's age to complete this topic HPV Vaccines Aged Out No longer eligi ble based on patient's age to complete this topic Hepatitis A Vaccines Aged Out No long er eligible based on patient's age to complete this topic Hepatitis B Vaccines Aged Out No long er eligible based on patient's age to complete this topic IPV Vaccines Aged Out No longer eligi ble based on patient's age to complete this topic Meningococcal B Vaccine Aged Out No l onger eligible based on patient's age to complete this topic Meningococcal Vaccine Aged Out No matilde joaquín eligible based on patient's age to complete this topic RSV under 20 months Aged Out No longe r eligible based on patient's age to complete this topic Rotavirus Vaccines Aged Out No longer eligible based on patient's age to complete this topic Procedures Procedure Name Priority Date/Time Associated Diagnosis Comments PROPHYLAXIS - ADULT Routine 08/06/2024 8 :00 AM EST INTRAORAL - COMPLETE SERIES OF RADIOGRAPHIC IMAGES Routine 07/09/2024 8:00 AM EST COMPREHENSIVE ORAL EVALUATION - NEW OR ESTABLISHED PATIENT Routine 07/09/2024 8:00 AM EST from Last 3 Months or Most Recently Relevant to Health Maintenance
--- OUTSIDE RECORDS SUMMARY | 2025-05-01 11:24 | XMS_ITS | Patient Health Record ---
Author Organization [facility]ale[facility] Address [address] [facility] [place] [address] Care Team Providers Care Information Director Name Role Phone Jl Santana Primary Care Provider Unav ailable Ke Saleem Unavailable [phone] Allergies Allergen (clinical drug ingredient) Drug/Non Drug Allergy documented on EMR Reaction Allergy Type Onset Date Status hydrocortisone Cortizone-10 hives Drug Allergy Active Reason For Referral No Information Medications Medication SIG (Take, Route, Fr equency, Duration) Notes Start Date End Date Status Vitamin B1 Active Vitamin B6 Active Vitamin D 1000 UNIT 1 tablet Orally Once a day; Duration: 30 day(s) Not-Taking Keflex Not-Taking Vitamin B12 [...] Treatment Pending Test Test Name Order Date [id number] NAIL, 6 OR MORE 07/31/2023 [id number] NAIL, 6 OR MORE 10/30/2023 [id number] SKIN LESIONS, OVER 4 10/30/19 24 [id number] SKIN LESIONS, 2 TO 4 07/31/20 23 Insurance Providers Payer Name Payer Address Payer Phone Subscriber Number Group Number Insured Name Patient Relationship to Insured Coverage Start Date Coverage End Date [employer] [address] [place] [phone] [id number] Raad Dewitt Self - patient is the insured Medical (General) History Medical History History ICD Code broken bones measles chicken pox prostate conditions Back,Hip,and Knee pain Cancer- skin,bladder Mumps Bone implants/screws hydrocephulus hemochromatosis Surgical History Surgery Date(Month/Year) brain surgery-fluid on brain 11/2012 appendectomy 11/2012 knee surgery 2018
--- OUTSIDE RECORDS SUMMARY | 2025-05-01 11:24 | XMS_ITS | Clinical Summary ---
Author Organization [facility] Address [address] [place] [phone] Phone Care Team Providers Care Pot Sander Name Role Phone Jl Huber CORDAGE SALES REPRESENTATIVE Primary Care Provider + Allergies No known active allergies Medications naproxen (NAPROSYN) 250 MG tablet Take 250 mg by mouth 2 (two) times a day with meals. Active gabapentin (NEURONTIN) 100 MG capsule Take 100 mg by mouth 4 (four) times a day. Active therapeutic multivitamin tablet Take 1 tablet by mouth daily. Active methylcellulose, laxative, (CITRUCEL) Powd Take 2 g by mouth daily. Active Social History Tobacco Use Types Packs/Day [...] on file Sexual Orientation Not on file Last Filed Vital Signs Vital Sign Reading Time Taken Comments Blood Pressure 137/83 02/19/2020 11:34 AM EDT Pulse 78 02/19/2020 11:34 AM EDT Temperature 36.6 C (97.9 F) 02/19/2020 11:34 AM EDT Respiratory Rate 16 02/19/2020 11:34 AM EDT Oxygen Saturation 98% 02/19/2020 11:34 AM EDT Inhaled Oxygen Concentration - - Weight 99.8 kg (220 lb) 02/19/2020 11:34 AM EDT Height 180.3 cm (5' 11 ) 02/19/2020 11:34 AM EDT Body Mass Index 30.68 02/19/2020 11:34 AM EDT Plan of Treatment Health Maintenance Due Date Last Done Comments DEPRESSION SCREENING 1947 PNEUMOCOCCAL VACCINES (50+ years) (1 of 1 - PCV) 1985 RSV VACCINE (1 - 1-dose 75+ series) 2010 ZOSTER VACCINES (2 of 3) 08/12/2013 06/17/2013 INFLUENZA VACCINE (#1) 2025 , 05/27/2019, 05/25/2018, Additional history exists COVID-19 VACCINE ( season) 2025 07/11/2021, 10/08/2020, 09/10/2020 Adult Td,Tdap Booster 02/28/2027 02/28/2017 HEPATITIS A VACCINES Aged Out No long er eligible based on patient's age to complete this topic HIB VACCINES Aged Out No longer eligi ble based on patient's age to complete this topic MENINGOCOCCAL VACCINES (ACWY) Aged Out No longer eligible based on patient's age to complete this topic MENINGOCOCCAL VACCINES (B) Aged Out N o longer eligible based on patient's age to complete this topic Medical Devices Not on file Insurance [employer] RE[employer]AC[employer] MEDICARE HMO REPLACEMENT [employer] MEDICARE HMO REPLACEMENT MEDICARE HMO REPLACEMENT MEDICARE HMO REPLACEMENT [employer] Member Subscriber Plan / Payer (Ef fective 2019-Present) Name:Raad Dewitt Relation to Subscriber:Self Name:Raad Dewitt Payer ID:Not on file Type:Medicare Address: [place] [id number] [employer] H[employer] REPLACEMENT Care Teams Pot Sander Relationship Specialty Start Date End Date Jl Huber NP [facility] [address] PCP - General Family Medicine 02/19/20 Additional Source Comments The information contained in this document represents components of the legal health record. It is not the complete legal health record.[facility]
== END ==
LOC: HO.CARD 10:20
PROVIDERS: PCP Nurse Practitioner Acute Care; Visit Provider Internal Medicine Cardiovascular Disease
DX: Z95.2 Presence of prosthetic heart valve (principal)
CPT/HCPCS: 93306; Q9957

== ENCOUNTER → 2025-05-01 10:26 | Outpatient (BNV) | payer OTHER, SELFPAY | PROVIDERS: PCP Nurse Practitioner Acute Care; Visit Provider Internal Medicine Cardiovascular Disease | DX: I34.81 Nonrheumatic mitral (valve) annulus calcification (principal); Z95.3 Presence of xenogenic heart valve | CPT/HCPCS: 93306 ==

== ENCOUNTER 2025-06-01 14:11 | Outpatient (AMB) | payer MEDICARE, SELFPAY ==
--- OUTSIDE RECORDS SUMMARY | 2020-02-19 12:08 | XMS_ITS | Encounter Summary ---
Author Organization [facility] Address [address] [place] [phone] Phone Care Team Providers Care Presser All Around Name Role Phone Jl Huber DRAW TENDER Primary Care Provider + Encounter Details Date Type Department Care Team (Late st Contact Info) Description 02/19/2020 12:08 PM EDT Hospital Encounter [facility] [address] [place] [phone] Mariza Lua CNP [address] [place] [phone] Social History Tobacco Use Types Packs/Day Years [...] cardiopulmonary abnormality apparent. POS [id number] Mariza Lua RADIATION PROTECTION SPECIALIST IMG XR CHEST Final Resul t documented in this encounter Visit Diagnoses Not on filedocumented in this encounter Care Teams Presser All Around Relationship Specialty Start Date End Date Jl Huber NP [facility] [place] [address] PCP - General Family Medicine 02/19/20 documented as of this encounter Additional Source Comments The information contained in this document represents components of the legal health record. It is not the complete legal health record.[facility]
--- OUTSIDE RECORDS SUMMARY | 2024-01-29 06:00 | XMS_ITS ---
Author Organization [facility] Address [address] [place] [address] Care Team Providers Care Hadoop Architect Name Role Phone Jl Santana Primary Care Provider Unav ailable Ke Saleem Unavailable [phone] Encounters Encounter Location Date Provider Diagnosis [facility] [address] [place] [address] 01/29/2024 Ke Saleem Plan Of Treatment No Information Progress Notes * Raad LAZO WDOB: [birth year] (89 yo M)Acc No.[id number]:01/29/2024 Progress Note Patient: Raad RUFF Provider: Elif Saleem DPM :1935 A ge:88 Y S ex:Male Date:01/29/2024 Address:[address] [place], [place] [address]Gillian [id number] Pcp:DOC Wall Subjective: * Chief Complaints: * [...] 0 01/29/2024 Generated for Debbii alberto/Torrie/eTransmitting on: 1 04:43 PM EDT
--- NOTE | 2025-06-01 14:39 | MHC.OFFVIS ---
Vital Signs 06/01/25 14:40 Height 5 ft 11 in BMI Reason not done Patient refused/unable BP 110/62 Blood Pressure Location Lt brachial Position Sitting Pulse 87 Pulse Source Monitor Intake Visit Reasons: TAVR 03/26 Intake Note: f/up-TAVR 03/26 Solar Water Heater Installer Required: No Accompanied by: Sister Allergies hydrocortisone (Cortizone-10) Allergy (Unknown, Verified 02/05/25 10:26) hives Medication List - Last Reconciled 06/02/25 by Tramaine Barba MD apixaban (Eliquis) 5 mg PO BID cholecalciferol (vitamin D3) 25 mcg PO DAILY furosemide (Lasix) 20 mg PO DAILY PRN garlic 100 mg PO DAILY [ibuprofen 200 mg PO Q6-8H PRN] lisinopril 5 mg PO DAILY mecobalamin (vitamin B12) 1,000 mcg PO DAILY pyridoxine (vitamin B6) 500 mg PO DAILY sennosides 8.6 mg PO BEDTIME thiamine HCl (vitamin B1) 100 mg PO DAILY tramadol 50 mg PO Q8H PRN HPI Comments Details: [age] year gentleman here for f/u. He had echocardiography performed recently which showed calcified valve with mean gradient of 41 mm Hg and aortic valve area of 0.88 cm2. He has background history of bladder cancer which is in remission. No recent bleeding and he has been tolerating baby aspirin. 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 He came to the office in a wheelchair. [facility] [place] He is saying that he walks around the facility 1 to 2 times a day. His daughter accompanied him and is saying that this is not a big facility and mostly he is quite sedentary and spends the day in the wheelchair. He is denying any chest pain, shortness of breath or syncope. 06/01/2025: He is here for follow-up. He is status post transcatheter aortic valve replacement. He did quite well after the procedure. He was sent home with a 14 day monitor which showed atrial fibrillation and he has been on Eliquis. [facility] and they have noticed that his heart rate at times is high and the documented heart rates are 90-104 beats per minute. This is definitely not significantly elevated. The patient has no symptoms in particular no palpitations. Denying any chest pain or shortness of breath. In the office his EKGs showing sinus rhythm with right bundle-branch block. He is saying that when he tries to walk he has bad knee pain and is planning to see orthopedics for that. This limits his mobility and he feels tired due to deconditioning. FOR[facility]LY [facility], [facility] Medical History Blood per rectum Venous stasis Venous insufficiency Tricuspid valve insufficiency Hydrocephalus Depression Mitral valve insufficiency BCC (basal cell carcinoma) Aortic stenosis Hemochromatosis Neuropathy Surgical History History of vein stripping WAIVER ANALYST (ventriculoperitoneal) 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 Daughter No problems noted. Social History Household Members: None Housing: House Are you a primary career education teacher to a significant other at home: No Do you presently have visiting nurse or other home services: Yes (daily Meals on Wheels, very supportive Daughter Funmi and Son-in-law Raad) Alcohol intake: current Alcohol intake frequency: 0-2 drinks per day Alcohol type: other Comment: aware of trip hazard Patient Tobacco Use Status: Never used Tobacco e-Cigarette/Vaping Use: Never Used Second Hand Smoke Exposure: No Substance Use Type: Marijuana Advance Directives Date on File: 03/22/22 service: Yes Current occupational status: retired Cognitive needs: No Hearing needs: No Vision needs: Yes Review of Systems Const Denies chills, Denies fatigue, Denies fever(s), Denies frequent falls, Denies weakness, Denies weight gain and Denies weight loss ENT Denies dizziness Card Denies chest pain, Denies leg edema, Denies lightheadedness, Denies palpitations, Denies dyspnea and Denies dyspnea on exertion Resp Denies cough, Denies dyspnea and Denies dyspnea on exertion GI Denies hematochezia Musc Denies abnormal gait, Denies muscle weakness, Denies numbness, Denies radiating pain into limb and Denies tingling Neuro Denies abnormal gait, Denies dizziness, Denies frequent falls, Denies numbness, Denies tingling and Denies weakness Endo Denies fatigue and Denies palpitations Physical Exam Vital Signs: Last Vital Signs Pulse 87 06/01/25 14:40 BP 110/62 06/01/25 14:40 GENERAL APPEARANCE: in no acute distress, pleasant. NECK: no carotid bruit, no jugular venous distention. SKIN: no suspicious lesions, warm and dry. HEART: No murmur, regular rate and rhythm. LUNGS: clear to auscultation bilaterally. ABDOMEN: soft, nontender. EXTREMITIES: +1 edema. PERIPHERAL PULSES: equal. NEUROLOGIC: No gross deficits, AAO X 3 Office Procedures EKG Details: Sinus rhythm 87 beats per minute, right bundle-branch block, inferior infarct, QTC 457 milliseconds. [id number], Complete Assessment & Plan Assessment & Plan (1) S/P TAVR (transcatheter aortic valve replacement): Code(s): Z95.2 - Presence of prosthetic heart valve Category: Surgical (2) PAF (paroxysmal atrial fibrillation): Code(s): I48.0 - Paroxysmal atrial fibrillation Category: Medical Plan [age] year gentleman who is here for follow-up. He is status post transcatheter aortic valve replacement for severe aortic valve stenosis at this stage. He had 14 days monitor which showed atrial fibrillation and he has been on Eliquis. No bleeding. He had 2 EKGs [facility] which did not show atrial fibrillation. EKGs in the office is also showing sinus rhythm at this point. I think he is stable from AFib point of view. His echocardiography has shown normal functioning bioprosthetic aortic valve with mean gradient of 9 mm Hg. He will continue same medications. He will follow-up with orthopedics to have knee injection. I have advised him that he should do as much exercise as he can. Apparently there [facility] the [facility] and he will try to do exercises there. Thank you for allowing me to participate in the care of your patient. Please feel free to contact me if you have any questions. Coding Level of Care Code Est Pt Level 4 (30754) Diagnoses S/P TAVR (transcatheter aortic valve replacement) Z95.2 PAF (paroxysmal atrial fibrillation) I48.0 CPT Codes EKG - CPT: 87617-[id number], Complete ([id number])
[2025-06-01 14:40] VITALS: BP 110/62; PULSE 87
--- OUTSIDE RECORDS SUMMARY | 2025-06-01 16:42 | XMS_ITS | Clinical Summary ---
Author Organization [facility] Address [address] [place] [address] Care Team Providers Care Detention Deputy Name Role Phone Unavailable Primary Care Provider [...]
--- OUTSIDE RECORDS SUMMARY | 2025-06-01 16:43 | XMS_ITS | Patient Health Record ---
Author Organization [facility] Address [address] [place] [address] Care Team Providers Care Director Business Travel Name Role Phone Jl Santana Primary Care Provider Unav ailable Ke Saleem Unavailable [phone] Allergies Allergen (clinical drug ingredient) Drug/Non Drug [...] Treatment Pending Test Test Name Order Date [id number] NAIL, 6 OR MORE 07/31/2023 [id number] NAIL, 6 OR MORE 10/30/2023 [id number] SKIN LESIONS, OVER 4 10/30/19 24 [id number] SKIN LESIONS, 2 TO 4 07/31/20 23 Insurance Providers Payer Name Payer Address Payer Phone Subscriber Number Group Number Insured Name Patient Relationship to Insured Coverage Start Date Coverage End Date [employer] [address] [place] [address] [id number] Raad Dewitt Self - patient is the insured Medical (General) History Medical History History ICD Code broken bones measles chicken pox prostate conditions Back,Hip,and Knee pain Cancer- skin,bladder Mumps Bone implants/screws hydrocephulus hemochromatosis Surgical History Surgery Date(Month/Year) brain surgery-fluid on brain 11/2012 appendectomy 11/2012 knee surgery 2018
--- OUTSIDE RECORDS SUMMARY | 2025-06-01 16:43 | XMS_ITS | Clinical Summary ---
Author Organization [facility] Address [address] [place] [id number] Phone Care Team Providers Care Coding Specialist Home Health Name Role Phone Jl Huber [employer] G[employer] COUNSELOR Primary Care Provider + Allergies No known [...] Dewitt Payer ID:Not on file Type:Medicare Address: [place] [id number] [employer] [place] MED[employer] HMO REPLACEMENT Care Teams Coding Specialist Home Health Relationship Specialty Start Date End Date Jl Huber NP [facility] [place] [address] PCP - General Family Medicine 02/19/20 Additional Source Comments The information contained in this document represents components of the legal health record. It is not the complete legal health record.[facility]
== END 2025-06-01 15:13 | disposition home or self-care (01) ==
LOC: HO.HCS 14:11
PROVIDERS: PCP Nurse Practitioner Acute Care; Visit Provider Internal Medicine Cardiovascular Disease
DX: Z95.2 Presence of prosthetic heart valve (principal); I48.0 Paroxysmal atrial fibrillation
CPT/HCPCS: 99214

== ENCOUNTER → 2025-06-01 14:11 | Outpatient (BNVA) | payer MEDICARE, OTHER, SELFPAY | PROVIDERS: PCP Nurse Practitioner Acute Care; Visit Provider Internal Medicine Cardiovascular Disease | DX: I48.0 Paroxysmal atrial fibrillation (principal); I45.10 Unspecified right bundle-branch block; I35.0 Nonrheumatic aortic (valve) stenosis; Z95.2 Presence of prosthetic heart valve; Z79.01 Long term (current) use of anticoagulants | CPT/HCPCS: 99212 ==